=== PATIENT | male | born 1950 | race Caucasian/White ===

== ENCOUNTER 2019-03-27 16:20 | Inpatient (IN) ==
[2019-03-27] MEDS ORDERED: ADENOSINE IV SOLN 3 MG/ML 2 ML VIAL IV STA ×2 (16:24→17:14)
[2019-03-27] MEDS ORDERED: SODIUM CHLORIDE 0.9% 1000ML 1,000 ML IV ONE ×3 (16:24→16:44)
[2019-03-27] MEDS ORDERED: MAGNESIUM SULFATE / D5W 1 GM/100 ML BAG IV ONE (16:27)
[2019-03-27] MEDS ORDERED: LEVALBUTEROL HCL 1.25 MG/3 ML NEB NEB STA (16:27)
[2019-03-27] MEDS ORDERED: DAPTOmycin 525 MG in SYRINGE 0 ML IV ONE (16:44)
[2019-03-27] MEDS ORDERED: METOCLOPRAMIDE HCL INJ 5 MG/ML 2 ML VIAL IV STA (16:44)
[2019-03-27] MEDS ORDERED: POTASSIUM CHLORIDE 10 MEQ TABCR PO STA (16:44)
[2019-03-27] MEDS ORDERED: PIPERACILLIN/TAZOBACTAM 4.5 GM/120 ML BAG IV ONE (16:44)
[2019-03-27] MEDS ORDERED: LEVOFLOXACIN/D5W 750 MG/150 ML BAG IV STA (16:48)
[2019-03-27] MEDS ORDERED: AZTREONAM 2,000 MG in DEXTROSE 5% 100 ML IV STA (16:48)
[2019-03-27 16:58] LABS: iSTAT Creatinine 1.3 mg/dl (0.6-1.3); iSTAT Hemoglobin 14.3 g/dl (14.0-18.0); iSTAT Ionized Calcium 0.98 mmol/l (1.12-1.32); iSTAT Potassium 3.4 mEq/L (3.3-5.0)
[2019-03-27] MEDS ORDERED: FUROSEMIDE 40 MG/4 ML VIAL IV STA (17:00)
[2019-03-27] MEDS: POTASSIUM CHLORIDE / WTR 10 MEQ/100 ML PLCT IV SCH ×2 (17:01→18:15)
[2019-03-27] MEDS ORDERED: NITROGLYCERIN 2% OINTMENT 30GM TUBE EXT STA (17:02)
--- NOTE | 2019-03-27 17:14 | XRay Report ---
XR chest 1V portable CLINICAL HISTORY: 68 years-old Male presenting with Sepsis. TECHNIQUE: Portable upright AP view of the chest was obtained. COMPARISON: 07/02/2015. FINDINGS: Atherosclerosis of the aortic arch. Cardiac silhouette normal in size. Patchy opacities predominately in the right mid and upper lung and left mid to lower lung. No large effusion or pneumothorax. Degen erative changes of the thoracic spine. IMPRESSION: 1. Multifocal pneumonia predominantly involving the right mid to upper lung and left mid to lower hubert ng. Electronically signed by: Bharat Mir M.D. 03/27/2019 5:13 PM
[2019-03-27 17:27] LABS: Base Excess ABG -3.3 mEq/L (-9-1.8); HCO3 ABG 18 mmol/L (19-24); Oxygen Saturation ABG 87.1 % (90-95); PCO2 ABG 24 mmHg (35-46); PO2 ABG 52 mm/Hg (80-95); pH ABG 7.49 (7.35-7.45)
[2019-03-27 17:35] LABS: Allen Test Pos (Pos)
[2019-03-27 17:38] LABS: INR 1.3 (0.9-1.1); Partial Thromboplastin Ratio 1.1; Partial Thromboplastin Time 29.3 Seconds (21.0-31.0); Prothrombin Time 13.5 Seconds (9.0-12.0)
[2019-03-27 17:41] LABS: Albumin Level 1.8 gm/dl (3.4-5.0); BUN Creatinine Ratio 15.5 (10-20); Calcium 8.8 mg/dl (8.5-10.1); Creatinine Clr Calc Pharmacy 68.9 ml/min; Est GFR (African American) 57.4; Est GFR (Non-African American) 49.5; Potassium 3.2 mmol/L (3.5-5.1)
[2019-03-27 17:43] LABS: Appearance Urine Cloudy (Clear); Bacteria Urine Automated 1+ (Negative); Blood Urine 1+ (Negative); Color Urine Dark Yellow; Epithelial Cell Urine Auto 0-5 /lpf (0-5); Glucose Urine UA Negative (Negative); Ketones Urine Trace (Negative); Leukocyte Esterase Urine 2+ (Negative); Nitrite Urine Negative (Negative); Protein Urine Trace (Negative); Specific Gravity Urine 1.025 (1.000-1.030); Urobilinogen Urine Negative (Negative); WBC Urine Automated >30 /hpf (0-5); pH Urine 5.5 (4.5-7.5)
[2019-03-27 17:58] LABS: Bilirubin Urine 1+ (Negative)
[2019-03-27 18:00] LABS: Appearance Urine Cloudy (Clear); Bacteria Urine Automated 1+ (Negative); Blood Urine 2+ (Negative); Color Urine Dark Yellow; Epithelial Cell Urine Auto 0-5 /lpf (0-5); Glucose Urine UA Negative (Negative); Ketones Urine Trace (Negative); Leukocyte Esterase Urine 2+ (Negative); Nitrite Urine Negative (Negative); Protein Urine Trace (Negative); Specific Gravity Urine 1.025 (1.000-1.030); Urobilinogen Urine Negative (Negative); WBC Urine Automated >30 /hpf (0-5); pH Urine 5.5 (4.5-7.5)
[2019-03-27 18:09] LABS: Albumin Globulin Ratio 0.4 (0.9-2); Bilirubin,Total 0.5 mg/dl (0.2-1); Creatine Kinase MB 20.6 ng/ml (0.5-3.6); Globulin 4.1 gm/dl (2.5-4.0); Total Protein 5.9 gm/dl (6.4-8.2); Troponin I 0.105 ng/ml (0-0.045)
[2019-03-27 18:12] LABS: Bilirubin Urine Negative (Negative); Ictotest Urine Negative (Negative)
[2019-03-27 18:13] LABS: Cast Urine Automated 0 /lpf (0-5); RBC Urine Automated 0-4 /hpf (0-4)
[2019-03-27 18:25] LABS: Hematocrit (blood only) 38.8 % (42-52); Mean Corpuscular Hgb Conc 36.1 g/dL (32-36); Mean Corpuscular Volume 95.1 fL (80-100); Mean Platelet Volume 11.3 fL (7.4-10.4); Platelet Count 348 K/uL (130-400); RDW Coefficient of Variation 14.2 % (11.5-14.5); RDW Standard Deviation 49.4 fL (36.4-46.3); Red Blood Count 4.08 M/uL (4.7-6.1); White Blood Count 23.83 K/uL (4.8-10.8)
[2019-03-27 18:42] LABS: Amphetamines+Metham, Urine Neg (Neg); Barbiturates, Urine Neg (Neg); Benzodiazepine, Urine Neg (Neg); Cocaine, Urine Neg (Neg); MDMA (Ecstacy), Urine Neg (Neg); Methadone, Urine Neg (Neg); Opiate, Urine Neg (Neg); Phencyclidine, Urine Pos (Neg)
[2019-03-27 18:49] LABS: Basophils # (auto) 0.02 K/uL (0-0.2); Basophils % (auto) 0.1 %; Eosinophils # (auto) 0.01 K/uL (0-0.5); Immature Granulocytes # (auto) 0.17 K/uL (0.00-0.02); Immature Granulocytes % (auto) 0.7 %; Lymphocytes # (auto) 1.96 K/uL (1.2-3.4); Lymphocytes % (auto) 8.2 %; Monocytes # (auto) 0.98 K/uL (0.11-0.59); Monocytes % (auto) 4.1 %; Neutrophils # (auto) 20.69 K/uL (1.4-6.5); Neutrophils % (auto) 86.9 %; Toxic Vacuolation 1+
[2019-03-27] MEDS ORDERED: LORazepam 1 MG/2 ML VIAL IV PRN (18:52)
[2019-03-27] MEDS ORDERED: ICU PROTOCOL FOR HYPERGLYCEMIA PRN (18:52)
[2019-03-27] MEDS ORDERED: THIAMINE HCL 100 MG TAB PO STA (18:52)
[2019-03-27] MEDS ORDERED: FUROSEMIDE 40 MG/4 ML VIAL IV SCH (18:52)
[2019-03-27] MEDS ORDERED: FOLIC ACID 1 MG TAB PO SCH (18:52)
--- NOTE | 2019-03-27 18:56 | History & Physical Report ---
Date of Service March 27, 2019 Assessment & Plan (1) Respiratory failure: (2) Acute CHF: (3) Non-ischemic cardiomyopathy: -admit to ICU -patient presenting from home with reports of worsening shortness of breath, cough, and weakness for the past 3 days -in the ED, patient found to be in respiratory distress requiring application of BiPap -on exam, patient has extensive pitting edema extending up to the thighs -history of non-ischrmic cardiomyopathy; echo 2014, EF 45-50% -Lasix 40mg IV q8h -previously was taking carvedilol however discontinued due to side effects; will hold lisinopril for now due to borderline low BPs -update echo -cardiology consult, input appreciated (4) SIRS (systemic inflammatory response syndrome): -Meets SIRS criteria with WBC 23K, tachycardia, tachypnea, lactic acid elevation at 4.5 -Possible sepsis due to pneumonia and/or UTI -will place empirically on IV ceftriaxone and IV doxycycline -follow cultures -Trend lactic acid -Stress/hypoperfusion from severe CHF likely contributing to findings of SIRS criteria as well (5) Atrial fibrillation with RVR: -In the ED, received 2 doses of IV adenosine -IV amiodarone and IV heparin ordered by fire supervisor (6) Elevated LFTs: -likely shock liver due to volume overload/possible sepsis -history of ETOH abuse as well -monitor LFTs -no abdominal pain -consider RUQ US (7) Diarrhea: -check for C. Diff (8) Alcohol abuse: -reports 2 drinks/day, suspect use is higher -ETOH withdrawal protocol -thiamine, multivitamin, folic acid (9) Elevated CK: -CK 3688 -likely due to hypoperfusion -monitor serial CK levels -creat mildly bumped at 1.4 (10) CLINT (acute kidney injury): -creat 1.4 -baseline ~ 0.9 -likely prerenal in nature due to hypoperfusion, acute illness -follow renal functions (11) Elevated troponin: -mildly elevated, no reports of chest pain -likely demand ischemia -EKG shows ST depression in the lateral leads, likely due to tachycardia -serial cardiac enzymes (12) Hypokalemia: -replace, follow Mg+ levels (13) COPD (chronic obstructive pulmonary disease): -nebs -continue home inhalers (14) Hypertension: -BP borderline low, holding lisinopril for now (15) HLD (hyperlipidemia): -hold statin due to elevated LFTs (16) GERD (gastroesophageal reflux disease): -continue PPI (17) DVT prophylaxis: -heparin gtt History of Present Illness Chief Complaint: Shortness of breath, generalized weakness Primary Care Provider: Ravindra Maldonado DO 68-year-old male who presents the ED with shortness of breath and generalized weakness.Patient reports over the past 3 to 4 days, he has been very weak and unable to climb his stairs at home. He reports progressive worsening shortness of breath. He has had a cough productive for white sputum. He has had a few falls over the past few days. He denies chest pain. No lightheadedness, dizziness, diaphoresis, syncopal event. He notes increasing lower extremity edema over the past 1 month. He denies fevers and chills. He has had diarrhea and denies abdominal pain, nausea, vomiting, bright red bleeding per rectum, dark tarry stools.No urinary symptoms. In the ED, patient was found to be in respiratory distress and hypoxic. He was placed on BiPAP. He was tachycardic with heart rate in the 140s, BP somewhat low however stable. Labs show several abnormalities including WBC 23K, Na+ 131, K+ 3.2, creatinine 1.4, lactic acid 4.5, elevated LFTs, troponin 0.105, proBNP 4219, procalcitonin 7.35. Patient was given IVF, potassium replacement, IV Zosyn, topical nitroglycerin, IV Reglan, IV magnesium, IV Levaquin, nebulizer treatment, furosemide 40 mg IV, IV daptomycin, IV aztreonam, 2 doses of IV adenosine. Allergies Allergy/AdvReac Type Severity Reaction Status Date / Time amoxicillin Allergy Intermediate HIVES Verified 04/17/13 15:53 Home Medications Home Medications Medication Instructions Recorded Confirmed Type acetaminophen-codeine 1 tab PO TID PRN 03/27/19 03/27/19 History albuterol sulfate [Ventolin HFA] 2 inh INHALATION QID PRN 03/27/19 03/27/19 History aspirin 81 mg PO DAILY 03/27/19 03/27/19 History atorvastatin 40 mg PO DAILY 03/27/19 03/27/19 History azithromycin See Rx Instructions .ROUTE 03/27/19 03/27/19 History .COMPLEX PRN escitalopram oxalate 20 mg PO DAILY 03/27/19 03/27/19 History fluticasone furoate-vilanterol 1 inh INHALATION DAILY 03/27/19 03/27/19 History [Breo Ellipta] lorazepam 1 mg PO TID PRN 03/27/19 03/27/19 History meclizine 12.5 mg PO BID PRN 03/27/19 03/27/19 History multivitamin 1 tab PO DAILY 03/27/19 03/27/19 History omeprazole 20 mg PO BID 03/27/19 03/27/19 History potassium chloride [Klor-Con M10] 20 meq PO BID 03/27/19 03/27/19 History Past Med/Surg History Medical History Alcohol abuse (Chronic) GERD (gastroesophageal reflux disease) (Chronic) Non-ischemic cardiomyopathy (Chronic) echo 2015 - EF 45-50% HLD (hyperlipidemia) (Chronic) COPD (chronic obstructive pulmonary disease) (Chronic) Hypertension (Chronic) Surgical History History of cardiac cath (Chronic) 2012 - normal coronaries Family History Father Alcoholism Mother Alcoholism Social History Feels Safe at Home: Yes Smoking Status: Current every day smoker Hx Alcohol Use: Yes Alcohol type: hard liquor Alcohol Intake Frequency Comment: 2 shots / night Review of Systems Review of Systems: ROS per HPI, all other systems reviewed and negative Physical Exam Constitutional: WD/WN, vitals as above Eyes: PERRL, conjunctivae normal, anicteric sclerae ENMT: external ear and nose normal, oropharynx normal Respiratory: normal respiratory effort; no respiratory distress Auscultation: + diminished lung sounds and + crackles (bilateral) tolerating BiPap well Cardiovascular: Rate/Rhythm: + tachycardic and + irregularly irregular Vessels: normal peripheral pulses Extremities: + edema (+3 pitting edema extending up to the thighs) Gastrointestinal (Abdomen): normal bowel sounds, soft, nontender, no hepatosplenomegaly Musculoskeletal: no cyanosis or clubbing, extremities motor strength 5/5 Skin: no rashes, warm and dry Neurologic: PERRL, EOMI, accommodation nl, no face palsy, no dysarthria Psychiatric: A+Ox3, euthymic affect Results & Data Vital Signs (Past 12 Hours) Vital Signs Temp Pulse Resp BP Pulse Ox 03/27/19 18:11 144 H 19 96 03/27/19 18:10 130 H 17 110/64 98 03/27/19 18:05 125 H 24 115/63 98 03/27/19 18:01 152 H 19 100 03/27/19 18:00 140 H 20 104/66 96 03/27/19 17:55 140 H 19 105/67 93 03/27/19 17:51 131 H 19 96 03/27/19 17:50 119 H 20 101/64 99 03/27/19 17:45 132 H 19 109/46 L 92 03/27/19 17:41 149 H 26 H 90 03/27/19 17:40 140 H 26 H 98 03/27/19 17:35 132 H 28 H 120/70 100 03/27/19 17:31 137 H 24 100 03/27/19 17:30 107 H 24 95/59 L 100 03/27/19 17:26 145 H 20 100 03/27/19 17:25 131 H 22 104/55 L 100 03/27/19 17:21 135 H 28 H 100 03/27/19 17:20 127 H 21 103/56 L 100 03/27/19 17:15 130 H 19 117/65 100 03/27/19 17:11 144 H 19 117/58 L 100 03/27/19 17:10 143 H 19 100 03/27/19 17:07 132 H 21 124/75 95 03/27/19 17:00 144 H 14 89 L 03/27/19 16:50 132 H 18 83 L 03/27/19 16:47 143 H 22 97 03/27/19 16:41 140 H 29 H 89 L 03/27/19 16:40 37.1 C 156 H 30 H 144/116 H 89 L 03/27/19 16:36 144 H 27 H 101/66 90 Laboratory Results Short CBC 03/27/19 Range/Units 16:37 WBC 23.83 H (4.8-10.8) K/uL Hgb 14.0 (14.0-18.0) g/dL Hct 38.8 L (42-52) % Plt Count 348 (130-400) K/uL BMP 03/27/19 16:37 Sodium 131 L Potassium 3.2 L Chloride 95 L Carbon Dioxide 19 L BUN 22 H Creatinine 1.44 H Glucose 98 Calcium 8.8 Cardiac Enzymes 03/27/19 Range/Units 16:37 Total Creatine Kinase 3688 H (39-308) U/L CK-MB (CK-2) 20.6 H (0.5-3.6) ng/ml Troponin I 0.105 H* (0-0.045) ng/ml Liver Function 03/27/19 Range/Units 16:37 Total Bilirubin 0.5 (0.2-1) mg/dl AST 298 H (15-37) U/L ALT 81 H (12-78) U/L Alkaline Phosphatase 343 H (45-117) U/L Albumin 1.8 L (3.4-5.0) gm/dl Urine 03/27/19 03/27/19 Range/Units 17:00 17:18 Urine Color Dark Yellow Dark Yellow Urine Appearance Cloudy A Cloudy A (Clear) Urine pH 5.5 5.5 (4.5-7.5) Ur Specific [place] 1.025 1.025 (1.000-1.030) Urine Protein Trace H Trace H (Negative) Urine Glucose (UA) Negative Negative (Negative) Diagnostic Findings CXR IMPRESSION: 1. Multifocal pneumonia predominantly involving the right mid to upper lung and left mid to lower lung. Code Status & VTE Plan Code Status Patient is a full code as per my discussion with him. VTE Prophylaxis Plan VTE Prophylaxis will be ordered: Yes Supervising Physician Co-Signing Physician Notes Patient is a 68-year-old male with history of alcohol use disorder, COPD, ongoing tobacco use, cardiomyopathy and other problems presents with history of worsening shortness of breath and generalized weakness since 2 weeks duration. Also reports productive cough, frequent falls worsening lower extremity edema since 1 month, diarrhea. Patient was prescribed azithromycin course for COPD with no resolution of symptoms. Please review HPI for complete details of presentation. On exam patient is chronically sick appearing, mild respiratory distress, normocephalic atraumatic, lungs-decreased breath sounds, clear to auscultation, irregularly irregular rhythm,+ tachycardia, no murmur, abdomen soft nontender, significant bilateral lower extremity edema, grossly no focal neurological deficits. Patient is admitted in ICU for management of acute respiratory failure secondary to CHF exacerbation, A. fib RVR, rhabdomyolysis, metabol ic/lactic acidosis. Possible sepsis. Also to rule out UTI, pneumonia. Patient is started on IV amiodarone, IV heparin GGT. Cardiology consulted. Continue respiratory support with supplemental oxygen, BiPAP PRN. Keep him n.p.o. for now. Continue empiric antibiotics, nebs. IV diuresis. Follow-up cultures. Thiamine and folic acid supplementation to prevent alcohol withdrawal. Monitor for DTs. Stool studies to rule out C. difficile. Trend lactate, CK levels. Counseled to quit smoking, drinking. Appreciate fire supervisor input. I personally reviewed the record. Patient is interviewed and examined at bedside. Patient's care is coordinated with Katherine Lopez SALES ENGAGEMENT EXECUTIVE. Please refer to the documentation above for details of patient's presentation and for discussion of other issues.
[2019-03-27] MEDS ORDERED: AMIODARONE IV BOLUS / DRIP IV STA (19:15)
[2019-03-27] MEDS ORDERED: AMIODARONE / D5W 150 MG/100 ML BAG IV ONE (19:15)
[2019-03-27] MEDS ORDERED: cefTRIAXone SODIUM 2,000 MG in DEXTROSE 5% 50 ML IV ONE (19:30)
--- NOTE | 2019-03-27 19:38 | XRay Report ---
XR chest 1V portable CLINICAL HISTORY: Right subclavian central line. COMPARISON STUDY: Chest CT July 02, 2015. Chest radiograph March 27, 2019 at 4:53 PM FINDINGS: No pneumothorax is noted following placement of a right subclavian central line. Catheter t ip projects over the SVC. Mild cardiomegaly is noted. Patient is rotated. No pleural effusion is iden tified. Interstitial thickening and bilateral opacities have slightly progressed. IMPRESSION: 1. No pneumothorax following placement of a right subclavian central line. 2. Slight progression of extensive bilateral opacities and interstitial thickening which may reflect pneumonia or pulmonary edema. Electronically signed by: Holden Fernandez M.D. 03/27/2019 7:37 PM
[2019-03-27] MEDS: Heparin Adult STANDARD Wt-Based Dextrose 5% 25,000 units/500 mL IV SCH (19:42)
[2019-03-27] MEDS ORDERED: AMIODARONE / D5W 360 MG/200 ML BAG IV SCH (19:45)
[2019-03-27] MEDS ORDERED: HEPARIN IV BOLUS 8,000 UNITS in SYRINGE 0 ML IV ONE (19:45)
[2019-03-27] MEDS ORDERED: LORazepam 0.5 MG/1 ML VIAL IV PRN (19:58)
--- NOTE | 2019-03-27 19:58 | Critical Care Consultation ---
Date of Consultation March 27, 2019 Assessment & Plan (1) Atrial fibrillation with RVR: Impression: 1. Acute respiratory failure, with hypoxia, secondary to decompensated heart failure. Cannot rule out the possibility of noncardiogenic pulmonary edema such as ARDS. 2. A. fib, new onset, with RVR. 3. Congestive heart failure with exacerbation. 4. UTI. 5. Rhabdomyolysis. 6. Cannot rule out superimposed pneumonia. 7. History of COPD, active smoker. 8. History of alcoholism, and DT in the past. Plan: 1. Central line was placed for CVP monitoring. First CVP was 3 and we will monitor the IV fluid and manage it based on the CVP reading. 2. Started on ceftriaxone and doxycycline, appreciate the assistance of Katherine in this case. 3. Amiodarone for rate control. 4. Lopressor as needed. 5. Heparin drip to a full dose. 6. Cultures. 7. GI prophylaxis. 8. BiPAP as needed. 9. I will keep him n.p.o. overnight. 10. Glucose control. 11. The patient claims that he has been having diarrhea, no bowel movement so far yet. 12. Given his COPD, I will start him empirically on steroids. 13. I will hold off on bronchodilators at the moment given his heart rate of 144. 14. Family update. 15. Resume Ativan. 16. I would start phenobarbital if the patient become confused. 17. Thiamine and folic acid. 18. Discussed with the staff in details. Critical care time spent with the patient was 60 minutes excluding procedure time. History of Present Illness Reason for Consultation: Acute respiratory failure Requesting Physician: Dr. Yoder Attending Physician: Otis Campoverde MD History of Present Illness Dear Dr. Yoder: Dear Katherine: Thank you for the kind referral of Mr. Wills to critical care service. This is 68-year-old gentleman with history of COPD, cardiomyopathy, daily alcohol drinking, history of alcohol withdrawal in the past, has been feeling sick for the past 2 weeks, was prescribed a course of azithromycin as an outpatient for feeling sick, the patient started having diarrhea 2 days prior to his arrival. The patient was working on his car and in his yard when he felt extremely short of breath and unable even to walk. The shortness of breath was sudden and he could not even complete sentence. He was brought to the ED where he was found to have significant edema in the lower extremities as well as pulmonary edema on the chest x-ray. The patient was treated accordingly and admitted to the hospital for further management. When I interviewed the patient, he was having shortness of breath but somewhat better than when he presented. He responded to the BiPAP well. He denies any sputum production but he does have occasional cough. No heartburn, he denies any recent episode of nausea or vomiting or aspiration while he was eating. The patient did not have any abdominal pain, no hematemesis or hematochezia, and his abdomen was soft. He does have significant edema 3+. In the lower extremities. He denies any syncopal episode, palpitation, he is not aware of him having A. fib. His past medical history as mentioned above, his medications were reviewed, apparently the patient has been followed in the past by Dr. Perales, but he has not been seen him for the past 3 years. Family history is not contributory, he is active smoker and active drinker. He is a retired teacher. Allergies Allergy/AdvReac Type Severity Reaction Status Date / Time amoxicillin Allergy Intermediate HIVES Verified 04/17/13 15:53 Home Medications Home Medications Medication Instructions Recorded Confirmed Type acetaminophen-codeine 1 tab PO TID PRN 03/27/19 03/27/19 History albuterol sulfate [Ventolin HFA] 2 inh INHALATION QID PRN 03/27/19 03/27/19 History aspirin 81 mg PO DAILY 03/27/19 03/27/19 History atorvastatin 40 mg PO DAILY 03/27/19 03/27/19 History azithromycin See Rx Instructions .ROUTE 03/27/19 03/27/19 History .COMPLEX PRN escitalopram oxalate 20 mg PO DAILY 03/27/19 03/27/19 History fluticasone furoate-vilanterol 1 inh INHALATION DAILY 03/27/19 03/27/19 History [Breo Ellipta] lorazepam 1 mg PO TID PRN 03/27/19 03/27/19 History meclizine 12.5 mg PO BID PRN 03/27/19 03/27/19 History multivitamin 1 tab PO DAILY 03/27/19 03/27/19 History omeprazole 20 mg PO BID 03/27/19 03/27/19 History potassium chloride [Klor-Con M10] 20 meq PO BID 03/27/19 03/27/19 History Patient History Medical History Alcohol abuse (Chronic) GERD (gastroesophageal reflux disease) (Chronic) Non-ischemic cardiomyopathy (Chronic) echo 2015 - EF 45-50% HLD (hyperlipidemia) (Chronic) COPD (chronic obstructive pulmonary disease) (Chronic) Hypertension (Chronic) Surgical History History of cardiac cath (Chronic) 2012 - normal coronaries Family History Father Alcoholism Mother Alcoholism Social History Feels Safe at Home: Yes Smoking Status: Current every day smoker Hx Alcohol Use: Yes Alcohol type: hard liquor Alcohol Intake Frequency Comment: 2 shots / night Review of Systems Review of Systems: Review of system including 14 systems as mentioned above. Physical Exam Physical Exam: Vital signs showed A. fib with RVR, rate of 140 to 170, no fever reported, respiratory rate is 27, O2 saturation 98% on oxygen mask, S1-S2, irregularly irregular, stent breath sounds bilaterally, abdomen soft but benign, edema in the periphery was noted. Neurologically he is answering questions and following commands but very anxious. Appears to be in a very poor body hygiene. No skin rash. Results & Data Vital Signs (Past 12 Hours) Vital Signs Temp Pulse Resp BP Pulse Ox 03/27/19 18:11 144 H 19 96 03/27/19 18:10 130 H 17 110/64 98 03/27/19 18:05 125 H 24 115/63 98 03/27/19 18:01 152 H 19 100 03/27/19 18:00 140 H 20 104/66 96 03/27/19 17:55 140 H 19 105/67 93 03/27/19 17:51 131 H 19 96 03/27/19 17:50 119 H 20 101/64 99 03/27/19 17:45 132 H 19 109/46 L 92 03/27/19 17:41 149 H 26 H 90 03/27/19 17:40 140 H 26 H 98 03/27/19 17:35 132 H 28 H 120/70 100 03/27/19 17:31 137 H 24 100 03/27/19 17:30 107 H 24 95/59 L 100 03/27/19 17:26 145 H 20 100 03/27/19 17:25 131 H 22 104/55 L 100 03/27/19 17:21 135 H 28 H 100 03/27/19 17:20 127 H 21 103/56 L 100 03/27/19 17:15 130 H 19 117/65 100 03/27/19 17:11 144 H 19 117/58 L 100 03/27/19 17:10 143 H 19 100 03/27/19 17:07 132 H 21 124/75 95 03/27/19 17:00 144 H 14 89 L 03/27/19 16:50 132 H 18 83 L 03/27/19 16:47 143 H 22 97 03/27/19 16:41 140 H 29 H 89 L 03/27/19 16:40 37.1 C 156 H 30 H 144/116 H 89 L 03/27/19 16:36 144 H 27 H 101/66 90 Laboratory Results Labs were reviewed which showed leukocytosis, left shift but no bandemia, BUN and creatinine slightly elevated, he is in respiratory alkalosis with metabolic acidosis, he has mild rhabdomyolysis. The rest of his labs are pending. Lactic acid was elevated as well as procalcitonin. BMP also was elevated. Diagnostic Findings Chest x-ray showed pulmonary edema, ARDS versus cardiogenic. I have performed echocardiogram at the bedside which showed tachycardia, hyperdynamic heart, irregular heartbeats, and the IVC was noncompressible with respiration. PG Care Time/CCT Critical Care Time: Yes Total Critical Care Time: 60
[2019-03-27] MEDS: SODIUM CHLORIDE 0.9% 500 ML IV PRN (20:23)
[2019-03-27] MEDS: METOPROLOL TARTRATE 1 MG/ML VIAL IV PRN (20:23)
[2019-03-27] MEDS: FOLIC ACID 1 MG in SYRINGE 9.8 ML IV SCH (20:28)
[2019-03-27] MEDS: MULTIVITAMIN TAB PO SCH (20:30)
[2019-03-27] MEDS: PANTOprazole 40 MG TAB PO SCH (20:31)
[2019-03-27] MEDS: THIAMINE HCL 300 MG in SODIUM CHLORIDE 0.9% 50 ML IV SCH (20:31)
[2019-03-27] MEDS: methylPREDNISolone 40 MG in SYRINGE 0 ML IV SCH (20:41)
[2019-03-27] MEDS: FAMOTIDINE 20 MG in SYRINGE 3 ML IV SCH (20:42)
[2019-03-27] MEDS ORDERED: FAMOTIDINE 20MG/5ML IV PUSH IV SCH (21:00)
[2019-03-27] MEDS ORDERED: DOXYCYCLINE HYCLATE 100 MG in DEXTROSE 5% 100 ML IV SCH (21:00)
[2019-03-27] MEDS ORDERED: OPTIRAY 320 125ml IV PRN (21:37)
--- NOTE | 2019-03-27 21:40 | CT Scan Report ---
CT OF THE HEAD WITHOUT CONTRAST CLINICAL HISTORY: Altered mental status. COMPARISON STUDY: Head CT August 01, 2012. CT DOSE: 614.27 mGy.cm TECHNIQUE: Helical axial images of the head were obtained without IV contrast. Automated exposure con trol was utilized for the study. A dose lowering technique was utilized adhering to the principles o f ALARA. FINDINGS: No acute intracranial hemorrhage, midline shift or mass effect is present. The ventricular system is unremarkable. The basilar cisterns are patent. No extra-axial collections are present. Ther e are no findings to suggest acute dural sinus thrombosis or acute territorial infarct. No significan t calvarial abnormalities are present. Left mastoid air cells are partially opacified. IMPRESSION: 1. No acute intracranial findings. 2. Partially opacified left mastoid air cells. Electronically signed by: Holden Fernandez M.D. 03/27/2019 9:39 PM
--- NOTE | 2019-03-27 21:56 | CT Scan Report ---
CT ANGIOGRAPHY OF THE CHEST, PULMONARY EMBOLUS PROTOCOL CLINICAL HISTORY: Shortness of breath. COMPARISON STUDY: Chest CT July 02, 2015. Chest radiograph performed earlier today. TECHNIQUE: Following IV administration of 115 mL of Optiray-320, helical axial images of the chest we re obtained utilizing the pulmonary embolus protocol. Maximal intensity projections and sagittal and coronal reformats were viewed on an independent 3D workstation. IV contrast was administered withou t complication. Automated exposure control was utilized for the study. A dose lowering technique wa s utilized adhering to the principles of ALARA. CT DOSE: 844.63 mGy.cm FINDINGS: There are multiple small segmental pulmonary emboli within the lungs, including an embolus within a segmental branch within the right middle lobe on image 150 of 341. A small segmental pulmon dona embolus within a right upper lobe pulmonary artery is noted on image 206. A segmental small pulmo nary embolus within the left upper lobe on image 215 is noted. The heart is mildly enlarged. There is no pericardial effusion. There is extensive coronary artery calcification. Central airways are paten t. Note is made of a 6.2 x 4.5 cm thick-walled cavitary focus within the right upper lobe. Moderate a dditional right upper lobe airspace opacity is present. There additional airspace opacities throughou t the lungs. There is moderate emphysema. There is no thoracic lymphadenopathy. Calcified right pleur al plaques are noted. Bony thorax is unremarkable. Upper abdomen is unremarkable. IMPRESSION: 1. Multiple small segmental pulmonary emboli, as described above. 2. 6.2 x 4.5 cm thick-walled cavitary focus within the right upper lobe. A cavitary infectious proces s is favored. A neoplasm could appear similar and therefore a follow up chest CT in one month is abraham mmended. 3. Additional extensive airspace opacities throughout the lungs which favor multifocal pneumonia. Sup erimposed pulmonary edema cannot be excluded. 4. Moderate emphysema. Electronically signed by: Holden Fernandez M.D. 03/27/2019 9:54 PM
[2019-03-27] MEDS ORDERED: HEPARIN SOD 5,000 UNIT/0.5 ML VIAL SQ SCH (22:00)
[2019-03-27 22:53] LABS: Troponin I 0.133 ng/ml (0-0.045)
[2019-03-27] MEDS: BREO ELLIPTA - ORDER AWAITING ACTION SCH (23:07)
[2019-03-28] MEDS ORDERED: FUROSEMIDE 40 MG in SYRINGE 0 ML IV PRN
[2019-03-28] MEDS ORDERED: FUROSEMIDE 40 MG in SYRINGE 0 ML IV SCH
[2019-03-28] MEDS: SODIUM CHLORIDE 0.9% 500 ML IV PRN (00:15)
--- NOTE | 2019-03-28 00:48 | Emergency Department Note ---
Entered by Ted Ward acting as a scribe for Jaden John MD History of Present Illness General Chief complaint: Shortness of Breath/Dyspnea Stated complaint: SOB Time Seen by Provider: 03/27/19 16:22 Source: patient and EMS (electrical inspector) History of Present Illness Onset (ago): day(s) (couple) Location: chest (weakness) Pain Consistency: + other (worsening) Relieved By: + none Associated symptoms: + denies other symptoms (abdominal pain), + cough, + shortness of breath and + other (leg swelling); no fever/chills The patient is a 68 year old M who presents to the Emergency Room with complaints of worsening weakness that started a couple of days ago. The majority of the HPI was provided by EMS. The electrical inspector states that the patient has a history of COPD. The electrical inspector notes that the patient states that he has been experiencing weakness for the past couple of days. The electrical inspector adds that the patient called 911 today because he was too weak to stand up so he slumped to the ground. The electrical inspector states that the patient is usually on 4 L of oxygen at home. The electrical inspector adds that the patient has not eaten or drank fluids in a while. The electrical inspector notes that the patient is experiencing tachycardia with a heart rate in the range of 120-190 bpm. The patient notes that he was drinking last night. The patient states that he is currently experiencing shortness of breath, leg swelling, and coughing. The patient denies experiencing abdominal pain and fevers. The patient also denies receiving a breathing treatment in the past. Home Medications Home Medications Medication Instructions Recorded Confirmed Type acetaminophen-codeine 1 tab PO TID PRN 03/27/19 03/27/19 History albuterol sulfate [Ventolin HFA] 2 inh INHALATION QID PRN 03/27/19 03/27/19 History aspirin 81 mg PO DAILY 03/27/19 03/27/19 History atorvastatin 40 mg PO DAILY 03/27/19 03/27/19 History azithromycin See Rx Instructions .ROUTE 03/27/19 03/27/19 History .COMPLEX PRN escitalopram oxalate 20 mg PO DAILY 03/27/19 03/27/19 History fluticasone furoate-vilanterol 1 inh INHALATION DAILY 03/27/19 03/27/19 History [Breo Ellipta] lorazepam 1 mg PO TID PRN 03/27/19 03/27/19 History meclizine 12.5 mg PO BID PRN 03/27/19 03/27/19 History multivitamin 1 tab PO DAILY 03/27/19 03/27/19 History omeprazole 20 mg PO BID 03/27/19 03/27/19 History potassium chloride [Klor-Con M10] 20 meq PO BID 03/27/19 03/27/19 History Allergies Allergy/AdvReac Type Severity Reaction Status Date / Time amoxicillin Allergy Intermediate HIVES Verified 04/17/13 15:53 Past Med/Surg History Medical History Alcohol abuse (Chronic) GERD (gastroesophageal reflux disease) (Chronic) Non-ischemic cardiomyopathy (Chronic) echo 2015 - EF 45-50% HLD (hyperlipidemia) (Chronic) COPD (chronic obstructive pulmonary disease) (Chronic) Hypertension (Chronic) Surgical History History of cardiac cath (Chronic) 2012 - normal coronaries Family History Father Alcoholism Mother Alcoholism Social History Preferred Language: Slovenian 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 and A total of 10 systems reviewed and were otherwise negative Physical Exam Vital Signs Vital Signs - 24 hr 03/27/19 16:36 03/27/19 16:40 03/27/19 16:41 Temperature 37.1 C Temperature Source Oral Sepsis Recent Fever Within 48 Hours No Sepsis Action Taken by Nursing No Action Required Pulse Rate 144 H 156 H 140 H Pulse Rate from SpO2 Sensor 144 H 141 H Respiratory Rate 27 H 30 H 29 H Respiratory Effort / Characteristics Short of Breath Respiratory Depth Shallow Respiratory Pattern Tachypnea Blood Pressure 101/66 144/116 H Blood Pressure Mean 77 125 Pulse Oximetry 90 89 L 89 L Oxygen Delivery Method Nasal Cannula Oxygen Flow Rate 6 Fraction of Inspired Oxygen 03/27/19 16:47 03/27/19 16:50 03/27/19 17:00 Temperature Temperature Source Sepsis Recent Fever Within 48 Hours Sepsis Action Taken by Nursing Pulse Rate 143 H 132 H 144 H Pulse Rate from SpO2 Sensor 197 H 155 H Respiratory Rate 22 18 14 Respiratory Effort / Characteristics Non-Labored Spontaneous Respiratory Depth Normal Respiratory Pattern Regular Blood Pressure Blood Pressure Mean Pulse Oximetry 97 83 L 89 L Oxygen Delivery Method BiPAP Oxygen Flow Rate Fraction of Inspired Oxygen 100 03/27/19 17:07 03/27/19 17:10 03/27/19 17:11 Temperature Temperature Source Sepsis Recent Fever Within 48 Hours Sepsis Action Taken by Nursing Pulse Rate 132 H 143 H 144 H Pulse Rate from SpO2 Sensor 128 H 121 H 139 H Respiratory Rate 21 19 19 Respiratory Effort / Characteristics Respiratory Depth Respiratory Pattern Blood Pressure 124/75 117/58 L Blood Pressure Mean 91 77 Pulse Oximetry 95 100 100 Oxygen Delivery Method Oxygen Flow Rate Fraction of Inspired Oxygen GENERAL: Awake, alert, covered in dirt, in acute distress HENT: Normocephalic, atraumatic. Oropharynx unremarkable. EYES: Normal conjunctiva. Sclera non-icteric. NECK: Supple. No nuchal rigidity. FROM. No JVD. RESPIRATORY: Clear to auscultation. CARDIAC: Regular rate, normal rhythm. Extremities warm and well perfused. Pulses equal. ABDOMEN: Soft, non-distended. No tenderness to palpation. No rebound or guarding. No masses. RECTAL: Deferred. MUSCULOSKELETAL: Chest examination reveals no tenderness. The back is symmetrical on inspection without obvious abnormality. There is no CVA tenderness to palpation. No joint edema. LOWER EXTREMITIES: Calves are equal size bilaterally and non-tender. 2+ pitting edema. No discoloration. NEURO: Normal sensorium. No sensory or motor deficits noted. SKIN: No rash or jaundice noted. Course 162:The patient was evaluated in room C11B. A complete history and physical exam was performed. 1653: I reviewed the patient's case with Dr. Brownlee, interior decorator [employer] [place]. 1707: I reviewed the patient's case with Dr. Katherine Lopez PA-C and Dr. Campoverde, [facility] Hospitalist. They will evaluate the patient for further management. Consultations Consultation #1: I reviewed the patient's case with Dr. Brownlee, interior decorator [employer] [place], [place]. Time: 16:53 Consultation #2: I reviewed the patient's case with Dr. Katherine Lopez PA-C and Dr. Campoverde, [facility] Hospitalist. They will evaluate the patient for further management. Time: 17:07 Administered Medications Aspirin (Ecotrin Ectab) 81 mg PO DAILY [facility] Stop: 04/27/19 08:59 Last Admin: 03/28/19 08:01 Dose: 81 mg Documented by: [id number] Escitalopram Oxalate (Lexapro) 20 mg PO DAILY LE Stop: 04/27/19 08:59 Last Admin: 03/28/19 07:59 Dose: 20 mg Documented by: [id number] Amiodarone HCl/Dextrose (Nexterone / D5w) 360 mg in 200 mls @ 16.667 mls/hr IV .Q12H LE Stop: 04/27/19 01:44 Last Admin: 03/28/19 23:50 Dose: 0.5 mg/min, 16.7 mls/hr Documented by: [id number] Cosigned by: [id number] Infusion: 03/28/19 23:50 Dose: 0.5 mg/min, 16.7 mls/hr Documented by: [id number] Cosigned by: [id number] Admin: 03/28/19 13:10 Dose: 0.5 mg/min, 16.7 mls/hr Documented by: [id number] Cosigned by: [id number] Infusion: 03/28/19 13:10 Dose: 0.5 mg/min, 16.7 mls/hr Documented by: [id number] Cosigned by: [id number] Infusion: 03/28/19 06:59 Dose: 0.5 mg/min, 16.7 mls/hr Documented by: [id number] Cosigned by: [id number] Admin: 03/28/19 01:23 Dose: 0.5 mg/min, 16.7 mls/hr Documented by: [id number] Cosigned by: [id number] Heparin Sodium/Dextrose (Heparin Sodium/Dextrose) 25,000 units in 500 mls @ 22 mls/hr IV .[id number] LE; Protocol Stop: 04/26/19 19:44 Last Titration: 03/28/19 23:34 Dose: 1,100 units/hr, 22 mls/hr Documented by: [id number] Cosigned by: [id number] Titration: 03/28/19 23:02 Dose: 0 units/hr, 0 mls/hr Documented by: [id number] Cosigned by: [id number] Titration: 03/28/19 18:59 Dose: 1,300 units/hr, 26 mls/hr Documented by: [id number] Cosigned by: [id number] Titration: 03/28/19 16:36 Dose: 1,300 units/hr, 26 mls/hr Documented by: [id number] Cosigned by: [id number] Titration: 03/28/19 13:48 Dose: 0 units/hr, 0 mls/hr Documented by: [id number] Cosigned by: [id number] Admin: 03/28/19 13:45 Dose: 1,500 units/hr, 30 mls/hr Documented by: [id number] Cosigned by: [id number] Titration: 03/28/19 13:19 Dose: 1,500 units/hr, 30 mls/hr Documented by: [id number] Cosigned by: [id number] Titration: 03/28/19 06:59 Dose: 1,500 units/hr, 30 mls/hr Documented by: [id number] Cosigned by: [id number] Titration: 03/28/19 06:30 Dose: 1,500 units/hr, 30 mls/hr Documented by: [id number] Cosigned by: [id number] Titration: 03/28/19 03:55 Dose: 0 units/hr, 0 mls/hr Documented by: [id number] Cosigned by: [id number] Titration: 03/27/19 23:08 Dose: 1,800 units/hr, 36 mls/hr Documented by: [id number] Cosigned by: [id number] Admin: 03/27/19 19:42 Dose: 1,800 units/hr, 36 mls/hr Documented by: [id number] Cosigned by: [id number] Folic Acid 1 mg/ Syringe 10 mls @ 5 mls/min IV QAM LE Stop: 04/26/19 19:59 Last Admin: 03/28/19 07:59 Dose: 5 mls/min Documented by: [id number] Admin: 03/27/19 20:28 Dose: 5 mls/min Documented by: [id number] Lorazepam (Ativan) 0.5 mg in 1 mls @ 1 mls/min IV Q4H PRN PRN Reason: Agitation Stop: 04/26/19 19:57 Last Admin: 03/27/19 20:24 Dose: 1 mls/min Documented by: [id number] Thiamine HCl 300 mg/ Sodium (Chloride) 53 mls @ 208 mls/hr IV DAILY LE Stop: 04/26/19 19:59 Last Infusion: 03/28/19 09:08 Dose: 0 mls/hr Documented by: [id number] Admin: 03/28/19 08:50 Dose: 208 mls/hr Documented by: [id number] Infusion: 03/27/19 20:47 Dose: 0 mls/hr Documented by: [id number] Admin: 03/27/19 20:31 Dose: 208 mls/hr Documented by: [id number] Sodium Chloride (Nss) 500 mls @ 999 mls/hr IV .Q31M PRN PRN Reason: cvp<5 Stop: 04/26/19 20:02 Last Infusion: 03/28/19 01:00 Dose: 0 mls/hr Documented by: [id number] Admin: 03/28/19 00:15 Dose: 999 mls/hr Documented by: [id number] Infusion: 03/27/19 20:54 Dose: 0 mls/hr Documented by: [id number] Admin: 03/27/19 20:23 Dose: 999 mls/hr Documented by: [id number] Famotidine 20 mg/ Syringe 5 mls @ 2.5 mls/min IV HS LE Stop: 04/26/19 20:59 Last Admin: 03/28/19 20:29 Dose: 2.5 mls/min Documented by: [id number] Admin: 03/27/19 20:42 Dose: 2.5 mls/min Documented by: [id number] Piperacillin Sod/Tazobactam (Sod 4.5 gm/ Dextrose) 120 mls @ 30 mls/hr IV Q8H LE; Protocol Stop: 04/04/19 15:59 Last Infusion: 03/29/19 03:50 Dose: 0 mls/hr Documented by: [id number] Admin: 03/28/19 23:36 Dose: 30 mls/hr Documented by: [id number] Infusion: 03/28/19 20:30 Dose: 0 mls/hr Documented by: [id number] Admin: 03/28/19 16:00 Dose: 30 mls/hr Documented by: [id number] Methylprednisolone 40 mg/ (Syringe) 0.64 mls @ 1.5 mls/min IV Q12H [facility] Stop: 04/27/19 11:59 Last Admin: 03/28/19 23:40 Dose: 1.5 mls/min Documented by: [id number] Admin: 03/28/19 12:36 Dose: 1.5 mls/min Documented by: [id number] Sodium Chloride (Nss 1000ml) 1,000 mls @ 100 mls/hr IV .Q10H [facility] Stop: 04/27/19 17:59 Last Admin: 03/29/19 03:51 Dose: 100 mls/hr Documented by: [id number] Infusion: 03/29/19 03:51 Dose: 100 mls/hr Documented by: [id number] Admin: 03/28/19 18:11 Dose: 100 mls/hr Documented by: [id number] Ioversol (Optiray 320 125ml) 115 ml IV ONCE PRN PRN Reason: Interaction Checking Stop: 03/31/19 21:36 Last Admin: 03/27/19 21:37 Dose: 1 ml Documented by: [id number] Metoprolol Succinate (Toprol Xl) 50 mg PO BID [facility] Stop: 04/27/19 20:59 Last Admin: 03/28/19 20:29 Dose: 50 mg Documented by: [id number] Miscellaneous (Order Awaiting Action) 1 ea N/A QS [facility] Stop: 04/27/19 00:00 Last Admin: 03/29/19 00:12 Dose: Not Given Documented by: [id number] Admin: 03/28/19 16:01 Dose: 1 ea Documented by: [id number] Admin: 03/28/19 11:40 Dose: 1 ea Documented by: [id number] Admin: 03/27/19 23:07 Dose: Not Given Documented by: [id number] Multivitamins (Multivitamin Tab) 1 tab PO DAILY [facility] Stop: 04/26/19 18:51 Last Admin: 03/28/19 07:59 Dose: 1 tab Documented by: [id number] Admin: 03/27/19 20:30 Dose: 1 tab Documented by: [id number] Nitroglycerin (Nitro-Bid 2%) 0.5 inch EXT Q6H LE Stop: 04/27/19 17:44 Last Admin: 03/29/19 05:46 Dose: 0.5 inch Documented by: [id number] Admin: 03/28/19 23:40 Dose: 0.5 inch Documented by: [id number] Admin: 03/28/19 18:11 Dose: 0.5 inch Documented by: [id number] Discontinued Medications Adenosine (Adenosine) 12 mg IV NOW STA Stop: 03/27/19 16:25 Last Admin: 03/27/19 16:33 Dose: 12 mg Documented by: [id number] Adenosine (Adenosine) 6 mg IV NOW STA Stop: 03/27/19 17:15 Last Admin: 03/27/19 16:31 Dose: 6 mg Documented by: [id number] Furosemide (Lasix) 40 mg IV NOW STA Stop: 03/27/19 17:01 Last Admin: 03/27/19 17:04 Dose: 40 mg Documented by: [id number] Sodium Chloride (Nss 1000ml) 1,000 mls @ 999 mls/hr IV .Q1H1M ONE Stop: 03/27/19 17:24 Last Infusion: 03/28/19 05:04 Dose: 0 mls/hr Documented by: [id number] Infusion: 03/27/19 18:55 Dose: 0 mls/hr Documented by: [id number] Infusion: 03/27/19 17:02 Dose: 0 mls/hr Documented by: [id number] Admin: 03/27/19 16:52 Dose: 999 mls/hr Documented by: [id number] Magnesium Sulfate/Dextrose (Magnesium Sulfate / D5w) 1 gm in 100 mls @ 100 mls/hr IV ONE ONE Stop: 03/27/19 17:26 Last Infusion: 03/27/19 18:09 Dose: 0 mls/hr Documented by: [id number] Admin: 03/27/19 17:01 Dose: 100 mls/hr Documented by: [id number] Sodium Chloride (Nss 1000ml) 1,000 mls @ 999 mls/hr IV .Q1H1M ONE Stop: 03/27/19 17:41 Last Infusion: 03/27/19 18:55 Dose: 0 mls/hr Documented by: [id number] Infusion: 03/27/19 17:02 Dose: 0 mls/hr Documented by: [id number] Admin: 03/27/19 16:53 Dose: 999 mls/hr Documented by: [id number] Piperacillin Sod/Tazobactam Sod (Zosyn) 4.5 gm in 120 mls @ 240 mls/hr IV NOW ONE Stop: 03/27/19 17:13 Last Infusion: 03/27/19 18:15 Dose: 0 mls/hr Documented by: [id number] Admin: 03/27/19 16:53 Dose: 240 mls/hr Documented by: [id number] Daptomycin 525 mg/ Syringe 10.5 mls @ 5.25 mls/min IV NOW ONE; Protocol Stop: 03/27/19 16:45 Last Admin: 03/27/19 17:12 Dose: 5.25 mls/min Documented by: [id number] Levofloxacin/Dextrose (Levaquin/D5w) 750 mg in 150 mls @ 100 mls/hr IV NOW STA Stop: 03/27/19 18:17 Last Infusion: 03/27/19 18:54 Dose: 0 mls/hr Documented by: [id number] Admin: 03/27/19 17:10 Dose: 100 mls/hr Documented by: [id number] Aztreonam 2,000 mg/ Dextrose 110 mls @ 100 mls/hr IV NOW STA; Protocol Stop: 03/27/19 17:53 Last Infusion: 03/27/19 18:54 Dose: 0 mls/hr Documented by: [id number] Admin: 03/27/19 17:10 Dose: 100 mls/hr Documented by: [id number] Sodium Chloride (Nss 1000ml) 1,000 mls @ 999 mls/hr IV .Q1H1M ONE Stop: 03/27/19 17:44 Last Admin: 03/27/19 17:05 Dose: Not Given Documented by: [id number] Potassium Chloride (K Zurdo / Wtr) 10 meq in 100 mls @ 100 mls/hr IV Q1H LE Stop: 03/27/19 18:59 Last Infusion: 03/27/19 19:15 Dose: 0 mls/hr Documented by: [id number] Admin: 03/27/19 18:15 Dose: 100 mls/hr Documented by: [id number] Infusion: 03/27/19 18:01 Dose: 100 mls/hr Documented by: [id number] Admin: 03/27/19 17:01 Dose: 100 mls/hr Documented by: [id number] Amiodarone HCl/Dextrose (Nexterone / D5w) 360 mg in 200 mls @ 33.333 mls/hr IV .Q6H LE Stop: 03/28/19 01:44 Last Infusion: 03/28/19 01:25 Dose: 0 mg/min, 0 mls/hr Documented by: [id number] Cosigned by: [id number] Infusion: 03/27/19 23:08 Dose: 1 mg/min, 33.3 mls/hr Documented by: [id number] Cosigned by: [id number] Admin: 03/27/19 19:41 Dose: 1 mg/min, 33.3 mls/hr Documented by: [id number] Cosigned by: [id number] Doxycycline Hyclate 100 mg/ (Dextrose) 110 mls @ 50 mls/hr IV BID LE Stop: 04/03/19 20:59 Last Infusion: 03/28/19 00:40 Dose: 0 mls/hr Documented by: [id number] Admin: 03/27/19 22:17 Dose: 50 mls/hr Documented by: [id number] Ceftriaxone Sodium 2,000 mg/ (Dextrose) 70 mls @ 140 mls/hr IV ONE ONE Stop: 03/27/19 19:59 Last Infusion: 03/27/19 20:14 Dose: 0 mls/hr Documented by: [id number] Admin: 03/27/19 19:44 Dose: 140 mls/hr Documented by: [id number] Heparin Sodium (Porcine) 8,000 (units/ Syringe) 8 mls @ 10 mls/min IV NOW ONE Stop: 03/27/19 19:46 Last Admin: 03/27/19 19:43 Dose: 10 mls/min Documented by: [id number] Cosigned by: [id number] Amiodarone HCl/Dextrose (Nexterone / D5w) 150 mg in 100 mls @ 600 mls/hr IV ONE ONE Stop: 03/27/19 19:24 Last Infusion: 03/27/19 19:11 Dose: 0 mls/hr Documented by: [id number] Cosigned by: [id number] Admin: 03/27/19 19:00 Dose: 600 mls/hr Documented by: [id number] Cosigned by: [id number] Methylprednisolone 40 mg/ (Syringe) 0.64 mls @ 1.5 mls/min IV Q8H LE Stop: 04/26/19 19:59 Last Admin: 03/28/19 11:26 Dose: 1.5 mls/min Documented by: [id number] Admin: 03/28/19 05:03 Dose: 1.5 mls/min Documented by: [id number] Admin: 03/27/19 20:41 Dose: 1.5 mls/min Documented by: [id number] Sodium Chloride (Nss 1000ml) 1,000 mls @ 125 mls/hr IV .Q8H LE Stop: 04/27/19 00:29 Last Admin: 03/28/19 07:39 Dose: Not Given Documented by: [id number] Infusion: 03/28/19 07:37 Dose: 0 mls/hr Documented by: [id number] Admin: 03/28/19 01:02 Dose: 100 mls/hr Documented by: [id number] Sodium Chloride (Nss 1000ml) 1,000 mls @ 100 mls/hr IV .Q10H LE Stop: 04/27/19 07:29 Last Infusion: 03/28/19 13:40 Dose: 0 mls/hr Documented by: [id number] Admin: 03/28/19 07:34 Dose: 100 mls/hr Documented by: [id number] Sodium Chloride (Nss 1000ml) 1,000 mls @ 125 mls/hr IV .Q8H LE Stop: 04/27/19 11:14 Last Infusion: 03/29/19 00:12 Dose: 0 mls/hr Documented by: [id number] Admin: 03/28/19 16:02 Dose: 125 mls/hr Documented by: [id number] Infusion: 03/28/19 16:02 Dose: 125 mls/hr Documented by: [id number] Admin: 03/28/19 11:26 Dose: 125 mls/hr Documented by: [id number] Piperacillin Sod/Tazobactam (Sod 4.5 gm/ Dextrose) 120 mls @ 200 mls/hr IV NOW ONE; Protocol Stop: 03/28/19 12:35 Last Infusion: 03/28/19 13:40 Dose: 0 mls/hr Documented by: [id number] Admin: 03/28/19 12:35 Dose: 200 mls/hr Documented by: [id number] Levalbuterol HCl (Xopenex 1.25mg/3ml Neb) 1.25 mg NEB NOW STA Stop: 03/27/19 16:28 Last Admin: 03/27/19 16:43 Dose: 1.25 mg Documented by: [id number] Metoclopramide HCl (Reglan) 10 mg IV NOW STA Stop: 03/27/19 16:45 Last Admin: 03/27/19 17:30 Dose: 10 mg Documented by: [id number] Metoprolol Succinate (Toprol Xl) 25 mg PO NOW STA Stop: 03/28/19 11:53 Last Admin: 03/28/19 12:36 Dose: 25 mg Documented by: [id number] Metoprolol Succinate (Toprol Xl) 25 mg PO NOW STA Stop: 03/28/19 18:06 Last Admin: 03/28/19 18:12 Dose: 25 mg Documented by: [id number] Metoprolol Tartrate (Lopressor) 5 mg IV Q4H PRN PRN Reason: hr>120 Stop: 04/26/19 20:00 Last Admin: 03/28/19 06:11 Dose: 5 mg Documented by: [id number] Admin: 03/28/19 01:23 Dose: 5 mg Documented by: [id number] Admin: 03/27/19 20:23 Dose: 5 mg Documented by: [id number] Metoprolol Tartrate (Lopressor) 5 mg IV Q4H [facility] Stop: 04/27/19 08:59 Last Admin: 03/28/19 08:50 Dose: 5 mg Documented by: [id number] Nitroglycerin (Nitro-Bid 2%) 1 inch EXT NOW STA Stop: 03/27/19 17:03 Last Admin: 03/27/19 17:08 Dose: 1 inch Documented by: [id number] Pantoprazole Sodium (Protonix) 40 mg PO BID LE Stop: 04/26/19 20:59 Last Admin: 03/28/19 07:59 Dose: 40 mg Documented by: [id number] Admin: 03/27/19 20:31 Dose: 40 mg Documented by: [id number] Perflutren Lipid Microsphere (Definity) 2 ml IV ONCE ONE Stop: 03/28/19 07:35 Last Admin: 03/28/19 07:36 Dose: 2 ml Documented by: [id number] Potassium Chloride (Klor-Con M10) 40 meq PO NOW STA Stop: 03/27/19 16:45 Last Admin: 03/27/19 17:04 Dose: Not Given Documented by: [id number] Potassium Chloride (Klor-Con M10) 40 meq PO NOW STA Stop: 03/28/19 06:13 Last Admin: 03/28/19 07:10 Dose: 40 meq Documented by: [id number] Potassium Chloride (Klor-Con M20) 40 meq PO NOW STA Stop: 03/28/19 07:41 Last Admin: 03/28/19 08:01 Dose: 40 meq Documented by: [id number] Thiamine HCl (Vitamin B-1) 100 mg PO QAM STA Stop: 03/27/19 18:53 Last Admin: 03/27/19 19:45 Dose: 100 mg Documented by: [id number] Medical Decision Making Differential Diagnosis Differential diagnosis includes: infections, reactive airway disease, pneumonia, pneumothorax, COPD, CHF, cardiac ischemia, pulmonary embolism, musculoskeletal, gastrointestinal, as well as others were entertained. Medical Records Attestation: I reviewed the patient's medical records. Home Medications Current Medication List: was personally reviewed by me Laboratory Data Attestation: I reviewed the patient's lab results. Result diagrams: 03/29/19 03:25 03/29/19 03:25 Lab Results 03/27/19 03/27/19 03/27/19 Range/Units 16:37 16:37 16:37 WBC 23.83 H (4.8-10.8) K/uL RBC 4.08 L (4.7-6.1) M/uL Hgb 14.0 (14.0-18.0) g/dL POC Hgb (14.0-18.0) g/dl Hct 38.8 L (42-52) % POC Hct (42-52) % MCV 95.1 (80-100) fL MCH 34.3 H (25-34) pg MCHC 36.1 H (32-36) g/dL RDW Std Deviation 49.4 H (36.4-46.3) fL RDW Coeff of Meet 14.2 (11.5-14.5) % Plt Count 348 (130-400) K/uL MPV 11.3 H (7.4-10.4) fL Immature Gran % (Auto) 0.7 % Neut % (Auto) 86.9 % Lymph % (Auto) 8.2 % [place] % (Auto) 4.1 % Eos % (Auto) 0.0 % Baso % (Auto) 0.1 % Immature Gran # (Auto) 0.17 H (0.00-0.02) K/uL Neut # (Auto) 20.69 H (1.4-6.5) K/uL Lymph # (Auto) 1.96 (1.2-3.4) K/uL [place] # (Auto) 0.98 H (0.11-0.59) K/uL Eos # (Auto) 0.01 (0-0.5) K/uL Baso # (Auto) 0.02 (0-0.2) K/uL Toxic Vacuolation 1+ PT 13.5 H (9.0-12.0) Seconds INR 1.3 H (0.9-1.1) APTT 29.3 (21.0-31.0) Seconds PTT Ratio 1.1 ABG pH (7.35-7.45) ABG pCO2 (35-46) mmHg ABG pO2 (80-95) mm/Hg ABG HCO3 (19-24) mmol/L ABG O2 Saturation (90-95) % ABG Base Excess (-9-1.8) mEq/L Stephen Test (Pos) Barometric Pressure mm/Hg Oxygen Given POC Sodium (135-144) mEq/L Sodium 131 L (136-145) mmol/L POC Potassium (3.3-5.0) mEq/L Potassium 3.2 L (3.5-5.1) mmol/L POC Chloride (101-112) mEq/L Chloride 95 L (98-107) mmol/L Carbon Dioxide 19 L (21-32) mmol/L POC Total CO2 (24-31) mEq/l Anion Gap 16.0 H (3-11) POC Anion Gap (16-25) mmol/L POC BUN (7-18) mg/dl BUN 22 H (7-18) mg/dl Creatinine 1.44 H (0.6-1.4) mg/dl POC Creatinine (0.6-1.3) mg/dl Est Cr Clr Drug Dosing 68.9 ml/min Est GFR ( Amer) 57.4 Est GFR (Non-Af Amer) 49.5 BUN/Creatinine Ratio 15.5 (10-20) Glucose 98 (70-99) mg/dl POC Glucose (other) (70-99) mg/dl POC Lactic Acid [place] (0.90-1.70) mmol/L Lactate (0.4-2.0) mmol/L Calcium 8.8 (8.5-10.1) mg/dl POC Ioniz Calcium Vani (1.12-1.32) mmol/l Total Bilirubin 0.5 (0.2-1) mg/dl AST 298 H (15-37) U/L ALT 81 H (12-78) U/L Alkaline Phosphatase 343 H (45-117) U/L Total Creatine Kinase 3688 H (39-308) U/L CK-MB (CK-2) 20.6 H (0.5-3.6) ng/ml CK/CKMB % Calc 0.6 (0-3.0) Troponin I 0.105 H* (0-0.045) ng/ml NT-Pro-B Natriuret Pep 4219 H (0-900) pg/ml Total Protein 5.9 L (6.4-8.2) gm/dl Albumin 1.8 L (3.4-5.0) gm/dl Globulin 4.1 H (2.5-4.0) gm/dl Albumin/Globulin Ratio 0.4 L (0.9-2) Procalcitonin (0-0.5) ng/ml Urine Color Urine Appearance (Clear) Urine pH (4.5-7.5) Ur Specific [place] (1.000-1.030) Urine Protein (Negative) Urine Glucose (UA) (Negative) Urine Ketones (Negative) Urine Blood (Negative) Urine Nitrite (Negative) Urine Bilirubin (Negative) Urine Urobilinogen (Negative) Ur Leukocyte Esterase (Negative) Urine WBC (Auto) (0-5) /hpf Urine RBC (Auto) (0-4) /hpf U Hyaline Cast (Auto) (0-5) /lpf U Epithel Cells (Auto) (0-5) /lpf Urine Bacteria (Auto) (Negative) Ethyl Alcohol mg/dL (0-3) mg/dl 03/27/19 03/27/19 03/27/19 Range/Units 16:37 16:41 16:45 WBC (4.8-10.8) K/uL RBC (4.7-6.1) M/uL Hgb (14.0-18.0) g/dL POC Hgb 14.3 (14.0-18.0) g/dl Hct (42-52) % POC Hct 42 (42-52) % MCV (80-100) fL MCH (25-34) pg MCHC (32-36) g/dL RDW Std Deviation (36.4-46.3) fL RDW Coeff of Meet (11.5-14.5) % Plt Count (130-400) K/uL MPV (7.4-10.4) fL Immature Gran % (Auto) % Neut % (Auto) % Lymph % (Auto) % [place] % (Auto) % Eos % (Auto) % Baso % (Auto) % Immature Gran # (Auto) (0.00-0.02) K/uL Neut # (Auto) (1.4-6.5) K/uL Lymph # (Auto) (1.2-3.4) K/uL [place] # (Auto) (0.11-0.59) K/uL Eos # (Auto) (0-0.5) K/uL Baso # (Auto) (0-0.2) K/uL Toxic Vacuolation PT (9.0-12.0) Seconds INR (0.9-1.1) APTT (21.0-31.0) Seconds PTT Ratio ABG pH (7.35-7.45) ABG pCO2 (35-46) mmHg ABG pO2 (80-95) mm/Hg ABG HCO3 (19-24) mmol/L ABG O2 Saturation (90-95) % ABG Base Excess (-9-1.8) mEq/L Stephen Test (Pos) Barometric Pressure mm/Hg Oxygen Given POC Sodium 128 L (135-144) mEq/L Sodium (136-145) mmol/L POC Potassium 3.4 (3.3-5.0) mEq/L Potassium (3.5-5.1) mmol/L POC Chloride 93 L (101-112) mEq/L Chloride (98-107) mmol/L Carbon Dioxide (21-32) mmol/L POC Total CO2 17 L (24-31) mEq/l Anion Gap (3-11) POC Anion Gap 22.0 (16-25) mmol/L POC BUN 24 H (7-18) mg/dl BUN (7-18) mg/dl Creatinine (0.6-1.4) mg/dl POC Creatinine 1.3 (0.6-1.3) mg/dl Est Cr Clr Drug Dosing ml/min Est GFR ( Amer) Est GFR (Non-Af Amer) BUN/Creatinine Ratio (10-20) Glucose (70-99) mg/dl POC Glucose (other) 103 H (70-99) mg/dl POC Lactic Acid [place] 7.12 H (0.90-1.70) mmol/L Lactate (0.4-2.0) mmol/L Calcium (8.5-10.1) mg/dl POC Ioniz Calcium Vani 0.98 L (1.12-1.32) mmol/l Total Bilirubin (0.2-1) mg/dl AST (15-37) U/L ALT (12-78) U/L Alkaline Phosphatase (45-117) U/L Total Creatine Kinase (39-308) U/L CK-MB (CK-2) (0.5-3.6) ng/ml CK/CKMB % Calc (0-3.0) Troponin I (0-0.045) ng/ml NT-Pro-B Natriuret Pep (0-900) pg/ml Total Protein (6.4-8.2) gm/dl Albumin (3.4-5.0) gm/dl Globulin (2.5-4.0) gm/dl Albumin/Globulin Ratio (0.9-2) Procalcitonin 7.35 H (0-0.5) ng/ml Urine Color Urine Appearance (Clear) Urine pH (4.5-7.5) Ur Specific [place] (1.000-1.030) Urine Protein (Negative) Urine Glucose (UA) (Negative) Urine Ketones (Negative) Urine Blood (Negative) Urine Nitrite (Negative) Urine Bilirubin (Negative) Urine Urobilinogen (Negative) Ur Leukocyte Esterase (Negative) Urine WBC (Auto) (0-5) /hpf Urine RBC (Auto) (0-4) /hpf U Hyaline Cast (Auto) (0-5) /lpf U Epithel Cells (Auto) (0-5) /lpf Urine Bacteria (Auto) (Negative) Ethyl Alcohol mg/dL (0-3) mg/dl 03/27/19 03/27/19 03/27/19 Range/Units 16:48 16:48 17:00 WBC (4.8-10.8) K/uL RBC (4.7-6.1) M/uL Hgb (14.0-18.0) g/dL POC Hgb (14.0-18.0) g/dl Hct (42-52) % POC Hct (42-52) % MCV (80-100) fL MCH (25-34) pg MCHC (32-36) g/dL RDW Std Deviation (36.4-46.3) fL RDW Coeff of Meet (11.5-14.5) % Plt Count (130-400) K/uL MPV (7.4-10.4) fL Immature Gran % (Auto) % Neut % (Auto) % Lymph % (Auto) % [place] % (Auto) % Eos % (Auto) % Baso % (Auto) % Immature Gran # (Auto) (0.00-0.02) K/uL Neut # (Auto) (1.4-6.5) K/uL Lymph # (Auto) (1.2-3.4) K/uL [place] # (Auto) (0.11-0.59) K/uL Eos # (Auto) (0-0.5) K/uL Baso # (Auto) (0-0.2) K/uL Toxic Vacuolation PT (9.0-12.0) Seconds INR (0.9-1.1) APTT (21.0-31.0) Seconds PTT Ratio ABG pH 7.49 H (7.35-7.45) ABG pCO2 24 L (35-46) mmHg ABG pO2 52 L (80-95) mm/Hg ABG HCO3 18 L (19-24) mmol/L ABG O2 Saturation 87.1 L (90-95) % ABG Base Excess -3.3 (-9-1.8) mEq/L Stephen Test Pos (Pos) Barometric Pressure 733.3 mm/Hg Oxygen Given 100 POC Sodium (135-144) mEq/L Sodium (136-145) mmol/L POC Potassium (3.3-5.0) mEq/L Potassium (3.5-5.1) mmol/L POC Chloride (101-112) mEq/L Chloride (98-107) mmol/L Carbon Dioxide (21-32) mmol/L POC Total CO2 (24-31) mEq/l Anion Gap (3-11) POC Anion Gap (16-25) mmol/L POC BUN (7-18) mg/dl BUN (7-18) mg/dl Creatinine (0.6-1.4) mg/dl POC Creatinine (0.6-1.3) mg/dl Est Cr Clr Drug Dosing ml/min Est GFR ( Amer) Est GFR (Non-Af Amer) BUN/Creatinine Ratio (10-20) Glucose (70-99) mg/dl POC Glucose (other) (70-99) mg/dl POC Lactic Acid [place] (0.90-1.70) mmol/L Lactate 4.5 H* (0.4-2.0) mmol/L Calcium (8.5-10.1) mg/dl POC Ioniz Calcium Vani (1.12-1.32) mmol/l Total Bilirubin (0.2-1) mg/dl AST (15-37) U/L ALT (12-78) U/L Alkaline Phosphatase (45-117) U/L Total Creatine Kinase (39-308) U/L CK-MB (CK-2) (0.5-3.6) ng/ml CK/CKMB % Calc (0-3.0) Troponin I (0-0.045) ng/ml NT-Pro-B Natriuret Pep (0-900) pg/ml Total Protein (6.4-8.2) gm/dl Albumin (3.4-5.0) gm/dl Globulin (2.5-4.0) gm/dl Albumin/Globulin Ratio (0.9-2) Procalcitonin (0-0.5) ng/ml Urine Color Dark Yellow Urine Appearance Cloudy A (Clear) Urine pH 5.5 (4.5-7.5) Ur Specific [place] 1.025 (1.000-1.030) Urine Protein Trace H (Negative) Urine Glucose (UA) Negative (Negative) Urine Ketones Trace H (Negative) Urine Blood 1+ H (Negative) Urine Nitrite Negative (Negative) Urine Bilirubin 1+ H (Negative) Urine Urobilinogen Negative (Negative) Ur Leukocyte Esterase 2+ H (Negative) Urine WBC (Auto) >30 H (0-5) /hpf Urine RBC (Auto) 0-4 (0-4) /hpf U Hyaline Cast (Auto) 0 (0-5) /lpf U Epithel Cells (Auto) 0-5 (0-5) /lpf Urine Bacteria (Auto) 1+ H (Negative) Ethyl Alcohol mg/dL (0-3) mg/dl 03/27/19 Range/Units 17:02 WBC (4.8-10.8) K/uL RBC (4.7-6.1) M/uL Hgb (14.0-18.0) g/dL POC Hgb (14.0-18.0) g/dl Hct (42-52) % POC Hct (42-52) % MCV (80-100) fL MCH (25-34) pg MCHC (32-36) g/dL RDW Std Deviation (36.4-46.3) fL RDW Coeff of Meet (11.5-14.5) % Plt Count (130-400) K/uL MPV (7.4-10.4) fL Immature Gran % (Auto) % Neut % (Auto) % Lymph % (Auto) % [place] % (Auto) % Eos % (Auto) % Baso % (Auto) % Immature Gran # (Auto) (0.00-0.02) K/uL Neut # (Auto) (1.4-6.5) K/uL Lymph # (Auto) (1.2-3.4) K/uL [place] # (Auto) (0.11-0.59) K/uL Eos # (Auto) (0-0.5) K/uL Baso # (Auto) (0-0.2) K/uL Toxic Vacuolation PT (9.0-12.0) Seconds INR (0.9-1.1) APTT (21.0-31.0) Seconds PTT Ratio ABG pH (7.35-7.45) ABG pCO2 (35-46) mmHg ABG pO2 (80-95) mm/Hg ABG HCO3 (19-24) mmol/L ABG O2 Saturation (90-95) % ABG Base Excess (-9-1.8) mEq/L Stephen Test (Pos) Barometric Pressure mm/Hg Oxygen Given POC Sodium (135-144) mEq/L Sodium (136-145) mmol/L POC Potassium (3.3-5.0) mEq/L Potassium (3.5-5.1) mmol/L POC Chloride (101-112) mEq/L Chloride (98-107) mmol/L Carbon Dioxide (21-32) mmol/L POC Total CO2 (24-31) mEq/l Anion Gap (3-11) POC Anion Gap (16-25) mmol/L POC BUN (7-18) mg/dl BUN (7-18) mg/dl Creatinine (0.6-1.4) mg/dl POC Creatinine (0.6-1.3) mg/dl Est Cr Clr Drug Dosing ml/min Est GFR ( Amer) Est GFR (Non-Af Amer) BUN/Creatinine Ratio (10-20) Glucose (70-99) mg/dl POC Glucose (other) (70-99) mg/dl POC Lactic Acid [place] (0.90-1.70) mmol/L Lactate (0.4-2.0) mmol/L Calcium (8.5-10.1) mg/dl POC Ioniz Calcium Vani (1.12-1.32) mmol/l Total Bilirubin (0.2-1) mg/dl AST (15-37) U/L ALT (12-78) U/L Alkaline Phosphatase (45-117) U/L Total Creatine Kinase (39-308) U/L CK-MB (CK-2) (0.5-3.6) ng/ml CK/CKMB % Calc (0-3.0) Troponin I (0-0.045) ng/ml NT-Pro-B Natriuret Pep (0-900) pg/ml Total Protein (6.4-8.2) gm/dl Albumin (3.4-5.0) gm/dl Globulin (2.5-4.0) gm/dl Albumin/Globulin Ratio (0.9-2) Procalcitonin (0-0.5) ng/ml Urine Color Urine Appearance (Clear) Urine pH (4.5-7.5) Ur Specific [place] (1.000-1.030) Urine Protein (Negative) Urine Glucose (UA) (Negative) Urine Ketones (Negative) Urine Blood (Negative) Urine Nitrite (Negative) Urine Bilirubin (Negative) Urine Urobilinogen (Negative) Ur Leukocyte Esterase (Negative) Urine WBC (Auto) (0-5) /hpf Urine RBC (Auto) (0-4) /hpf U Hyaline Cast (Auto) (0-5) /lpf U Epithel Cells (Auto) (0-5) /lpf Urine Bacteria (Auto) (Negative) Ethyl Alcohol mg/dL < 3.0 (0-3) mg/dl Imaging Data Radiologist's Impression: Radiology results as stated below per my review and the radiologist's interpretation: XR chest 1V portable CLINICAL HISTORY: 68 years-old Male presenting with Sepsis. TECHNIQUE: Portable upright AP view of the chest was obtained. COMPARISON: 07/02/2015. FINDINGS: Atherosclerosis of the aortic arch. Cardiac silhouette normal in size. Patchy opacities predominately in the right mid and upper lung and left mid to lower lung. No large effusion or pneumothorax. Degenerative changes of the thoracic spine. IMPRESSION: 1. Multifocal pneumonia predominantly involving the right mid to upper lung and left mid to lower lung. Electronically signed by: Bharat Mir M.D. 03/27/2019 5:13 PM ECG Data Attestation: I personally reviewed and interpreted this ECG as follows: Indication: SOB/dyspnea Rate (beats per minute): 105 Rhythm: sinus tachycardia Findings: no ST depression and no ST elevation Blood Pressure Blood Pressure Findings: Elevated blood pressure Blood Pressure Disposition: further management by hospitalist [facility] Narrative This is a 68-year-old male who presents the emergency department complaining of weakness during a period of high volume and high acuity. Upon arrival to the emergency department the patient is in a rapid tachycardia. I attempted to give the patient 2 doses of adenosine without cessation of his symptoms. Based on this the patient was given 2 L of fluid. I am concerned that the patient has multifocal pneumonia on chest x-ray. He was pancultured and found to have a grossly elevated lactate of 12. He was started on broad-spectrum antibiotics including aztreonam Levaquin and vancomycin. His CK was also found to be elevated. I did discuss the case with the floor covering printer who agreed to see the patient as well as the hospitalist service who agreed to admit the patient. Patient was in agreement with the treatment plan. Impression & Plan Altered mental status, Hypoxia, Elevated troponin Critical Care Time Critical Care Time: Yes I have personally spent 90 minutes of critical care time in the direct management of this patient. This includes bedside care, interpretation of diagnostic studies, and testing, discussion with consultants, patient, and family members, and other required patient management activities. This 90 minutes is in excess of all separately billable procedures. Discharge Plan Visit Data *Final* Discharge Date/Time: 03/27/19 18:13 Chief Complaint: Shortness of Breath/Dyspnea Stated Complaint: SOB ED Provider: Jaden John Discharge Problem: Altered mental status, Hypoxia, Elevated troponin Patient Disposition: Admitted As Inpatient Discharge Instructions Interventions: ED Discharge Assessment Last Done: 03/27/19 18:13 The scribe's documentation has been prepared under my direction and personally reviewed by me in its entirety. I confirm that the note above accurately reflects all work, treatment, procedures, and medical decision making performed by me.
[2019-03-28] MEDS: SODIUM CHLORIDE 0.9% 1000ML 1,000 ML IV SCH ×5 (01:02→18:11)
[2019-03-28] MEDS: AMIODARONE / D5W 360 MG/200 ML BAG IV SCH ×3 (01:23→23:50)
[2019-03-28] MEDS: METOPROLOL TARTRATE 1 MG/ML VIAL IV PRN ×2 (01:23→06:11)
[2019-03-28 03:52] LABS: Partial Thromboplastin Ratio > 5.1
[2019-03-28 03:54] LABS: Partial Thromboplastin Time > 139.0 Seconds (21.0-31.0)
[2019-03-28] MEDS: methylPREDNISolone 40 MG in SYRINGE 0 ML IV SCH ×4 (05:03→23:40)
[2019-03-28 05:08] LABS: Albumin Level 1.6 gm/dl (3.4-5.0); BUN Creatinine Ratio 25.4 (10-20); Calcium 7.2 mg/dl (8.5-10.1); Creatinine Clr Calc Pharmacy 106.7 ml/min; Est GFR (African American) 97.4; Est GFR (Non-African American) 84.1; Potassium 3.3 mmol/L (3.5-5.1)
[2019-03-28 05:24] LABS: Albumin Globulin Ratio 0.5 (0.9-2); Bilirubin,Total 0.4 mg/dl (0.2-1); Globulin 3.5 gm/dl (2.5-4.0); Total Protein 5.1 gm/dl (6.4-8.2); Troponin I 0.101 ng/ml (0-0.045)
[2019-03-28 05:35] LABS: Partial Thromboplastin Ratio > 5.1
[2019-03-28 05:47] LABS: Partial Thromboplastin Time > 139.0 Seconds (21.0-31.0)
[2019-03-28] MEDS ORDERED: POTASSIUM CHLORIDE 10 MEQ TABCR PO STA (06:12)
[2019-03-28 06:27] LABS: Partial Thromboplastin Ratio 3.4
[2019-03-28 06:30] LABS: Partial Thromboplastin Time 91.4 Seconds (21.0-31.0)
[2019-03-28 07:28] LABS: Hematocrit (blood only) 33.3 % (42-52); Hemoglobin 11.9 g/dL (14.0-18.0); Mean Corpuscular Hgb Conc 35.7 g/dL (32-36); Mean Corpuscular Volume 93.8 fL (80-100); Mean Platelet Volume 11.4 fL (7.4-10.4); Platelet Count 280 K/uL (130-400); RDW Coefficient of Variation 14.2 % (11.5-14.5); RDW Standard Deviation 48.7 fL (36.4-46.3); Red Blood Count 3.55 M/uL (4.7-6.1); White Blood Count 21.26 K/uL (4.8-10.8)
[2019-03-28] MEDS ORDERED: SODIUM CHLORIDE 0.9% 1000ML 1,000 ML IV SCH (07:30)
[2019-03-28] MEDS ORDERED: PERFLUTREN LIPID MICROSPHERE (DEFINITY) IV ONE (07:34)
[2019-03-28] MEDS ORDERED: POTASSIUM CHLORIDE 20 MEQ TABCR PO STA ×2 (07:37→07:40)
[2019-03-28] MEDS: ESCITALOPRAM OXALATE 10 MG TAB PO SCH (07:59)
[2019-03-28] MEDS: PANTOprazole 40 MG TAB PO SCH (07:59)
[2019-03-28] MEDS: MULTIVITAMIN TAB PO SCH (07:59)
[2019-03-28] MEDS: FOLIC ACID 1 MG in SYRINGE 9.8 ML IV SCH (07:59)
[2019-03-28] MEDS: ASPIRIN 81 MG ECTAB PO SCH (08:01)
[2019-03-28] MEDS: THIAMINE HCL 300 MG in SODIUM CHLORIDE 0.9% 50 ML IV SCH (08:50)
[2019-03-28] MEDS ORDERED: ATORVASTATIN 40 MG TAB PO SCH (09:00)
[2019-03-28] MEDS ORDERED: METOPROLOL TARTRATE 1 MG/ML VIAL IV SCH (09:00)
--- NOTE | 2019-03-28 10:49 | Hospitalist Progress Note ---
Date of Service March 28, 2019 Assessment & Plan (1) Respiratory failure: (2) Acute CHF: (3) Non-ischemic cardiomyopathy: Acute respiratory failure: Likely multifactorial Secondary to CHF exacerbation To R/O Pneumonia H/O nonischemic cardiomyopathy, COPD, ongoing tobacco use Elevated procalcitonin Continue IV diuresis Monitor I's and O's, electrolytes, renal function, daily weight Obtain ECHO once heart rate is controlled Empirically continue Ceftriaxone Was on azithromycin recently Persistent leukocytosis likely secondary to Solu-Medrol Supplemental oxygen as needed Acute pulmonary emboli --CTA:Multiple small segmental pulmonary emboli, as described above. 6.2 x 4.5 cm thick-walled cavitary focus within the right upper lobe. A cavitary infectious process is favored. A neoplasm could appear similar and therefore a follow up chest CT in one month is recommended. 3. Additional extensive airspace opacities throughout the lungs which favor multifocal pneumonia. Superimposed pulmonary edema cannot be excluded. Moderate emphysema. --Continue IV heparin GGT Will need long-term anticoagulation Venous Doppler: To R/O DVT Right upper lobe cavitary lesion Continue empiric antibiotics Consider repeat imaging as needed (4) SIRS (systemic inflammatory response syndrome): Lactic acid trended down Possible sources: UTI, pneumonia Blood, urine cultures pending Continue empiric IV Rocephin Completed azithromycin course recently (5) Atrial fibrillation with RVR: In the ED, received 2 doses of IV adenosine Continue IV amiodarone and IV heparin Lopressor PRN Cardiology consulted Denies chest pain, palpitations, dizziness (6) Elevated LFTs: likely congestive hepatopathy due to CHF H/O ETOH abuse monitor LFTs Counseled to quit drinking alcohol (7) Diarrhea: check for C. Diff if reoccurs (8) Alcohol abuse: Reports 2-3 drinks/day of Vodka Monitor for Alcohol withdrawal/DTs Continue thiamine, multivitamin, folic acid Counseled to quit drinking alcohol Hyponatremia: Likely due to Alcohol use disorder Urine Lytes pending Monitor sodium levels (9) Elevated CK: Mild Rhabdomyolysis CK 3688>>2261 Monitor CK levels, renal function Hold Statin (10) CLINT (acute kidney injury): Cr: 1.4>>>0.93 baseline Cr~ 0.9 Avoid nephrotoxic agents as able Monitor renal function (11) Elevated troponin: mildly elevated Denies chest pain likely demand ischemia due to CHF, Afib Check ECHO when able (12) Hypokalemia: Replace electrolytes as needed (13) COPD (chronic obstructive pulmonary disease): Continue nebs, home inhalers (14) Hypertension: BP improved holding lisinopril due to CLINT (15) HLD (hyperlipidemia): hold statin due to Rhabdo (16) GERD (gastroesophageal reflux disease): continue PPI (17) DVT prophylaxis: On heparin gtt Disposition: Monitor in ICU Subjective Patient is seen and examined at bedside Shortness of breath is slightly better when compared to yesterday Continues to be in A. fib RVR Still has significant lower extremity edema, complains of mild leg pain Denies any chest pain, dizziness, nausea, abdominal pain On heparin, amiodarone GGT Discussed with sports medicine coordinator Venous Dopplers to rule out DVT Review of Systems Review of Systems: All systems reviewed & are unremarkable except as noted in HPI & below Physical Exam Physical Exam: Physical Exam: Vitals signs as noted above General Appearance:Chronic ill appearing, no apparent distress Head: normocephalic, Atraumatic Eyes: normal inspection, EOMI Neck: supple, Trachea midline Respiratory/Chest: Decreased breath sounds, CTA Cardiovascular: Irregularly Irregular, + Tachycardia, No murmur Abdomen/GI:Soft, Non tender, , distended, Bowel sounds present Extremities/Musculoskelatal:normal inspection, B/L LE 2-3 + edema Neurologic/Psych:AAOX3, grossly no focal neurological deficits Skin: normal color, warm Results & Data Vital Signs (Past 12 Hours) Vital Signs Temp Pulse Pulse Resp BP BP Pulse Ox 03/28/19 08:50 117 H 140/100 03/28/19 08:00 36.3 C L 114 H 114 H 26 H 106/68 95 03/28/19 06:11 139 H 03/28/19 06:01 127 H 26 H 93 03/28/19 05:30 117 H 28 H 113/70 93 03/28/19 05:17 131 H 03/28/19 05:01 121 H 26 H 93 03/28/19 05:00 123 H 29 H 126/81 93 03/28/19 04:30 111 H 29 H 122/92 93 03/28/19 04:01 120 H 31 H 93 03/28/19 04:00 113 H 31 H 117/79 93 03/28/19 03:30 113 H 29 H 112/79 94 03/28/19 03:01 115 H 30 H 92 03/28/19 03:00 116 H 28 H 117/80 92 03/28/19 02:31 118 H 27 H 121/77 93 03/28/19 02:00 113 H 27 H 117/84 91 03/28/19 01:23 147 H 03/28/19 01:00 120 H 28 H 108/80 94 03/28/19 00:30 133 H 23 143/89 H 95 03/28/19 00:00 36.6 C 120 H 25 H 131/70 95 03/27/19 23:30 112 H 26 H 116/76 94 03/27/19 23:01 111 H 27 H 93 03/27/19 23:00 123 H 28 H 120/76 92 Laboratory Results Short CBC 03/27/19 03/28/19 Range/Units 16:37 04:09 WBC 23.83 H 21.26 H (4.8-10.8) K/uL Hgb 14.0 11.9 L (14.0-18.0) g/dL Hct 38.8 L 33.3 L (42-52) % Plt Count 348 280 (130-400) K/uL BMP 03/27/19 03/28/19 16:37 04:11 Sodium 131 L 128 L Potassium 3.2 L 3.3 L Chloride 95 L 95 L Carbon Dioxide 19 L 26 BUN 22 H 24 H Creatinine 1.44 H 0.93 D Glucose 98 115 H Calcium 8.8 7.2 L D Cardiac Enzymes 03/27/19 03/27/19 03/28/19 Range/Units 16:37 21:49 04:11 Total Creatine Kinase 3688 H 2856 H 2261 H (39-308) U/L CK-MB (CK-2) 20.6 H (0.5-3.6) ng/ml Troponin I 0.105 H* 0.133 H* 0.101 H* (0-0.045) ng/ml Liver Function 03/27/19 03/28/19 Range/Units 16:37 04:11 Total Bilirubin 0.5 0.4 (0.2-1) mg/dl AST 298 H 255 H (15-37) U/L ALT 81 H 77 (12-78) U/L Alkaline Phosphatase 343 H 256 H (45-117) U/L Albumin 1.8 L 1.6 L (3.4-5.0) gm/dl Urine 03/27/19 03/27/19 Range/Units 17:00 17:18 Urine Color Dark Yellow Dark Yellow Urine Appearance Cloudy A Cloudy A (Clear) Urine pH 5.5 5.5 (4.5-7.5) Ur Specific [place] 1.025 1.025 (1.000-1.030) Urine Protein Trace H Trace H (Negative) Urine Glucose (UA) Negative Negative (Negative) Diagnostic Findings CTA: 1. Multiple small segmental pulmonary emboli, as described above. 2. 6.2 x 4.5 cm thick-walled cavitary focus within the right upper lobe. A cavitary infectious process is favored. A neoplasm could appear similar and therefore a follow up chest CT in one month is recommended. 3. Additional extensive airspace opacities throughout the lungs which favor multifocal pneumonia. Superimposed pulmonary edema cannot be excluded. 4. Moderate emphysema. CT head: 1. No acute intracranial findings. 2. Partially opacified left mastoid air cells.
--- NOTE | 2019-03-28 11:15 | Critical Care Progress Note ---
Date of Service March 28, 2019 Assessment & Plan (1) Atrial fibrillation with RVR: Impression: 1. Acute respiratory failure, with hypoxia, secondary to decompensated heart failure. 2. A. fib, new onset, with RVR. Now in MAT, better rate controlled. 3. Congestive heart failure with exacerbation. 4. UTI. 5. Rhabdomyolysis. 6. Multilobar infiltrates, cavity in the right upper lobe, concerns for malignancy. 7. COPD, active smoker, exacerbated by multiple insults to the lung. 8. Small PE affecting the inferior branch of the right pulmonary artery. 9. Positive toxic screen for PCP. 10. Possible DVT with bilateral edema. Plan: 1. Central line was placed for CVP monitoring. First CVP was 3 and we will monitor the IV fluid and manage it based on the CVP reading. 2. Discussed with pharmacy, appreciate their input, change antibiotics to Zosyn to cover for anaerobes given right upper lobe cavity and the patient was alcoholic with poor dental hygiene. 3. Amiodarone for rate control. 4. Lopressor 5 mg IV every 4 hours. 5. Heparin drip to a full dose. 6. Cultures, pending results. 7. GI prophylaxis. 8. BiPAP as needed. 9. Resume oral intake. 10. Appreciate Dr. Perales input from cardiology. Patient will be started on oral beta-blockers. 11. The patient claims that he has been having diarrhea, no bowel movement so far yet. 12. Change Solu-Medrol to 40 mg IV every 12 hours. 13. I would be careful with bronchodilators given his persistent MAT. 14. Family update, I have spoken to his over the phone and updated her on his condition. 15. Resume Ativan as needed 1 mg every 4 hours. 16. Thiamine and folic acid. 17. Discontinue phenobarbital now. 18. Discussed with the staff in details. 19. Obtain serum and urine osmolarity for evaluation of hyponatremia. SIADH versus CHF versus Potomania. 20. Replacement of KCl. Critical care time spent with the patient was 60 minutes excluding procedure time. Subjective The patient is feeling better, he continues to have shortness of breath with exertion, he is occasionally tachypneic, tachycardic but his rate is much improved compared to yesterday, he remains on amiodarone drip, he did require the BiPAP for portion of his last night, denies any chest pain, swelling of the lower extremities continued. Review of Systems Review of Systems: Review of system and including the above 14 systems has been reviewed, unremarkable except for the above. Physical Exam Physical Exam: Vital signs remained stable, heart rate is variable but less than 120, remains in MAT. S1-S2 tachycardic, fine crackles bilaterally, abdomen is benign, edema in the periphery 2+. Neurologically he is intact. Not confused. Mentating very well. Appeared in good mood. Poor body hygiene. Results & Data Vital Signs (Past 12 Hours) Vital Signs Temp Pulse Pulse Resp BP BP Pulse Ox 03/28/19 08:50 117 H 140/100 03/28/19 08:00 36.3 C L 114 H 114 H 26 H 106/68 95 03/28/19 06:11 139 H 03/28/19 06:01 127 H 26 H 93 03/28/19 05:30 117 H 28 H 113/70 93 03/28/19 05:17 131 H 03/28/19 05:01 121 H 26 H 93 03/28/19 05:00 123 H 29 H 126/81 93 03/28/19 04:30 111 H 29 H 122/92 93 03/28/19 04:01 120 H 31 H 93 03/28/19 04:00 113 H 31 H 117/79 93 03/28/19 03:30 113 H 29 H 112/79 94 03/28/19 03:01 115 H 30 H 92 03/28/19 03:00 116 H 28 H 117/80 92 03/28/19 02:31 118 H 27 H 121/77 93 03/28/19 02:00 113 H 27 H 117/84 91 03/28/19 01:23 147 H 03/28/19 01:00 120 H 28 H 108/80 94 03/28/19 00:30 133 H 23 143/89 H 95 03/28/19 00:00 36.6 C 120 H 25 H 131/70 95 03/27/19 23:30 112 H 26 H 116/76 94 Laboratory Results Labs were reviewed as well, leukocytosis is partially related to steroids as well. Hematocrit is stable. Left shift but no significant bandemia. ABG is consistent with respiratory alkalosis compensated with metabolic acidosis. Hyponatremia, remains similar. Hypokalemia, replaced. Bicarb is improving. BUN and creatinine are stable despite diuresis. And BUN to creatinine ratio is less than 30. Lactate improved now back to normal from 4.5-1.5. CPK is reduced also from [id number]. And troponin slightly positive. Interestingly, his urine tox is positive for PCP. Diagnostic Findings Chest x-ray and CAT scan of the chest reviewed personally, the patient had emphysematous changes, right upper lobe possible cavity, highly suspicious for malignancy, cannot rule out the possibility of infectious cavity given the fact patient is alcoholic with poor dental hygiene. PG Care Time/CCT Critical Care Time: Yes Total Critical Care Time: 60
[2019-03-28] MEDS: BREO ELLIPTA - ORDER AWAITING ACTION SCH ×2 (11:40→16:01)
[2019-03-28] MEDS ORDERED: METOPROLOL TARTRATE 1 MG/ML VIAL IV PRN (11:50)
[2019-03-28] MEDS ORDERED: METOPROLOL SUCC 50MG EXT REL TAB PO STA (11:52)
[2019-03-28] MEDS ORDERED: METOPROLOL TARTRATE 50 MG TAB PO SCH (12:00)
[2019-03-28] MEDS ORDERED: PIPERACILLIN/TAZOBACTAM 4.5 GM in DEXTROSE 5% 100 ML IV ONE (12:00)
[2019-03-28] MEDS ORDERED: PIPERACILL/TAZOBAC CONSULT ACTIVE PRN (12:07)
--- NOTE | 2019-03-28 12:16 | Cardiology Consultation ---
Date of Consultation March 28, 2019 Assessment & Plan (1) Multifocal atrial tachycardia: Atrial arrhythmias are being driven by underlying pulmonary issues. We will continue amiodarone initially IV add oral beta-gael with Toprol-XL at least 25 mg twice per day to be titrated. Blood pressure appears to be a sufficient to allow. (2) Non-ischemic cardiomyopathy: Past history of catecholamine induced cardiomyopathy with an echocardiogram today demonstrating preserved to hyperdynamic LV function Exam reflects significant right heart failure likely secondary pulmonary issues, chronic alcohol use, Diuretic initiated today after receiving fluid resuscitation as appropriate (3) SIRS (systemic inflammatory response syndrome): CT evidence of pneumonia, cavitary process and possible pulmonary emboli On IV heparin, antibiotic therapies History of Present Illness Reason for Consultation: Tachycardia, acute respiratory distress Attending Physician: Otis Campoverde MD History of Present Illness Patient is a complex 68-year-old male with past cardiac history is notable for 1. 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 2. Hypertension. 3. Chronic tobacco use. 4. Obesity with hypoventilation on chronic oxygen Patient seen and examined today chart reviewed. Information obtained from review of records and discussion with patient. He notes having felt poorly for at least 4 to 6 weeks of gradually worsening dyspnea abdominal bloating and leg edema. In addition he does experience worsening fatigue weakness and cough. He was treated empirically with an antibiotic azithromycin as an outpatient with little response. Days prior to admission he had increasing fatigue and falls. Ultimately was brought to the emergency room by and daughter due to significant cognitive decline. He does note cough but no significant sputum production. Notes no chest pains notes no syncope or near syncope though is markedly fatigued and becomes lightheaded at times. Notes no bleeding difficulties melena hematochezia dysuria hematuria is aware of significantly worsening lower extremity edema abdominal bloating. Evaluation since admission is notable for diagnosis of multifocal pneumonia with possible cavitary lesion, pulmonary emboli. Rhythm on presentation was narrow complex tachycardia possibly atrial flutter versus sinus tachycardia with frequent ectopy. He was begun on IV amiodarone with slowing of heart rate. Rhythm this morning appears to be multifocal atrial tachycardia. He is referred now for further evaluation. Patient previously on beta-gael therapy with carvedilol discontinued 2 to 3 years past due to perceived side effect of cough On exam patient's answering questions is still marginal and oxygenation with activities as little as moving in bed. Notes no chest pains or dizziness. Above information given. Notes he gave up alcohol and tobacco 2 to 3 days ago due to worsening complaints Allergies Allergy/AdvReac Type Severity Reaction Status Date / Time amoxicillin Allergy Intermediate HIVES Verified 04/17/13 15:53 Home Medications Home Medications Medication Instructions Recorded Confirmed Type acetaminophen-codeine 1 tab PO TID PRN 03/27/19 03/27/19 History albuterol sulfate [Ventolin HFA] 2 inh INHALATION QID PRN 03/27/19 03/27/19 History aspirin 81 mg PO DAILY 03/27/19 03/27/19 History atorvastatin 40 mg PO DAILY 03/27/19 03/27/19 History azithromycin See Rx Instructions .ROUTE 03/27/19 03/27/19 History .COMPLEX PRN escitalopram oxalate 20 mg PO DAILY 03/27/19 03/27/19 History fluticasone furoate-vilanterol 1 inh INHALATION DAILY 03/27/19 03/27/19 History [Breo Ellipta] lorazepam 1 mg PO TID PRN 03/27/19 03/27/19 History meclizine 12.5 mg PO BID PRN 03/27/19 03/27/19 History multivitamin 1 tab PO DAILY 03/27/19 03/27/19 History omeprazole 20 mg PO BID 03/27/19 03/27/19 History potassium chloride [Klor-Con M10] 20 meq PO BID 03/27/19 03/27/19 History Patient History Medical History Alcohol abuse (Chronic) GERD (gastroesophageal reflux disease) (Chronic) Non-ischemic cardiomyopathy (Chronic) echo 2015 - EF 45-50% HLD (hyperlipidemia) (Chronic) COPD (chronic obstructive pulmonary disease) (Chronic) Hypertension (Chronic) Surgical History History of cardiac cath (Chronic) 2012 - normal coronaries Family History Father Alcoholism Mother Alcoholism Social History Preferred Language: Telugu Communication Ability: Effective Manager Marketing Required: No Beliefs That Will Affect Care: None Current Living Situation: Spouse Other Information That Helps Us Care for You: No Feels Safe at Home: Yes Safety Concerns: Feels Safe At This Time Smoking Status: Current every day smoker Tobacco Type: cigarettes Do You Dip or Chew Tobacco: No Second Hand Exposure: Yes Tobacco Cessation Education Requested by Patient: No Hx Alcohol Use: Yes Alcohol type: hard liquor Alcohol Intake Frequency Comment: 2 shots / night Hx Substance Use: No Review of Systems Review of Systems: All systems reviewed & are unremarkable except as noted in HPI & below Physical Exam Constitutional: + ill appearing and + obese On oxygen mask oxygen supplementation Eyes: PERRL, conjunctivae normal, anicteric sclerae ENMT: external ear and nose normal, oropharynx normal Neck: trachea midline and + thick neck Cardiovascular: Rate/Rhythm: + tachycardic Heart Sounds: normal S1 and normal S2 Vessels: normal carotid upstroke; no carotid bruit Extremities: + edema (3+ edema to the hips) Gastrointestinal (Abdomen): Percussion/Palpation: abdomen soft; no hepatosplenomegaly Skin: normal turgor Neurologic: PERRL, EOMI, accommodation nl, no face palsy, no dysarthria Results & Data Vital Signs (Past 12 Hours) Vital Signs Temp Pulse Pulse Resp BP BP Pulse Ox 03/28/19 08:50 117 H 140/100 03/28/19 08:00 36.3 C L 114 H 114 H 26 H 106/68 95 03/28/19 06:11 139 H 03/28/19 06:01 127 H 26 H 93 03/28/19 05:30 117 H 28 H 113/70 93 03/28/19 05:17 131 H 03/28/19 05:01 121 H 26 H 93 03/28/19 05:00 123 H 29 H 126/81 93 03/28/19 04:30 111 H 29 H 122/92 93 03/28/19 04:01 120 H 31 H 93 03/28/19 04:00 113 H 31 H 117/79 93 03/28/19 03:30 113 H 29 H 112/79 94 03/28/19 03:01 115 H 30 H 92 03/28/19 03:00 116 H 28 H 117/80 92 03/28/19 02:31 118 H 27 H 121/77 93 03/28/19 02:00 113 H 27 H 117/84 91 03/28/19 01:23 147 H 03/28/19 01:00 120 H 28 H 108/80 94 03/28/19 00:30 133 H 23 143/89 H 95 03/28/19 00:00 36.6 C 120 H 25 H 131/70 95 Laboratory Results Laboratory Results - last 24 hr 03/27/19 03/27/19 03/27/19 16:37 16:37 16:37 WBC 23.83 H RBC 4.08 L Hgb 14.0 POC Hgb Hct 38.8 L POC Hct MCV 95.1 MCH 34.3 H MCHC 36.1 H RDW Std Deviation 49.4 H RDW Coeff of Meet 14.2 Plt Count 348 MPV 11.3 H Immature Gran % (Auto) 0.7 Neut % (Auto) 86.9 Lymph % (Auto) 8.2 [place] % (Auto) 4.1 Eos % (Auto) 0.0 Baso % (Auto) 0.1 Immature Gran # (Auto) 0.17 H Neut # (Auto) 20.69 H Lymph # (Auto) 1.96 [place] # (Auto) 0.98 H Eos # (Auto) 0.01 Baso # (Auto) 0.02 Toxic Vacuolation 1+ PT 13.5 H INR 1.3 H APTT 29.3 PTT Ratio 1.1 ABG pH ABG pCO2 ABG pO2 ABG HCO3 ABG O2 Saturation ABG Base Excess Stephen Test Barometric Pressure Oxygen Given POC Sodium Sodium 131 L POC Potassium Potassium 3.2 L POC Chloride Chloride 95 L Carbon Dioxide 19 L POC Total CO2 Anion Gap 16.0 H POC Anion Gap POC BUN BUN 22 H Creatinine 1.44 H POC Creatinine Est Cr Clr Drug Dosing 68.9 Est GFR ( Amer) 57.4 Est GFR (Non-Af Amer) 49.5 BUN/Creatinine Ratio 15.5 Glucose 98 POC Glucose POC Glucose (other) Osmolality POC Lactic Acid [place] Lactate Calcium 8.8 POC Ioniz Calcium Vani Magnesium Total Bilirubin 0.5 AST 298 H ALT 81 H Alkaline Phosphatase 343 H Total Creatine Kinase 3688 H CK-MB (CK-2) 20.6 H CK/CKMB % Calc 0.6 Troponin I 0.105 H* NT-Pro-B Natriuret Pep 4219 H Total Protein 5.9 L Albumin 1.8 L Globulin 4.1 H Albumin/Globulin Ratio 0.4 L Procalcitonin Urine Color Urine Appearance Urine pH Ur Specific [place] Urine Protein Urine Glucose (UA) Urine Ketones Urine Blood Urine Nitrite Urine Bilirubin Urine Urobilinogen Ur Leukocyte Esterase Urine WBC (Auto) Urine RBC (Auto) U Hyaline Cast (Auto) U Epithel Cells (Auto) Urine Bacteria (Auto) Urine Osmolality Ur Random Sodium Nasal Screen MRSA (PCR) Urine Opiates Screen Ur Methadone, Qual Urine Barbiturates Ur Phencyclidine (PCP) Urine PCP Confirm U Amphetamin/Meth Scrn MDMA (Ecstasy) Screen U Benzodiazepines Scrn Ur Cocaine Metabolite U Marijuana (THC) Screen Ethyl Alcohol mg/dL 03/27/19 03/27/19 03/27/19 16:37 16:41 16:45 WBC RBC Hgb POC Hgb 14.3 Hct POC Hct 42 MCV MCH MCHC RDW Std Deviation RDW Coeff of Meet Plt Count MPV Immature Gran % (Auto) Neut % (Auto) Lymph % (Auto) [place] % (Auto) Eos % (Auto) Baso % (Auto) Immature Gran # (Auto) Neut # (Auto) Lymph # (Auto) [place] # (Auto) Eos # (Auto) Baso # (Auto) Toxic Vacuolation PT INR APTT PTT Ratio ABG pH ABG pCO2 ABG pO2 ABG HCO3 ABG O2 Saturation ABG Base Excess Stephen Test Barometric Pressure Oxygen Given POC Sodium 128 L Sodium POC Potassium 3.4 Potassium POC Chloride 93 L Chloride Carbon Dioxide POC Total CO2 17 L Anion Gap POC Anion Gap 22.0 POC BUN 24 H BUN Creatinine POC Creatinine 1.3 Est Cr Clr Drug Dosing Est GFR ( Amer) Est GFR (Non-Af Amer) BUN/Creatinine Ratio Glucose POC Glucose POC Glucose (other) 103 H Osmolality POC Lactic Acid [place] 7.12 H Lactate Calcium POC Ioniz Calcium Vani 0.98 L Magnesium Total Bilirubin AST ALT Alkaline Phosphatase Total Creatine Kinase CK-MB (CK-2) CK/CKMB % Calc Troponin I NT-Pro-B Natriuret Pep Total Protein Albumin Globulin Albumin/Globulin Ratio Procalcitonin 7.35 H Urine Color Urine Appearance Urine pH Ur Specific [place] Urine Protein Urine Glucose (UA) Urine Ketones Urine Blood Urine Nitrite Urine Bilirubin Urine Urobilinogen Ur Leukocyte Esterase Urine WBC (Auto) Urine RBC (Auto) U Hyaline Cast (Auto) U Epithel Cells (Auto) Urine Bacteria (Auto) Urine Osmolality Ur Random Sodium Nasal Screen MRSA (PCR) Urine Opiates Screen Ur Methadone, Qual Urine Barbiturates Ur Phencyclidine (PCP) Urine PCP Confirm U Amphetamin/Meth Scrn MDMA (Ecstasy) Screen U Benzodiazepines Scrn Ur Cocaine Metabolite U Marijuana (THC) Screen Ethyl Alcohol mg/dL 03/27/19 03/27/19 03/27/19 16:48 16:48 17:00 WBC RBC Hgb POC Hgb Hct POC Hct MCV MCH MCHC RDW Std Deviation RDW Coeff of Meet Plt Count MPV Immature Gran % (Auto) Neut % (Auto) Lymph % (Auto) [place] % (Auto) Eos % (Auto) Baso % (Auto) Immature Gran # (Auto) Neut # (Auto) Lymph # (Auto) [place] # (Auto) Eos # (Auto) Baso # (Auto) Toxic Vacuolation PT INR APTT PTT Ratio ABG pH 7.49 H ABG pCO2 24 L ABG pO2 52 L ABG HCO3 18 L ABG O2 Saturation 87.1 L ABG Base Excess -3.3 Stephen Test Pos Barometric Pressure 733.3 Oxygen Given 100 POC Sodium Sodium POC Potassium Potassium POC Chloride Chloride Carbon Dioxide POC Total CO2 Anion Gap POC Anion Gap POC BUN BUN Creatinine POC Creatinine Est Cr Clr Drug Dosing Est GFR ( Amer) Est GFR (Non-Af Amer) BUN/Creatinine Ratio Glucose POC Glucose POC Glucose (other) Osmolality POC Lactic Acid [place] Lactate 4.5 H* Calcium POC Ioniz Calcium Vani Magnesium Total Bilirubin AST ALT Alkaline Phosphatase Total Creatine Kinase CK-MB (CK-2) CK/CKMB % Calc Troponin I NT-Pro-B Natriuret Pep Total Protein Albumin Globulin Albumin/Globulin Ratio Procalcitonin Urine Color Dark Yellow Urine Appearance Cloudy A Urine pH 5.5 Ur Specific [place] 1.025 Urine Protein Trace H Urine Glucose (UA) Negative Urine Ketones Trace H Urine Blood 1+ H Urine Nitrite Negative Urine Bilirubin 1+ H Urine Urobilinogen Negative Ur Leukocyte Esterase 2+ H Urine WBC (Auto) >30 H Urine RBC (Auto) 0-4 U Hyaline Cast (Auto) 0 U Epithel Cells (Auto) 0-5 Urine Bacteria (Auto) 1+ H Urine Osmolality Ur Random Sodium Nasal Screen MRSA (PCR) Urine Opiates Screen Ur Methadone, Qual Urine Barbiturates Ur Phencyclidine (PCP) Urine PCP Confirm U Amphetamin/Meth Scrn MDMA (Ecstasy) Screen U Benzodiazepines Scrn Ur Cocaine Metabolite U Marijuana (THC) Screen Ethyl Alcohol mg/dL 03/27/19 03/27/19 03/27/19 17:02 17:18 17:18 WBC RBC Hgb POC Hgb Hct POC Hct MCV MCH MCHC RDW Std Deviation RDW Coeff of Meet Plt Count MPV Immature Gran % (Auto) Neut % (Auto) Lymph % (Auto) [place] % (Auto) Eos % (Auto) Baso % (Auto) Immature Gran # (Auto) Neut # (Auto) Lymph # (Auto) [place] # (Auto) Eos # (Auto) Baso # (Auto) Toxic Vacuolation PT INR APTT PTT Ratio ABG pH ABG pCO2 ABG pO2 ABG HCO3 ABG O2 Saturation ABG Base Excess Stephen Test Barometric Pressure Oxygen Given POC Sodium Sodium POC Potassium Potassium POC Chloride Chloride Carbon Dioxide POC Total CO2 Anion Gap POC Anion Gap POC BUN BUN Creatinine POC Creatinine Est Cr Clr Drug Dosing Est GFR ( Amer) Est GFR (Non-Af Amer) BUN/Creatinine Ratio Glucose POC Glucose POC Glucose (other) Osmolality POC Lactic Acid [place] Lactate Calcium POC Ioniz Calcium Vani Magnesium Total Bilirubin AST ALT Alkaline Phosphatase Total Creatine Kinase CK-MB (CK-2) CK/CKMB % Calc Troponin I NT-Pro-B Natriuret Pep Total Protein Albumin Globulin Albumin/Globulin Ratio Procalcitonin Urine Color Dark Yellow Urine Appearance Cloudy A Urine pH 5.5 Ur Specific [place] 1.025 Urine Protein Trace H Urine Glucose (UA) Negative Urine Ketones Trace H Urine Blood 2+ H Urine Nitrite Negative Urine Bilirubin Negative Urine Urobilinogen Negative Ur Leukocyte Esterase 2+ H Urine WBC (Auto) >30 H Urine RBC (Auto) 5-10 H U Hyaline Cast (Auto) 10-30 H U Epithel Cells (Auto) 0-5 Urine Bacteria (Auto) 1+ H Urine Osmolality Ur Random Sodium Nasal Screen MRSA (PCR) Urine Opiates Screen Neg Ur Methadone, Qual Neg Urine Barbiturates Neg Ur Phencyclidine (PCP) Pos H Urine PCP Confirm U Amphetamin/Meth Scrn Neg MDMA (Ecstasy) Screen Neg U Benzodiazepines Scrn Neg Ur Cocaine Metabolite Neg U Marijuana (THC) Screen Neg Ethyl Alcohol mg/dL < 3.0 03/27/19 03/27/19 03/27/19 17:18 19:17 19:46 WBC RBC Hgb POC Hgb Hct POC Hct MCV MCH MCHC RDW Std Deviation RDW Coeff of Meet Plt Count MPV Immature Gran % (Auto) Neut % (Auto) Lymph % (Auto) [place] % (Auto) Eos % (Auto) Baso % (Auto) Immature Gran # (Auto) Neut # (Auto) Lymph # (Auto) [place] # (Auto) Eos # (Auto) Baso # (Auto) Toxic Vacuolation PT INR APTT PTT Ratio ABG pH ABG pCO2 ABG pO2 ABG HCO3 ABG O2 Saturation ABG Base Excess Stephen Test Barometric Pressure Oxygen Given POC Sodium Sodium POC Potassium Potassium POC Chloride Chloride Carbon Dioxide POC Total CO2 Anion Gap POC Anion Gap POC BUN BUN Creatinine POC Creatinine Est Cr Clr Drug Dosing Est GFR ( Amer) Est GFR (Non-Af Amer) BUN/Creatinine Ratio Glucose POC Glucose POC Glucose (other) Osmolality POC Lactic Acid [place] Lactate 2.1 H* Calcium POC Ioniz Calcium Vani Magnesium Total Bilirubin AST ALT Alkaline Phosphatase Total Creatine Kinase CK-MB (CK-2) CK/CKMB % Calc Troponin I NT-Pro-B Natriuret Pep 3933 H Total Protein Albumin Globulin Albumin/Globulin Ratio Procalcitonin Urine Color Urine Appearance Urine pH Ur Specific [place] Urine Protein Urine Glucose (UA) Urine Ketones Urine Blood Urine Nitrite Urine Bilirubin Urine Urobilinogen Ur Leukocyte Esterase Urine WBC (Auto) Urine RBC (Auto) U Hyaline Cast (Auto) U Epithel Cells (Auto) Urine Bacteria (Auto) Urine Osmolality Ur Random Sodium Nasal Screen MRSA (PCR) Urine Opiates Screen Ur Methadone, Qual Urine Barbiturates Ur Phencyclidine (PCP) Urine PCP Confirm Pending U Amphetamin/Meth Scrn MDMA (Ecstasy) Screen U Benzodiazepines Scrn Ur Cocaine Metabolite U Marijuana (THC) Screen Ethyl Alcohol mg/dL 03/27/19 03/27/19 03/27/19 20:00 21:49 21:49 WBC RBC Hgb POC Hgb Hct POC Hct MCV MCH MCHC RDW Std Deviation RDW Coeff of Meet Plt Count MPV Immature Gran % (Auto) Neut % (Auto) Lymph % (Auto) [place] % (Auto) Eos % (Auto) Baso % (Auto) Immature Gran # (Auto) Neut # (Auto) Lymph # (Auto) [place] # (Auto) Eos # (Auto) Baso # (Auto) Toxic Vacuolation PT INR APTT PTT Ratio ABG pH ABG pCO2 ABG pO2 ABG HCO3 ABG O2 Saturation ABG Base Excess Stephen Test Barometric Pressure Oxygen Given POC Sodium Sodium POC Potassium Potassium POC Chloride Chloride Carbon Dioxide POC Total CO2 Anion Gap POC Anion Gap POC BUN BUN Creatinine POC Creatinine Est Cr Clr Drug Dosing Est GFR ( Amer) Est GFR (Non-Af Amer) BUN/Creatinine Ratio Glucose POC Glucose POC Glucose (other) Osmolality POC Lactic Acid [place] Lactate 1.5 Calcium POC Ioniz Calcium Vani Magnesium Total Bilirubin AST ALT Alkaline Phosphatase Total Creatine Kinase 2856 H CK-MB (CK-2) CK/CKMB % Calc Troponin I 0.133 H* NT-Pro-B Natriuret Pep Total Protein Albumin Globulin Albumin/Globulin Ratio Procalcitonin Urine Color Urine Appearance Urine pH Ur Specific [place] Urine Protein Urine Glucose (UA) Urine Ketones Urine Blood Urine Nitrite Urine Bilirubin Urine Urobilinogen Ur Leukocyte Esterase Urine WBC (Auto) Urine RBC (Auto) U Hyaline Cast (Auto) U Epithel Cells (Auto) Urine Bacteria (Auto) Urine Osmolality Ur Random Sodium Nasal Screen MRSA (PCR) Negative Urine Opiates Screen Ur Methadone, Qual Urine Barbiturates Ur Phencyclidine (PCP) Urine PCP Confirm U Amphetamin/Meth Scrn MDMA (Ecstasy) Screen U Benzodiazepines Scrn Ur Cocaine Metabolite U Marijuana (THC) Screen Ethyl Alcohol mg/dL 03/27/19 03/28/19 03/28/19 21:51 00:23 02:12 WBC RBC Hgb POC Hgb Hct POC Hct MCV MCH MCHC RDW Std Deviation RDW Coeff of Meet Plt Count MPV Immature Gran % (Auto) Neut % (Auto) Lymph % (Auto) [place] % (Auto) Eos % (Auto) Baso % (Auto) Immature Gran # (Auto) Neut # (Auto) Lymph # (Auto) [place] # (Auto) Eos # (Auto) Baso # (Auto) Toxic Vacuolation PT INR APTT Cancelled PTT Ratio Cancelled ABG pH ABG pCO2 ABG pO2 ABG HCO3 ABG O2 Saturation ABG Base Excess Stephen Test Barometric Pressure Oxygen Given POC Sodium Sodium POC Potassium Potassium POC Chloride Chloride Carbon Dioxide POC Total CO2 Anion Gap POC Anion Gap POC BUN BUN Creatinine POC Creatinine Est Cr Clr Drug Dosing Est GFR ( Amer) Est GFR (Non-Af Amer) BUN/Creatinine Ratio Glucose POC Glucose 106 H 110 H POC Glucose (other) Osmolality POC Lactic Acid [place] Lactate Calcium POC Ioniz Calcium Vani Magnesium Total Bilirubin AST ALT Alkaline Phosphatase Total Creatine Kinase CK-MB (CK-2) CK/CKMB % Calc Troponin I NT-Pro-B Natriuret Pep Total Protein Albumin Globulin Albumin/Globulin Ratio Procalcitonin Urine Color Urine Appearance Urine pH Ur Specific [place] Urine Protein Urine Glucose (UA) Urine Ketones Urine Blood Urine Nitrite Urine Bilirubin Urine Urobilinogen Ur Leukocyte Esterase Urine WBC (Auto) Urine RBC (Auto) U Hyaline Cast (Auto) U Epithel Cells (Auto) Urine Bacteria (Auto) Urine Osmolality Ur Random Sodium Nasal Screen MRSA (PCR) Urine Opiates Screen Ur Methadone, Qual Urine Barbiturates Ur Phencyclidine (PCP) Urine PCP Confirm U Amphetamin/Meth Scrn MDMA (Ecstasy) Screen U Benzodiazepines Scrn Ur Cocaine Metabolite U Marijuana (THC) Screen Ethyl Alcohol mg/dL 03/28/19 03/28/19 03/28/19 03:19 04:09 04:11 WBC 21.26 H RBC 3.55 L Hgb 11.9 L POC Hgb Hct 33.3 L POC Hct MCV 93.8 MCH 33.5 MCHC 35.7 RDW Std Deviation 48.7 H RDW Coeff of Meet 14.2 Plt Count 280 MPV 11.4 H Immature Gran % (Auto) Neut % (Auto) Lymph % (Auto) [place] % (Auto) Eos % (Auto) Baso % (Auto) Immature Gran # (Auto) Neut # (Auto) Lymph # (Auto) [place] # (Auto) Eos # (Auto) Baso # (Auto) Toxic Vacuolation PT INR APTT > 139.0 H* PTT Ratio > 5.1 ABG pH ABG pCO2 ABG pO2 ABG HCO3 ABG O2 Saturation ABG Base Excess Stephen Test Barometric Pressure Oxygen Given POC Sodium Sodium 128 L POC Potassium Potassium 3.3 L POC Chloride Chloride 95 L Carbon Dioxide 26 POC Total CO2 Anion Gap 7.0 POC Anion Gap POC BUN BUN 24 H Creatinine 0.93 D POC Creatinine Est Cr Clr Drug Dosing 106.7 Est GFR ( Amer) 97.4 Est GFR (Non-Af Amer) 84.1 BUN/Creatinine Ratio 25.4 H Glucose 115 H POC Glucose POC Glucose (other) Osmolality POC Lactic Acid [place] Lactate Calcium 7.2 L D POC Ioniz Calcium Vani Magnesium Total Bilirubin 0.4 AST 255 H ALT 77 Alkaline Phosphatase 256 H Total Creatine Kinase 2261 H CK-MB (CK-2) CK/CKMB % Calc Troponin I 0.101 H* NT-Pro-B Natriuret Pep Total Protein 5.1 L Albumin 1.6 L Globulin 3.5 Albumin/Globulin Ratio 0.5 L Procalcitonin Urine Color Urine Appearance Urine pH Ur Specific [place] Urine Protein Urine Glucose (UA) Urine Ketones Urine Blood Urine Nitrite Urine Bilirubin Urine Urobilinogen Ur Leukocyte Esterase Urine WBC (Auto) Urine RBC (Auto) U Hyaline Cast (Auto) U Epithel Cells (Auto) Urine Bacteria (Auto) Urine Osmolality Ur Random Sodium Nasal Screen MRSA (PCR) Urine Opiates Screen Ur Methadone, Qual Urine Barbiturates Ur Phencyclidine (PCP) Urine PCP Confirm U Amphetamin/Meth Scrn MDMA (Ecstasy) Screen U Benzodiazepines Scrn Ur Cocaine Metabolite U Marijuana (THC) Screen Ethyl Alcohol mg/dL 03/28/19 03/28/19 03/28/19 04:11 05:03 05:59 WBC RBC Hgb POC Hgb Hct POC Hct MCV MCH MCHC RDW Std Deviation RDW Coeff of Meet Plt Count MPV Immature Gran % (Auto) Neut % (Auto) Lymph % (Auto) [place] % (Auto) Eos % (Auto) Baso % (Auto) Immature Gran # (Auto) Neut # (Auto) Lymph # (Auto) [place] # (Auto) Eos # (Auto) Baso # (Auto) Toxic Vacuolation PT INR APTT > 139.0 H* 91.4 H* PTT Ratio > 5.1 3.4 ABG pH ABG pCO2 ABG pO2 ABG HCO3 ABG O2 Saturation ABG Base Excess Stephen Test Barometric Pressure Oxygen Given POC Sodium Sodium POC Potassium Potassium POC Chloride Chloride Carbon Dioxide POC Total CO2 Anion Gap POC Anion Gap POC BUN BUN Creatinine POC Creatinine Est Cr Clr Drug Dosing Est GFR ( Amer) Est GFR (Non-Af Amer) BUN/Creatinine Ratio Glucose POC Glucose POC Glucose (other) Osmolality POC Lactic Acid [place] Lactate Calcium POC Ioniz Calcium Vani Magnesium 2.1 Total Bilirubin AST ALT Alkaline Phosphatase Total Creatine Kinase CK-MB (CK-2) CK/CKMB % Calc Troponin I NT-Pro-B Natriuret Pep Total Protein Albumin Globulin Albumin/Globulin Ratio Procalcitonin Urine Color Urine Appearance Urine pH Ur Specific [place] Urine Protein Urine Glucose (UA) Urine Ketones Urine Blood Urine Nitrite Urine Bilirubin Urine Urobilinogen Ur Leukocyte Esterase Urine WBC (Auto) Urine RBC (Auto) U Hyaline Cast (Auto) U Epithel Cells (Auto) Urine Bacteria (Auto) Urine Osmolality Ur Random Sodium Nasal Screen MRSA (PCR) Urine Opiates Screen Ur Methadone, Qual Urine Barbiturates Ur Phencyclidine (PCP) Urine PCP Confirm U Amphetamin/Meth Scrn MDMA (Ecstasy) Screen U Benzodiazepines Scrn Ur Cocaine Metabolite U Marijuana (THC) Screen Ethyl Alcohol mg/dL 03/28/19 03/28/19 03/28/19 06:02 08:57 10:18 WBC RBC Hgb POC Hgb Hct POC Hct MCV MCH MCHC RDW Std Deviation RDW Coeff of Meet Plt Count MPV Immature Gran % (Auto) Neut % (Auto) Lymph % (Auto) [place] % (Auto) Eos % (Auto) Baso % (Auto) Immature Gran # (Auto) Neut # (Auto) Lymph # (Auto) [place] # (Auto) Eos # (Auto) Baso # (Auto) Toxic Vacuolation PT INR APTT PTT Ratio ABG pH ABG pCO2 ABG pO2 ABG HCO3 ABG O2 Saturation ABG Base Excess Stephen Test Barometric Pressure Oxygen Given POC Sodium Sodium POC Potassium Potassium POC Chloride Chloride Carbon Dioxide POC Total CO2 Anion Gap POC Anion Gap POC BUN BUN Creatinine POC Creatinine Est Cr Clr Drug Dosing Est GFR ( Amer) Est GFR (Non-Af Amer) BUN/Creatinine Ratio Glucose POC Glucose 125 H POC Glucose (other) Osmolality 271 L POC Lactic Acid [place] Lactate Calcium POC Ioniz Calcium Vani Magnesium Total Bilirubin AST ALT Alkaline Phosphatase Total Creatine Kinase CK-MB (CK-2) CK/CKMB % Calc Troponin I NT-Pro-B Natriuret Pep Total Protein Albumin Globulin Albumin/Globulin Ratio Procalcitonin Urine Color Urine Appearance Urine pH Ur Specific [place] Urine Protein Urine Glucose (UA) Urine Ketones Urine Blood Urine Nitrite Urine Bilirubin Urine Urobilinogen Ur Leukocyte Esterase Urine WBC (Auto) Urine RBC (Auto) U Hyaline Cast (Auto) U Epithel Cells (Auto) Urine Bacteria (Auto) Urine Osmolality 627 Ur Random Sodium Nasal Screen MRSA (PCR) Urine Opiates Screen Ur Methadone, Qual Urine Barbiturates Ur Phencyclidine (PCP) Urine PCP Confirm U Amphetamin/Meth Scrn MDMA (Ecstasy) Screen U Benzodiazepines Scrn Ur Cocaine Metabolite U Marijuana (THC) Screen Ethyl Alcohol mg/dL 03/28/19 03/28/19 10:18 11:10 WBC RBC Hgb POC Hgb Hct POC Hct MCV MCH MCHC RDW Std Deviation RDW Coeff of Meet Plt Count MPV Immature Gran % (Auto) Neut % (Auto) Lymph % (Auto) [place] % (Auto) Eos % (Auto) Baso % (Auto) Immature Gran # (Auto) Neut # (Auto) Lymph # (Auto) [place] # (Auto) Eos # (Auto) Baso # (Auto) Toxic Vacuolation PT INR APTT PTT Ratio ABG pH ABG pCO2 ABG pO2 ABG HCO3 ABG O2 Saturation ABG Base Excess Stephen Test Barometric Pressure Oxygen Given POC Sodium Sodium POC Potassium Potassium POC Chloride Chloride Carbon Dioxide POC Total CO2 Anion Gap POC Anion Gap POC BUN BUN Creatinine POC Creatinine Est Cr Clr Drug Dosing Est GFR ( Amer) Est GFR (Non-Af Amer) BUN/Creatinine Ratio Glucose POC Glucose 148 H POC Glucose (other) Osmolality POC Lactic Acid Donavan Lactate Calcium POC Ioniz Calcium Vani Magnesium Total Bilirubin AST ALT Alkaline Phosphatase Total Creatine Kinase CK-MB (CK-2) CK/CKMB % Calc Troponin I NT-Pro-B Natriuret Pep Total Protein Albumin Globulin Albumin/Globulin Ratio Procalcitonin Urine Color Urine Appearance Urine pH Ur Specific [place] Urine Protein Urine Glucose (UA) Urine Ketones Urine Blood Urine Nitrite Urine Bilirubin Urine Urobilinogen Ur Leukocyte Esterase Urine WBC (Auto) Urine RBC (Auto) U Hyaline Cast (Auto) U Epithel Cells (Auto) Urine Bacteria (Auto) Urine Osmolality Ur Random Sodium 59 Nasal Screen MRSA (PCR) Urine Opiates Screen Ur Methadone, Qual Urine Barbiturates Ur Phencyclidine (PCP) Urine PCP Confirm U Amphetamin/Meth Scrn MDMA (Ecstasy) Screen U Benzodiazepines Scrn Ur Cocaine Metabolite U Marijuana (THC) Screen Ethyl Alcohol mg/dL
[2019-03-28 13:17] LABS: Partial Thromboplastin Ratio > 5.1
[2019-03-28 13:35] LABS: Partial Thromboplastin Time > 139.0 Seconds (21.0-31.0)
[2019-03-28] MEDS: Heparin Adult STANDARD Wt-Based Dextrose 5% 25,000 units/500 mL IV SCH (13:45)
--- NOTE | 2019-03-28 14:39 | Ultrasound Report ---
US venous doppler LE BI HISTORY: Pain. Edema. PE, eval for DVT COMPARISON STUDY: None. FINDINGS: There is normal compressibility, flow, and augmentation within the bilateral lower extremit y deep venous systems. IMPRESSION: No DVT within the right or left lower extremity. The above report was generated using voice recognition software. It may contain grammatical, syntax or spelling errors. Electronically signed by: Bear Amaral M.D. 03/28/2019 2:38 PM
[2019-03-28 15:53] LABS: Partial Thromboplastin Ratio 2.3
[2019-03-28] MEDS ORDERED: cefTRIAXone SODIUM 2,000 MG in DEXTROSE 5% 50 ML IV SCH (16:00)
[2019-03-28] MEDS: PIPERACILLIN/TAZOBACTAM 4.5 GM in DEXTROSE 5% 100 ML IV SCH ×2 (16:00→23:36)
[2019-03-28 16:05] LABS: Partial Thromboplastin Time 63.2 Seconds (21.0-31.0)
[2019-03-28] MEDS ORDERED: METOPROLOL SUCC 25MG EXT REL TAB PO STA (18:05)
[2019-03-28] MEDS: NITROGLYCERIN 2% OINTMENT 30GM TUBE EXT SCH ×2 (18:11→23:40)
[2019-03-28] MEDS: FAMOTIDINE 20 MG in SYRINGE 3 ML IV SCH (20:29)
[2019-03-28] MEDS: METOPROLOL SUCC 50MG EXT REL TAB PO SCH (20:29)
[2019-03-28] MEDS ORDERED: METOPROLOL SUCC 25MG EXT REL TAB PO SCH (21:00)
[2019-03-28 22:44] LABS: Partial Thromboplastin Ratio 3.2
[2019-03-29] MEDS: BREO ELLIPTA - ORDER AWAITING ACTION SCH ×3 (00:12→16:50)
[2019-03-29 03:36] LABS: Hematocrit (blood only) 30.8 % (42-52); Hemoglobin 11.1 g/dL (14.0-18.0); Mean Corpuscular Volume 94.8 fL (80-100); Mean Platelet Volume 10.7 fL (7.4-10.4); Platelet Count 255 K/uL (130-400); RDW Coefficient of Variation 14.1 % (11.5-14.5); RDW Standard Deviation 48.8 fL (36.4-46.3); Red Blood Count 3.25 M/uL (4.7-6.1); White Blood Count 22.31 K/uL (4.8-10.8)
[2019-03-29] MEDS: SODIUM CHLORIDE 0.9% 1000ML 1,000 ML IV SCH (03:51)
[2019-03-29 04:07] LABS: Albumin Level 1.6 gm/dl (3.4-5.0); BUN Creatinine Ratio 36.3 (10-20); Creatinine Clr Calc Pharmacy 139.6 ml/min; Est GFR (African American) 112.4; Magnesium 2.1 mg/dl (1.8-2.4); Potassium 4.1 mmol/L (3.5-5.1)
[2019-03-29 04:16] LABS: Albumin Globulin Ratio 0.4 (0.9-2); Bilirubin,Total 0.4 mg/dl (0.2-1); Globulin 3.6 gm/dl (2.5-4.0); Total Protein 5.2 gm/dl (6.4-8.2)
[2019-03-29 04:41] LABS: Basophils # (auto) 0.01 K/uL (0-0.2); Echinocytes 1+; Immature Granulocytes # (auto) 0.16 K/uL (0.00-0.02); Immature Granulocytes % (auto) 0.7 %; Lymphocytes # (auto) 0.99 K/uL (1.2-3.4); Lymphocytes % (auto) 4.4 %; Monocytes # (auto) 0.66 K/uL (0.11-0.59); Neutrophils # (auto) 20.49 K/uL (1.4-6.5); Neutrophils % (auto) 91.9 %
[2019-03-29] MEDS: NITROGLYCERIN 2% OINTMENT 30GM TUBE EXT SCH ×4 (05:46→23:24)
[2019-03-29 06:03] LABS: Estimated Average Glucose 114 mg/dl; Hemoglobin A1C 5.6 % (4.5-5.6)
[2019-03-29 06:06] LABS: Partial Thromboplastin Time 82.3 Seconds (21.0-31.0)
[2019-03-29] MEDS: PIPERACILLIN/TAZOBACTAM 4.5 GM in DEXTROSE 5% 100 ML IV SCH ×3 (07:32→23:24)
[2019-03-29] MEDS: FAMOTIDINE 20 MG TAB PO SCH (09:06)
[2019-03-29] MEDS: MULTIVITAMIN TAB PO SCH (09:07)
[2019-03-29] MEDS: METOPROLOL SUCC 50MG EXT REL TAB PO SCH ×3 (09:07→20:17)
[2019-03-29] MEDS: THIAMINE HCL 300 MG in SODIUM CHLORIDE 0.9% 50 ML IV SCH (09:07)
[2019-03-29] MEDS: ASPIRIN 81 MG ECTAB PO SCH (09:07)
[2019-03-29] MEDS: ESCITALOPRAM OXALATE 10 MG TAB PO SCH (09:08)
[2019-03-29] MEDS: FUROSEMIDE 40 MG in SYRINGE 0 ML IV SCH (09:09)
[2019-03-29] MEDS: FOLIC ACID 1 MG TAB PO SCH (09:46)
--- NOTE | 2019-03-29 10:42 | Cardiology Progress Note ---
Date of Service March 29, 2019 Assessment & Plan (1) Multifocal atrial tachycardia: Atrial arrhythmias are being driven by underlying pulmonary issues. Slowly improving would recommend titrating Toprol higher, discontinuing amiodarone infusion Clinical evidence of right heart failure lower extremity edema. Initiate diuretic therapy goals toward negative I's and O's at this point (2) Non-ischemic cardiomyopathy: Past history of catecholamine induced cardiomyopathy with an echocardiogram today demonstrating preserved to hyperdynamic LV function Exam reflects significant right heart failure likely secondary pulmonary issues, chronic alcohol use, Diuretic on board may need increase in dosing We will add spironolactone to her regimen Nitropaste added yesterday predominantly for hypertension control, may be discontinued if necessary (3) SIRS (systemic inflammatory response syndrome): CT evidence of pneumonia, cavitary process and possible pulmonary emboli On IV heparin, antibiotic therapies Subjective Patient states he feels improved still requiring high amounts of oxygen supplementation. Received BiPAP overnight. Loose cough present. Lower extremity edema present Telemetry reveals multifocal atrial tachycardia Physical Exam Constitutional: + ill appearing and + obese Eyes: PERRL, conjunctivae normal, anicteric sclerae ENMT: external ear and nose normal, oropharynx normal Neck: trachea midline and + thick neck Cardiovascular: Rate/Rhythm: + tachycardic Heart Sounds: normal S1 and normal S2 Vessels: normal carotid upstroke; no carotid bruit Extremities: + edema (3+ edema to the hips) Gastrointestinal (Abdomen): Percussion/Palpation: abdomen soft; no hepatosplenomegaly Skin: normal turgor Neurologic: PERRL, EOMI, accommodation nl, no face palsy, no dysarthria Results & Data Vital Signs (Past 12 Hours) Vital Signs Temp Pulse Pulse Resp BP Pulse Ox 03/29/19 09:15 102 H 22 91 03/29/19 08:00 36.6 C 91 H 22 128/81 91 03/29/19 07:00 80 22 121/75 99 03/29/19 06:00 95 H 29 H 130/93 96 03/29/19 05:00 82 22 129/75 96 03/29/19 04:10 87 27 H 100 03/29/19 04:00 84 23 113/66 100 03/29/19 03:00 85 22 129/83 100 03/29/19 02:00 91 H 21 126/78 100 03/29/19 01:00 100 H 22 136/91 100 03/29/19 00:00 36.7 C 93 H 22 120/74 100 03/28/19 23:00 100 H 22 139/96 100 03/28/19 22:56 103 H 27 H 100 Laboratory Results Laboratory Results - last 24 hr 03/28/19 03/28/19 03/28/19 10:18 11:10 12:30 WBC RBC Hgb Hct MCV MCH MCHC RDW Std Deviation RDW Coeff of Meet Plt Count MPV Immature Gran % (Auto) Neut % (Auto) Lymph % (Auto) [place] % (Auto) Eos % (Auto) Baso % (Auto) Immature Gran # (Auto) Neut # (Auto) Lymph # (Auto) [place] # (Auto) Eos # (Auto) Baso # (Auto) Echinocytes APTT PTT Ratio Sodium Potassium Chloride Carbon Dioxide Anion Gap BUN Creatinine Est Cr Clr Drug Dosing Est GFR ( Amer) Est GFR (Non-Af Amer) BUN/Creatinine Ratio Glucose POC Glucose 148 H Estimat Average Glucose Hemoglobin A1c Calcium Magnesium Total Bilirubin AST ALT Alkaline Phosphatase Total Creatine Kinase Total Protein Albumin Globulin Albumin/Globulin Ratio Procalcitonin Urine Osmolality 627 Stl C. diff Tox B Gene Negative Cdiff Gene 03/28/19 03/28/19 03/28/19 12:42 15:08 15:30 WBC RBC Hgb Hct MCV MCH MCHC RDW Std Deviation RDW Coeff of Meet Plt Count MPV Immature Gran % (Auto) Neut % (Auto) Lymph % (Auto) [place] % (Auto) Eos % (Auto) Baso % (Auto) Immature Gran # (Auto) Neut # (Auto) Lymph # (Auto) [place] # (Auto) Eos # (Auto) Baso # (Auto) Echinocytes APTT > 139.0 H* 63.2 H* PTT Ratio > 5.1 2.3 Sodium Potassium Chloride Carbon Dioxide Anion Gap BUN Creatinine Est Cr Clr Drug Dosing Est GFR ( Amer) Est GFR (Non-Af Amer) BUN/Creatinine Ratio Glucose POC Glucose 125 H Estimat Average Glucose Hemoglobin A1c Calcium Magnesium Total Bilirubin AST ALT Alkaline Phosphatase Total Creatine Kinase Total Protein Albumin Globulin Albumin/Globulin Ratio Procalcitonin Urine Osmolality Stl C. diff Tox B Gene 03/28/19 03/29/19 03/29/19 22:12 03:25 03:25 WBC 22.31 H RBC 3.25 L Hgb 11.1 L Hct 30.8 L MCV 94.8 MCH 34.2 H MCHC 36.0 RDW Std Deviation 48.8 H RDW Coeff of Meet 14.1 Plt Count 255 MPV 10.7 H Immature Gran % (Auto) 0.7 Neut % (Auto) 91.9 Lymph % (Auto) 4.4 [place] % (Auto) 3.0 Eos % (Auto) 0.0 Baso % (Auto) 0.0 Immature Gran # (Auto) 0.16 H Neut # (Auto) 20.49 H Lymph # (Auto) 0.99 L [place] # (Auto) 0.66 H Eos # (Auto) 0.00 Baso # (Auto) 0.01 Echinocytes 1+ APTT 88.0 H* PTT Ratio 3.2 Sodium 130 L Potassium 4.1 D Chloride 101 Carbon Dioxide 25 Anion Gap 4.0 BUN 25 H Creatinine 0.70 Est Cr Clr Drug Dosing 139.6 Est GFR ( Amer) 112.4 Est GFR (Non-Af Amer) 97.0 BUN/Creatinine Ratio 36.3 H Glucose 121 H POC Glucose Estimat Average Glucose Hemoglobin A1c Calcium 7.0 L Magnesium 2.1 Total Bilirubin 0.4 AST 222 H ALT 89 H Alkaline Phosphatase 223 H Total Creatine Kinase 1410 H Total Protein 5.2 L Albumin 1.6 L Globulin 3.6 Albumin/Globulin Ratio 0.4 L Procalcitonin Urine Osmolality Stl C. diff Tox B Gene 03/29/19 03/29/19 03/29/19 03:25 03:25 05:29 WBC RBC Hgb Hct MCV MCH MCHC RDW Std Deviation RDW Coeff of Meet Plt Count MPV Immature Gran % (Auto) Neut % (Auto) Lymph % (Auto) [place] % (Auto) Eos % (Auto) Baso % (Auto) Immature Gran # (Auto) Neut # (Auto) Lymph # (Auto) [place] # (Auto) Eos # (Auto) Baso # (Auto) Echinocytes APTT 82.3 H* PTT Ratio 3.0 Sodium Potassium Chloride Carbon Dioxide Anion Gap BUN Creatinine Est Cr Clr Drug Dosing Est GFR ( Amer) Est GFR (Non-Af Amer) BUN/Creatinine Ratio Glucose POC Glucose Estimat Average Glucose 114 Hemoglobin A1c 5.6 Calcium Magnesium Total Bilirubin AST ALT Alkaline Phosphatase Total Creatine Kinase Total Protein Albumin Globulin Albumin/Globulin Ratio Procalcitonin 3.66 H Urine Osmolality Stl C. diff Tox B Gene
[2019-03-29] MEDS: methylPREDNISolone 40 MG in SYRINGE 0 ML IV SCH ×2 (12:04→23:24)
[2019-03-29 13:28] LABS: Partial Thromboplastin Time 54.2 Seconds (21.0-31.0)
--- NOTE | 2019-03-29 13:47 | XRay Report ---
XR chest 1V portable CLINICAL HISTORY: chf this exam COMPARISON STUDY: 03/27/2018 FINDINGS: Stable findings of pulmonary edema versus diffuse bilateral parenchymal infiltrative change . Central catheter remains in the superior vena cava. Diaphragms are smooth. IMPRESSION: Unchanged evaluation of the chest compared to the prior study. Stable findings of pulmon dona edema versus diffuse bilateral parenchymal infiltrates. The above report was generated using voice recognition software. It may contain grammatical, syntax or spelling errors. Electronically signed by: Bear Amaral M.D. 03/29/2019 1:46 PM
--- NOTE | 2019-03-29 13:50 | Critical Care Progress Note ---
Date of Service March 29, 2019 Assessment & Plan (1) Atrial fibrillation with RVR: Impression: 1. Acute respiratory failure, with hypoxia, secondary to decompensated heart failure. 2. A. fib, new onset, with RVR. Now in MAT, better rate controlled. 3. Congestive heart failure with exacerbation. 4. UTI. 5. Rhabdomyolysis. 6. Multilobar infiltrates, cavity in the right upper lobe, concerns for malignancy. 7. COPD, active smoker, exacerbated by multiple insults to the lung. 8. Small PE affecting the inferior branch of the right pulmonary artery. 9. Positive toxic screen for PCP. 10. Possible DVT with bilateral edema. Plan: 1. Discontinue CVP monitoring. 2. Continue Zosyn at the current dose. 3. Discontinue amiodarone. 4. Change Lopressor IV to as needed and start the patient on Lopressor 50 mg 3 times daily up from twice daily. 5. Heparin drip to a full dose. 6. Cultures, pending results. 7. GI prophylaxis. 8. BiPAP nocturnally. 9. Resume oral intake. 10. Appreciate Dr. Perales input from cardiology. 11. Lasix daily 40 mg. 12. Continue Solu-Medrol 40 mg IV twice daily for acute lung injury and COPD. 13. Xopenex as a bronchodilator, given his tachyphylaxis and MAT. 14. Patient started on nitroglycerin paste given his cardiac condition. 15. Change Ativan to 1 mg sublingual every 4 hours. 16. Continue thiamine and folic acid p.o. 17. Patient not in DT, no need for phenobarbital at this point. 18. Discussed with the staff in details. 19. Serum and urine osmolality does not support a diagnosis of SIADH. 20. Replacement of KCl. 21. Disposition plan to PCU, discussed with Dr. Sawant. Appreciate her acceptance. Critical care time spent with the patient was 60 minutes excluding procedure time. Subjective No events overnight, the patient continued to have hypoxia with minimal motion, however his O2 sat goes up to 98% on 8 L via oxygen mask if he is at rest. He is tolerating oral intake, denies any chest pain, review of system otherwise was unremarkable, he did not have any new symptoms. The patient tolerated the BiPAP overnight. Review of Systems Review of Systems: Review of system as above. 14 systems has been reviewed otherwise unremarkable except for the above. Physical Exam Physical Exam: Vital signs are stable, S1-S2 regular rate and rhythm, distant breath sounds with minimal crackles, abdomen is benign, edema in the lower extremities. Neurologically he is intact. No skin changes and no oral thrush. Results & Data Vital Signs (Past 12 Hours) Vital Signs Temp Pulse Pulse Resp BP Pulse Ox 03/29/19 12:41 95 H 23 98 03/29/19 11:00 101 H 24 122/69 94 03/29/19 10:00 90 22 115/73 96 03/29/19 09:18 97 H 18 111/77 88 L 03/29/19 09:15 102 H 22 91 03/29/19 09:00 97 H 22 142/105 H 93 03/29/19 08:00 36.6 C 91 H 22 128/81 91 03/29/19 07:00 80 22 121/75 99 03/29/19 06:00 95 H 29 H 130/93 96 03/29/19 05:00 82 22 129/75 96 03/29/19 04:10 87 27 H 100 03/29/19 04:00 84 23 113/66 100 03/29/19 03:00 85 22 129/83 100 03/29/19 02:00 91 H 21 126/78 100 Laboratory Results Labs were reviewed which showed elevated leukocytes, the rest of his labs remains the same. PTT is 54 and therapeutic. His CPK is coming down and liver function test. Diagnostic Findings Chest x-ray was done which showed pulmonary edema pattern, hyperinflated lungs, right upper lobe cavity. PG Care Time/CCT Critical Care Time: Yes Total Critical Care Time: 60
--- NOTE | 2019-03-29 14:17 | Hospitalist Progress Note ---
Date of Service March 29, 2019 Assessment & Plan (1) Respiratory failure: Present with acute respiratory failure: Hypoxia requiring BiPAP, respiratory support, ICU admission Cause of acute respiratory failure: Multifactorial-pulmonary embolism/multifocal pneumonia/cavitary lung lesion/decompensated CHF/A. fib RVR Respiratory status improved, off BiPAP on nasal cannula requiring high flow O2 Appreciate input from letter of credit clerk (2) Acute CHF: Appreciate cardiology input Possible right heart failure: Echo shows preserved hyperdynamic LV function Right heart failure with lower extremity edema liver congestion secondary to pulmonary issues acid with chronic alcohol use Added Aldactone (3) Non-ischemic cardiomyopathy: Presented with acute respiratory failure: Likely multifactorial Secondary to CHF exacerbation- CT chest with contrast shows multifocal pneumonia H/O nonischemic cardiomyopathy, COPD, ongoing tobacco use Elevated procalcitonin Tinea broad-spectrum antibiotic with IV Zosyn Persistent leukocytosis likely secondary to Solu-Medrol Regarding high flow O2, pulmonology following Acute pulmonary emboli --CTA:Multiple small segmental pulmonary emboli, as described above. 6.2 x 4.5 cm thick-walled cavitary focus within the right upper lobe. A cavitary infectious process is favored. A neoplasm could appear similar and therefore a follow up chest CT in one month is recommended. 3. Additional extensive airspace opacities throughout the lungs which favor multifocal pneumonia. Superimposed pulmonary edema cannot be excluded. Moderate emphysema. --Continue IV heparin GGT Will need long-term anticoagulation Right upper lobe cavitary lesion-concern for malignancy Repeat CT chest with contrast in a month, Pulmonology following (4) SIRS (systemic inflammatory response syndrome): Lactic acid level normalized with IV hydration Possible sources: UTI, pneumonia Blood, urine cultures ordered Continue broad-spectrum antibiotic with IV Zosyn (5) Atrial fibrillation with RVR: Continue on IV heparin, Amiodarone discontinued, patient is transitioned to beta-gael Cardiology consulted appreciate input (6) Elevated LFTs: likely congestive hepatopathy due to CHF H/O ETOH abuse monitor LFTs Counseled to quit drinking alcohol (7) Diarrhea: No episode today, will order stool for C. difficile for any recurrence of diarrhea (8) Alcohol abuse: Reports 2-3 drinks/day of Vodka Monitor for Alcohol withdrawal/DTs Continue thiamine, multivitamin, folic acid Counseled to quit drinking alcohol Hyponatremia: Likely due to Alcohol use disorder Monitor sodium levels (9) Elevated CK: Mild Rhabdomyolysis Monitor CK levels, renal function Hold Statin (10) CLINT (acute kidney injury): Cr: 1.4>>>0.93 baseline Cr~ 0.9 Avoid nephrotoxic agents as able Renal function improved with IV hydration, continue to monitor (11) Elevated troponin: mildly elevated-possible secondary to rhabdomyolysis/in the setting of demand ischemia due to CHF A. fib Denies chest pain Echo ordered, appreciate input from cardiology (12) Hypokalemia: Replace electrolytes as needed (13) COPD (chronic obstructive pulmonary disease): Continue nebs, home inhalers (14) Hypertension: BP improved holding lisinopril due to CLINT (15) HLD (hyperlipidemia): hold statin due to Rhabdo (16) GERD (gastroesophageal reflux disease): continue PPI (17) DVT prophylaxis: On heparin gtt Disposition: To be transferred out of ICU Patient will need PT OT evaluation when medically stable Subjective Patient seen in ICU room 104 Patient was on BiPAP overnight, Continues to be hypoxic with minimal exertion Requiring high flow oxygen, hypoxia resolves, SPO2 98% on 8 L oxygen via oxygen mask Patient is awake and alert, Has continued nonproductive cough Patient denies of any chest pain, shortness of breath or orthopnea Discussed with letter of credit clerk and automated manufacturing instructor Stable to be transferred to PCU today Physical Exam Constitutional: no acute distress Chronically ill-appearing, no acute distress Eyes: Sclera nonicteric ENMT: external ear and nose normal, oropharynx normal Normal oral mucosa Neck: trachea midline, no thyromegaly Respiratory: + cough; no respiratory distress Auscultation: + crackles, + rales, + rhonchi and + wheezes Coarse breath sounds with diffuse crackles and wheezes bilaterally Cardiovascular: Irregular, rate controlled Gastrointestinal (Abdomen): normal bowel sounds, soft, nontender, no hepatosplenomegaly Musculoskeletal: No clubbing or cyanosis noted, normal muscle strength Neurologic: PERRL, EOMI, accommodation nl, no face palsy, no dysarthria Psychiatric: A+Ox3, euthymic affect Results & Data Vital Signs (Past 12 Hours) Vital Signs CT chest with contrast/PE protocol: IMPRESSION: 1. Multiple small segmental pulmonary emboli, 2. 6.2 x 4.5 cm thick-walled cavitary focus within the right upper lobe. A cavitary infectious process is favored. A neoplasm could appear similar and therefore a follow up chest CT in one month is recommended. 3. Additional extensive airspace opacities throughout the lungs which favor multifocal pneumonia. Superimposed pulmonary edema cannot be excluded. 4. Moderate emphysema. Temp Pulse Pulse Resp BP Pulse Ox 03/29/19 12:41 95 H 23 98 03/29/19 11:00 101 H 24 122/69 94 03/29/19 10:00 90 22 115/73 96 03/29/19 09:18 97 H 18 111/77 88 L 03/29/19 09:15 102 H 22 91 03/29/19 09:00 97 H 22 142/105 H 93 03/29/19 08:00 36.6 C 91 H 22 128/81 91 03/29/19 07:00 80 22 121/75 99 03/29/19 06:00 95 H 29 H 130/93 96 03/29/19 05:00 82 22 129/75 96 03/29/19 04:10 87 27 H 100 03/29/19 04:00 84 23 113/66 100 03/29/19 03:00 85 22 129/83 100
[2019-03-29] MEDS: Heparin Adult STANDARD Wt-Based Dextrose 5% 25,000 units/500 mL IV SCH (16:49)
[2019-03-29] MEDS: SPIRONOLACTONE 25 MG TAB PO SCH (16:55)
[2019-03-29] MEDS ORDERED: ACETAMINOPHEN 325 MG TAB PO PRN (19:22)
[2019-03-29] MEDS: TRAMADOL HCL 50 MG TABLET PO PRN (20:16)
[2019-03-30] MEDS: BREO ELLIPTA - ORDER AWAITING ACTION SCH ×4 (00:24→23:15)
[2019-03-30] MEDS: NITROGLYCERIN 2% OINTMENT 30GM TUBE EXT SCH (05:35)
[2019-03-30 05:45] LABS: Basophils # (auto) 0.01 K/uL (0-0.2); Basophils % (auto) 0.1 %; Hematocrit (blood only) 27.7 % (42-52); Hemoglobin 9.7 g/dL (14.0-18.0); Immature Granulocytes # (auto) 0.13 K/uL (0.00-0.02); Immature Granulocytes % (auto) 0.7 %; Lymphocytes # (auto) 0.74 K/uL (1.2-3.4); Lymphocytes % (auto) 3.9 %; Mean Corpuscular Volume 96.2 fL (80-100); Mean Platelet Volume 10.7 fL (7.4-10.4); Monocytes # (auto) 0.43 K/uL (0.11-0.59); Monocytes % (auto) 2.3 %; Neutrophils # (auto) 17.66 K/uL (1.4-6.5); Platelet Count 225 K/uL (130-400); RDW Coefficient of Variation 14.3 % (11.5-14.5); RDW Standard Deviation 49.2 fL (36.4-46.3); Red Blood Count 2.88 M/uL (4.7-6.1); White Blood Count 18.97 K/uL (4.8-10.8)
[2019-03-30 06:09] LABS: Albumin Level 1.6 gm/dl (3.4-5.0); BUN Creatinine Ratio 35.6 (10-20); BUN Creatinine Ratio 36.9 (10-20); Bilirubin Direct 0.1 mg/dl (0-0.2); Calcium 7.1 mg/dl (8.5-10.1); Creatinine Clr Calc Pharmacy 172.4 ml/min; Creatinine Clr Calc Pharmacy 178.6 ml/min; Est GFR (African American) 122.3; Est GFR (African American) 124.1; Est GFR (Non-African American) 105.5; Est GFR (Non-African American) 107.1; Potassium 3.4 mmol/L (3.5-5.1)
[2019-03-30 06:10] LABS: Partial Thromboplastin Ratio 1.8
[2019-03-30 06:12] LABS: Albumin Globulin Ratio 0.5 (0.9-2); Bilirubin,Total 0.3 mg/dl (0.2-1); Globulin 3.3 gm/dl (2.5-4.0); Total Protein 4.9 gm/dl (6.4-8.2)
[2019-03-30 06:19] LABS: Partial Thromboplastin Time 48.1 Seconds (21.0-31.0)
[2019-03-30] MEDS ORDERED: POTASSIUM CHLORIDE 20 MEQ TABCR PO STA (07:08)
[2019-03-30] MEDS: THIAMINE HCL 300 MG in SODIUM CHLORIDE 0.9% 50 ML IV SCH (07:45)
[2019-03-30] MEDS: PIPERACILLIN/TAZOBACTAM 4.5 GM in DEXTROSE 5% 100 ML IV SCH ×3 (09:03→23:15)
[2019-03-30] MEDS: FUROSEMIDE 40 MG in SYRINGE 0 ML IV SCH (09:04)
[2019-03-30] MEDS: ASPIRIN 81 MG ECTAB PO SCH (09:04)
[2019-03-30] MEDS: ESCITALOPRAM OXALATE 10 MG TAB PO SCH (09:04)
[2019-03-30] MEDS: FAMOTIDINE 20 MG TAB PO SCH (09:05)
[2019-03-30] MEDS: MULTIVITAMIN TAB PO SCH (09:05)
[2019-03-30] MEDS: METOPROLOL SUCC 50MG EXT REL TAB PO SCH ×3 (09:05→20:10)
[2019-03-30] MEDS: FOLIC ACID 1 MG TAB PO SCH (09:05)
[2019-03-30] MEDS: PROMETHAZINE HCL 12.5 MG in SODIUM CHLORIDE 0.9% 50 ML IV PRN ×2 (09:07→19:02)
[2019-03-30] MEDS: SPIRONOLACTONE 25 MG TAB PO SCH ×2 (09:07→16:20)
[2019-03-30] MEDS ORDERED: IOVERSOL 100ml IV PRN (10:18)
--- NOTE | 2019-03-30 10:54 | CT Scan Report ---
CT SCAN OF THE ABDOMEN AND PELVIS WITH IV CONTRAST CLINICAL HISTORY: Generalized abdominal pain. Nausea. COMPARISON STUDY: Abdominal ultrasound dated 07/28/2012. Chest CT dated 07/02/2015. TECHNIQUE: Following the IV administration of 92 cc of Optiray 320, CT scan of the abdomen and pelvi s is performed from the lung bases to the proximal femora. Images are reviewed in the axial, sagittal , and coronal planes. IV contrast was administered without complication. A dose lowering technique wa s utilized adhering to the principles of ALARA. CT DOSE: 977.78 mGy.cm FINDINGS: Lung bases: The heart is mildly enlarged and without pericardial effusion. The coronary arteries are densely calcified. There is a tiny hiatal hernia. Calcified pleural plaque is noted at the right lung base. Intralobular septal thickening is present at both lung bases with bilateral groundglass consol idation. There are small pleural effusions with bibasilar atelectasis. Liver: The contrast-enhanced liver is enlarged, measuring 21 cm in length. The liver demonstrates dif fusely diminished attenuation consistent with severe hepatic steatosis. There is no intrahepatic bili dona ductal dilatation. The hepatic veins and portal veins are patent. Gallbladder: Small gallstones are suspected. There is no CT evidence of acute cholecystitis. Spleen: Normal in size and attenuation. Pancreas: Moderately atrophic and grossly unremarkable. Adrenal glands: Unremarkable. Kidneys: The contrast enhanced kidneys demonstrate mild cortical atrophy and are without hydronephros is. An extrarenal pelvis is noted on the left. The kidneys enhance symmetrically. There are bilateral nonobstructing renal calculi. The largest stone is no lower pole of the left kidney and measures up to 9 mm. Abdominal vasculature: There is advanced atherosclerotic calcification mild ectasia of the abdominal aorta. Bowel: There is mild colonic diverticulosis without CT evidence of acute diverticulitis. No bowel obs truction is seen. Submucosal fat deposition is noted throughout the colon. The appendix is well-visu alized and normal. Peritoneum: There is no intraperitoneal free air. There is trace perihepatic and pelvic ascites. Lymphadenopathy: None. Pelvic viscera: The bladder is decompressed around a Clarke catheter and not well evaluated. The prost ate and seminal vesicles are normal as imaged. There is a small intramuscular hematoma identified wit hin the left iliopsoas musculature. This is best seen in the pelvis on images #[id number]. Skeletal structures: The skeletal structures are osteopenic. There is moderate lumbosacral spondylosi s and scoliosis. No lytic or blastic lesions are seen. Soft tissues: There is mild body wall edema. IMPRESSION: 1. There is mild cardiomegaly with evidence of congestive failure and small pleural effusions seen in the lower chest. 2. Groundglass consolidation at both lung bases likely represents interstitial edema. Correlate clini francisco j for evidence of a superimposed infectious/inflammatory pneumonitis. 3. There is a small intramuscular hemorrhage identified within the left iliopsoas musculature, greate st in the pelvis. 4. Hepatomegaly and hepatic steatosis. 5. There is trace abdominopelvic ascites. 6. Bilateral nephrolithiasis. 7. Mild colonic diverticulosis without CT evidence of acute diverticulitis. 8. Additional findings as above. Electronically signed by: Magdaleno Souza M.D. 03/30/2019 10:53 AM
[2019-03-30] MEDS: methylPREDNISolone 40 MG in SYRINGE 0 ML IV SCH ×2 (11:26→23:15)
--- NOTE | 2019-03-30 12:14 | Pulmonology Progress Note ---
Date of Service March 30, 2019 Assessment & Plan (1) Atrial fibrillation with RVR: Impression: 1. Acute respiratory failure, with hypoxia, secondary to decompensated heart failure. 2. A. fib, new onset, with RVR. Now in MAT, better rate controlled. 3. Congestive heart failure with exacerbation. 4. UTI. 5. Rhabdomyolysis, improving. 6. Multilobar infiltrates, cavity in the right upper lobe, concerns for malignancy. 7. COPD, active smoker, exacerbated by multiple insults to the lung. 8. Small PE affecting the inferior branch of the right pulmonary artery. 9. Acute hypoxic and hypercapnic respiratory failure, responding to high flow oxygen. Plan: 1. Continue with Zosyn. Day 2. 2. No need for additional antibiotics.. 3. Continue with Lopressor, it seems to control his rate. 4. Solu-Medrol 40 mg IV every 12 hours, I will continue it for total of 7 days then stop it without taper. 5. Discussed with cardiology to stop the heparin and changed to heparin subcu, the patient has no recurrence of A. fib since admission. He is not known to have history of chronic A. fib either.. 6. No specific microbiology profile. 7. GI prophylaxis. 8. BiPAP nocturnally. 9. Resume oral intake. 10. Titrate FiO2 down on the high flow oxygen, once is less than 50%, he can be switched to a low flow nasal cannula. 11. Continue diuresis. 12. Anticipate very slow improvement. 13. Xopenex as a bronchodilator, given his tachyphylaxis and MAT. 14. Appreciate cardiology, patient is now on nitroglycerin paste. 15. The patient did not require a significant regimen for DT as he did not go to withdrawal. Continue Ativan as needed as he did before prior to his hospitalization. 16. Continue thiamine and folic acid p.o. 17. Discussed with Dr. Sawant. Thank you, will follow. Subjective The patient denies shortness of breath and he feels better however he desaturated quickly with any movement. Patient denies any abdominal pain, little bit nauseous but no vomiting, lack of appetite, denies any hemoptysis or hematemesis, no chest pain reported. No events overnight. Review of Systems Review of Systems: 10 systems has been reviewed, unremarkable except for the above. Physical Exam Physical Exam: Stable vital signs, O2 saturations 88% on 60% high flow nasal cannula, no JVD, S1-S2, distant breath sounds, remains in MAT, fluctuating between normal sinus rhythm and MAT. Crackles mainly at the bases. Abdomen is soft and benign. Edema in the periphery. Neurologically he is intact. He is in good mood. No skin rash. No oral lesion or thrush. Results & Data Vital Signs (Past 12 Hours) Vital Signs Temp Pulse Pulse Resp BP Pulse Ox 03/30/19 11:14 36.4 C L 88 20 103/63 88 L 03/30/19 10:54 92 H 22 90 03/30/19 07:15 36.5 C 74 18 105/64 94 03/30/19 03:43 36.5 C 97 H 18 128/70 95 Laboratory Results Labs consistent with leukocytosis but down from before. Hematocrit is stable. BUN and creatinine also has been stable. He continues to have left shift and mild bandemia. PTT has been therapeutic at 48. Potassium 3.4. Albumin is only 1.6. Diagnostic Findings CT abdomen is unremarkable for intra-abdominal catastrophe.
--- NOTE | 2019-03-30 12:37 | Cardiology Progress Note ---
Date of Service March 30, 2019 Assessment & Plan (1) Multifocal atrial tachycardia: Atrial arrhythmias are being driven by underlying pulmonary issues. MAT burden continues to improve with improving clinical course cont metoprolol (2) Non-ischemic cardiomyopathy: Past history of catecholamine induced cardiomyopathy with an echocardiogram today demonstrating preserved to hyperdynamic LV function Exam reflects significant right heart failure likely secondary pulmonary issues, chronic alcohol use, diuresing well cont lasix and spironolactone will supplement potassium (3) SIRS (systemic inflammatory response syndrome): CT evidence of pneumonia, cavitary process and possible pulmonary emboli On IV heparin, antibiotic therapies Subjective Pt seen and examined, state that he feels well. Attempting to tirate O2 now. Denies cp, sob, palpitations, lightheadedness or dizziness. tele reviewed: sinus rhythm with bursts of MAT, no afib Review of Systems Review of Systems: All systems reviewed & are unremarkable except as noted in HPI & below Physical Exam Physical Exam: General: Awake, alert and oriented x 3. No acute distress. HEENT: Normocephalic, atraumatic. Pupils equal, round and reactive to light and accommodation. Extraocular muscles are intact. Anicteric sclera. Moist mucous membranes. Neck: No JVD. No bruit. Cardiovascular: Regular. Positive S-4. Normal S-1 and S-2. No S-3. 3/6 mid to late systolic ejection murmur, greatest at the right sternal border, second intercostal space with radiation to the bilateral carotids. No rubs. Pulmonary: Clear to auscultation bilaterally. No rales, rhonchi, or wheezing. Abdomen: Bowel sounds x 4, soft. No rebound, guarding or tenderness. No organomegaly. Extremities: No clubbing, cyanosis or edema. +2 pedal pulses bilaterally. Skin: Warm and dry. Results & Data Vital Signs (Past 12 Hours) Vital Signs Temp Pulse Pulse Resp BP Pulse Ox 03/30/19 11:14 36.4 C L 88 20 103/63 88 L 03/30/19 10:54 92 H 22 90 03/30/19 07:15 36.5 C 74 18 105/64 94 03/30/19 03:43 36.5 C 97 H 18 128/70 95
--- NOTE | 2019-03-30 12:38 | Hospitalist Progress Note ---
Date of Service March 30, 2019 Assessment & Plan (1) Multifocal atrial tachycardia: Remains in sinus with frequent atrial tachycardia Possible secondary to severe pulmonary disease/chronic hypoxic Appreciate input from cardiology and pulmonology Continue beta-gael DC IV heparin, no need for long-term anticoagulation (2) Respiratory failure: She remains in persistent respiratory failure, requiring high flow oxygen, desaturating during conversation, minimum activity Presented with acute respiratory failure: Hypoxia requiring BiPAP, respiratory support, ICU admission Cause of acute respiratory failure: Multifactorial-pulmonary embolism/multifocal pneumonia/cavitary lung lesion/decompensated CHF/A. fib RVR Respiratory status improved, off BiPAP on nasal cannula requiring high flow O2 Appreciate input from kick plate installer/Pulmonology pt is continued with Iv Solumedrol Abx with IV Zosyn (3) Acute CHF: Appreciate cardiology input Possible right heart failure: Echo shows preserved hyperdynamic LV function Right heart failure with lower extremity edema liver congestion secondary to pulmonary issues acid with chronic alcohol use Added Aldactone vol status improved (4) Non-ischemic cardiomyopathy: Presented with acute respiratory failure: Likely multifactorial Secondary to CHF exacerbation-Rt Heart failure with preserved LV function CT chest with contrast shows multifocal pneumonia H/O nonischemic cardiomyopathy, COPD, ongoing tobacco use Elevated procalcitonin cont broad-spectrum antibiotic with IV Zosyn Persistent leukocytosis likely secondary to [id number] now requiring high flow O2, pulmonology following Acute pulmonary emboli --CTA:Multiple small segmental pulmonary emboli, as described above. 6.2 x 4.5 cm thick-walled cavitary focus within the right upper lobe. A cavitary infectious process is favored. A neoplasm could appear similar and therefore a follow up chest CT in one month is recommended. 3. Additional extensive airspace opacities throughout the lungs which favor multifocal pneumonia. Superimposed pulmonary edema cannot be excluded. Moderate emphysema. --appreciate input from Pulmonology will D/c IV heparin -small segmental emobli /no afib noted in tele /CT abdomen /pelvis shows small left Psoas muscle Hge Right upper lobe cavitary lesion-concern for malignancy Repeat CT chest with contrast in a month, Pulmonology following (5) SIRS (systemic inflammatory response syndrome): Lactic acid level normalized with IV hydration Possible sources: UTI, pneumonia Blood, urine cultures ordered Continue broad-spectrum antibiotic with IV Zosyn ABDOMINAL PAIN NAUSEA Complaints of intractable nausea, abdominal pain this morning CT abdomen pelvis shows no acute issues, hepatomegaly, Evidence of diverticulosis, no diverticulitis Small hemorrhage noted on left iliopsoas muscle Continue Phenergan as needed for nausea On clear liquid diet, will be advanced to AHA diet when clinically improves Hold anticoagulation: Aspirin, heparin given psoas muscle hemorrhage Follow H&H (6) Elevated LFTs: likely congestive hepatopathy due to CHF H/O ETOH abuse Continues to improve with with diuresis Counseled to quit drinking alcohol (7) Diarrhea: No episode episode Ordered stool for C. difficile for any recurrence of diarrhea (8) Alcohol abuse: Reports 2-3 drinks/day of Vodka No evidence for alcohol withdrawal/DTs Continue thiamine, multivitamin, folic acid Counseled to quit drinking alcohol Hyponatremia: Likely due to Alcohol use disorder Monitor sodium levels (9) Elevated CK: Mild Rhabdomyolysis Improving, continue to hold statins (10) CLINT (acute kidney injury): Cr: 1.4>>>0.93 baseline Cr~ 0.9 Avoid nephrotoxic agents as able Renal function improved with IV hydration, continue to monitor (11) Elevated troponin: mildly elevated-possible secondary to rhabdomyolysis/in the setting of demand ischemia due to CHF A. fib Denies chest pain Echo ordered, shows no wall motion abnormality, hyperdynamic LV function, diastolic dysfunction clinical presentation suggestive of right heart failure appreciate input from cardiology (12) Hypokalemia: Replaced electrolytes as needed (13) COPD (chronic obstructive pulmonary disease): Continue Solu-Medrol IV as per pulmonology Continue nebs and inhaler (14) Hypertension: BP improved Nitropaste transdermal discontinued holding lisinopril due to CLINT Will be resumed when renal function improved to baseline (15) HLD (hyperlipidemia): hold statin due to Rhabdo (16) GERD (gastroesophageal reflux disease): continue PPI CODE STATUS: Full code DVT prophylaxis, SCD and teds given small hemorrhage noted on psoas muscle on the left Disposition: Patient will need to continue hospital stay for ongoing medical management Continue to monitor and telemetry PT OT evaluation will be requested when respiratory status improves (17) DVT prophylaxis: On heparin gtt Disposition: To be transferred out of ICU Patient will need PT OT evaluation when medically stable Subjective This morning patient complained of significant nausea, abdominal pain, Symptom improved with IV Phenergan(Zofran not ordered for prolonged QTC 500) During my interview patient was comfortable, States nausea improved after getting meds, lower abdominal pain discomfort improved, had normal bowel movement this morning Requires high flow oxygen Desaturates during conversation, No complaint of palpitation, chest heaviness, dizzy spell Physical Exam Constitutional: WD/WN, vitals as above + obese; no acute distress ENMT: external ear and nose normal, oropharynx normal Neck: trachea midline, no thyromegaly Respiratory: + cough; no respiratory distress Auscultation: + crackles, + rales, + rhonchi and + wheezes Cardiovascular: Rate/Rhythm: regular rate and regular rhythm Extremities: + edema (+3 bilateral pitting edema) Gastrointestinal (Abdomen): Inspection/Auscultation: + abdomen distended Percussion/Palpation: + abdomen tender (Tenderness in left lower quadrant, no rebound bowel sounds diminished) and abdomen soft Neurologic: PERRL, EOMI, accommodation nl, no face palsy, no dysarthria Psychiatric: A+Ox3, euthymic affect Results & Data Vital Signs (Past 12 Hours) Vital Signs CT abdomen pelvis with IV contrast: IMPRESSION: 1. There is mild cardiomegaly with evidence of congestive failure and small pleural effusions seen in the lower chest. 2. Ground glass consolidation at both lung bases likely represents interstitial edema. Correlate clinically for evidence of a superimposed infectious/inflammatory pneumonitis. 3. There is a small intramuscular hemorrhage identified within the left iliopsoas musculature, greatest in the pelvis. 4. Hepatomegaly and hepatic steatosis. 5. There is trace abdominopelvic ascites. 6. Bilateral nephrolithiasis. 7. Mild colonic diverticulosis without CT evidence of acute diverticulitis. Temp Pulse Pulse Resp BP Pulse Ox 03/30/19 11:14 36.4 C L 88 20 103/63 88 L 03/30/19 10:54 92 H 22 90 03/30/19 07:15 36.5 C 74 18 105/64 94 03/30/19 03:43 36.5 C 97 H 18 128/70 95 (1) Acute CHF Heart failure type: right-sided Qualified Code(s): I50.811 - Acute right heart failure (2) Diarrhea Diarrhea type: unspecified type Qualified Code(s): R19.7 - Diarrhea, unspecified (3) Respiratory failure Chronicity: acute on chronic Respiratory failure complication: hypoxia and hypercapnia Qualified Code(s): J96.21 - Acute and chronic respiratory failure with hypoxia; J96.22 - Acute and chronic respiratory failure with hypercapnia
[2019-03-30 18:10] LABS: Hematocrit (blood only) 30.7 % (42-52); Hemoglobin 10.6 g/dL (14.0-18.0)
[2019-03-30] MEDS: POTASSIUM CHLORIDE 20 MEQ TABCR PO SCH (20:10)
[2019-03-30] MEDS: TRAMADOL HCL 50 MG TABLET PO PRN (20:10)
[2019-03-31] MEDS: TRAMADOL HCL 50 MG TABLET PO PRN (06:58)
[2019-03-31] MEDS: PROMETHAZINE HCL 12.5 MG in SODIUM CHLORIDE 0.9% 50 ML IV PRN ×2 (07:03→20:09)
[2019-03-31] MEDS: BREO ELLIPTA - ORDER AWAITING ACTION SCH ×3 (07:19→23:59)
[2019-03-31] MEDS: PIPERACILLIN/TAZOBACTAM 4.5 GM in DEXTROSE 5% 100 ML IV SCH ×2 (07:24→15:40)
[2019-03-31 07:38] LABS: Basophils # (auto) 0.01 K/uL (0-0.2); Basophils % (auto) 0.1 %; Eosinophils # (auto) 0.02 K/uL (0-0.5); Eosinophils % (auto) 0.1 %; Hematocrit (blood only) 28.2 % (42-52); Hemoglobin 9.9 g/dL (14.0-18.0); Immature Granulocytes # (auto) 0.13 K/uL (0.00-0.02); Immature Granulocytes % (auto) 0.7 %; Lymphocytes # (auto) 0.92 K/uL (1.2-3.4); Lymphocytes % (auto) 4.6 %; Mean Corpuscular Hgb Conc 35.1 g/dL (32-36); Mean Corpuscular Volume 96.9 fL (80-100); Mean Platelet Volume 10.9 fL (7.4-10.4); Monocytes # (auto) 0.58 K/uL (0.11-0.59); Monocytes % (auto) 2.9 %; Neutrophils # (auto) 18.31 K/uL (1.4-6.5); Neutrophils % (auto) 91.6 %; Platelet Count 269 K/uL (130-400); RDW Coefficient of Variation 14.8 % (11.5-14.5); RDW Standard Deviation 51.3 fL (36.4-46.3); Red Blood Count 2.91 M/uL (4.7-6.1); White Blood Count 19.97 K/uL (4.8-10.8)
[2019-03-31 08:03] LABS: Albumin Level 1.6 gm/dl (3.4-5.0); BUN Creatinine Ratio 34.3 (10-20); Bilirubin Direct 0.1 mg/dl (0-0.2); Calcium 7.4 mg/dl (8.5-10.1); Creatinine Clr Calc Pharmacy 186.6 ml/min; Est GFR (Non-African American) 108.7; Potassium 3.6 mmol/L (3.5-5.1)
[2019-03-31 08:06] LABS: Albumin Globulin Ratio 0.5 (0.9-2); Bilirubin,Total 0.4 mg/dl (0.2-1); Globulin 3.4 gm/dl (2.5-4.0)
[2019-03-31] MEDS: THIAMINE HCL 300 MG in SODIUM CHLORIDE 0.9% 50 ML IV SCH (08:16)
[2019-03-31] MEDS: POTASSIUM CHLORIDE 20 MEQ TABCR PO SCH ×2 (08:20→20:09)
[2019-03-31] MEDS: FUROSEMIDE 40 MG in SYRINGE 0 ML IV SCH (08:20)
[2019-03-31] MEDS: METOPROLOL SUCC 50MG EXT REL TAB PO SCH ×3 (08:21→20:09)
[2019-03-31] MEDS: MULTIVITAMIN TAB PO SCH (08:21)
[2019-03-31] MEDS: ESCITALOPRAM OXALATE 10 MG TAB PO SCH (08:22)
[2019-03-31] MEDS: FOLIC ACID 1 MG TAB PO SCH (08:22)
[2019-03-31] MEDS: FAMOTIDINE 20 MG TAB PO SCH (08:22)
[2019-03-31] MEDS: SPIRONOLACTONE 25 MG TAB PO SCH ×2 (08:23→15:40)
[2019-03-31] MEDS ORDERED: POTASSIUM CHLORIDE 20 MEQ TABCR PO ONE (09:05)
[2019-03-31] MEDS: THIAMINE HCL 100 MG TAB PO SCH (09:30)
[2019-03-31] MEDS: methylPREDNISolone 40 MG in SYRINGE 0 ML IV SCH (11:24)
--- NOTE | 2019-03-31 12:13 | Cardiology Progress Note ---
Date of Service March 31, 2019 Assessment & Plan (1) Multifocal atrial tachycardia: Atrial arrhythmias are being driven by underlying pulmonary issues. MAT burden continues to improve with improving clinical course cont metoprolol (2) Non-ischemic cardiomyopathy: Past history of catecholamine induced cardiomyopathy with an echocardiogram today demonstrating preserved to hyperdynamic LV function Exam reflects significant right heart failure likely secondary pulmonary issues, chronic alcohol use, diuresing well cont lasix and spironolactone will supplement potassium (3) SIRS (systemic inflammatory response syndrome): CT evidence of pneumonia, cavitary process and possible pulmonary emboli On IV heparin, antibiotic therapies Subjective Pt seen and examined, states feels well at rest, significantly dyspnic with ambulation to bathroom this AM. Denies cp, palpitations, lightheadedness or dizziness. tele reviewed: sinus rhythm with occasional wandering atrial pacemaker Review of Systems Review of Systems: All systems reviewed & are unremarkable except as noted in HPI & below Physical Exam Physical Exam: Physical Exam: General: Awake, alert and oriented x 3. No acute distress. HEENT: Normocephalic, atraumatic. Pupils equal, round and reactive to light and accommodation. Extraocular muscles are intact. Anicteric sclera. Moist mucous membranes. Neck: No JVD. No bruit. Cardiovascular: Regular. but distant Pulmonary: poor air movement but clear Abdomen: Bowel sounds x 4, soft. No rebound, guarding or tenderness. No organomegaly. Extremities: No clubbing, cyanosis or edema. +2 pedal pulses bilaterally. Skin: Warm and dry. Results & Data Vital Signs (Past 12 Hours) Vital Signs Temp Pulse Pulse Resp BP BP Pulse Ox 03/31/19 11:50 36.5 C 80 22 87 L 03/31/19 11:31 81 20 84 L 03/31/19 07:43 36.4 C L 78 22 130/75 86 L 03/31/19 04:28 66 26 H 97 03/31/19 03:31 36.5 C 74 18 124/73 93
--- NOTE | 2019-03-31 12:17 | Pulmonology Progress Note ---
Date of Service March 31, 2019 Assessment & Plan (1) Atrial fibrillation with RVR: Impression: 1. Acute respiratory failure, with hypoxia, secondary to decompensated heart failure. 2. A. fib, new onset, with RVR. Now in MAT, better rate controlled. 3. Congestive heart failure with exacerbation. 4. UTI. 5. Rhabdomyolysis, improving. 6. Multilobar infiltrates, cavity in the right upper lobe, concerns for malignancy. 7. COPD, active smoker, exacerbated by multiple insults to the lung. 8. Small PE affecting the inferior branch of the right pulmonary artery. 9. Acute hypoxic and hypercapnic respiratory failure, responding to high flow oxygen. Plan: 1. Continue with Zosyn. Day 3. 2. No need for additional antibiotics.. 3. Lopressor for rate control, responding. 4. Solu-Medrol 40 mg IV every 12 hours, I will continue it for total of 7 days then stop it without taper. 5. Discuss with cardiology to stop the heparin and changed to heparin subcu, the patient has no recurrence of A. fib since admission. He is now with MAT. 6. Change Lasix to 40 mg p.o. daily. 7. GI prophylaxis. 8. BiPAP nocturnally. 9. Resume oral intake. 10. Titrate FiO2 down and accept O2 sat of 85%.. 11. Replacement of potassium.. 12. Change thiamine 200 mg p.o. daily. 13. Xopenex as a bronchodilator, given his tachyphylaxis and MAT. 14. Repeat CAT scan of the chest in 4 weeks for evaluation of right upper lobe cavity, to assure resolution with treatment of lung abscess versus superimposed malignancy. Thank you, will follow. Subjective The patient is feeling better although his O2 sat has been variable, he is sating 87% on a high flow 70%, denies any pain, he is bothered with the insomnia due to multiple interruptions during the nighttime for vital signs are other medical care, no pain reported, tolerating oral intake, has a good bowel movement. Review of Systems Review of Systems: Review of system was unremarkable including 14 systems except for the above mentioned in the first section. Physical Exam Physical Exam: Vital signs are stable, O2 saturation 87%, S1-S2, faint crackles mainly at the bases, abdomen is obese but benign, edema 2+ in the periphery. Neurologically he is intact. No skin changes. Oral mucosa is normal. Poor dental hygiene. Results & Data Vital Signs (Past 12 Hours) Vital Signs Temp Pulse Pulse Resp BP BP Pulse Ox 03/31/19 11:50 36.5 C 80 22 87 L 03/31/19 11:31 81 20 84 L 03/31/19 07:43 36.4 C L 78 22 130/75 86 L 03/31/19 04:28 66 26 H 97 03/31/19 03:31 36.5 C 74 18 124/73 93 Laboratory Results Labs were reviewed which showed leukocytosis but improving, hematocrit is stable, the rest of his BMP was stable. Diagnostic Findings Chest x-ray from yesterday showed bilateral multiple infiltrates, pulmonary vascular congestion is better, cardiomegaly was noted.
--- NOTE | 2019-03-31 14:04 | Hospitalist Progress Note ---
Date of Service March 31, 2019 Assessment & Plan (1) Multifocal atrial tachycardia: Remains in sinus with frequent atrial tachycardia no further recurrance of Afib Possible secondary to severe pulmonary disease/chronic hypoxic Appreciate input from cardiology and pulmonology Continue beta-gael IV heparin discontinued / no need for long-term anticoagulation continue pulmonary support -requiring High flow 02 (2) Respiratory failure: pt remains in persistent respiratory failure, requiring high flow oxygen high Fi02 , desaturating during conversation, minimum activity Presented with acute respiratory failure: Hypoxia requiring BiPAP, respiratory support, ICU admission Cause of acute respiratory failure: Multifactorial-pulmonary embolism/multifocal pneumonia/cavitary lung lesion/decompensated CHF/A. fib RVR pt continues to require High flow 02 , desaturation noted with minimum activity plan to wean down Fio2 with keeping spo2 above 85% cont BIPAP at night pulmonology following closely appreciate input pt is continued with Iv Solumedrol -per pulmonology cont for 5 days then D/c without taper Abx with IV Zosyn cont to monitor hemodynamic in PCU pt's over all prognosis remains guarded -given advanced lung disease , Cor pu lmonlae , possible lung malugnancy (3) Acute CHF: Appreciate cardiology input Right heart failure /Cor Pulmonale due to severe pulmonary disease Echo shows preserved hyperdynamic LV function Right heart failure with lower extremity edema liver congestion secondary to pulmonary disease with chronic alcohol use Added Aldactone cont Lasix monitor vol status (4) Non-ischemic cardiomyopathy: Presented with acute respiratory failure: Likely multifactorial Secondary to CHF exacerbation-Rt Heart failure with preserved LV function ( COR PULMONALE ) CT chest with contrast shows multifocal pneumonia H/O nonischemic cardiomyopathy, COPD, ongoing tobacco use Elevated procalcitonin cont broad-spectrum antibiotic with IV Zosyn Persistent leukocytosis likely secondary to Brif-Guvrus-hbtqmc CBC requiring high flow O2, pulmonology following Acute pulmonary emboli --CTA:Multiple small segmental pulmonary emboli, as described above. 6.2 x 4.5 cm thick-walled cavitary focus within the right upper lobe. A cavitary infectious process is favored. A neoplasm could appear similar and therefore a follow up chest CT in one month is recommended. 3. Additional extensive airspace opacities throughout the lungs which favor multifocal pneumonia. Superimposed pulmonary edema cannot be excluded. Moderate emphysema. --appreciate input from Pulmonology will D/c IV heparin -small segmental emobli /no afib noted in tele /CT abdomen /pelvis shows small left Psoas muscle Hge Right upper lobe cavitary lesion-concern for malignancy Repeat CT chest with contrast in a month, Pulmonology following (5) SIRS (systemic inflammatory response syndrome): Lactic acid level normalized with IV hydration Possible sources: UTI, pneumonia Blood, urine cultures ordered Continue broad-spectrum antibiotic with IV Zosyn ABDOMINAL PAIN NAUSEA Complaints of intractable nausea, abdominal pain -symptoms resolved diet advanced CT abdomen pelvis shows no acute issues, hepatomegaly, Evidence of diverticulosis, no diverticulitis Small hemorrhage noted on left iliopsoas muscle Continue Phenergan as needed for nausea was On clear liquid diet for nausea advanceded to AHA diet anticoagulation was on hold : Aspirin, sub q heparin for DVT prophylaxis heparin given psoas muscle hemorrhage Follow H&H will be resumed as H&H remains stable no complain of abdominal pain or discomfort (6) Elevated LFTs: likely congestive hepatopathy due to CHF H/O ETOH abuse Continues to improve with with diuresis Counseled to quit drinking alcohol (7) Diarrhea: stool c diff negative had diarrhea on admission -resolved reports of loose BM today morning repeat C diff ordered (8) Alcohol abuse: Reports 2-3 drinks/day of Vodka No evidence for alcohol withdrawal/DTs Continue thiamine, multivitamin, folic acid Counseled to quit drinking alcohol Hyponatremia: Likely due to Alcohol use disorder Monitor sodium levels (9) Elevated CK: Mild Rhabdomyolysis Improving, continue to hold statins (10) CLINT (acute kidney injury): Cr: 1.4>>>0.93 baseline Cr~ 0.9 Avoid nephrotoxic agents as able Renal function improved with IV hydration,IVF D/ed due to evidence of vol overload /Rt heart failure continue to monitor (11) Elevated troponin: mildly elevated-possible secondary to rhabdomyolysis/in the setting of demand ischemia due to CHF A. fib Denies chest pain Echo ordered, shows no wall motion abnormality, hyperdynamic LV function, diastolic dysfunction clinical presentation suggestive of right heart failure appreciate input from cardiology (12) Hypokalemia: Replaced electrolytes as needed (13) COPD (chronic obstructive pulmonary disease): Continue Solu-Medrol IV as per pulmonology Continue nebs and inhaler (14) Hypertension: BP improved Nitropaste transdermal discontinued holding lisinopril due to CLINT Will be resumed when renal function improved to baseline (15) HLD (hyperlipidemia): hold statin due to Rhabdo (16) GERD (gastroesophageal reflux disease): continue PPI CODE STATUS: Full code DVT prophylaxis, SCD and teds given small hemorrhage noted on psoas muscle on the left start on Sub q heparin when H&H stable Disposition: Patient will need to continue hospital stay for ongoing medical management Continue to monitor and telemetry PT OT evaluation will be requested when respiratory status improves (17) DVT prophylaxis: sub q heparin moderate to high risk for DVT bilateral dependent lower ext edema due to rt heart failure minimum mobility due to resoiratory failure Disposition: cont to monitor in PCU Patient will need PT OT evaluation when medically stable Subjective The patient is feeling better nausea /abdominal pain has resolved had loose bowel movement earlier ordered PRN imodium ( stool c diff negative ) requiring high flow 02 with Fio2 70% Spo2 88-90's pt denies of feeling of SOB or orthopnea complains of being tired , unable to sleep at night Physical Exam Constitutional: WD/WN, vitals as above + obese; no acute distress ENMT: external ear and nose normal, oropharynx normal Neck: trachea midline, no thyromegaly Respiratory: + cough; no respiratory distress Auscultation: + crackles, + rales, + rhonchi and + wheezes Cardiovascular: Rate/Rhythm: regular rate and regular rhythm Extremities: + edema (+3 bilateral pitting edema) Gastrointestinal (Abdomen): normal bowel sounds, soft, nontender, no hepato splenomegaly Inspection/Auscultation: + abdomen distended Percussion/Palpation: + abdomen tender (Tenderness in left lower quadrant, no rebound bowel sounds diminished) and abdomen soft Neurologic: PERRL, EOMI, accommodation nl, no face palsy, no dysarthria Psychiatric: A+Ox3, euthymic affect Results & Data Vital Signs (Past 12 Hours) Vital Signs Temp Pulse Pulse Resp BP BP Pulse Ox 03/31/19 11:50 36.5 C 80 22 135/79 87 L 03/31/19 11:31 81 20 84 L 03/31/19 07:43 36.4 C L 78 22 130/75 86 L 03/31/19 04:28 66 26 H 97 03/31/19 03:31 36.5 C 74 18 124/73 93 (1) Acute CHF Heart failure type: right-sided Qualified Code(s): I50.811 - Acute right heart failure (2) Diarrhea Diarrhea type: unspecified type Qualified Code(s): R19.7 - Diarrhea, unspecified (3) Respiratory failure Chronicity: acute on chronic Respiratory failure complication: hypoxia and hypercapnia Qualified Code(s): J96.21 - Acute and chronic respiratory failure with hypoxia; J96.22 - Acute and chronic respiratory failure with hypercapnia
[2019-03-31] MEDS ORDERED: LOPERAMIDE HCL 2 MG CAP PO PRN (16:13)
[2019-04-01] MEDS: PIPERACILLIN/TAZOBACTAM 4.5 GM in DEXTROSE 5% 100 ML IV SCH ×4 (00:11→23:52)
[2019-04-01] MEDS: methylPREDNISolone 40 MG in SYRINGE 0 ML IV SCH ×3 (00:11→23:52)
[2019-04-01 06:34] LABS: Hematocrit (blood only) 31.2 % (42-52); Hemoglobin 10.7 g/dL (14.0-18.0); Mean Corpuscular Hgb Conc 34.3 g/dL (32-36); Mean Corpuscular Volume 98.4 fL (80-100); Red Blood Count 3.17 M/uL (4.7-6.1); White Blood Count 21.13 K/uL (4.8-10.8)
[2019-04-01 06:35] LABS: Basophils # (auto) 0.01 K/uL (0-0.2); Immature Granulocytes # (auto) 0.17 K/uL (0.00-0.02); Immature Granulocytes % (auto) 0.8 %; Lymphocytes # (auto) 0.61 K/uL (1.2-3.4); Lymphocytes % (auto) 2.9 %; Mean Platelet Volume 10.8 fL (7.4-10.4); Monocytes # (auto) 0.54 K/uL (0.11-0.59); Monocytes % (auto) 2.6 %; Neutrophils % (auto) 93.7 %; Nucleated RBC # (auto) 0.02 K/uL (0-0); Nucleated RBC % (auto) 0.1 %; Platelet Count 301 K/uL (130-400); RDW Coefficient of Variation 14.8 % (11.5-14.5); RDW Standard Deviation 53.2 fL (36.4-46.3)
[2019-04-01] MEDS ORDERED: HEPARIN SOD 5,000 UNIT/0.5 ML VIAL SQ SCH (07:15)
[2019-04-01 07:16] LABS: Albumin Globulin Ratio 0.5 (0.9-2); Albumin Level 1.9 gm/dl (3.4-5.0); BUN Creatinine Ratio 25.9 (10-20); Bilirubin Direct 0.2 mg/dl (0-0.2); Bilirubin,Total 0.5 mg/dl (0.2-1); Calcium 8.1 mg/dl (8.5-10.1); Creatinine Clr Calc Pharmacy 162.4 ml/min; Est GFR (African American) 118.9; Est GFR (Non-African American) 102.6; Globulin 3.8 gm/dl (2.5-4.0); Potassium 4.5 mmol/L (3.5-5.1); Total Protein 5.7 gm/dl (6.4-8.2)
[2019-04-01] MEDS: BREO ELLIPTA - ORDER AWAITING ACTION SCH ×3 (08:05→21:56)
[2019-04-01] MEDS: POTASSIUM CHLORIDE 20 MEQ TABCR PO SCH ×2 (08:09→19:35)
[2019-04-01] MEDS: FOLIC ACID 1 MG TAB PO SCH (08:09)
[2019-04-01] MEDS: THIAMINE HCL 100 MG TAB PO SCH (08:10)
[2019-04-01] MEDS: SPIRONOLACTONE 25 MG TAB PO SCH ×2 (08:10→16:56)
[2019-04-01] MEDS: FAMOTIDINE 20 MG TAB PO SCH (08:11)
[2019-04-01] MEDS: MULTIVITAMIN TAB PO SCH (08:11)
[2019-04-01] MEDS: METOPROLOL SUCC 50MG EXT REL TAB PO SCH ×3 (08:12→19:35)
[2019-04-01] MEDS: FUROSEMIDE 40 MG TAB PO SCH (08:12)
[2019-04-01] MEDS: ESCITALOPRAM OXALATE 10 MG TAB PO SCH (08:12)
--- NOTE | 2019-04-01 09:49 | Hospitalist Progress Note ---
Date of Service April 01, 2019 Assessment & Plan (1) Acute respiratory failure with hypoxia: Severe hypoxic respiratory failure, probably multifactorial in nature. Contributing factors include suspected pneumonia, pulmonary edema, pulmonary emboli as discussed below. Pulmonary Medicine consulted. Continue supplemental oxygen and wean as tolerated. (2) Severe sepsis: Met criteria for severe sepsis per current CMS criteria (tachycardia, tachypnea, leukocytosis, elevated lactate). Procalcitonin elevated. Blood cultures are were obtained. Patient received broad-spectrum intravenous antibiotic coverage. Received fluid resuscitation. Lactic acid levels were followed. Possible sources of infectionpneumonia or urinary tract as discussed below. (3) Pneumonia: Imaging consistent with multilobar pneumonia. Blood cultures negative. WBC remains elevated (on steroids). Continue IV piperacillin/tazobactam and steroids. Will need follow-up CT imaging. (4) COPD (chronic obstructive pulmonary disease): Exacerbation COPD secondary to pneumonia. Continue steroids and leave albuterol nebulizer treatments as needed. (5) Pulmonary emboli: (present on admission) CTA of chest performed on 03/27 demonstrated multiple small segmental pulmonary emboli. Patient was started on intravenous heparin. Venous duplex of lower extremities on 03/[address] of abdomen pelvis on 03/30 demonstrated hematoma left iliopsoas muscle. IV heparin discontinued. Pulmonary emboli were relatively small (segmental and subsegmental). No DVT's identified in lower extremities at this time. Options to consider: restart anticoagulation if iliopsoas hematoma stable (but at significant risk for worsening / recurrent bleeding) IVC filter no anticoagulation or IVC filter Discuss options further with Pulmonary Medicine. (6) Abnormal CT scan, chest: CT of chest demonstrated a 6.2 x 4.5 cm thick-walled cavitary lesion within the right upper lobe (as well as pulmonary emboli and extensive airspace opacities as noted). Right upper lobe lesion worrisome for malignancy. Follow-up CT in 1 month recommended. (7) Pulmonary edema: CT of chest on day of admission suggested possible pulmonary edema. BNP elevated. History Takotsubo's cardiomyopathy, but current echocardiogram shows normal left ventricular wall motion and function. Possible acute left ventricular diastolic CHF. Possible noncardiac pulmonary edema. Continue diuretics as tolerated. (8) Multifocal atrial tachycardia: Continue metoprolol. Continue management of underlying pulmonary issues. (9) Hypertension: Continue metoprolol. (10) Urinary tract infection: Admission UA showed leukocyte esterase, WBCs, bacteria. Urine culture grew gamma strep, not enterococcus. Receiving intravenous antibiotics as discussed above. (11) Hematoma of left iliopsoas muscle: CT of abdomen pelvis performed 03/30 because of abdominal pain. Patient noted to have a hematoma of the left iliopsoas muscle. Anticoagulation discontinued. (12) DVT prophylaxis: Initially received IV heparin for acute PE present on admission. Heparin discontinued due to iliopsoas hematoma. SCD's. Ambulate as able. (13) Discharge planning issues: Discharge disposition to be determined. Family Medicine follow-up with Dr. Ravindra Maldonado. Subjective Recheck for multiple problems. Patient was seen in his room around 0945. Hypoxic this morning with O2 saturations in the 80s on high flow nasal oxygen. Despite the hypoxia, patient states that he is feeling better. Dyspnea improved. No cough. No chest pain. Review of Systems: Constitutional- no fever. Cardiac- no chest pain. Pulmonary- as noted above. GI- no nausea, vomiting, diarrhea, melena, hematochezia. - Clarke cath. Otherwise, as noted above. Physical Exam Constitutional: no acute distress ENMT: high flow nasal cannula Respiratory: no respiratory distress Auscultation: + rales Cardiovascular: Rate/Rhythm: regular rate and regular rhythm (with occasional ectopy) Heart Sounds: no gallop (none appreciated, but exam limited) Vessels: no JVD Extremities: + edema (trace pretibial); no calf tenderness Gastrointestinal (Abdomen): normal bowel sounds, soft, nontender, no hepatosplenomegaly Musculoskeletal: SCD's applied Skin: no rashes, warm and dry Psychiatric: Orientation: alert and oriented x 3 Genitourinary: + bladder abnormality (Clarke cath) Results & Data Vital Signs (Past 12 Hours) Vital Signs Temp Pulse Pulse Resp BP BP Pulse Ox 04/01/19 09:23 82 04/01/19 07:45 36.4 C L 80 20 146/73 H 86 L 04/01/19 07:12 80 18 83 L 04/01/19 05:40 80 18 86 L 04/01/19 04:35 82 27 H 94 04/01/19 04:04 36.8 C 70 18 143/82 H 92 03/31/19 23:58 36.4 C L 73 16 131/68 94 03/31/19 23:05 79 28 H 91 Laboratory Results Laboratory Results - last 24 hr 04/01/19 04/01/19 05:55 05:55 WBC 21.13 H RBC 3.17 L Hgb 10.7 L Hct 31.2 L MCV 98.4 MCH 33.8 MCHC 34.3 RDW Std Deviation 53.2 H RDW Coeff of Meet 14.8 H Plt Count 301 MPV 10.8 H Immature Gran % (Auto) 0.8 Neut % (Auto) 93.7 Lymph % (Auto) 2.9 Esmeralda % (Auto) 2.6 Eos % (Auto) 0.0 Baso % (Auto) 0.0 Immature Gran # (Auto) 0.17 H Neut # (Auto) 19.80 H Lymph # (Auto) 0.61 L Esmeralda # (Auto) 0.54 Eos # (Auto) 0.00 Baso # (Auto) 0.01 Absolute Nucleated RBC 0.02 H Nucleated RBC % (auto) 0.1 Sodium 136 Potassium 4.5 D Chloride 99 Carbon Dioxide 30 Anion Gap 7.0 BUN 16 Creatinine 0.61 Est Cr Clr Drug Dosing 162.4 Est GFR ( Amer) 118.9 Est GFR (Non-Af Amer) 102.6 BUN/Creatinine Ratio 25.9 H Glucose 104 H Calcium 8.1 L Total Bilirubin 0.5 Direct Bilirubin 0.2 D AST 117 H ALT 98 H Alkaline Phosphatase 189 H Total Protein 5.7 L Albumin 1.9 L Globulin 3.8 Albumin/Globulin Ratio 0.5 L Diagnostic Findings PORTABLE CHEST X-RAY IMPRESSION: 1. Extensive bilateral mixed interstitial and alveolar opacities are redemonstrated suggestive of probable multifocal pneumonia with asymmetric pulmonary edema also within the differential. 2. Emphysema. The above report was generated using voice recognition software. It may contain grammatical, syntax or spelling errors. Electronically signed by: Samy Yang M.D. 04/01/2019 11:07 AM
--- NOTE | 2019-04-01 11:09 | XRay Report ---
XR chest 1V portable HISTORY: 68 years-old Male hypoxia acute hypoxia COMPARISON: Chest radiograph 03/29/2019, CTA chest 03/27/2019 TECHNIQUE: Portable AP view of the chest FINDINGS: Cardiomediastinal and hilar silhouettes are unchanged. Cavitary focus of the right upper lobe is bett er seen on comparison CT. Emphysema with bilateral mixed interstitial and alveolar opacities redemons trated. Opacities have slightly progressed throughout the left lung and there is slightly improved ae ration about the lateral right lung base. Stable positioning of the right subclavian [id number] ca theter. No pneumothorax or large pleural effusion. Degenerative changes of the shoulders and spine. IMPRESSION: 1. Extensive bilateral mixed interstitial and alveolar opacities are redemonstrated suggestive of pro bable multifocal pneumonia with asymmetric pulmonary edema also within the differential. 2. Emphysema. The above report was generated using voice recognition software. It may contain grammatical, syntax o r spelling errors. Electronically signed by: Samy Yang M.D. 04/01/2019 11:07 AM
--- NOTE | 2019-04-01 11:43 | Pulmonology Progress Note ---
Date of Service April 01, 2019 Assessment & Plan (1) Acute respiratory failure with hypoxia: acute hypoxic respiratory failure likely due to multifocal pneumonia. also component from pulmonary embolism and volume overload/pulmonary edema remains hypoxic continue high flow NC o2 to keep sat >88% OOB as much as able continue piperacillin-tazobactam. MRSA nasal screen negative RUl cavitary lesion needs CT in 4 weeks for resolution. if remains present may need biopsy. no significant medistinal lymphadenopathy COPD exacerbation. continue steroids and levalbuterol Pulmonary embolism (multiple small sugsegmental) treatment dose heparin held with psoas bleed. if bleeding stable restart anticoagulation. (2) Multifocal atrial tachycardia: (3) Pneumonia: (4) Acute CHF: Heart failure type: right-sided Qualified Code(s): I50.811 - Acute right heart failure Subjective breahing improving. denies sob. no cough desat this morning requiring 80% and 35 LPM o2 Physical Exam Physical Exam: Constitutional: Comfortable NAD HEENT: normocephalic atraumatic. MMM. no cervical lymphadenopathy CV: RRR nl s1,s2 no murmurs rubs or gallops Lungs: slight scattered crackles bilaterally. no accessory muscle use Abd: soft nontender nondistended. normal bowel sounds Ext: +LE edema. no cyanosis, no clubbing Skin: warm dry Neuro: alert and oriented. moving all extremities Psych: normal mood and affect Results & Data Vital Signs (Past 12 Hours) Vital Signs Temp Pulse Pulse Pulse Resp BP BP 04/01/19 11:09 82 20 04/01/19 11:07 37.0 C 83 20 136/83 04/01/19 09:23 82 04/01/19 07:45 36.4 C L 80 20 146/73 H 04/01/19 07:12 80 18 04/01/19 05:40 80 18 04/01/19 04:35 82 27 H 04/01/19 04:04 36.8 C 70 18 143/82 H 03/31/19 23:58 36.4 C L 73 16 131/68 Pulse Ox 04/01/19 11:09 90 04/01/19 11:07 90 04/01/19 09:23 04/01/19 07:45 86 L 04/01/19 07:12 83 L 04/01/19 05:40 86 L 04/01/19 04:35 94 04/01/19 04:04 92 03/31/19 23:58 94 Laboratory Results Laboratory Results - last 24 hr 03/27/19 04/01/19 04/01/19 17:18 05:55 05:55 WBC 21.13 H RBC 3.17 L Hgb 10.7 L Hct 31.2 L MCV 98.4 MCH 33.8 MCHC 34.3 RDW Std Deviation 53.2 H RDW Coeff of Meet 14.8 H Plt Count 301 MPV 10.8 H Immature Gran % (Auto) 0.8 Neut % (Auto) 93.7 Lymph % (Auto) 2.9 [place] % (Auto) 2.6 Eos % (Auto) 0.0 Baso % (Auto) 0.0 Immature Gran # (Auto) 0.17 H Neut # (Auto) 19.80 H Lymph # (Auto) 0.61 L [place] # (Auto) 0.54 Eos # (Auto) 0.00 Baso # (Auto) 0.01 Absolute Nucleated RBC 0.02 H Nucleated RBC % (auto) 0.1 Sodium 136 Potassium 4.5 D Chloride 99 Carbon Dioxide 30 Anion Gap 7.0 BUN 16 Creatinine 0.61 Est Cr Clr Drug Dosing 162.4 Est GFR ( Amer) 118.9 Est GFR (Non-Af Amer) 102.6 BUN/Creatinine Ratio 25.9 H Glucose 104 H Calcium 8.1 L Total Bilirubin 0.5 Direct Bilirubin 0.2 D AST 117 H ALT 98 H Alkaline Phosphatase 189 H Total Protein 5.7 L Albumin 1.9 L Globulin 3.8 Albumin/Globulin Ratio 0.5 L Urine PCP Confirm NEGATIVE
[2019-04-01] MEDS: ASPIRIN 81 MG ECTAB PO SCH (13:04)
[2019-04-02 06:33] LABS: Hematocrit (blood only) 30.8 % (42-52); Hemoglobin 10.7 g/dL (14.0-18.0); Mean Corpuscular Hgb Conc 34.7 g/dL (32-36); Mean Corpuscular Volume 97.8 fL (80-100); Mean Platelet Volume 10.8 fL (7.4-10.4); Platelet Count 347 K/uL (130-400); RDW Coefficient of Variation 14.8 % (11.5-14.5); RDW Standard Deviation 52.6 fL (36.4-46.3); Red Blood Count 3.15 M/uL (4.7-6.1); White Blood Count 24.37 K/uL (4.8-10.8)
[2019-04-02 06:56] LABS: Basophils # (auto) 0.01 K/uL (0-0.2); Eosinophils # (auto) 0.01 K/uL (0-0.5); Immature Granulocytes # (auto) 0.27 K/uL (0.00-0.02); Immature Granulocytes % (auto) 1.1 %; Lymphocytes # (auto) 0.87 K/uL (1.2-3.4); Lymphocytes % (auto) 3.6 %; Monocytes # (auto) 0.84 K/uL (0.11-0.59); Monocytes % (auto) 3.4 %; Neutrophils # (auto) 22.37 K/uL (1.4-6.5); Neutrophils % (auto) 91.9 %
[2019-04-02 07:10] LABS: BUN Creatinine Ratio 25.5 (10-20); Calcium 8.2 mg/dl (8.5-10.1); Creatinine Clr Calc Pharmacy 187.8 ml/min; Est GFR (Non-African American) 109.6; Potassium 4.3 mmol/L (3.5-5.1)
[2019-04-02] MEDS: BREO ELLIPTA - ORDER AWAITING ACTION SCH ×3 (08:33→23:57)
[2019-04-02] MEDS: SPIRONOLACTONE 25 MG TAB PO SCH ×2 (08:35→16:51)
[2019-04-02] MEDS: METOPROLOL SUCC 50MG EXT REL TAB PO SCH ×3 (08:35→20:28)
[2019-04-02] MEDS: FAMOTIDINE 20 MG TAB PO SCH (08:35)
[2019-04-02] MEDS: FUROSEMIDE 40 MG TAB PO SCH (08:35)
[2019-04-02] MEDS: MULTIVITAMIN TAB PO SCH (08:35)
[2019-04-02] MEDS: PIPERACILLIN/TAZOBACTAM 4.5 GM in DEXTROSE 5% 100 ML IV SCH ×3 (08:35→23:57)
[2019-04-02] MEDS: ESCITALOPRAM OXALATE 10 MG TAB PO SCH (08:35)
[2019-04-02] MEDS: POTASSIUM CHLORIDE 20 MEQ TABCR PO SCH ×2 (08:35→20:28)
[2019-04-02] MEDS: THIAMINE HCL 100 MG TAB PO SCH (08:35)
[2019-04-02] MEDS: ASPIRIN 81 MG ECTAB PO SCH (08:35)
[2019-04-02] MEDS: FOLIC ACID 1 MG TAB PO SCH (08:36)
--- NOTE | 2019-04-02 10:58 | Pulmonology Progress Note ---
Date of Service April 02, 2019 Assessment & Plan (1) Acute respiratory failure with hypoxia: acute hypoxic respiratory failure likely due to multifocal pneumonia. also component from pulmonary embolism and volume overload/pulmonary edema remains hypoxic continue high flow NC would try to increase the flow to titrate down fio2 o2 to keep sat >88% OOB if able continue piperacillin-tazobactam. MRSA nasal screen negative RUl cavitary lesion needs CT in 4 weeks for resolution. if remains present may need biopsy. no significant medistinal lymphadenopathy COPD exacerbation. continue steroids at current dose and levalbuterol Pulmonary embolism (multiple small sugsegmental) treatment dose heparin held with psoas bleed. if bleeding stable restart anticoagulation. (2) Multifocal atrial tachycardia: (3) Pneumonia: (4) Acute CHF: Heart failure type: right-sided Qualified Code(s): I50.811 - Acute right heart failure Subjective more sob when getting in chair yesteday denies sob currently. no cough remains on high flow requiring 80% and 30 LPM o2 Physical Exam Physical Exam: Constitutional: Comfortable NAD HEENT: normocephalic atraumatic. MMM. CV: RRR nl s1,s2 no murmurs rubs or gallops Lungs: slight scattered crackles bilaterally minimally better than yesteday. no accessory muscle use Abd: soft nontender nondistended. normal bowel sounds Ext: +LE edema. no cyanosis, no clubbing Skin: warm dry Neuro: alert and oriented. moving all extremities Psych: normal mood and affect Results & Data Vital Signs (Past 12 Hours) Vital Signs Temp Pulse Pulse Resp BP BP Pulse Ox 04/02/19 10:49 37.0 C 86 23 163/96 H 87 L 04/02/19 07:04 36.7 C 81 20 151/90 H 97 04/02/19 03:28 36.9 C 78 18 164/88 H 94 04/01/19 23:59 36.4 C L 85 16 147/87 H 95
[2019-04-02] MEDS: methylPREDNISolone 40 MG in SYRINGE 0 ML IV SCH ×2 (11:46→23:57)
--- NOTE | 2019-04-02 15:19 | Hospitalist Progress Note ---
Date of Service April 02, 2019 Assessment & Plan (1) Acute respiratory failure with hypoxia: Severe hypoxic respiratory failure, probably multifactorial in nature. Contributing factors include suspected pneumonia, pulmonary edema, pulmonary emboli as discussed below. Pulmonary Medicine consulted. Continue supplemental oxygen and wean as tolerated. (2) Severe sepsis: Met criteria for severe sepsis per current CMS criteria (tachycardia, tachypnea, leukocytosis, elevated lactate). Procalcitonin elevated. Blood cultures are were obtained. Patient received broad-spectrum intravenous antibiotic coverage. Received fluid resuscitation. Lactic acid levels were followed-normalized with IV fluid and ABx Possible sources of infectionpneumonia or urinary tract as discussed below. (3) Pneumonia: Imaging consistent with multilobar pneumonia. Blood cultures negative. WBC remains elevated (on steroids). Continue IV piperacillin/tazobactam and steroids. Will need follow-up CT imaging in 4 weeks ( rt upper lobe cavitary lesion concern for maliganncy) (4) COPD (chronic obstructive pulmonary disease): Exacerbation COPD secondary to pneumonia. Continue steroids and albuterol nebulizer treatments as needed. (5) Pulmonary emboli: (present on admission) CTA of chest performed on 03/27 demonstrated multiple small segmental pulmonary emboli. Patient was started on intravenous heparin. Venous duplex of lower extremities on 03/[address] of abdomen pelvis on 03/30 demonstrated hematoma left iliopsoas muscle. IV heparin discontinued. Pulmonary emboli were relatively small (segmental and subsegmental). No DVT's identified in lower extremities at this time. Discuss options further with Pulmonary Medicine.-possible NOAC's vs coumadin with out bridge therapy -H&H stable ; illopsoas hematoma stable -with significant risk for worsening or recurrent bleeding (6) Abnormal CT scan, chest: CT of chest demonstrated a 6.2 x 4.5 cm thick-walled cavitary lesion within the right upper lobe (as well as pulmonary emboli and extensive airspace opacities as noted). Right upper lobe lesion worrisome for malignancy. Follow-up CT in 1 month recommended. (7) Pulmonary edema: CT of chest on day of admission suggested possible pulmonary edema. BNP elevated. History Takotsubo's cardiomyopathy, but current echocardiogram shows normal left ventricular wall motion and function. Possible acute left ventricular diastolic CHF. Possible noncardiac pulmonary edema. Continue diuretics as tolerated. (8) Multifocal atrial tachycardia: Continue metoprolol. Continue management of underlying pulmonary issues. (9) Hypertension: Continue metoprolol. (10) Urinary tract infection: Admission UA showed leukocyte esterase, WBCs, bacteria. Urine culture grew gamma strep, not enterococcus. Receiving intravenous antibiotics Zosyn as discussed above. (11) Hematoma of left iliopsoas muscle: CT of abdomen pelvis performed 03/30 because of abdominal pain. Patient noted to have a hematoma of the left iliopsoas muscle. Anticoagulation discontinued. H&H stable discussion of anticoagulation therapy as above (12) DVT prophylaxis: Initially received IV heparin for acute PE present on admission. Heparin discontinued due to iliopsoas hematoma. SCD's. Ambulate as able. (13) Discharge planning issues: Discharge disposition to be determined. still requiring High flow 02 /remains in PCU Family Medicine follow-up with Dr. Ravindra Maldonado. Subjective remains on high flow requiring 80% and 30 LPM o2 cough has improved no complain of abdominal pain Physical Exam Constitutional: WD/WN, vitals as above + obese; no acute distress ENMT: external ear and nose normal, oropharynx normal Neck: trachea midline, no thyromegaly Respiratory: + cough; no respiratory distress Auscultation: + crackles, + rales, + rhonchi and + wheezes Cardiovascular: Rate/Rhythm: regular rate and regular rhythm Extremities: + edema (+3 bilateral pitting edema) Gastrointestinal (Abdomen): normal bowel sounds, soft, nontender, no hepatosplenomegaly Inspection/Auscultation: + abdomen distended Percussion/Palpation: + abdomen tender (Tenderness in left lower quadrant, no rebound bowel sounds diminished) and abdomen soft Neurologic: PERRL, EOMI, accommodation nl, no face palsy, no dysarthria Psychiatric: A+Ox3, euthymic affect Results & Data Vital Signs (Past 12 Hours) Vital Signs Temp Pulse Pulse Resp BP BP Pulse Ox 04/02/19 10:49 37.0 C 86 23 163/96 H 87 L 04/02/19 07:04 36.7 C 81 20 151/90 H 97 04/02/19 03:28 36.9 C 78 18 164/88 H 94
[2019-04-03 07:58] LABS: Hemoglobin 10.7 g/dL (14.0-18.0); Mean Corpuscular Hgb Conc 34.5 g/dL (32-36); Mean Platelet Volume 11.1 fL (7.4-10.4); Platelet Count 403 K/uL (130-400); RDW Coefficient of Variation 14.9 % (11.5-14.5); RDW Standard Deviation 53.3 fL (36.4-46.3); Red Blood Count 3.13 M/uL (4.7-6.1); White Blood Count 22.83 K/uL (4.8-10.8)
[2019-04-03 08:32] LABS: Basophils # (auto) 0.01 K/uL (0-0.2); Immature Granulocytes # (auto) 0.17 K/uL (0.00-0.02); Immature Granulocytes % (auto) 0.7 %; Lymphocytes # (auto) 0.89 K/uL (1.2-3.4); Lymphocytes % (auto) 3.9 %; Monocytes # (auto) 0.92 K/uL (0.11-0.59); Neutrophils # (auto) 20.84 K/uL (1.4-6.5); Neutrophils % (auto) 91.4 %
[2019-04-03] MEDS: METOPROLOL SUCC 50MG EXT REL TAB PO SCH ×3 (09:03→19:44)
[2019-04-03] MEDS: POTASSIUM CHLORIDE 20 MEQ TABCR PO SCH ×2 (09:03→19:45)
[2019-04-03] MEDS: PIPERACILLIN/TAZOBACTAM 4.5 GM in DEXTROSE 5% 100 ML IV SCH ×2 (09:04→16:20)
[2019-04-03] MEDS: THIAMINE HCL 100 MG TAB PO SCH (09:04)
[2019-04-03] MEDS: FAMOTIDINE 20 MG TAB PO SCH (09:04)
[2019-04-03] MEDS: FUROSEMIDE 40 MG TAB PO SCH (09:04)
[2019-04-03] MEDS: ESCITALOPRAM OXALATE 10 MG TAB PO SCH (09:04)
[2019-04-03] MEDS: FOLIC ACID 1 MG TAB PO SCH (09:04)
[2019-04-03] MEDS: ASPIRIN 81 MG ECTAB PO SCH (09:05)
[2019-04-03] MEDS: SPIRONOLACTONE 25 MG TAB PO SCH ×2 (09:05→18:40)
[2019-04-03] MEDS: MULTIVITAMIN TAB PO SCH (09:05)
[2019-04-03] MEDS: BREO ELLIPTA - ORDER AWAITING ACTION SCH ×2 (09:05→17:32)
--- NOTE | 2019-04-03 09:29 | Pulmonology Progress Note ---
Date of Service April 03, 2019 Assessment & Plan (1) Acute respiratory failure with hypoxia: acute hypoxic respiratory failure likely due to multifocal pneumonia. also component from pulmonary embolism and volume overload/pulmonary edema remains hypoxic but requirements slightly better continue high flow NC would try to increase the flow to titrate down fio2 o2 to keep sat >88% OOB if able continue piperacillin-tazobactam. MRSA nasal screen negative RUl cavitary lesion needs CT in 4 weeks for resolution. if remains present may need biopsy. no significant mediastinal lymphadenopathy COPD exacerbation. continue steroids at current dose and levalbuterol Pulmonary embolism (multiple small subsegmental) treatment dose heparin held with psoas bleed. I would favor restarting anticoagulation at this point. can start apixaban would try to place peripherals to remove central line (2) Multifocal atrial tachycardia: (3) Pneumonia: (4) Acute CHF: Heart failure type: right-sided Qualified Code(s): I50.811 - Acute right heart failure Subjective remains on high flow requiring 70% and 3 LPM o2 says breathing improving. did not sleep well last night Physical Exam Physical Exam: Constitutional: Comfortable NAD HEENT: normocephalic atraumatic. MMM. CV: RRR nl s1,s2 no murmurs rubs or gallops Lungs: slight scattered crackles bilaterally minimally better than yesterday. no accessory muscle use Abd: soft nontender nondistended. normal bowel sounds Ext: + LE edema. no cyanosis, no clubbing Skin: warm dry Neuro: alert and oriented. moving all extremities Psych: normal mood and affect Results & Data Vital Signs (Past 12 Hours) Vital Signs Temp Pulse Pulse Pulse Resp BP BP 04/03/19 07:15 77 18 04/03/19 07:07 36.6 C 80 19 143/91 H 04/03/19 02:58 36.5 C 76 20 151/82 H 04/03/19 02:34 80 21 04/02/19 23:45 36.8 C 81 18 154/94 H 04/02/19 22:26 72 23 Pulse Ox 04/03/19 07:15 96 04/03/19 07:07 96 04/03/19 02:58 96 04/03/19 02:34 97 04/02/19 23:45 99 04/02/19 22:26 91
[2019-04-03] MEDS: methylPREDNISolone 40 MG in SYRINGE 0 ML IV SCH (14:25)
--- NOTE | 2019-04-03 18:09 | Hospitalist Progress Note ---
Date of Service April 03, 2019 Assessment & Plan (1) Acute respiratory failure with hypoxia: Severe hypoxic respiratory failure,likely secondary to suspected pneumonia, pulmonary edema, pulmonary emboli as discussed below. Pulmonary Medicine consulted. Continue efforts to wean off from high flow O2 (2) Severe sepsis: Per Dr. Sawant notes: Met criteria for severe sepsis per current CMS criteria (tachycardia, tachypnea, leukocytosis, elevated lactate). Procalcitonin elevated. Blood cultures obtained Patient received broad-spectrum intravenous antibiotic coverage. Received fluid resuscitation. Lactic acid levels were followed-normalized with IV fluid and ABx Possible sources of infectionpneumonia or urinary tract as discussed below. (3) Pneumonia: CT chest consistent with multilobar pneumonia. Blood cultures negative. (+) leukocytosis (on steroids). Continue IV piperacillin/tazobactam and steroids. Will need follow-up CT imaging in 4 weeks ( rt upper lobe cavitary lesion concern for maliganncy) (4) COPD (chronic obstructive pulmonary disease): Exacerbation COPD secondary to pneumonia. Continue steroids and albuterol nebulizer treatments as needed. (5) Pulmonary emboli: per Dr. Sawant notes: (present on admission) CTA of chest performed on 03/27 demonstrated multiple small segmental pulmonary emboli. Patient was started on intravenous heparin. Venous duplex of lower extremities on 03/[address] of abdomen pelvis on 03/30 demonstrated hematoma left iliopsoas muscle. IV heparin discontinued. Pulmonary emboli were relatively small (segmental and subsegmental). No DVT's identified in lower extremities at this time. will start Eliquis 10mg BID today x 7 days, then 5mg BID (6) Abnormal CT scan, chest: CT of chest demonstrated a 6.2 x 4.5 cm thick-walled cavitary lesion within the right upper lobe (as well as pulmonary emboli and extensive airspace opacities as noted). Right upper lobe lesion worrisome for malignancy. Follow-up CT in 1 month recommended. (7) Pulmonary edema: CT of chest on day of admission suggested possible pulmonary edema. BNP elevated. History Takotsubo's cardiomyopathy, but current echocardiogram shows normal left ventricular wall motion and function. Possible acute left ventricular diastolic CHF. Possible noncardiac pulmonary edema. Continue diuretics as tolerated. (8) Multifocal atrial tachycardia: Continue metoprolol. Continue management of underlying pulmonary issues. (9) Hypertension: Continue metoprolol. (10) Urinary tract infection: Admission UA showed leukocyte esterase, WBCs, bacteria. Urine culture grew gamma strep, not enterococcus. Receiving intravenous antibiotics Zosyn as discussed above. (11) Hematoma of left iliopsoas muscle: CT of abdomen pelvis performed 03/30 because of abdominal pain. Patient noted to have a hematoma of the left iliopsoas muscle. Anticoagulation discontinued. Hg remains stable start Eliquis today (12) DVT prophylaxis: Eliquis BID today SCD's. Ambulate as able. (13) Discharge planning issues: Discharge disposition to be determined. still requiring High flow 02 / in PCU Family Medicine follow-up with Dr. Ravindra Maldonado. Subjective Follow-up for acute respiratory failure Seen resting in bed, comfortable, watching TV Remains on high flow O2, 70% FiO2 States he feels that he is gradually improving Still has some occasional cough, nonproductive Denies fever chills Denies chest pain, dizziness, palpitations Denies signs of or history of bleeding No other symptoms Review of Systems Review of Systems: All systems reviewed & are unremarkable except as noted in HPI & below Physical Exam Physical Exam: General- oriented x 3, not in distress, speaks in sentences with no effort or accessory muscle use Head- atraumatic Eyes- PERRL, EOMI, anicteric ENT- oropharynx clear Neck- supple, no JVD, no adenopathy, no thyromegaly; carotids +2/2, no bruits appreciated Lungs- (+) mild crackles , scattered no wheezing Heart- normal rate, regular rhythm; no murmur, no gallop, no rub appreciated Abdomen- normal bowel sounds, nondistended, soft, nontender, no masses or hepatosplenomegaly Extremities- no pretibial edema, no calf tenderness; peripheral pulses intact Neuro- alert, oriented x 3; CN 2-12 grossly intact; motor 5/5 bilaterally;sensation 100% on all extremities; no other gross focal neurologic deficits Skin- warm & dry Results & Data Vital Signs (Past 12 Hours) Vital Signs Temp Pulse Pulse Pulse Resp BP BP 04/03/19 15:09 89 20 04/03/19 15:05 36.7 C 78 20 135/74 04/03/19 11:44 36.5 C 73 19 134/63 04/03/19 11:02 68 20 04/03/19 07:15 77 18 04/03/19 07:07 36.6 C 80 19 143/91 H Pulse Ox 04/03/19 15:09 91 04/03/19 15:05 90 04/03/19 11:44 87 L 04/03/19 11:02 90 04/03/19 07:15 96 04/03/19 07:07 96 Laboratory Results Laboratory Results - last 24 hr 04/03/19 07:25 WBC 22.83 H RBC 3.13 L Hgb 10.7 L Hct 31.0 L MCV 99.0 MCH 34.2 H MCHC 34.5 RDW Std Deviation 53.3 H RDW Coeff of Meet 14.9 H Plt Count 403 H MPV 11.1 H Immature Gran % (Auto) 0.7 Neut % (Auto) 91.4 Lymph % (Auto) 3.9 Saunders % (Auto) 4.0 Eos % (Auto) 0.0 Baso % (Auto) 0.0 Immature Gran # (Auto) 0.17 H Neut # (Auto) 20.84 H Lymph # (Auto) 0.89 L Saunders # (Auto) 0.92 H Eos # (Auto) 0.00 Baso # (Auto) 0.01 Hypersegmented Neuts 1+
[2019-04-03] MEDS: APIXABAN 5 MG TABLET PO SCH (19:44)
[2019-04-04] MEDS: PIPERACILLIN/TAZOBACTAM 4.5 GM in DEXTROSE 5% 100 ML IV SCH ×4 (00:30→23:24)
[2019-04-04] MEDS: methylPREDNISolone 40 MG in SYRINGE 0 ML IV SCH ×3 (00:30→23:23)
[2019-04-04] MEDS: BREO ELLIPTA - ORDER AWAITING ACTION SCH ×3 (00:30→21:32)
[2019-04-04] MEDS: ESCITALOPRAM OXALATE 10 MG TAB PO SCH (08:24)
[2019-04-04] MEDS: METOPROLOL SUCC 50MG EXT REL TAB PO SCH ×3 (08:24→19:49)
[2019-04-04] MEDS: SPIRONOLACTONE 25 MG TAB PO SCH ×2 (08:24→17:07)
[2019-04-04] MEDS: APIXABAN 5 MG TABLET PO SCH ×2 (08:24→19:49)
[2019-04-04] MEDS: MULTIVITAMIN TAB PO SCH (08:24)
[2019-04-04] MEDS: FAMOTIDINE 20 MG TAB PO SCH (08:25)
[2019-04-04] MEDS: FUROSEMIDE 40 MG TAB PO SCH (08:25)
[2019-04-04] MEDS: THIAMINE HCL 100 MG TAB PO SCH (08:25)
[2019-04-04] MEDS: ASPIRIN 81 MG ECTAB PO SCH (08:25)
[2019-04-04] MEDS: POTASSIUM CHLORIDE 20 MEQ TABCR PO SCH ×2 (08:25→19:49)
[2019-04-04] MEDS: FOLIC ACID 1 MG TAB PO SCH (08:25)
--- NOTE | 2019-04-04 10:17 | Hospitalist Progress Note ---
Date of Service April 04, 2019 Assessment & Plan (1) Acute respiratory failure with hypoxia: Severe hypoxic respiratory failure,likely secondary to suspected pneumonia, pulmonary edema, pulmonary emboli as discussed below. Pulmonary Medicine consulted. Continue efforts to wean off from high flow O2 (2) Severe sepsis: Per Dr. Sawant notes: Met criteria for severe sepsis per current CMS criteria (tachycardia, tachypnea, leukocytosis, elevated lactate). Procalcitonin elevated. Blood cultures obtained Patient received broad-spectrum intravenous antibiotic coverage. Received fluid resuscitation. Lactic acid levels were followed-normalized with IV fluid and ABx Possible sources of infectionpneumonia or urinary tract as discussed below. (3) Pneumonia: CT chest consistent with multilobar pneumonia. Blood cultures negative. (+) leukocytosis (on steroids). Still on high flow O2, 70% FiO2, wean as tolerated Continue IV piperacillin/tazobactam and steroids. Will need follow-up CT imaging in 4 weeks ( rt upper lobe cavitary lesion concern for maliganncy) (4) COPD (chronic obstructive pulmonary disease): Exacerbation COPD secondary to pneumonia. Continue steroids and albuterol nebulizer treatments as needed. (5) Pulmonary emboli: per Dr. Sawant notes: (present on admission) CTA of chest performed on 03/27 demonstrated multiple small segmental pulmonary emboli. Patient was started on intravenous heparin. Venous duplex of lower extremities on 03/[address] of abdomen pelvis on 03/30 demonstrated hematoma left iliopsoas muscle. IV heparin discontinued. Pulmonary emboli were relatively small (segmental and subsegmental). No DVT's identified in lower extremities at this time. On April 03, 2019 started Eliquis 10mg BID today x 7 days, then 5mg BID (6) Abnormal CT scan, chest: CT of chest demonstrated a 6.2 x 4.5 cm thick-walled cavitary lesion within the right upper lobe (as well as pulmonary emboli and extensive airspace opacities as noted). Right upper lobe lesion worrisome for malignancy. Follow-up CT in 1 month recommended. (7) Pulmonary edema: CT of chest on day of admission suggested possible pulmonary edema. BNP elevated. History Takotsubo's cardiomyopathy, but current echocardiogram shows normal left ventricular wall motion and function. Possible acute left ventricular diastolic CHF. Possible noncardiac pulmonary edema. Continue diuretics as tolerated. (8) Multifocal atrial tachycardia: Continue metoprolol. Continue management of underlying pulmonary issues. (9) Hypertension: Continue metoprolol. (10) Urinary tract infection: Admission UA showed leukocyte esterase, WBCs, bacteria. Urine culture grew gamma strep, not enterococcus. Receiving intravenous antibiotics Zosyn as discussed above. (11) Hematoma of left iliopsoas muscle: CT of abdomen pelvis performed 03/30 because of abdominal pain. Patient noted to have a hematoma of the left iliopsoas muscle. Anticoagulation discontinued. Hg remains stable Eliquis Tolerating well, no signs of bleeding (12) DVT prophylaxis: Eliquis BID SCD's. Ambulate as able. (13) Discharge planning issues: Discharge disposition to be determined. still requiring High flow 02 /remains in PCU Family Medicine follow-up with Dr. Ravindra Maldonado. Subjective Follow-up for acute respiratory failure, multifocal pneumonia, pulmonary embolism Seen resting in bed, watching TV, not in distress Remains on high flow O2, 70% FiO2 States he feels slightly improved today, breathing gradually improving Has occasional cough with clear mucus Denies chest pain, dizziness Denies signs of bleeding No other symptoms Review of Systems Review of Systems: All systems reviewed & are unremarkable except as noted in HPI & below Physical Exam Physical Exam: General- oriented x 3, not in distress, speaks in sentences with no effort or accessory muscle use Eyes- anicteric Neck- no JVD Lungs-mild scattered crackles bilaterally, improved compared to yesterday, no wheezing Heart- normal rate, regular rhythm; no murmurs Abdomen- normal bowel sounds, nondistended, soft, nontender Extremities- no pretibial edema, no calf tenderness Neuro- alert, oriented x 3; no gross focal neurologic deficits Skin- warm & dry Results & Data Vital Signs (Past 12 Hours) Vital Signs Temp Pulse Pulse Pulse Resp BP Pulse Ox 04/04/19 09:30 80 18 95 04/04/19 07:34 36.4 C L 71 20 166/92 H 97 04/04/19 07:31 60 04/04/19 03:51 36.4 C L 66 24 152/82 H 99 04/04/19 03:50 64 17 98 04/04/19 00:25 36.8 C 69 24 148/82 H 93 04/03/19 22:51 99 04/03/19 22:30 86 20 96 Laboratory Results Laboratory Results - last 24 hr 04/04/19 04/04/19 10:41 10:41 WBC 17.80 H RBC 3.30 L Hgb 11.0 L Hct 32.2 L MCV 97.6 MCH 33.3 MCHC 34.2 RDW Std Deviation 52.2 H RDW Coeff of Meet 14.9 H Plt Count 416 H MPV 10.9 H Immature Gran % (Auto) 0.7 Neut % (Auto) 89.9 Lymph % (Auto) 4.0 Gem % (Auto) 5.3 Eos % (Auto) 0.0 Baso % (Auto) 0.1 Immature Gran # (Auto) 0.12 H Neut # (Auto) 16.01 H Lymph # (Auto) 0.71 L Gem # (Auto) 0.95 H Eos # (Auto) 0.00 Baso # (Auto) 0.01 Sodium 132 L Potassium 5.1 Chloride 93 L Carbon Dioxide 33 H Anion Gap 6.0 BUN 9 Creatinine 0.57 L Est Cr Clr Drug Dosing 152.3 Est GFR ( Amer) 122.3 Est GFR (Non-Af Amer) 105.5 BUN/Creatinine Ratio 15.3 Glucose 104 H Calcium 8.4 L
[2019-04-04 10:52] LABS: Basophils # (auto) 0.01 K/uL (0-0.2); Basophils % (auto) 0.1 %; Hematocrit (blood only) 32.2 % (42-52); Immature Granulocytes # (auto) 0.12 K/uL (0.00-0.02); Immature Granulocytes % (auto) 0.7 %; Lymphocytes # (auto) 0.71 K/uL (1.2-3.4); Mean Corpuscular Hgb Conc 34.2 g/dL (32-36); Mean Corpuscular Volume 97.6 fL (80-100); Mean Platelet Volume 10.9 fL (7.4-10.4); Monocytes # (auto) 0.95 K/uL (0.11-0.59); Monocytes % (auto) 5.3 %; Neutrophils # (auto) 16.01 K/uL (1.4-6.5); Neutrophils % (auto) 89.9 %; Platelet Count 416 K/uL (130-400); RDW Coefficient of Variation 14.9 % (11.5-14.5); RDW Standard Deviation 52.2 fL (36.4-46.3)
[2019-04-04 11:26] LABS: BUN Creatinine Ratio 15.3 (10-20); Calcium 8.4 mg/dl (8.5-10.1); Creatinine Clr Calc Pharmacy 152.3 ml/min; Est GFR (African American) 122.3; Est GFR (Non-African American) 105.5; Potassium 5.1 mmol/L (3.5-5.1)
--- NOTE | 2019-04-04 12:31 | Pulmonology Progress Note ---
Date of Service April 04, 2019 Assessment & Plan (1) Acute respiratory failure with hypoxia: acute hypoxic respiratory failure likely due to multifocal pneumonia. also component from pulmonary embolism and volume overload/pulmonary edema remains hypoxic and would like his oxygenation to be improving faster continue high flow NC would try to increase the flow to titrate down fio2 o2 to keep sat >88% OOB if able continue piperacillin-tazobactam. MRSA nasal screen negative RUl cavitary lesion needs CT in 4 weeks for resolution. if remains present may need biopsy. no significant mediastinal lymphadenopathy COPD exacerbation. continue steroids at current dose and levalbuterol Pulmonary embolism (multiple small subsegmental) on apixiban (2) Multifocal atrial tachycardia: (3) Pneumonia: (4) Acute CHF: Heart failure type: right-sided Qualified Code(s): I50.811 - Acute right heart failure Subjective remains on high flow requiring 70% and 35 LPM o2 says breathing is comfortable Physical Exam Physical Exam: Constitutional: Comfortable NAD HEENT: normocephalic atraumatic. MMM. CV: RRR nl s1,s2 no murmurs rubs or gallops Lungs: slight scattered crackles bilaterally. no accessory muscle use Abd: soft nontender nondistended. normal bowel sounds Ext: + LE edema. no cyanosis, no clubbing Skin: warm dry Neuro: alert and oriented. moving all extremities Psych: normal mood and affect Results & Data Vital Signs (Past 12 Hours) Vital Signs Temp Pulse Pulse Pulse Resp BP BP 04/04/19 11:28 36.8 C 72 22 121/66 04/04/19 11:27 115 H 18 04/04/19 09:30 80 18 04/04/19 07:34 36.4 C L 71 20 166/92 H 04/04/19 07:31 60 04/04/19 03:51 36.4 C L 66 24 152/82 H 04/04/19 03:50 64 17 Pulse Ox 04/04/19 11:28 94 04/04/19 11:27 95 04/04/19 09:30 95 04/04/19 07:34 97 04/04/19 07:31 04/04/19 03:51 99 04/04/19 03:50 98 Laboratory Results Laboratory Results - last 24 hr 04/04/19 04/04/19 10:41 10:41 WBC 17.80 H RBC 3.30 L Hgb 11.0 L Hct 32.2 L MCV 97.6 MCH 33.3 MCHC 34.2 RDW Std Deviation 52.2 H RDW Coeff of Meet 14.9 H Plt Count 416 H MPV 10.9 H Immature Gran % (Auto) 0.7 Neut % (Auto) 89.9 Lymph % (Auto) 4.0 Swift % (Auto) 5.3 Eos % (Auto) 0.0 Baso % (Auto) 0.1 Immature Gran # (Auto) 0.12 H Neut # (Auto) 16.01 H Lymph # (Auto) 0.71 L Swift # (Auto) 0.95 H Eos # (Auto) 0.00 Baso # (Auto) 0.01 Sodium 132 L Potassium 5.1 Chloride 93 L Carbon Dioxide 33 H Anion Gap 6.0 BUN 9 Creatinine 0.57 L Est Cr Clr Drug Dosing 152.3 Est GFR ( Amer) 122.3 Est GFR (Non-Af Amer) 105.5 BUN/Creatinine Ratio 15.3 Glucose 104 H Calcium 8.4 L
[2019-04-04] MEDS ORDERED: MoRPHine SULFATE 4 MG/ML 1 ML CARP\\VIAL IV PRN (23:19)
[2019-04-04] MEDS ORDERED: PROMETHAZINE HCL 12.5 MG in SODIUM CHLORIDE 0.9% 50 ML IV PRN (23:19)
[2019-04-05] MEDS: TRAMADOL HCL 50 MG TABLET PO PRN (00:01)
[2019-04-05 01:02] LABS: Hematocrit (blood only) 30.5 % (42-52); Hemoglobin 10.6 g/dL (14.0-18.0); Mean Corpuscular Hgb Conc 34.8 g/dL (32-36); Mean Corpuscular Volume 98.4 fL (80-100); Mean Platelet Volume 10.7 fL (7.4-10.4); Platelet Count 433 K/uL (130-400); RDW Coefficient of Variation 14.7 % (11.5-14.5); RDW Standard Deviation 51.9 fL (36.4-46.3); White Blood Count 22.42 K/uL (4.8-10.8)
[2019-04-05 01:20] LABS: BUN Creatinine Ratio 22.6 (10-20); Calcium 8.2 mg/dl (8.5-10.1); Creatinine Clr Calc Pharmacy 133.5 ml/min; Est GFR (African American) 115.9; Potassium 4.3 mmol/L (3.5-5.1)
[2019-04-05 01:45] LABS: Basophils # (auto) 0.01 K/uL (0-0.2); Immature Granulocytes # (auto) 0.16 K/uL (0.00-0.02); Immature Granulocytes % (auto) 0.7 %; Lymphocytes # (auto) 0.69 K/uL (1.2-3.4); Lymphocytes % (auto) 3.1 %; Monocytes # (auto) 1.49 K/uL (0.11-0.59); Monocytes % (auto) 6.6 %; Neutrophils # (auto) 20.07 K/uL (1.4-6.5); Neutrophils % (auto) 89.6 %
--- NOTE | 2019-04-05 06:41 | CT Scan Report ---
CT SCAN OF THE ABDOMEN AND PELVIS WITHOUT CONTRAST CLINICAL HISTORY: Back and abdominal pain. History of retroperitoneal hemorrhage. COMPARISON STUDY: 03/30/2019 TECHNIQUE: CT scan of the abdomen and pelvis was performed from the lung bases to the proximal femurs . Images are reviewed in the axial, sagittal, and coronal planes. IV contrast was not administered fo r this examination. A dose lowering technique was utilized adhering to the principles of ALARA. CT DOSE: 698.58 mGy.cm FINDINGS: Lower chest: Bilateral pleural effusions. There are mixed interstitial and groundglass pulmonary opac ities. There is could reflect interstitial edema or chronic interstitial lung disease. Liver: There are pleurodiaphragmatic calcifications along the medial dome of the right lobe of the li tj. No hepatic masses are visualized in this noncontrast study. Gallbladder: There are equivocal gallstones in a contracted gallbladder Spleen: Normal in size and attenuation. Pancreas: Unremarkable. Adrenal glands: Unremarkable. Kidneys: There is bilateral nephrogram lithiasis. The largest calculus is located in the lower pole l eft kidney measuring 9 mm. No ureteral calculi are visualized. Bowel: There are no transition zones indicate bowel obstruction. There is no evidence of acute divert iculitis. There are no findings to indicate acute appendicitis. Peritoneum: There is no intraperitoneal free air or abdominal ascites. Vasculature: The abdominal aorta is normal in course and caliber. Adenopathy: None. Pelvic viscera: There is a joint Clarke catheter. Skeletal structures: There is an enlarging left iliopsoas hematoma. The hematoma extends over cranioc audal distance of approximately 20 cm. IMPRESSION: 1. Enlarging left iliopsoas hematoma with a craniocaudal extension of approximately 20 cm 2. Bilateral nephrolithiasis. No ureteral calculi identified 3. Interstitial and groundglass lower lobe pulmonary opacities. Bilateral pleural effusions 4. Equivocal cholelithiasis Electronically signed by: Jeff Krishnamurthy M.D. 04/05/2019 6:39 AM
[2019-04-05 07:43] LABS: Hematocrit (blood only) 27.6 % (42-52); Hemoglobin 9.6 g/dL (14.0-18.0)
[2019-04-05] MEDS: BREO ELLIPTA - ORDER AWAITING ACTION SCH ×2 (08:03→18:26)
[2019-04-05] MEDS: PIPERACILLIN/TAZOBACTAM 4.5 GM in DEXTROSE 5% 100 ML IV SCH ×2 (08:04→16:05)
[2019-04-05] MEDS: POTASSIUM CHLORIDE 20 MEQ TABCR PO SCH ×2 (08:04→20:10)
[2019-04-05] MEDS: METOPROLOL SUCC 50MG EXT REL TAB PO SCH ×3 (08:04→20:10)
[2019-04-05] MEDS: MULTIVITAMIN TAB PO SCH (08:04)
[2019-04-05] MEDS: FOLIC ACID 1 MG TAB PO SCH (08:04)
[2019-04-05] MEDS: FUROSEMIDE 40 MG TAB PO SCH (08:05)
[2019-04-05] MEDS: ESCITALOPRAM OXALATE 10 MG TAB PO SCH (08:05)
[2019-04-05] MEDS: SPIRONOLACTONE 25 MG TAB PO SCH ×2 (08:05→18:24)
[2019-04-05] MEDS: THIAMINE HCL 100 MG TAB PO SCH (08:05)
[2019-04-05] MEDS: FAMOTIDINE 20 MG TAB PO SCH (08:05)
--- NOTE | 2019-04-05 11:37 | Hospitalist Progress Note ---
Date of Service April 05, 2019 Subjective Made aware increase back pain complaints. CT abdomen pelvis initial read : Showed interval increased size of left iliopsoas hematoma measuring 6.4 x 6.6 cm versus 3 x 3.5 cm on the prior exam. AP Progressive retroperitoneal bleed Ongoing anticoagulation for AF/PE CBC now Appropriate to hold Eliquis, Aspirin for now. Possible vascular surgery consultation for IVC filter placement if anticoagulation cannot be resumed. Will relay to AM provider. Results & Data Vital Signs (Past 12 Hours) Vital Signs Temp Pulse Pulse Pulse Resp BP BP 04/04/19 22:54 37.2 C 63 23 132/67 04/04/19 22:53 63 16 04/04/19 22:25 76 23 04/04/19 19:45 37.1 C 79 20 122/61 04/04/19 19:10 76 20 04/04/19 17:04 36.9 C 73 18 119/59 L 04/04/19 16:08 71 16 04/04/19 15:21 36.6 C 87 20 136/74 Pulse Ox 04/04/19 22:54 93 04/04/19 22:53 96 04/04/19 22:25 98 04/04/19 19:45 98 04/04/19 19:10 92 04/04/19 17:04 98 04/04/19 16:08 95 04/04/19 15:21 94
--- NOTE | 2019-04-05 11:39 | Hospitalist Progress Note ---
Date of Service April 05, 2019 Assessment & Plan (1) Acute respiratory failure with hypoxia: Severe hypoxic respiratory failure,likely secondary to suspected pneumonia, pulmonary edema, pulmonary emboli as discussed below. Pulmonary Medicine consulted. Continue efforts to wean off from high flow O2 (2) Severe sepsis: Per Dr. Sawant notes: Met criteria for severe sepsis per current CMS criteria (tachycardia, tachypnea, leukocytosis, elevated lactate). Procalcitonin elevated. Blood cultures obtained Patient received broad-spectrum intravenous antibiotic coverage. Received fluid resuscitation. Lactic acid levels were followed-normalized with IV fluid and ABx Possible sources of infectionpneumonia or urinary tract as discussed below. (3) Pneumonia: CT chest consistent with multilobar pneumonia. Blood cultures negative. (+) leukocytosis (on steroids). Still on high flow O2, 70% FiO2, 35 L/min wean as tolerated Continue IV piperacillin/tazobactam and IV Solu-Medrol Will need follow-up CT imaging in 4 weeks ( rt upper lobe cavitary lesion concern for maliganncy) (4) COPD (chronic obstructive pulmonary disease): Exacerbation COPD secondary to pneumonia. Continue steroids and albuterol nebulizer treatments as needed. (5) Pulmonary emboli: per Dr. Sawant notes: (present on admission) CTA of chest performed on 03/27 demonstrated multiple small segmental pulmonary emboli. Patient was started on intravenous heparin. Venous duplex of lower extremities on 03/[address] of abdomen pelvis on 03/30 demonstrated hematoma left iliopsoas muscle. IV heparin discontinued. Pulmonary emboli were relatively small (segmental and subsegmental). No DVT's identified in lower extremities at this time. On April 03, 2019 started Eliquis 10mg BID today x 7 days, then 5mg BID April 05, 2019 patient developed increased abdominal pain and CAT scan of the abdomen and pelvis confirmed increased iliopsoas hematoma size Discussed with Dr. Collado, recommend to discontinue Eliquis Repeat Doppler of the legs, if positive will need IVC filter (6) Abnormal CT scan, chest: CT of chest demonstrated a 6.2 x 4.5 cm thick-walled cavitary lesion within the right upper lobe (as well as pulmonary emboli and extensive airspace opacities as noted). Right upper lobe lesion worrisome for malignancy. Follow-up CT in 1 month recommended. (7) Pulmonary edema: CT of chest on day of admission suggested possible pulmonary edema. BNP elevated. History Takotsubo's cardiomyopathy, but current echocardiogram shows normal left ventricular wall motion and function. Possible acute left ventricular diastolic CHF. Possible noncardiac pulmonary edema. Continue diuretics as tolerated. (8) Multifocal atrial tachycardia: Continue metoprolol. Continue management of underlying pulmonary issues. (9) Hypertension: Continue metoprolol. (10) Urinary tract infection: Admission UA showed leukocyte esterase, WBCs, bacteria. Urine culture grew gamma strep, not enterococcus. Receiving intravenous antibiotics Zosyn as discussed above. (11) Hematoma of left iliopsoas muscle: Management as noted above (12) DVT prophylaxis: SCD's. Ambulate as able. (13) Discharge planning issues: Discharge disposition to be determined. still requiring High flow 02 /remains in PCU Family Medicine follow-up with Dr. Ravindra Maldonado. Subjective Follow-up for acute respiratory failure, multifocal pneumonia, pulmonary embolism Overnight developed abdominal pain, repeat CT abdomen showed increasing size of iliopsoas hematoma Eliquis held This morning the patient is seen resting in bed, comfortable in distress States abdominal pain is much better States things about the same as yesterday, occasional cough, with clear phlegm Denies other signs of bleeding No other symptoms Review of Systems Review of Systems: All systems reviewed & are unremarkable except as noted in HPI & below Physical Exam Physical Exam: General- oriented x 3, not in distress, speaks in sentences with no effort or accessory muscle use Eyes- anicteric Neck- no JVD Lungs-mild scattered rales bilaterally, no wheezing Heart- normal rate, regular rhythm; no murmurs Abdomen- normal bowel sounds, nondistended, soft, nontender Extremities- no pretibial edema, no calf tenderness Neuro- alert, oriented x 3; no gross focal neurologic deficits Skin- warm & dry Results & Data Vital Signs (Past 12 Hours) Vital Signs Temp Pulse Pulse Pulse Resp BP Pulse Ox 04/05/19 11:04 65 20 84 L 04/05/19 07:33 36.7 C 65 20 127/68 96 04/05/19 07:15 64 20 96 04/05/19 03:35 36.6 C 65 20 114/56 L 91 04/05/19 03:29 64 20 90
[2019-04-05] MEDS: methylPREDNISolone 40 MG in SYRINGE 0 ML IV SCH (12:10)
--- NOTE | 2019-04-05 12:50 | Pulmonology Progress Note ---
Date of Service April 05, 2019 Assessment & Plan (1) Acute respiratory failure with hypoxia: acute hypoxic respiratory failure likely due to multifocal pneumonia. also component from pulmonary embolism and volume overload/pulmonary edema remains hypoxic CT abd shows bases of lungs with continued ground glass opacities continue high flow NC would try to increase the flow to titrate down fio2 o2 to keep sat >88% OOB if able continue piperacillin-tazobactam. MRSA nasal screen negative RUl cavitary lesion needs CT in 4 weeks for resolution. if remains present may need biopsy. no significant mediastinal lymphadenopathy COPD exacerbation. continue steroids at current dose and levalbuterol Pulmonary embolism (multiple small subsegmental) now with worsened RP bleed on anticoagulation. previous ultrasound did not show DVT. would only consider IVC filter if a repeat ultrasound shows DVTs (2) Multifocal atrial tachycardia: (3) Pneumonia: (4) Acute CHF: Heart failure type: right-sided Qualified Code(s): I50.811 - Acute right heart failure Subjective back and hip pain last night found to have increasing RP hematoma and anticoagulation was stopped Physical Exam Physical Exam: Constitutional: Comfortable NAD HEENT: normocephalic atraumatic. MMM. CV: RRR nl s1,s2 no murmurs rubs or gallops Lungs: slight scattered crackles bilaterally. no accessory muscle use Abd: soft nontender nondistended. normal bowel sounds Ext: + LE edema. no cyanosis, no clubbing Skin: warm dry Neuro: alert and oriented. moving all extremities Psych: normal mood and affect Results & Data Vital Signs (Past 12 Hours) Vital Signs Temp Pulse Pulse Pulse Resp BP Pulse Ox 04/05/19 11:04 65 20 84 L 04/05/19 07:33 36.7 C 65 20 127/68 96 04/05/19 07:15 64 20 96 04/05/19 03:35 36.6 C 65 20 114/56 L 91 04/05/19 03:29 64 20 90 Laboratory Results Laboratory Results - last 24 hr 04/05/19 04/05/19 04/05/19 00:54 00:54 00:54 WBC 22.42 H RBC 3.10 L Hgb 10.6 L Hct 30.5 L MCV 98.4 MCH 34.2 H MCHC 34.8 RDW Std Deviation 51.9 H RDW Coeff of Meet 14.7 H Plt Count 433 H MPV 10.7 H Immature Gran % (Auto) 0.7 Neut % (Auto) 89.6 Lymph % (Auto) 3.1 [place] % (Auto) 6.6 Eos % (Auto) 0.0 Baso % (Auto) 0.0 Immature Gran # (Auto) 0.16 H Neut # (Auto) 20.07 H Lymph # (Auto) 0.69 L [place] # (Auto) 1.49 H Eos # (Auto) 0.00 Baso # (Auto) 0.01 Hypersegmented Neuts 1+ Sodium 131 L Potassium 4.3 D Chloride 93 L Carbon Dioxide 32 Anion Gap 6.0 BUN 15 D Creatinine 0.65 Est Cr Clr Drug Dosing 133.5 Est GFR ( Amer) 115.9 Est GFR (Non-Af Amer) 100.0 BUN/Creatinine Ratio 22.6 H Glucose 117 H Calcium 8.2 L Blood Type O Positive Antibody Screen NEGATIVE 04/05/19 07:25 WBC RBC Hgb 9.6 L Hct 27.6 L MCV MCH MCHC RDW Std Deviation RDW Coeff of Meet Plt Count MPV Immature Gran % (Auto) Neut % (Auto) Lymph % (Auto) [place] % (Auto) Eos % (Auto) Baso % (Auto) Immature Gran # (Auto) Neut # (Auto) Lymph # (Auto) [place] # (Auto) Eos # (Auto) Baso # (Auto) Hypersegmented Neuts Sodium Potassium Chloride Carbon Dioxide Anion Gap BUN Creatinine Est Cr Clr Drug Dosing Est GFR ( Amer) Est GFR (Non-Af Amer) BUN/Creatinine Ratio Glucose Calcium Blood Type Antibody Screen Diagnostic Findings CT SCAN OF THE ABDOMEN AND PELVIS WITHOUT CONTRAST CLINICAL HISTORY: Back and abdominal pain. History of retroperitoneal hemorrhage. COMPARISON STUDY: 03/30/2019 TECHNIQUE: CT scan of the abdomen and pelvis was performed from the lung bases to the proximal femurs. Images are reviewed in the axial, sagittal, and coronal planes. IV contrast was not administered for this examination. A dose lowering technique was utilized adhering to the principles of ALARA. CT DOSE: 698.58 mGy.cm FINDINGS: Lower chest: Bilateral pleural effusions. There are mixed interstitial and groundglass pulmonary opacities. There is could reflect interstitial edema or chronic interstitial lung disease. Liver: There are pleurodiaphragmatic calcifications along the medial dome of the right lobe of the liver. No hepatic masses are visualized in this noncontrast study. Gallbladder: There are equivocal gallstones in a contracted gallbladder Spleen: Normal in size and attenuation. Pancreas: Unremarkable. Adrenal glands: Unremarkable. Kidneys: There is bilateral nephrogram lithiasis. The largest calculus is lo cated in the lower pole left kidney measuring 9 mm. No ureteral calculi are visualized. Bowel: There are no transition zones indicate bowel obstruction. There is no evidence of acute diverticulitis. There are no findings to indicate acute appendicitis. Peritoneum: There is no intraperitoneal free air or abdominal ascites. Vasculature: The abdominal aorta is normal in course and caliber. Adenopathy: None. Pelvic viscera: There is a joint Clarke catheter. Skeletal structures: There is an enlarging left iliopsoas hematoma. The hematoma extends over craniocaudal distance of approximately 20 cm. IMPRESSION: 1. Enlarging left iliopsoas hematoma with a craniocaudal extension of approximately 20 cm 2. Bilateral nephrolithiasis. No ureteral calculi identified 3. Interstitial and groundglass lower lobe pulmonary opacities. Bilateral pleural effusions 4. Equivocal cholelithiasis Electronically signed by: Jeff Krishnamurthy M.D. 04/05/2019 6:39 AM
[2019-04-05 13:18] LABS: Base Excess ABG 3.5 mEq/L (-9-1.8); HCO3 ABG 27 mmol/L (19-24); Oxygen Saturation ABG 82.3 % (90-95); PCO2 ABG 34 mmHg (35-46); PO2 ABG 45 mm/Hg (80-95)
[2019-04-05 13:20] LABS: Allen Test Pos (Pos)
[2019-04-05 13:21] LABS: pH ABG 7.51 (7.35-7.45)
[2019-04-05] MEDS: IPRATROPIUM BROMIDE NEB SOLN 0.02% 2.5 ML VIAL INH SCH ×2 (13:54→19:14)
[2019-04-05] MEDS: ACETYLCYSTEINE 10% INHAL SOLN **DISPENSED FROM RESP. INH SCH ×2 (13:54→19:14)
[2019-04-05] MEDS: LEVALBUTEROL HCL 0.63 MG/3 ML NEB NEB SCH ×3 (13:54→19:14)
[2019-04-05] MEDS ORDERED: XOPENEX/ATROVENT 0.63mg/0.5MG NEB COMBO NEB SCH (14:00)
--- NOTE | 2019-04-05 23:00 | Ultrasound Report ---
BILATERAL LOWER EXTREMITY VENOUS DOPPLER HISTORY: Leg swelling. r/o dvt COMPARISON STUDY: None. FINDINGS: There is normal compressibility, flow, and augmentation within the bilateral lower extremit y deep venous systems. IMPRESSION: No DVT within the right or left lower extremity. Electronically signed by: Hay Owens M.D. 04/05/2019 10:59 PM
[2019-04-06] MEDS: PIPERACILLIN/TAZOBACTAM 4.5 GM in DEXTROSE 5% 100 ML IV SCH ×3 (00:04→16:20)
[2019-04-06] MEDS: methylPREDNISolone 40 MG in SYRINGE 0 ML IV SCH ×2 (00:04→13:27)
[2019-04-06] MEDS: BREO ELLIPTA - ORDER AWAITING ACTION SCH ×5 (00:47→22:02)
[2019-04-06] MEDS: LEVALBUTEROL HCL 0.63 MG/3 ML NEB NEB SCH ×4 (02:40→19:40)
[2019-04-06] MEDS: IPRATROPIUM BROMIDE NEB SOLN 0.02% 2.5 ML VIAL INH SCH ×4 (02:40→19:40)
[2019-04-06] MEDS: ACETYLCYSTEINE 10% INHAL SOLN **DISPENSED FROM RESP. INH SCH ×2 (07:03→19:40)
[2019-04-06] MEDS: POTASSIUM CHLORIDE 20 MEQ TABCR PO SCH ×2 (08:21→20:14)
[2019-04-06] MEDS: MULTIVITAMIN TAB PO SCH (08:21)
[2019-04-06] MEDS: FOLIC ACID 1 MG TAB PO SCH (08:21)
[2019-04-06] MEDS: METOPROLOL SUCC 50MG EXT REL TAB PO SCH ×3 (08:22→20:14)
[2019-04-06] MEDS: THIAMINE HCL 100 MG TAB PO SCH (08:22)
[2019-04-06] MEDS: ESCITALOPRAM OXALATE 10 MG TAB PO SCH (08:22)
[2019-04-06] MEDS: SPIRONOLACTONE 25 MG TAB PO SCH (08:22)
[2019-04-06] MEDS: FUROSEMIDE 40 MG TAB PO SCH (08:22)
[2019-04-06] MEDS: FAMOTIDINE 20 MG TAB PO SCH (08:23)
--- NOTE | 2019-04-06 10:30 | Pulmonology Progress Note ---
Date of Service April 06, 2019 Assessment & Plan (1) Acute respiratory failure with hypoxia: acute hypoxic respiratory failure likely due to multifocal pneumonia. also component from pulmonary embolism and volume overload/pulmonary edema remains hypoxic without any improvement over the last few days. ABG yesterday confirms hypoxia continue high flow NC would try to increase the flow to titrate down fio2 o2 to keep sat >88% OOB if able continue piperacillin-tazobactam. MRSA nasal screen negative if not improving tomorrow will repeat Ct chest without contrast RUl cavitary lesion needs CT in 4 weeks for resolution. if remains present may need biopsy. no significant mediastinal lymphadenopathy COPD exacerbation. continue steroids at current dose and levalbuterol Pulmonary embolism (multiple small subsegmental) worsened RP bleed on anticoagulation. monitor off anticoagulation (2) Multifocal atrial tachycardia: (3) Pneumonia: (4) Acute CHF: Heart failure type: right-sided Qualified Code(s): I50.811 - Acute right heart failure Subjective feeling much better sitting up in chair. minimal sob getting up into chair on 68% high flow NC Physical Exam Physical Exam: Constitutional: Comfortable NAD in chair HEENT: normocephalic atraumatic. MMM. CV: RRR nl s1,s2 no murmurs rubs or gallops Lungs: slight scattered crackles bilaterally. no accessory muscle use Abd: soft nontender nondistended. normal bowel sounds Ext: + LE edema. no cyanosis, no clubbing Skin: warm dry Neuro: alert and oriented. moving all extremities Psych: normal mood and affect Results & Data Vital Signs (Past 12 Hours) Vital Signs Temp Pulse Resp BP BP Pulse Ox 04/06/19 07:58 36.8 C 62 20 102/64 95 04/06/19 07:05 57 L 18 93 04/06/19 07:03 57 L 18 93 04/06/19 03:28 36.8 C 65 16 146/86 H 90 04/05/19 23:40 36.8 C 66 16 121/74 97 04/05/19 23:19 68 16 97
[2019-04-06] MEDS ORDERED: SODIUM CHLORIDE 0.9% 1000ML 1,000 ML IV STA (11:34)
[2019-04-06 14:23] LABS: Hematocrit (blood only) 27.7 % (42-52); Hemoglobin 9.6 g/dL (14.0-18.0); Mean Corpuscular Volume 96.9 fL (80-100); Mean Platelet Volume 10.6 fL (7.4-10.4); Platelet Count 416 K/uL (130-400); RDW Coefficient of Variation 14.7 % (11.5-14.5); RDW Standard Deviation 51.1 fL (36.4-46.3); Red Blood Count 2.86 M/uL (4.7-6.1); White Blood Count 22.73 K/uL (4.8-10.8)
[2019-04-06 14:26] LABS: Mean Corpuscular Hgb Conc 34.7 g/dL (32-36)
[2019-04-06 14:40] LABS: Basophils # (auto) 0.02 K/uL (0-0.2); Basophils % (auto) 0.1 %; Eosinophils # (auto) 0.01 K/uL (0-0.5); Immature Granulocytes # (auto) 0.17 K/uL (0.00-0.02); Immature Granulocytes % (auto) 0.7 %; Lymphocytes # (auto) 1.82 K/uL (1.2-3.4); Monocytes # (auto) 0.76 K/uL (0.11-0.59); Monocytes % (auto) 3.3 %; Neutrophils # (auto) 19.95 K/uL (1.4-6.5); Neutrophils % (auto) 87.9 %
[2019-04-06 14:42] LABS: BUN Creatinine Ratio 21.4 (10-20); Creatinine Clr Calc Pharmacy 120.6 ml/min; Est GFR (African American) 111.1; Est GFR (Non-African American) 95.9; Potassium 4.5 mmol/L (3.5-5.1)
[2019-04-06] MEDS: SODIUM CHLORIDE 0.9% 1000ML 1,000 ML IV SCH (16:20)
--- NOTE | 2019-04-06 17:04 | Hospitalist Progress Note ---
Date of Service April 06, 2019 Assessment & Plan (1) Hypotension: Likely secondary to hypovolemia, likely from diuretics I's and O's: -6 L fluid balance Hold Lasix and Aldactone We will give gentle IV fluids and monitor volume status closely Metoprolol with holding parameters (2) Acute respiratory failure with hypoxia: Severe hypoxic respiratory failure,likely secondary to suspected pneumonia, pulmonary edema, pulmonary emboli as discussed below. Pulmonary Medicine consulted. Continue efforts to wean off from high flow O2 (3) Severe sepsis: Per Dr. Sawant notes: Met criteria for severe sepsis per current CMS criteria (tachycardia, tachypnea, leukocytosis, elevated lactate). Procalcitonin elevated. Blood cultures obtained Patient received broad-spectrum intravenous antibiotic coverage. Received fluid resuscitation. Lactic acid levels were followed-normalized with IV fluid and ABx Possible sources of infectionpneumonia or urinary tract as discussed below. (4) Pneumonia: CT chest consistent with multilobar pneumonia. Blood cultures negative. (+) leukocytosis (on steroids). FiO2 requirement slightly lower today at 64%, 35 L/min wean as tolerated Continue IV piperacillin/tazobactam and IV Solu-Medrol Will need follow-up CT imaging in 4 weeks ( rt upper lobe cavitary lesion concern for maliganncy) (5) COPD (chronic obstructive pulmonary disease): Exacerbation COPD secondary to pneumonia. Continue steroids and albuterol nebulizer treatments as needed. (6) Pulmonary emboli: per Dr. Sawant notes: (present on admission) CTA of chest performed on 03/27 demonstrated multiple small segmental pulmonary emboli. Patient was started on intravenous heparin. Venous duplex of lower extremities on 03/[address] of abdomen pelvis on 03/30 demonstrated hematoma left iliopsoas muscle. IV heparin discontinued. Pulmonary emboli were relatively small (segmental and subsegmental). No DVT's identified in lower extremities at this time. On April 03, 2019 started Eliquis 10mg BID today x 7 days, then 5mg BID April 05, 2019 patient developed increased abdominal pain and CAT scan of the abdomen and pelvis confirmed increased iliopsoas hematoma size Discussed with Dr. Collado, recommend to discontinue Eliquis Repeat Doppler of the legs: Negative for DVT (7) Abnormal CT scan, chest: CT of chest demonstrated a 6.2 x 4.5 cm thick-walled cavitary lesion within the right upper lobe (as well as pulmonary emboli and extensive airspace opacities as noted). Right upper lobe lesion worrisome for malignancy. Follow-up CT in 1 month recommended. (8) Pulmonary edema: CT of chest on day of admission suggested possible pulmonary edema. BNP elevated. History Takotsubo's cardiomyopathy, but current echocardiogram shows normal left ventricular wall motion and function. Possible acute left ventricular diastolic CHF. Possible noncardiac pulmonary edema. --Hold diuretics today secondary to hypovolemia and hypotension (9) Multifocal atrial tachycardia: Continue metoprolol with holding parameters Continue management of underlying pulmonary issues. (10) Hypertension: Continue metoprolol. (11) Urinary tract infection: Admission UA showed leukocyte esterase, WBCs, bacteria. Urine culture (+) enterococcus faecalis Sensitive to penicillin Receiving intravenous antibiotics Zosyn as discussed above. (12) Hematoma of left iliopsoas muscle: Management as noted above (13) DVT prophylaxis: SCD's. Ambulate as able. (14) Discharge planning issues: Discharge disposition to be determined. still requiring High flow 02 /remains in PCU Family Medicine follow-up with Dr. Ravindra Maldonado. Subjective For acute on chronic respiratory failure, multifocal pneumonia, pulmonary emboli Notified by RN regarding patient's hypotension while sitting up in chair Advised to be moved back to bed, 1 L IV NSS bolus ordered Hypotension improved after IV fluid bolus to systolic 100s Resting in bed, comfortable, watching TV States he felt dizzy 45 minutes after being in the bedside chair Proved after laying down, receiving IV fluids On exam, no active dizziness, headache, chest pain, shortness of breath, palpitations, dizziness Reports cough and breathing continues to improve, nonproductive cough Denies fever or chills No abdominal pain, nausea vomiting Denies other symptoms Review of Systems Review of Systems: All systems reviewed & are unremarkable except as noted in HPI & below Physical Exam Physical Exam: General- oriented x 3, not in distress, speaks in sentences with no effort or accessory muscle use Eyes- anicteric Neck- no JVD Lungs-clear breath signs bilaterally, no crackles no wheezing noted Heart- normal rate, regular rhythm; no murmurs Abdomen- normal bowel sounds, nondistended, soft, nontender Extremities- no pretibial edema, no calf tenderness Neuro- alert, oriented x 3; no gross focal neurologic deficits Skin- warm & dry Results & Data Vital Signs (Past 12 Hours) Vital Signs Temp Pulse Pulse Resp BP BP Pulse Ox 04/06/19 15:29 36.8 C 65 22 114/66 98 04/06/19 14:29 66 18 97 04/06/19 13:59 63 18 97 04/06/19 12:47 71/42 L 04/06/19 11:26 64 20 90 04/06/19 11:25 73/52 L 84/53 L 04/06/19 10:49 36.5 C 60 19 106/66 98 04/06/19 07:58 36.8 C 62 20 102/64 95 04/06/19 07:05 57 L 18 93 04/06/19 07:03 57 L 18 93
[2019-04-07] MEDS: PIPERACILLIN/TAZOBACTAM 4.5 GM in DEXTROSE 5% 100 ML IV SCH ×3 (00:10→16:26)
[2019-04-07] MEDS: methylPREDNISolone 40 MG in SYRINGE 0 ML IV SCH ×2 (00:13→11:04)
[2019-04-07] MEDS: LEVALBUTEROL HCL 0.63 MG/3 ML NEB NEB SCH ×4 (01:50→18:48)
[2019-04-07] MEDS: IPRATROPIUM BROMIDE NEB SOLN 0.02% 2.5 ML VIAL INH SCH ×4 (01:51→18:48)
[2019-04-07] MEDS: SODIUM CHLORIDE 0.9% 1000ML 1,000 ML IV SCH ×2 (04:00→16:25)
[2019-04-07 06:00] LABS: Basophils # (auto) 0.02 K/uL (0-0.2); Basophils % (auto) 0.1 %; Eosinophils # (auto) 0.01 K/uL (0-0.5); Hematocrit (blood only) 26.5 % (42-52); Hemoglobin 9.1 g/dL (14.0-18.0); Immature Granulocytes # (auto) 0.17 K/uL (0.00-0.02); Immature Granulocytes % (auto) 0.8 %; Lymphocytes # (auto) 0.47 K/uL (1.2-3.4); Lymphocytes % (auto) 2.3 %; Mean Corpuscular Hgb Conc 34.3 g/dL (32-36); Mean Corpuscular Volume 97.1 fL (80-100); Mean Platelet Volume 10.9 fL (7.4-10.4); Monocytes # (auto) 1.17 K/uL (0.11-0.59); Monocytes % (auto) 5.7 %; Neutrophils # (auto) 18.86 K/uL (1.4-6.5); Neutrophils % (auto) 91.1 %; Platelet Count 430 K/uL (130-400); RDW Coefficient of Variation 14.8 % (11.5-14.5); RDW Standard Deviation 51.8 fL (36.4-46.3); Red Blood Count 2.73 M/uL (4.7-6.1)
[2019-04-07 06:31] LABS: BUN Creatinine Ratio 27.9 (10-20); Calcium 7.9 mg/dl (8.5-10.1); Creatinine Clr Calc Pharmacy 163.8 ml/min; Est GFR (Non-African American) 108.7
[2019-04-07] MEDS: ACETYLCYSTEINE 10% INHAL SOLN **DISPENSED FROM RESP. INH SCH ×2 (06:44→18:48)
[2019-04-07] MEDS: BREO ELLIPTA - ORDER AWAITING ACTION SCH ×2 (07:50→14:55)
[2019-04-07] MEDS: METOPROLOL SUCC 50MG EXT REL TAB PO SCH ×3 (08:06→20:07)
[2019-04-07] MEDS: FAMOTIDINE 20 MG TAB PO SCH (08:06)
[2019-04-07] MEDS: ESCITALOPRAM OXALATE 10 MG TAB PO SCH (08:06)
[2019-04-07] MEDS: FOLIC ACID 1 MG TAB PO SCH (08:07)
[2019-04-07] MEDS: MULTIVITAMIN TAB PO SCH (08:07)
[2019-04-07] MEDS: THIAMINE HCL 100 MG TAB PO SCH (08:07)
--- NOTE | 2019-04-07 08:11 | Pulmonology Progress Note ---
Date of Service April 07, 2019 Assessment & Plan (1) Acute respiratory failure with hypoxia: acute hypoxic respiratory failure likely due to multifocal pneumonia. also component from pulmonary embolism and volume overload/pulmonary edema oxygenation significantly improved today continue high flow NC would try to increase the flow to titrate down fio2 o2 to keep sat >88% OOB as much as able continue piperacillin-tazobactam to complete 14 days. MRSA nasal screen negative can hold off on repeat Ct chest today unless he gets worse RUl cavitary lesion needs CT in 4 weeks for resolution. if remains present may need biopsy. no significant mediastinal lymphadenopathy COPD exacerbation. continue steroids at current dose and levalbuterol. if doing well tomorrow titrate steroids to daily Pulmonary embolism (multiple small subsegmental) worsened RP bleed on anticoagulation. monitor off anticoagulation (2) Multifocal atrial tachycardia: (3) Pneumonia: (4) Acute CHF: Heart failure type: right-sided Qualified Code(s): I50.811 - Acute right heart failure Subjective feeling much better slept well his high flow has been titrated down to 45% some hypotension yesreday now improved Physical Exam Physical Exam: Constitutional: Comfortable NAD in chair HEENT: normocephalic atraumatic. MMM. CV: RRR nl s1,s2 no murmurs rubs or gallops Lungs: slight scattered crackles bilaterally. no accessory muscle use Abd: soft nontender nondistended. normal bowel sounds Ext: + trace LE edema. no cyanosis, no clubbing Skin: warm dry Neuro: alert and oriented. moving all extremities Psych: normal mood and affect Results & Data Vital Signs (Past 12 Hours) Vital Signs Temp Pulse Resp BP BP Pulse Ox 04/07/19 07:17 36.3 C L 71 20 145/82 H 100 04/07/19 06:46 55 L 18 96 04/07/19 06:45 55 L 18 96 04/07/19 05:33 56 L 14 98 04/07/19 04:01 36.7 C 72 20 132/77 99 04/07/19 01:48 65 16 99 04/07/19 00:20 36.7 C 71 20 120/73 97 04/06/19 20:13 64 95/54 L Laboratory Results Laboratory Results - last 24 hr 04/06/19 04/06/19 04/07/19 14:13 14:13 05:39 WBC 22.73 H 20.70 H RBC 2.86 L 2.73 L Hgb 9.6 L 9.1 L Hct 27.7 L 26.5 L MCV 96.9 97.1 MCH 33.6 33.3 MCHC 34.7 34.3 RDW Std Deviation 51.1 H 51.8 H RDW Coeff of Meet 14.7 H 14.8 H Plt Count 416 H 430 H MPV 10.6 H 10.9 H Immature Gran % (Auto) 0.7 0.8 Neut % (Auto) 87.9 91.1 Lymph % (Auto) 8.0 2.3 [place] % (Auto) 3.3 5.7 Eos % (Auto) 0.0 0.0 Baso % (Auto) 0.1 0.1 Immature Gran # (Auto) 0.17 H 0.17 H Neut # (Auto) 19.95 H 18.86 H Lymph # (Auto) 1.82 0.47 L [place] # (Auto) 0.76 H 1.17 H Eos # (Auto) 0.01 0.01 Baso # (Auto) 0.02 0.02 Sodium 131 L Potassium 4.5 Chloride 94 L Carbon Dioxide 30 Anion Gap 7.0 BUN 15 Creatinine 0.72 Est Cr Clr Drug Dosing 120.6 Est GFR ( Amer) 111.1 Est GFR (Non-Af Amer) 95.9 BUN/Creatinine Ratio 21.4 H Glucose 119 H Calcium 8.0 L 04/07/19 05:39 WBC RBC Hgb Hct MCV MCH MCHC RDW Std Deviation RDW Coeff of Meet Plt Count MPV Immature Gran % (Auto) Neut % (Auto) Lymph % (Auto) [place] % (Auto) Eos % (Auto) Baso % (Auto) Immature Gran # (Auto) Neut # (Auto) Lymph # (Auto) [place] # (Auto) Eos # (Auto) Baso # (Auto) Sodium 132 L Potassium 5.0 Chloride 97 L Carbon Dioxide 30 Anion Gap 5.0 BUN 15 Creatinine 0.53 L Est Cr Clr Drug Dosing 163.8 Est GFR ( Amer) 126.0 Est GFR (Non-Af Amer) 108.7 BUN/Creatinine Ratio 27.9 H Glucose 135 H Calcium 7.9 L
[2019-04-07] MEDS: POTASSIUM CHLORIDE 20 MEQ TABCR PO SCH ×2 (08:14→20:07)
--- NOTE | 2019-04-07 16:21 | Hospitalist Progress Note ---
Date of Service April 07, 2019 Assessment & Plan (1) Hypotension: Likely secondary to hypovolemia, likely from diuretics I's and O's: -6 L fluid balance Hold Lasix and Aldactone We will give gentle IV fluids and monitor volume status closely Metoprolol with holding parameters April 07, 2019 Hypotension resolved Continue IV fluids Continue to hold Lasix and Aldactone Monitor volume status closely daily (2) Acute respiratory failure with hypoxia: Severe hypoxic respiratory failure,likely secondary to suspected pneumonia, pulmonary edema, pulmonary emboli as discussed below. Pulmonary Medicine consulted. Was on high flow O2 for several days, now transition to 5 L of nasal cannula, continue to wean off accordingly (3) Severe sepsis: Per Dr. Sawant notes: Met criteria for severe sepsis per current CMS criteria (tachycardia, tachypnea, leukocytosis, elevated lactate). Procalcitonin elevated. Blood cultures obtained Patient received broad-spectrum intravenous antibiotic coverage. Received fluid resuscitation. Lactic acid levels were followed-normalized with IV fluid and ABx Possible sources of infectionpneumonia or urinary tract as discussed below. (4) Pneumonia: CT chest consistent with multilobar pneumonia. Blood cultures negative. (+) leukocytosis (on steroids). Now on 5 L nasal cannula, continue weaning off oxygen Continue IV piperacillin/tazobactam and IV Solu-Medrol Will need follow-up CT imaging in 4 weeks ( rt upper lobe cavitary lesion concern for maliganncy) (5) COPD (chronic obstructive pulmonary disease): Exacerbation COPD secondary to pneumonia. Continue steroids and albuterol nebulizer treatments as needed. (6) Pulmonary emboli: per Dr. Sawant notes: (present on admission) CTA of chest performed on 03/27 demonstrated multiple small segmental pulmonary emboli. Patient was started on intravenous heparin. Venous duplex of lower extremities on 03/[address] of abdomen pelvis on 03/30 demonstrated hematoma left iliopsoas muscle. IV heparin discontinued. Pulmonary emboli were relatively small (segmental and subsegmental). No DVT's identified in lower extremities at this time. On April 03, 2019 started Eliquis 10mg BID today x 7 days, then 5mg BID April 05, 2019 patient developed increased abdominal pain and CAT scan of the abdomen and pelvis confirmed increased iliopsoas hematoma size Discussed with Dr. Collado, recommend to discontinue Eliquis Repeat Doppler of the legs: Negative for DVT (7) Abnormal CT scan, chest: CT of chest demonstrated a 6.2 x 4.5 cm thick-walled cavitary lesion within the right upper lobe (as well as pulmonary emboli and extensive airspace opacities as noted). Right upper lobe lesion worrisome for malignancy. Follow-up CT in 1 month recommended. (8) Pulmonary edema: CT of chest on day of admission suggested possible pulmonary edema. BNP elevated. History Takotsubo's cardiomyopathy, but current echocardiogram shows normal left ventricular wall motion and function. Possible acute left ventricular diastolic CHF. Possible noncardiac pulmonary edema. --Diuretics on hold secondary to hypovolemia and hypotension (9) Multifocal atrial tachycardia: Continue metoprolol with holding parameters Continue management of underlying pulmonary issues. (10) Hypertension: Continue metoprolol. (11) Urinary tract infection: Admission UA showed leukocyte esterase, WBCs, bacteria. Urine culture (+) enterococcus faecalis Sensitive to penicillin Receiving intravenous antibiotics Zosyn as discussed above. (12) Hematoma of left iliopsoas muscle: Management as noted above (13) DVT prophylaxis: SCD's. Ambulate as able. (14) Discharge planning issues: Discharge disposition to be determined. still requiring High flow 02 /remains in PCU Family Medicine follow-up with Dr. Ravindra Maldonado. Subjective Follow-up for acute on chronic respiratory failure, multifocal pneumonia, p ulmonary embolism Seen resting in bed, comfortable, in good spirits Was able to be weaned off from high flow O2, now at 5 L of nasal cannula Patient states he continues to feels better today, less shortness of breath, less coughing, no phlegm No dizziness, lightheadedness today Denies chest pain, palpitations, fevers or chills, nausea vomiting Denies abdominal pain No other symptoms Review of Systems Review of Systems: All systems reviewed & are unremarkable except as noted in HPI & below Physical Exam Physical Exam: General- oriented x 3, not in distress, speaks in sentences with no effort or accessory muscle use Eyes- anicteric Neck- no JVD Lungs-occasional rhonchi bilaterally, at the bases, no wheezing Heart- normal rate, regular rhythm; no murmurs Abdomen- normal bowel sounds, nondistended, soft, nontender Extremities- no pretibial edema, no calf tenderness Neuro- alert, oriented x 3; no gross focal neurologic deficits Skin- warm & dry Results & Data Vital Signs (Past 12 Hours) Vital Signs Temp Pulse Resp BP BP Pulse Ox 04/07/19 14:58 36.7 C 77 18 135/81 91 04/07/19 14:05 80 18 95 04/07/19 11:07 36.6 C 69 20 102/67 94 04/07/19 07:17 36.3 C L 71 20 145/82 H 100 04/07/19 06:46 55 L 18 96 04/07/19 06:45 55 L 18 96 04/07/19 05:33 56 L 14 98 Laboratory Results Laboratory Results - last 24 hr 04/07/19 04/07/19 05:39 05:39 WBC 20.70 H RBC 2.73 L Hgb 9.1 L Hct 26.5 L MCV 97.1 MCH 33.3 MCHC 34.3 RDW Std Deviation 51.8 H RDW Coeff of Meet 14.8 H Plt Count 430 H MPV 10.9 H Immature Gran % (Auto) 0.8 Neut % (Auto) 91.1 Lymph % (Auto) 2.3 [place] % (Auto) 5.7 Eos % (Auto) 0.0 Baso % (Auto) 0.1 Immature Gran # (Auto) 0.17 H Neut # (Auto) 18.86 H Lymph # (Auto) 0.47 L [place] # (Auto) 1.17 H Eos # (Auto) 0.01 Baso # (Auto) 0.02 Sodium 132 L Potassium 5.0 Chloride 97 L Carbon Dioxide 30 Anion Gap 5.0 BUN 15 Creatinine 0.53 L Est Cr Clr Drug Dosing 163.8 Est GFR ( Amer) 126.0 Est GFR (Non-Af Amer) 108.7 BUN/Creatinine Ratio 27.9 H Glucose 135 H Calcium 7.9 L
[2019-04-08] MEDS: PIPERACILLIN/TAZOBACTAM 4.5 GM in DEXTROSE 5% 100 ML IV SCH ×4 (00:38→23:24)
[2019-04-08] MEDS: methylPREDNISolone 40 MG in SYRINGE 0 ML IV SCH (00:38)
[2019-04-08] MEDS: BREO ELLIPTA - ORDER AWAITING ACTION SCH ×2 (00:39→09:58)
[2019-04-08] MEDS: IPRATROPIUM BROMIDE NEB SOLN 0.02% 2.5 ML VIAL INH SCH ×4 (01:51→19:57)
[2019-04-08] MEDS: LEVALBUTEROL HCL 0.63 MG/3 ML NEB NEB SCH ×4 (01:51→19:57)
[2019-04-08] MEDS: SODIUM CHLORIDE 0.9% 1000ML 1,000 ML IV SCH ×2 (04:02→16:47)
[2019-04-08] MEDS: ACETYLCYSTEINE 10% INHAL SOLN **DISPENSED FROM RESP. INH SCH (06:51)
[2019-04-08 07:07] LABS: Hematocrit (blood only) 26.8 % (42-52); Mean Corpuscular Hgb Conc 33.6 g/dL (32-36); Mean Platelet Volume 11.1 fL (7.4-10.4); Platelet Count 437 K/uL (130-400); RDW Coefficient of Variation 14.9 % (11.5-14.5); RDW Standard Deviation 53.2 fL (36.4-46.3); Red Blood Count 2.68 M/uL (4.7-6.1); White Blood Count 23.17 K/uL (4.8-10.8)
[2019-04-08 07:36] LABS: BUN Creatinine Ratio 30.6 (10-20); Creatinine Clr Calc Pharmacy 157.8 ml/min; Est GFR (African American) 124.1; Est GFR (Non-African American) 107.1; Potassium 4.4 mmol/L (3.5-5.1)
[2019-04-08 07:51] LABS: Basophils # (auto) 0.01 K/uL (0-0.2); Eosinophils # (auto) 0.01 K/uL (0-0.5); Immature Granulocytes # (auto) 0.22 K/uL (0.00-0.02); Immature Granulocytes % (auto) 0.9 %; Lymphocytes % (auto) 4.7 %; Monocytes # (auto) 0.88 K/uL (0.11-0.59); Monocytes % (auto) 3.8 %; Neutrophils # (auto) 20.95 K/uL (1.4-6.5); Neutrophils % (auto) 90.6 %
[2019-04-08] MEDS: FOLIC ACID 1 MG TAB PO SCH (09:46)
[2019-04-08] MEDS: MULTIVITAMIN TAB PO SCH (09:46)
[2019-04-08] MEDS: POTASSIUM CHLORIDE 20 MEQ TABCR PO SCH (09:46)
[2019-04-08] MEDS: ESCITALOPRAM OXALATE 10 MG TAB PO SCH (09:46)
[2019-04-08] MEDS: FAMOTIDINE 20 MG TAB PO SCH (09:46)
[2019-04-08] MEDS: METOPROLOL SUCC 50MG EXT REL TAB PO SCH ×2 (09:46→16:47)
[2019-04-08] MEDS: THIAMINE HCL 100 MG TAB PO SCH (09:47)
--- NOTE | 2019-04-08 09:50 | Pulmonology Progress Note ---
Date of Service April 08, 2019 Assessment & Plan (1) Acute respiratory failure with hypoxia: acute hypoxic respiratory failure likely due to multifocal pneumonia. also component from pulmonary embolism and volume overload/pulmonary edema oxygenation continues to improve now on his home dose o2 to keep sat >88% OOB as much as able continue piperacillin-tazobactam day 13/14. MRSA nasal screen negative RUl cavitary lesion needs CT in 4 weeks for resolution. if remains present may need biopsy. no significant mediastinal lymphadenopathy COPD exacerbation. continue steroids taper to daily and levalbuterol. Pulmonary embolism (multiple small subsegmental) worsened RP bleed on anti coagulation. monitor off anticoagulation (2) Multifocal atrial tachycardia: (3) Pneumonia: (4) Acute CHF: Heart failure type: right-sided Qualified Code(s): I50.811 - Acute right heart failure Subjective feeling much better slept well his high flow has been titrated down to 45% some hypotension yesreday now improved Physical Exam Physical Exam: Constitutional: Comfortable NAD in chair HEENT: normocephalic atraumatic. MMM. CV: RRR nl s1,s2 no murmurs rubs or gallops Lungs: clear to auscultation bilaterally. no accessory muscle use Abd: soft nontender nondistended. Ext: + trace LE edema. no cyanosis, no clubbing Skin: warm dry Neuro: alert and oriented. moving all extremities Psych: normal mood and affect Results & Data Vital Signs (Past 12 Hours) Vital Signs Temp Pulse Resp BP BP Pulse Ox 04/08/19 07:16 36.8 C 76 20 151/73 H 99 04/08/19 06:52 75 18 94 04/08/19 03:49 37.0 C 107 H 19 139/78 93 04/08/19 01:51 85 16 93 04/07/19 23:28 37.0 C 85 18 124/66 93 Laboratory Results Laboratory Results - last 24 hr 04/08/19 04/08/19 06:31 06:31 WBC 23.17 H RBC 2.68 L Hgb 9.0 L Hct 26.8 L MCV 100.0 MCH 33.6 MCHC 33.6 RDW Std Deviation 53.2 H RDW Coeff of Meet 14.9 H Plt Count 437 H MPV 11.1 H Immature Gran % (Auto) 0.9 Neut % (Auto) 90.6 Lymph % (Auto) 4.7 [place] % (Auto) 3.8 Eos % (Auto) 0.0 Baso % (Auto) 0.0 Immature Gran # (Auto) 0.22 H Neut # (Auto) 20.95 H Lymph # (Auto) 1.10 L [place] # (Auto) 0.88 H Eos # (Auto) 0.01 Baso # (Auto) 0.01 Hypersegmented Neuts 1+ Sodium 133 L Potassium 4.4 Chloride 100 Carbon Dioxide 28 Anion Gap 5.0 BUN 17 Creatinine 0.55 L Est Cr Clr Drug Dosing 157.8 Est GFR ( Amer) 124.1 Est GFR (Non-Af Amer) 107.1 BUN/Creatinine Ratio 30.6 H Glucose 136 H Calcium 8.0 L
[2019-04-08] MEDS: FLUTICASONE/VILANTEROL INHALER INH SCH (10:37)
--- NOTE | 2019-04-08 19:08 | Hospitalist Progress Note ---
Date of Service April 08, 2019 Assessment & Plan (1) Hypotension: Likely secondary to hypovolemia, likely from diuretics I's and O's: -6 L fluid balance Hold Lasix and Aldactone We will give gentle IV fluids and monitor volume status closely Metoprolol with holding parameters Blood pressure improved, within normal range Continue gentle IV fluids Continue to hold Lasix and Aldactone for today Monitor volume status closely daily (2) Acute respiratory failure with hypoxia: Severe hypoxic respiratory failure,likely secondary to suspected pneumonia, pulmonary edema, pulmonary emboli as discussed below. Pulmonary Medicine consulted. Was on high flow O2 for several days, now transition to 4 L of nasal cannula, continue to wean off accordingly (3) Severe sepsis: Per Dr. Sawant notes: Met criteria for severe sepsis per current CMS criteria (tachycardia, tachypnea, leukocytosis, elevated lactate). Procalcitonin elevated. Blood cultures obtained Patient received broad-spectrum intravenous antibiotic coverage. Received fluid resuscitation. Lactic acid levels were followed-normalized with IV fluid and ABx Possible sources of infectionpneumonia or urinary tract as discussed below. (4) Pneumonia: CT chest consistent with multilobar pneumonia. Blood cultures negative. (+) leukocytosis (on steroids). Now on 4 L nasal cannula, continue weaning off oxygen Continue IV piperacillin/tazobactam and IV Solu-Medrol Last day of Zosyn, Will need follow-up CT imaging in 4 weeks ( rt upper lobe cavitary lesion concern for maliganncy) (5) COPD (chronic obstructive pulmonary disease): Exacerbation COPD secondary to pneumonia. Continue steroids and albuterol nebulizer treatments as needed. (6) Pulmonary emboli: per Dr. Sawant notes: (present on admission) CTA of chest performed on 03/27 demonstrated multiple small segmental pulmonary emboli. Patient was started on intravenous heparin. Venous duplex of lower extremities on 03/[address] of abdomen pelvis on 03/30 demonstrated hematoma left iliopsoas muscle. IV heparin discontinued. Pulmonary emboli were relatively small (segmental and subsegmental). No DVT's identified in lower extremities at this time. On April 03, 2019 started Eliquis 10mg BID today x 7 days, then 5mg BID April 05, 2019 patient developed increased abdominal pain and CAT scan of the abdomen and pelvis confirmed increased iliopsoas hematoma size Discussed with Dr. Collado, recommend to discontinue Eliquis Repeat Doppler of the legs: Negative for DVT (7) Abnormal CT scan, chest: CT of chest demonstrated a 6.2 x 4.5 cm thick-walled cavitary lesion within the right upper lobe (as well as pulmonary emboli and extensive airspace opacities as noted). Right upper lobe lesion worrisome for malignancy. Follow-up CT in 1 month recommended. (8) Pulmonary edema: CT of chest on day of admission suggested possible pulmonary edema. BNP elevated. History Takotsubo's cardiomyopathy, but current echocardiogram shows normal left ventricular wall motion and function. Possible acute left ventricular diastolic CHF. Possible noncardiac pulmonary edema. --Diuretics on hold secondary to hypovolemia and hypotension (9) Multifocal atrial tachycardia: Continue metoprolol with holding parameters Continue management of underlying pulmonary issues. (10) Hypertension: Continue metoprolol. (11) Urinary tract infection: Admission UA showed leukocyte esterase, WBCs, bacteria. Urine culture (+) enterococcus faecalis Sensitive to penicillin Receiving intravenous antibiotics Zosyn as discussed above. (12) Hematoma of left iliopsoas muscle: Management as noted above (13) DVT prophylaxis: SCD's only in light of iliopsoas hematoma Ambulate as able. (14) Discharge planning issues: Discharge disposition to be determined. Weaning off oxygen supplementation progress PT OT evaluations ordered May need to transition to rehab prior to returning to home Family Medicine follow-up with Dr. Ravindra Maldonado. Subjective Follow-up for acute chronic hypoxic respiratory failure, multifocal pneumonia, acute pulmonary embolism Seen resting in bed, comfortable, in good spirits States he actually feels better today compared to yesterday Breathing continues to improve, with 4 L by nasal cannula Has occasional dry cough Denies chest pain No dizziness when upright Denies abdominal pain, fevers or chills No other symptoms Review of Systems Review of Systems: All systems reviewed & are unremarkable except as noted in HPI & below Physical Exam Physical Exam: General- oriented x 3, not in distress, speaks in sentences with no effort or accessory muscle use Eyes- anicteric Neck- no JVD Lungs- clear BS, no crackles or wheezing bilaterally Heart- normal rate, regular rhythm; no murmurs Abdomen- normal bowel sounds, nondistended, soft, nontender Extremities-trace pretibial edema, no calf tenderness Neuro- alert, oriented x 3; no gross focal neurologic deficits Skin- warm & dry Results & Data Vital Signs (Past 12 Hours) Vital Signs Temp Pulse Pulse Resp BP Pulse Ox Pulse Ox 04/08/19 17:05 83 04/08/19 15:39 36.6 C 78 16 117/63 95 04/08/19 14:52 97 04/08/19 13:59 71 18 94 04/08/19 11:12 36.5 C 78 18 135/66 100 04/08/19 07:16 36.8 C 76 20 151/73 H 99 Laboratory Results Laboratory Results - last 24 hr 04/08/19 04/08/19 06:31 06:31 WBC 23.17 H RBC 2.68 L Hgb 9.0 L Hct 26.8 L MCV 100.0 MCH 33.6 MCHC 33.6 RDW Std Deviation 53.2 H RDW Coeff of Meet 14.9 H Plt Count 437 H MPV 11.1 H Immature Gran % (Auto) 0.9 Neut % (Auto) 90.6 Lymph % (Auto) 4.7 [place] % (Auto) 3.8 Eos % (Auto) 0.0 Baso % (Auto) 0.0 Immature Gran # (Auto) 0.22 H Neut # (Auto) 20.95 H Lymph # (Auto) 1.10 L [place] # (Auto) 0.88 H Eos # (Auto) 0.01 Baso # (Auto) 0.01 Hypersegmented Neuts 1+ Sodium 133 L Potassium 4.4 Chloride 100 Carbon Dioxide 28 Anion Gap 5.0 BUN 17 Creatinine 0.55 L Est Cr Clr Drug Dosing 157.8 Est GFR ( Amer) 124.1 Est GFR (Non-Af Amer) 107.1 BUN/Creatinine Ratio 30.6 H Glucose 136 H Calcium 8.0 L
[2019-04-08] MEDS: TRAMADOL HCL 50 MG TABLET PO PRN (21:27)
[2019-04-08] MEDS: LORazepam 1 MG TAB SL PRN (21:28)
[2019-04-08] MEDS: MoRPHine SULFATE 2 MG/ML CARP IV PRN (23:24)
[2019-04-09] MEDS: IPRATROPIUM BROMIDE NEB SOLN 0.02% 2.5 ML VIAL INH SCH ×3 (01:48→14:07)
[2019-04-09] MEDS: LEVALBUTEROL HCL 0.63 MG/3 ML NEB NEB SCH ×3 (01:48→14:07)
[2019-04-09] MEDS: SODIUM CHLORIDE 0.9% 1000ML 1,000 ML IV SCH (05:33)
[2019-04-09 06:31] LABS: Hematocrit (blood only) 26.1 % (42-52); Hemoglobin 8.9 g/dL (14.0-18.0); Mean Corpuscular Hgb Conc 34.1 g/dL (32-36); Mean Corpuscular Volume 98.1 fL (80-100); Mean Platelet Volume 10.8 fL (7.4-10.4); Platelet Count 351 K/uL (130-400); Red Blood Count 2.66 M/uL (4.7-6.1); White Blood Count 26.24 K/uL (4.8-10.8)
[2019-04-09 06:49] LABS: Basophils # (auto) 0.02 K/uL (0-0.2); Basophils % (auto) 0.1 %; Echinocytes 1+; Eosinophils # (auto) 0.56 K/uL (0-0.5); Eosinophils % (auto) 2.1 %; Immature Granulocytes # (auto) 0.34 K/uL (0.00-0.02); Immature Granulocytes % (auto) 1.3 %; Lymphocytes # (auto) 1.35 K/uL (1.2-3.4); Lymphocytes % (auto) 5.1 %; Monocytes # (auto) 2.45 K/uL (0.11-0.59); Monocytes % (auto) 9.3 %; Neutrophils # (auto) 21.52 K/uL (1.4-6.5); Neutrophils % (auto) 82.1 %
[2019-04-09 07:02] LABS: Calcium 7.6 mg/dl (8.5-10.1); Creatinine Clr Calc Pharmacy 147.1 ml/min; Est GFR (African American) 120.6; Potassium 3.7 mmol/L (3.5-5.1)
[2019-04-09] MEDS: PIPERACILLIN/TAZOBACTAM 4.5 GM in DEXTROSE 5% 100 ML IV SCH (07:41)
[2019-04-09] MEDS: METOPROLOL SUCC 50MG EXT REL TAB PO SCH ×2 (09:12→21:12)
[2019-04-09] MEDS: methylPREDNISolone 40 MG in SYRINGE 0 ML IV SCH (09:12)
[2019-04-09] MEDS: ESCITALOPRAM OXALATE 10 MG TAB PO SCH (09:12)
[2019-04-09] MEDS: FAMOTIDINE 20 MG TAB PO SCH (09:13)
[2019-04-09] MEDS: THIAMINE HCL 100 MG TAB PO SCH (09:13)
[2019-04-09] MEDS: MULTIVITAMIN TAB PO SCH (09:13)
[2019-04-09] MEDS: FOLIC ACID 1 MG TAB PO SCH (09:14)
[2019-04-09] MEDS: FLUTICASONE/VILANTEROL INHALER INH SCH (09:15)
--- NOTE | 2019-04-09 11:09 | Infectious Disease Consult ---
Date of Consultation April 09, 2019 Assessment & Plan (1) Fever: 68-year-old male admitted with pulmonary emboli and possible pneumonia with sepsis, with complication of iliopsoas hematoma on anticoagulation, who is been improving, and now with fever but without localizing signs or symptoms. Given lack of symptomatology or localizing findings, would be concerned about possibility of drug fever or fever from hematoma or emboli. Have discontinued Zosyn as has had adequate course for pneumonia, repeat procalcitonin ordered. Await further blood culture results. Will follow. (2) Pneumonia: (3) Hematoma of left iliopsoas muscle: History of Present Illness Reason for Consultation: New onset fever, already under treatment for pneumonia and UTI Attending Physician: Dong Anna MD History of Present Illness 68-year-old male with history of nonischemic cardiomyopathy, hyperlipidemia, hypertension, COPD, alcohol abuse, who was admitted originally March 27 with several weeks of progressively worsening weakness with some shortness of breath and cough. He states that since [place] time he is becoming progressively weaker and suffering multiple falls. He was found to have evidence of sepsis with possible multifocal pneumonia as well as pulmonary emboli, treated with antibiotics and anticoagulation. Subsequently developed acute bleed into his iliopsoas muscle, and anticoagulation was discontinued. Over the past 24+ hours, patient has had fever, although denies any other associated symptoms and states he is feeling much improved and denies any localizing complaints. His back pain is improving and is only rarely causing any problems. No increase in cough or shortness of breath. He has been on Zosyn since admission. Urine culture was positive for enterococcus but patient has no urinary symptoms. Allergies Allergy/AdvReac Type Severity Reaction Status Date / Time amoxicillin Allergy Intermediate HIVES Verified 04/17/13 15:53 Home Medications Home Medications Medication Instructions Recorded Confirmed Type acetaminophen-codeine 1 tab PO TID PRN 03/27/19 03/27/19 History albuterol sulfate [Ventolin HFA] 2 inh INHALATION QID PRN 03/27/19 03/27/19 History aspirin 81 mg PO DAILY 03/27/19 03/27/19 History atorvastatin 40 mg PO DAILY 03/27/19 03/27/19 History azithromycin See Rx Instructions .ROUTE 03/27/19 03/27/19 History .COMPLEX PRN escitalopram oxalate 20 mg PO DAILY 03/27/19 03/27/19 History fluticasone furoate-vilanterol 1 inh INHALATION DAILY 03/27/19 03/27/19 History [Breo Ellipta] lorazepam 1 mg PO TID PRN 03/27/19 03/27/19 History meclizine 12.5 mg PO BID PRN 03/27/19 03/27/19 History multivitamin 1 tab PO DAILY 03/27/19 03/27/19 History omeprazole 20 mg PO BID 03/27/19 03/27/19 History potassium chloride [Klor-Con M10] 20 meq PO BID 03/27/19 03/27/19 History Patient History Medical History Alcohol abuse (Chronic) GERD (gastroesophageal reflux disease) (Chronic) Non-ischemic cardiomyopathy (Chronic) echo 2015 - EF 45-50% HLD (hyperlipidemia) (Chronic) COPD (chronic obstructive pulmonary disease) (Chronic) Hypertension (Chronic) Surgical History History of cardiac cath (Chronic) 2012 - normal coronaries Family History Father Alcoholism Mother Alcoholism Social History Preferred Language: Estonian Communication Ability: Effective Hospitality Services Manager Required: No Beliefs That Will Affect Care: None Current Living Situation: Spouse Other Information That Helps Us Care for You: No Feels Safe at Home: Yes Safety Concerns: Feels Safe At This Time Smoking Status: Current every day smoker Tobacco Type: cigarettes Do You Dip or Chew Tobacco: No Second Hand Exposure: Yes Tobacco Cessation Education Requested by Patient: No Hx Alcohol Use: Yes Alcohol type: hard liquor Alcohol Intake Frequency: Daily Alcohol Intake Frequency Comment: 2 shots / night Hx Substance Use: No Review of Systems Review of Systems: All systems reviewed & are unremarkable except as noted in HPI & below Physical Exam Constitutional: WD/WN, vitals as above comfortable; no acute distress Eyes: PERRL, conjunctivae normal, anicteric sclerae ENMT: external ear and nose normal, oropharynx normal Neck: trachea midline, no thyromegaly neck nontender Respiratory: normal respiratory effort, lungs clear to auscultation normal percussion; does not use accessory muscles Cardiovascular: Rate/Rhythm: + irregularly irregular Heart Sounds: normal S1, normal S2 and + murmur (Systolic); no gallop and no cardiac rub Vessels: normal peripheral pulses; no JVD Gastrointestinal (Abdomen): normal bowel sounds, soft, nontender, no hepatosplenomegaly Musculoskeletal: no cyanosis or clubbing, extremities motor strength 5/5 Spine: thoracic spine normal to inspection and lumbar spine normal to inspection; no cervical spinal tenderness Skin: no rashes, warm and dry normal turgor; no lesions Neurologic: patellar DTR's 2+ bilat, sensation intact no focal motor deficits Psychiatric: A+Ox3, euthymic affect Orientation: cooperative Lymphatic: no cervical or axillary lymphadenopathy no inguinal lymphadenopathy Results & Data Vital Signs (Past 12 Hours) Vital Signs Temp Pulse Pulse Resp BP Pulse Ox 04/09/19 10:44 36.7 C 77 22 116/70 91 04/09/19 08:00 79 04/09/19 07:07 83 18 89 L 04/09/19 06:48 37.7 C H 82 18 94/49 L 90 04/09/19 03:40 38.5 C H 85 20 96/51 L 89 L 04/08/19 23:14 38.1 C H 90 22 119/61 89 L Laboratory Results Short CBC 04/09/19 Range/Units 06:14 WBC 26.24 H (4.8-10.8) K/uL Hgb 8.9 L (14.0-18.0) g/dL Hct 26.1 L (42-52) % Plt Count 351 (130-400) K/uL BMP 04/09/19 06:14 Sodium 129 L Potassium 3.7 D Chloride 97 L Carbon Dioxide 25 BUN 17 Creatinine 0.59 L Glucose 99 Calcium 7.6 L Diagnostic Findings Microbiology 03/27/19 17:00 Urine,Random Urine Culture - Final Enterococcus faecalis 03/27/19 17:01 Blood Aerobic Blood Culture - Final No growth in Aerobic bottle after 5 days. 03/27/19 17:01 Blood Anaerobic Blood Culture - Final No growth in Anaerobic bottle after 5 days. 03/27/19 16:48 Blood Aerobic Blood Culture - Final No growth in Aerobic bottle after 5 days. 03/27/19 16:48 Blood Anaerobic Blood Culture - Final No growth in Anaerobic bottle after 5 days. [place], [place] [phone] CT Scan Report Patient: TYESHA EDMOND CAdmit Date: 03/27/19 MR#: [id number]: Jan TRAORE Acct ID:[id number]: Date: [address] Zip: [place] [address] Age: 68Location: 2S Sex: M Room/Bed: [facility] Att Phy: Dong Anna, MDDiagnosis: RESP FAILURE Arlene Phy: Ravindra Maldonado, DOService Date: 04/04/19 Fam Phy: Interpreting Phy: Jeff Krishnamurthy MD Admit Phy: Otis Campoverde MD Ordering Phy: Wero Chery MD cc: ~ CT SCAN OF THE ABDOMEN AND PELVIS WITHOUT CONTRAST CLINICAL HISTORY: Back and abdominal pain. History of retroperitoneal hemorrhage . COMPARISON STUDY: 03/30/2019 TECHNIQUE: CT scan of the abdomen and pelvis was performed from the lung bases to the proximal femurs. Images are reviewed in the axial, sagittal, and coronal planes. IV contrast was not administered for this examination. A dose lowering technique was utilized adhering to the principles of ALARA. CT DOSE: 698.58 mGy.cm FINDINGS: Lower chest: Bilateral pleural effusions. There are mixed interstitial and groundglass pulmonary opacities. There is could reflect interstitial edema or chronic interstitial lung disease. Liver: There are pleurodiaphragmatic calcifications along the medial dome of the right lobe of the liver. No hepatic masses are visualized in this noncontrast study. Gallbladder: There are equivocal gallstones in a contracted gallbladder Spleen: Normal in size and attenuation. Pancreas: Unremarkable. Adrenal glands: Unremarkable. Kidneys: There is bilateral nephrogram lithiasis. The largest calculus is located in the lower pole left kidney measuring 9 mm. No ureteral calculi are visualized. Bowel: There are no transition zones indicate bowel obstruction. There is no evidence of acute diverticulitis. There are no findings to indicate acute appendicitis. Peritoneum: There is no intraperitoneal free air or abdominal ascites. Vasculature: The abdominal aorta is normal in course and caliber. Adenopathy: None. Pelvic viscera: There is a joint Clarke catheter. Skeletal structures: There is an enlarging left iliopsoas hematoma. The hematoma extends over craniocaudal distance of approximately 20 cm. IMPRESSION: 1. Enlarging left iliopsoas hematoma with a craniocaudal extension of approximately 20 cm 2. Bilateral nephrolithiasis. No ureteral calculi identified 3. Interstitial and groundglass lower lobe pulmonary opacities. Bilateral pleural effusions 4. Equivocal cholelithiasis Electronically signed by: Jeff Krishnamurthy M.D. 04/05/2019 6:39 AM
--- NOTE | 2019-04-09 12:50 | Hospitalist Progress Note ---
Date of Service April 09, 2019 Assessment & Plan (1) Severe sepsis: Per Dr. Sawant notes: Met criteria for severe sepsis per current CMS criteria (tachycardia, tachypnea, leukocytosis, elevated lactate). Procalcitonin elevated. Blood cultures obtained Patient received broad-spectrum intravenous antibiotic coverage. Received fluid resuscitation. Lactic acid levels were followed-normalized with IV fluid and ABx Possible sources of infectionpneumonia or urinary tract as discussed below. (2) Pneumonia: CT chest consistent with multilobar pneumonia. Blood cultures negative. (+) leukocytosis (on steroids). Now on nasal cannula, continue weaning off oxygen Fever 39.2 Despite being on IV Zosyn for 9 days repeat Urine, blood cultures ordered Chest x-ray ordered ID consulted, Possible drug fever versus fever from PE or iliopsoas hematoma Zosyn discontinued today Possible drug fever versus fever from PE or iliopsoas hematoma Zosyn discontinued today IV Solu-MedrolBeing tapered Will need follow-up CT imaging in 4 weeks ( rt upper lobe cavitary lesion concern for malignancy) (3) Acute respiratory failure with hypoxia: Severe hypoxic respiratory failure,likely secondary to suspected pneumo mirian, pulmonary edema, pulmonary emboli as discussed below. Pulmonary Medicine consulted. Was on high flow O2 for several days,Transition to nasal cannula, continue to wean of accordingly (4) COPD (chronic obstructive pulmonary disease): Exacerbation COPD secondary to pneumonia. Continue steroids and albuterol nebulizer treatments as needed. (5) Hypotension: Occurred on April 06, 2019 Likely secondary to hypovolemia, likely from diuretics I's and O's: -6 L fluid balance Hold Lasix and Aldactone gentle IV fluids and monitor volume status closely Metoprolol with holding parameters Blood pressure improved, within normal range Continue gentle IV fluids Continue to hold Lasix and Aldactone for today Monitor volume status closely daily (6) Pulmonary emboli: per Dr. Sawant notes: (present on admission) CTA of chest performed on 03/27 demonstrated multiple small segmental pulmonary emboli. Patient was started on intravenous heparin. Venous duplex of lower extremities on 03/[address] of abdomen pelvis on 03/30 demonstrated hematoma left iliopsoas muscle. IV heparin discontinued. Pulmonary emboli were relatively small (segmental and subsegmental). No DVT's identified in lower extremities at this time. On April 03, 2019 started Eliquis 10mg BID today x 7 days, then 5mg BID April 05, 2019 patient developed increased abdominal pain and CAT scan of the abdomen and pelvis confirmed increased iliopsoas hematoma size Discussed with Dr. Collado, recommend to discontinue Eliquis Repeat Doppler of the legs: Negative for DVT (7) Abnormal CT scan, chest: CT of chest demonstrated a 6.2 x 4.5 cm thick-walled cavitary lesion within the right upper lobe (as well as pulmonary emboli and extensive airspace opacities as noted). Right upper lobe lesion worrisome for malignancy. Follow-up CT in 1 month recommended. (8) Pulmonary edema: CT of chest on day of admission suggested possible pulmonary edema. BNP elevated. History Takotsubo's cardiomyopathy, but current echocardiogram shows normal left ventricular wall motion and function. Possible acute left ventricular diastolic CHF. Possible noncardiac pulmonary edema. --Diuretics on hold secondary to hypovolemia and hypotension (9) Multifocal atrial tachycardia: Continue metoprolol with holding parameters Continue management of underlying pulmonary issues. (10) Hypertension: Continue metoprolol. (11) Urinary tract infection: Admission UA showed leukocyte esterase, WBCs, bacteria. Urine culture (+) enterococcus faecalis Sensitive to penicillin Received Zosyn for 9 days (+) Fever, repeat urine cultures pending (12) Hematoma of left iliopsoas muscle: Management as noted above (13) DVT prophylaxis: SCD's only in light of iliopsoas hematoma Ambulate as able. (14) Discharge planning issues: Discharge disposition to be determined. Weaning off oxygen supplementation progress PT OT evaluations ordered May need to transition to rehab prior to returning to home Family Medicine follow-up with Dr. Ravindra Maldonado. Subjective Follow-up for multifocal pneumonia, acute pulmonary embolism Review of Systems Review of Systems: All systems reviewed & are unremarkable except as noted in HPI & below Physical Exam Physical Exam: General- oriented x 3, not in distress, speaks in sentences with no effort or accessory muscle use Eyes- anicteric Neck- no JVD Lungs- clear BS, no crackles, no wheezing bilaterally Heart- normal rate, regular rhythm; no murmurs Abdomen- normal bowel sounds, nondistended, soft, nontender Extremities- no pretibial edema, no calf tenderness Neuro- alert, oriented x 3; no gross focal neurologic deficits Results & Data Vital Signs (Past 12 Hours) Vital Signs Temp Pulse Pulse Resp BP Pulse Ox 04/09/19 10:44 36.7 C 77 22 116/70 91 04/09/19 08:00 79 04/09/19 07:07 83 18 89 L 04/09/19 06:48 37.7 C H 82 18 94/49 L 90 04/09/19 03:40 38.5 C H 85 20 96/51 L 89 L Laboratory Results Laboratory Results - last 24 hr 04/09/19 04/09/19 04/09/19 06:14 06:14 11:44 WBC 26.24 H RBC 2.66 L Hgb 8.9 L Hct 26.1 L MCV 98.1 MCH 33.5 MCHC 34.1 RDW Std Deviation 53.0 H RDW Coeff of Meet 15.0 H Plt Count 351 MPV 10.8 H Immature Gran % (Auto) 1.3 Neut % (Auto) 82.1 Lymph % (Auto) 5.1 [place] % (Auto) 9.3 Eos % (Auto) 2.1 Baso % (Auto) 0.1 Immature Gran # (Auto) 0.34 H Neut # (Auto) 21.52 H Lymph # (Auto) 1.35 [place] # (Auto) 2.45 H Eos # (Auto) 0.56 H Baso # (Auto) 0.02 Echinocytes 1+ Sodium 129 L Potassium 3.7 D Chloride 97 L Carbon Dioxide 25 Anion Gap 7.0 BUN 17 Creatinine 0.59 L Est Cr Clr Drug Dosing 147.1 Est GFR ( Amer) 120.6 Est GFR (Non-Af Amer) 104.0 BUN/Creatinine Ratio 29.0 H Glucose 99 Calcium 7.6 L Procalcitonin 0.68 H
--- NOTE | 2019-04-09 13:00 | XRay Report ---
XR chest 1V portable CLINICAL HISTORY: Follow-up pneumonia. COMPARISON STUDY: Chest CT March 27, 2019. Chest radiograph April 01, 2019. FINDINGS: Emphysema is noted. The right upper lobe airspace opacity has progressed. Underlying caviti es better depicted on prior chest CT. Left midlung opacity has improved. There is no pneumothorax. Th ere is a small right pleural effusion. There is no evidence for pulmonary edema. Cardiomediastinal si lhouette is stable. IMPRESSION: 1. Progression of the cavitary right upper lobe airspace opacity which favors cavitary pneumonia. A n eoplasm could appear similar and therefore radiographic follow-up to ensure resolution is recommended . 2. Slight improvement in left lung airspace opacity. The findings suggest multifocal pneumonia. 3. Small right pleural effusion. Electronically signed by: Holden Fernandez M.D. 04/09/2019 12:59 PM
[2019-04-09 14:14] LABS: Appearance Urine Clear (Clear); Bilirubin Urine Negative (Negative); Blood Urine 1+ (Negative); Color Urine Yellow; Glucose Urine UA Negative (Negative); Ketones Urine Negative (Negative); Leukocyte Esterase Urine Negative (Negative); Nitrite Urine Negative (Negative); Protein Urine Negative (Negative); Urobilinogen Urine Negative (Negative); pH Urine 5.5 (4.5-7.5)
[2019-04-09 14:31] LABS: BUN Creatinine Ratio 27.7 (10-20); Calcium 7.6 mg/dl (8.5-10.1); Creatinine Clr Calc Pharmacy 144.7 ml/min; Est GFR (African American) 119.7; Est GFR (Non-African American) 103.3; Potassium 3.7 mmol/L (3.5-5.1)
[2019-04-09 14:38] LABS: Calcium Oxalate Crystals Urine Present (None Prsent); Epithelial Cell Urine 0-5 /lpf (0-5)
[2019-04-09 14:39] LABS: Bacteria Urine Negative (Negative); Hyaline Casts Urine 0-5 /lpf (0-5); WBC Urine 0-5 /hpf (0-5)
--- NOTE | 2019-04-09 15:45 | CT Scan Report ---
CT OF THE CHEST WITHOUT IV CONTRAST CLINICAL HISTORY: Pneumonia. Cough. Shortness of breath. COMPARISON STUDY: Chest CT March 27, 2019. Chest radiograph performed earlier today. CT DOSE: 606.39 mGy.cm TECHNIQUE: Axial images of the chest were obtained without IV contrast. Images were reviewed in the axial, sagittal, and coronal planes. IV contrast was not administered for this examination. Automat ed exposure control was utilized for the study. A dose lowering technique was utilized adhering to t he principles of ALARA. FINDINGS: A 5.6 x 4.5 cm cavitary focus within the right lung apex is similar in size to CT of March 27, 2019. The wall is mildly thickened. Wall thickness appears to have slightly decreased since prior exam. Extensive right upper lobe airspace opacity has progressed since exam of March 27, 2019. Consol idation within the superior segments of both lower lobes has increased. Additional bilateral airspace opacities are noted. Small bilateral pleural effusions have developed. There is no pneumothorax. Ext ensive coronary calcification is noted. There is no pericardial effusion. Size of the heart is at the upper limits of normal. No pathologically enlarged thoracic lymph nodes are present. Bony thorax is unremarkable. Upper abdomen is unremarkable on this unenhanced exam. There is moderate emphysema. IMPRESSION: 1. No significant change in size of the 5.6 x 4.5 cm right apical cavitary opacity since CT of March [id number]. A cavitary pneumonia is favored. However, a neoplasm could appear similar and imaging follow up to ensure resolution is recommended. 2. Progression of multifocal airspace opacities, most confluent within the right upper lobe and super ior segments of both lower lobes suggestive of multifocal pneumonia. 3. Small bilateral pleural effusions. 4. Moderate emphysema. Electronically signed by: Holden Fernandez M.D. 04/09/2019 3:43 PM
[2019-04-09 16:26] LABS: INR 1.1 (0.9-1.1); Partial Thromboplastin Ratio 0.9; Partial Thromboplastin Time 25.1 Seconds (21.0-31.0); Prothrombin Time 11.6 Seconds (9.0-12.0)
[2019-04-09] MEDS: LORazepam 1 MG TAB SL PRN (21:12)
--- NOTE | 2019-04-09 22:53 | Consultation Report ---
DATE OF CONSULTATION: 04/09/2019 HISTORY OF PRESENT ILLNESS: A 68-year-old white male with history of COPD, cardiomyopathy, daily alcohol drinking with alcohol withdrawal in the past and a recent fall, was feeling poorly he states for several months, but was admitted with inability to walk and progressive dyspnea on 03/27/2019. He was transferred to the ICU and seen by Dr. Brownlee, markedly edematous with 3+ pitting edema and exhibiting respiratory distress. He responded to BiPAP therapy, was also in chronic atrial fibrillation. He has a longstanding smoking history in the past. 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 He is active in AA according to the history he gives me. He was seen by Dr. Nithin Perales the following day from a Cardiology standpoint who felt that his atrial arrhythmias which represented more of a multifocal atrial tachycardia and then atrial fibrillation were driven by pulmonary issues. He was started on IV amiodarone and continued on beta blockade. His echo showed well preserved hemodynamic LV function and right-sided heart failure. His presentation was consistent with SIRS (systemic inflammatory response syndrome), and history consistent with obesity and hypoventilation on chronic O2. He reportedly had evidence of multifocal pneumonia with possible early cavitation and pulmonary emboli. His carvedilol was discontinued after several years due to chronic cough. He smoked up till the time of admission. There was a degree of rhabdomyolysis on admission and a small PE in fact in the inferior branch of the right lower lobe interlobar pulmonary artery and his rate became better controlled converting to an MAT. Solu-Medrol was utilized. From a pulmonary standpoint, this case was picked up by Dr. Tristen Collado on 04/01/2019 and he has been on according to his hospitalist 9 days of IV antibiotics, but remains febrile. I was asked to reconsult today by Dr. Anna because of persistent fever. He also has persistent abnormality on chest x-ray. He has been on piperacillin/tazobactam since admission and his MRSA nasal screen negative. The patient today relates that he does not feel dyspneic, but admittedly has not moved out of bed for some time. Seems to be well saturated on current O2 supplementation and has a dry nonproductive cough without hemoptysis or pleuritic pain. He was seen by Dr. Fernandez from Infectious Disease today. As part of his workup on admission while on anticoagulation therapy as an outpatient, he demonstrated a 20 cm iliopsoas hematoma that is no longer giving him pain. The Zosyn has been discontinued. The source of the fever is unknown. His lactic acid levels have normalized and he appears to be euvolemic. His temperature reached 39.2 last night. He does demonstrate a leukocytosis but is on IV Solu-Medrol. I have been asked to see patient in consultation. PHYSICAL EXAMINATION: VITAL SIGNS: Blood pressure 116/70, pulse 77 and irregular, respiratory rate 20, temperature 36.7, O2 sat 91% on 8 liters. SKIN: Without lesion. HEENT: Atraumatic, normocephalic. PERRLA. LUNGS: Scattered rhonchi and rales audible at the bases. CARDIAC: Irregularly irregular rhythm. I do not appreciate a gallop. ABDOMEN: Soft, protuberant. No evidence of hepatosplenomegaly. EXTREMITIES: Trace pedal edema. No clubbing. Peripheral cyanosis. Negative Homans sign. NEUROLOGIC: Intact. No lateralizing signs. LABORATORY DATA: White count 26,000, H and H 8.9 and 26.1, on admission was 10.7 and 30.8. Sodium is 129, BUN 17, creatinine 0.59. Stool is negative for C. diff toxin. A chest x-ray done today and reviewed shows progression of the cavitary right upper lobe airspace opacity with neoplasm not able to be ruled out. Slight improvement in left lung airspace opacities, small right pleural effusion and there are other findings continuing to show areas of multifocal pneumonia. Venous Doppler study done on the was negative from either lower extremity. OVERALL ASSESSMENT: This is a 68-year-old with previous history of cardiomyopathy, chronic obstructive pulmonary disease, chronic ethanol abuse, admitted with systemic inflammatory response syndrome, previous fall while on anticoagulant therapy with a resultant 20 cm iliopsoas hematoma and multifocal pneumonia, placed on 9 days of IV Zosyn with now persistent fever and abnormal chest x-ray despite aggressive IV antibiotic management. The leukocytosis seems in excess of his steroid therapy and I suspect the source of the fever is his cavitary process involving the right upper lobe. Certainly an infected hematoma, especially one that is 20 cm would be a concern but he appears to have very little symptomatology involving the left pelvis or groin area, although admittedly that could be masked by his steroid therapy. I have scheduled him for bronchoscopy tomorrow. We will have to check his coagulation status. I am somewhat concerned that his O2 requirement is sufficiently high that he may not tolerate the procedure, but I believe we need to get some more answers then questions at this point in time given the length of his hospital stay and the persistent fever. Certainly a cavitary process could also mean a tuberculous infection or even a cavitary Aspergillus source and we will assess for that as well.
[2019-04-10 06:53] LABS: Basophils # (auto) 0.02 K/uL (0-0.2); Basophils % (auto) 0.1 %; Eosinophils # (auto) 0.12 K/uL (0-0.5); Eosinophils % (auto) 0.7 %; Hematocrit (blood only) 26.7 % (42-52); Hemoglobin 9.3 g/dL (14.0-18.0); Immature Granulocytes # (auto) 0.18 K/uL (0.00-0.02); Lymphocytes # (auto) 1.32 K/uL (1.2-3.4); Lymphocytes % (auto) 7.2 %; Mean Corpuscular Hgb Conc 34.8 g/dL (32-36); Mean Platelet Volume 10.6 fL (7.4-10.4); Monocytes # (auto) 1.66 K/uL (0.11-0.59); Monocytes % (auto) 9.1 %; Neutrophils # (auto) 15.01 K/uL (1.4-6.5); Neutrophils % (auto) 81.9 %; Platelet Count 320 K/uL (130-400); RDW Standard Deviation 52.4 fL (36.4-46.3); Red Blood Count 2.78 M/uL (4.7-6.1); White Blood Count 18.31 K/uL (4.8-10.8)
[2019-04-10 07:21] LABS: BUN Creatinine Ratio 40.7 (10-20); Calcium 8.3 mg/dl (8.5-10.1); Est GFR (African American) 149.4; Est GFR (Non-African American) 128.9; Potassium 3.2 mmol/L (3.5-5.1)
[2019-04-10] MEDS ORDERED: SODIUM CHLORIDE 0.9% 1000ML 1,000 ML IV SCH (08:30)
[2019-04-10] MEDS: methylPREDNISolone 40 MG in SYRINGE 0 ML IV SCH (08:52)
[2019-04-10] MEDS: FLUTICASONE/VILANTEROL INHALER INH SCH (08:53)
[2019-04-10] MEDS ORDERED: LIDOCAINE 4% INH SOLN 4 ML BTL NAE ONE (09:41)
[2019-04-10] MEDS ORDERED: OXYMETAZOLINE 0.05% 30 ML BTL ONE (09:41)
[2019-04-10] MEDS ORDERED: LIDOCAINE HCL VISCOUS SOLN 2% 15 ML UDC TOP ONE (10:07)
[2019-04-10] MEDS ORDERED: MIDAZOLAM HCL 1 MG/ML 2ML VIAL IV STA (10:07)
[2019-04-10] MEDS ORDERED: LEVALBUTEROL HCL 1.25 MG/3 ML NEB NEB STA (10:07)
[2019-04-10] MEDS ORDERED: LIDOCAINE HCL 2% (LOCAL) INJ 50 ML VIAL INFIL STA (10:07)
[2019-04-10] MEDS ORDERED: fentaNYL citrate 100 MCG/2 ML VIAL IV ONE (10:07)
[2019-04-10] MEDS: METOPROLOL SUCC 50MG EXT REL TAB PO SCH ×2 (10:33→20:34)
[2019-04-10] MEDS: ESCITALOPRAM OXALATE 10 MG TAB PO SCH (10:33)
[2019-04-10] MEDS: FOLIC ACID 1 MG TAB PO SCH (10:34)
[2019-04-10] MEDS: MULTIVITAMIN TAB PO SCH (10:34)
[2019-04-10] MEDS: FAMOTIDINE 20 MG TAB PO SCH (10:34)
[2019-04-10] MEDS: THIAMINE HCL 100 MG TAB PO SCH (10:34)
[2019-04-10] MEDS: POTASSIUM CHLORIDE / WTR 10 MEQ/100 ML PLCT IV SCH ×2 (10:37→11:37)
--- NOTE | 2019-04-10 11:59 | Post Operative Brief Note ---
Immediate Post Op Note v1 Date of Surgery April 10, 2019 Pre & Post Diagnosis Operation Date: 04/10/19 09:00 Pre-Op Diagnosis: Right Upper Lobe Cavitary Pneumonia Post-Op Diagnosis: Right Upper Lobe Cavitary Pneumonia Procedure Operation Date: 04/10/19 09:00 Actual Procedures p Bronchoscopy Radiology(Bilateral) - Alexandru Bennett MD Surgeon Alexandru Bennett MD Seismology Teacher none Estimated Blood Loss 0 Findings Consistent with Post-Op Diagnosis RUL cavitary pneumonia Complications none Disposition Accompanied Patient To Recovery: No Overlapping Procedure I was present for: the critical portions of procedure. I was immediately available: during the entire case. Back up surgeon: was not required during procedure.
--- NOTE | 2019-04-10 11:59 | Post Anesthesia Assessment ---
Date of Service April 10, 2019 Post Sedation Assessment Vital Signs Temp Pulse Pulse Resp BP BP Pulse Ox 04/10/19 11:45 77 24 164/79 H 92 04/10/19 11:30 36.4 C L 68 24 161/93 H 92 04/10/19 10:19 61 14 132/77 92 04/10/19 10:15 65 14 138/75 88 L 04/10/19 10:10 64 14 142/72 H 91 04/10/19 10:05 77 14 117/87 87 L 04/10/19 10:00 67 14 151/72 H 92 04/10/19 09:55 61 14 124/75 94 04/10/19 09:40 68 14 157/87 H 94 04/10/19 07:33 36.4 C L 72 20 144/72 H 91 04/10/19 07:15 68 04/10/19 04:07 36.5 C 67 20 163/74 H 95 04/10/19 00:54 76 04/09/19 22:56 36.6 C 76 23 112/65 91 04/09/19 20:30 81 04/09/19 18:55 36.8 C 81 20 111/53 L 94 04/09/19 15:44 36.8 C 73 23 120/69 93 04/09/19 14:48 83 04/09/19 14:07 83 18 95 Recovery Score Activity: Moves 4 extremities Respiration: Deep Breath/Cough Circulation: +/-20% PreAnes Value Consciousness: Arouseable (by name) Oxygen Saturation: O2 needed for >90% Post Anesthesia Score: 8 Discharge Sedation Level of Care: Fast Track Phase II Post Sedation Plan On clinical assessment, the patient appears to have tolerated the sedation without complications. Patient is recovering as anticipated. Patient will continue to be monitored by nursing and may be discharged when sedation discharge criteria are met per below protocol. Upon Completions of procedure and additional 15 minutes continue every 5 minute vital signs and the P.A.R. score; then discharge to a Phase I or Fast Track to Phase II per the following guidelines: * Discharge Patient to appropriate Phase II area if PAR is 8 or greater or return to pre- procedure baseline. The post - procedure orders will be as directed. * If PAR score is less than 8 or not return to pre-procedure baseline then patient will follow Phase I monitoring till PAR is reached for Phase II. The Phase I may be done in procedure room or may call to secure a Phase I area. * If naloxone or flumazenil are used for reversal, hold in Phase I for continued monitoring from when last reversal dose was given for a minimum of 60 minutes or longer pending the nurse and/or physician discretion of patient condition before discharge to Phase II. Please call the Sedation Physician to re-evaluate and complete post-note for discharge to Phase II area. Do NOT discharge from procedure sedation or Phase 1 until post- sedation evaluation note is complete by procedure /sedation MD Sedation Discharge Instructions to be given to the patient at discharge to home. Supervising Physician Co-Signing Physician Notes Patient is a 68-year-old male with history of alcohol use disorder, COPD, ongoing tobacco use, cardiomyopathy and other problems presents with history of worsening shortness of breath and generalized weakness since 2 weeks duration. Also reports productive cough, frequent falls worsening lower extremity edema since 1 month, diarrhea. Patient was prescribed azithromycin course for COPD with no resolution of symptoms. Please review HPI for complete details of presentation. On exam patient is chronically sick appearing, mild respiratory distress, normocephalic atraumatic, lungs-decreased breath sounds, clear to auscultation, irregularly irregular rhythm,+ tachycardia, no murmur, abdomen soft nontender, significant bilateral lower extremity edema, grossly no focal neurological deficits. Patient is admitted in ICU for management of acute respiratory failure secondary to CHF exacerbation, A. fib RVR, rhabdomyolysis, metabolic/lactic acidosis. Possible sepsis. Also to rule out UTI, pneumonia. Patient is started on IV amiodarone, IV heparin GGT. Cardiology consulted. Continue respiratory support with supplemental oxygen, BiPAP PRN. Keep him n.p.o. for now. Continue empiric antibiotics, nebs. IV diuresis. Follow-up cultures. Thiamine and folic acid supplementation to prevent alcohol withdrawal. Monitor for DTs. Stool studies to rule out C. difficile. Trend lactate, CK levels. Counseled to quit smoking, drinking. Appreciate i ntensivist input. I personally reviewed the record. Patient is interviewed and examined at bedside. Patient's care is coordinated with Katherine Lopez SUCTION DRUM DRIER OPERATOR. Please refer to the documentation above for details of patient's presentation and for discussion of other issues.
--- NOTE | 2019-04-10 15:05 | Progress Note ---
DATE: 04/10/2019 PULMONARY PROGRESS NOTE Chart reviewed, the patient examined. SUBJECTIVE: The patient underwent bronchoscopy with moderate difficulty with significant desaturation which improved post-procedure. There was no obvious evidence of a purulent infection or endobronchial neoplasm. Right upper lobe was copiously lavaged and the aspirate sent for appropriate studies. OBJECTIVE: CURRENT VITAL SIGNS: Blood pressure 149/91, pulse 56 and regular, respiratory rate 24, temperature 36.4, O2 sat 94% on 8 liters. SKIN: Without lesion. HEENT: Atraumatic, normocephalic. PERRLA. LUNGS: Distant P and A with hyperresonance. CARDIAC: Regular rate and rhythm. I do not appreciate a gallop. ABDOMEN: Soft, protuberant. EXTREMITIES: No pedal edema, clubbing or cyanosis. NEUROLOGIC: Intact. LABORATORY DATA: CT scan as noted from 04/09 and in comparison to chest CT of 03/27/2019, a 5.6 x 4.5 cm cavitary focus within the right lung apex, apex is similar to what was seen in late March. The wall was mildly thickened, may be decreased since the previous CAT scan, but extensive right upper lobe airspace opacity has progressed with consolidation of the superior segment of both lower lobes, having increased and small bilateral pleural effusions noted. No obvious pathologically enlarged lymph nodes. Other serologies are pending at time of this dictation including QuantiFERON gold. I have asked the patient to place patient in a TB/respiratory isolation pending workup. White count today was 18,000, H and H 9.3 and 26.7. Serology is pending. ASSESSMENT: A 68-year-old white male with severe chronic obstructive pulmonary disease, cavitary process, right upper lobe with extensive and progressive consolidation bilaterally and up until last night, persistent fever despite 9 full days of IV Zosyn. I did not discern a purulent infection on bronchoscopy today and I am not confident of any diagnosis being made from the specimens that we retrieved. I have consulted Dr. Wero Gomes concerning possible open lung biopsy or video-assisted thorascopic biopsy because of the concern that we have a neoplastic process or an inadequately treated infection. It is certainly possible that if the patient recurs with a fever that an infected hematoma in the left iliopsoas region could be the culprit, but given the progression radiographically, I believe a video-assisted thorascopic biopsy be performed despite its potential risk in this high-risk patient as this may prove necessary for definitive diagnosis. ROBERTO
--- NOTE | 2019-04-10 15:35 | Operative Report ---
DATE OF OPERATION: 04/10/2019 PROCEDURE: Fiberoptic bronchoscopy with bronchoalveolar lavage. INDICATIONS: Persistent fever/infiltrate, right upper lobe cavitary pneumonia. ANESTHESIA PREOPERATIVELY: None. ANESTHESIA DURING PROCEDURE: IV Versed 3 mg, IV fentanyl 25 mcg, 20 mL 2% Xylocaine spray above and below the cords, 4% viscous Xylocaine intranasally. Moderate conscious sedation was implemented at 0956, completed at 1009. PROCEDURE DESCRIPTION: Fiberoptic bronchoscope was inserted into the right naris with minimal difficulty and passed to the level of true vocal cords. The cords appeared to approximate normally with phonation without evidence of lesions or paralysis. The area was anesthetized with 2% Xylocaine spray. Scope was then introduced in the trachea, which demonstrated a saber-sheath trachea, which represents a normal variant and passed to the level of the kwaku. The kwaku did not appear to be sharp and there was some bowing-out of the medial wall just below the kwaku involving the right mainstem bronchus. No discernible lesion was seen. The right upper lobe, the apical posterior and anterior segments were free of endobronchial lesions. They were copiously lavaged with normosol and the aspirate sent for appropriate studies. The bronchus intermedius, right middle lobe, the medial and lateral segments and all basilar segments of right lower lobe were found to be free of endobronchial lesions with a minimal amount of purulence lavaged and aspirated from the right lower lobe until clear. Left tracheobronchial tree was free of endobronchial lesions. Left upper lobe, the apical posterior and anterior segments, lingular subdivision, left lower lobe were free of endobronchial lesions down to the subsegmental bronchi. The right and left tracheobronchial tree was copiously lavaged with normosol and the aspirate was sent for appropriate studies, but mostly the right upper lobe where the 3 segments were lavaged until clear. No brushings or biopsies were attempted. The patient did desaturate, but at the termination of procedure was given a nebulizer treatment with Xopenex 1.25 mg and improved his saturation and hemodynamics considerably. He was transferred back to the medical floor hemodynamically stable. No further signs of respiratory compromise. We will await microbiological and cytologic examination of the bronchial washings. I attest to the content of the Intraoperative Record and any orders documented therein. Any exception s are noted below.
--- NOTE | 2019-04-10 17:18 | Hospitalist Progress Note ---
Date of Service April 10, 2019 Assessment & Plan (1) Severe sepsis: On presentation to hospital "Met criteria for severe sepsis per current CMS criteria (tachycardia, tachypnea, leukocytosis, elevated lactate). Procalcitonin elevated. Blood cultures obtained Patient received broad-spectrum intravenous antibiotic coverage. Received fluid resuscitation. Lactic acid levels were followed-normalized with IV fluid and ABx" (2) Pneumonia: -68-year-old with severe chronic obstructive pulmonary disease, cavitary process, right upper lobe with extensive and progressive consolidation bilaterally and was on a 9 day antibiotic course of for multilobar pneumonia -patient did have a fever on 04/09/19 but Zosyn discontinued as fever was attributed to a possible non infectious pulmonary etiology ( drug fever versus fever from Pulmonary embolism vs iliopsoas hematoma) -currently off Zosyn -bronchosopy on 04/10/19: did not discern a purulent infection on bronchoscopy -Pulmonary service consulted CT surgery for evaluation of possible lung biopsy (3) Acute respiratory failure with hypoxia: on oxymask 8 liters/minute currently (4) COPD (chronic obstructive pulmonary disease): Exacerbation COPD secondary to pneumonia. -albuterol nebulizer treatments as needed. -on solumedrol 40 mg IV daily (5) Hypotension: Occurred on April 06, 2019 Likely secondary to hypovolemia, likely from diuretics patient is not on diuretics at this time (6) Pulmonary emboli: (present on admission) CTA of chest performed on 03/27 demonstrated multiple small segmental pulmonary emboli. Patient was started on intravenous heparin. Venous duplex of lower extremities on 03/[address] of abdomen pelvis on 03/30 demonstrated hematoma left iliopsoas muscle. IV heparin discontinued. Pulmonary emboli were relatively small (segmental and subsegmental). No DVT's identified in lower extremities at this time. On April 03, 2019 started Eliquis 10mg BID April 05, 2019 patient developed increased abdominal pain and CAT scan of the abdomen and pelvis confirmed increased iliopsoas hematoma size Discussed with Dr. Collado, recommend to discontinue Eliquis Repeat Doppler of the legs: Negative for DVT (7) Abnormal CT scan, chest: CT of chest demonstrated a 6.2 x 4.5 cm thick-walled cavitary lesion within the right upper lobe (as well as pulmonary emboli and extensive airspace opacities as noted). Right upper lobe lesion may be worrisome for malignancy. -Pulmonary service consulted CT surgery for evaluation of possible lung biopsy (8) Pulmonary edema: CT of chest on day of admission suggested possible pulmonary edema. BNP elevated. History Takotsubo's cardiomyopathy, but current echocardiogram shows normal left ventricular wall motion and function. Possible acute left ventricular diastolic CHF. Possible noncardiac pulmonary edema. -Diuretics initially were started but then stopped due to hypovolemia and hypotension (9) Multifocal atrial tachycardia: Continue metoprolol with holding parameters Continue management of underlying pulmonary issues. (10) Hypertension: Continue metoprolol. (11) Urinary tract infection: Admission UA showed leukocyte esterase, WBCs, bacteria. Urine culture (+) enterococcus faecalis Sensitive to penicillin Received Zosyn for 9 days Urine culture was repeated and is negative (12) Hematoma of left iliopsoas muscle: Management as noted above (13) DVT prophylaxis: SCD's only in light of iliopsoas hematoma Ambulate as able (14) Discharge planning issues: Discharge disposition to be determined. Subjective Patient on high flow rate of oxymask. speaks comfortably. Breathing is non labored. no chest pain. no abdomen pain. no back pain. no lightheadedness. no dizziness. no vomiting Physical Exam Constitutional: comfortable Eyes: PERRL, conjunctivae normal, anicteric sclerae EOM intact bilaterally ENMT: external ear and nose normal, oropharynx normal Neck: trachea midline, no thyromegaly Respiratory: normal respiratory effort Cardiovascular: Rate/Rhythm: regular rate and regular rhythm Gastrointestinal (Abdomen): normal bowel sounds, soft, nontender, no hepatosplenomegaly Musculoskeletal: Head/Neck/Chest: normocephalic and head atraumatic Neurologic: PERRL, EOMI, accommodation nl, no face palsy, no dysarthria Psychiatric: A+Ox3, euthymic affect Results & Data Vital Signs (Past 12 Hours) Vital Signs Temp Pulse Pulse Resp BP Pulse Ox 04/10/19 15:41 36.4 C L 56 L 22 149/91 H 92 04/10/19 13:25 56 L 24 149/91 H 94 04/10/19 12:30 58 L 24 145/80 H 93 04/10/19 12:15 59 L 24 158/84 H 91 04/10/19 12:00 61 20 158/78 H 90 04/10/19 11:45 77 24 164/79 H 92 04/10/19 11:30 36.4 C L 68 24 161/93 H 92 04/10/19 10:19 61 14 132/77 92 04/10/19 10:15 65 14 138/75 88 L 04/10/19 10:10 64 14 142/72 H 91 04/10/19 10:05 77 14 117/87 87 L 04/10/19 10:00 67 14 151/72 H 92 04/10/19 09:55 61 14 124/75 94 04/10/19 09:40 68 14 157/87 H 94 04/10/19 07:33 36.4 C L 72 20 144/72 H 91 04/10/19 07:15 68
--- NOTE | 2019-04-10 19:34 | Infectious Disease Progress Nt ---
Date of Service April 10, 2019 Assessment & Plan (1) Fever: 68-year-old male admitted with pulmonary emboli and possible pneumonia with sepsis, with complication of iliopsoas hematoma on anticoagulation, who is been improving, and now with fever but without localizing signs or symptoms. Given lack of symptomatology or localizing findings, would be concerned about possibility of drug fever or fever from hematoma or emboli. Patient has been afebrile last 24 hours of Zosyn, await results from bronchoscopy. Would continue off antibiotics. Will follow. (2) Pneumonia: (3) Hematoma of left iliopsoas muscle: Subjective Patient seen in follow-up for multifocal pneumonia with cavitation. Now status post bronchoscopy without finding significant purulence. Procalcitonin low. Cultures are pending. Patient has been afebrile last 24 hours. Review of Systems Review of Systems: All systems reviewed & are unremarkable except as noted in HPI & below Physical Exam Constitutional: WD/WN, vitals as above comfortable; no acute distress Eyes: PERRL, conjunctivae normal, anicteric sclerae ENMT: external ear and nose normal, oropharynx normal Neck: trachea midline, no thyromegaly neck nontender Respiratory: normal respiratory effort, lungs clear to auscultation normal percussion; does not use accessory muscles Cardiovascular: Rate/Rhythm: + irregularly irregular Heart Sounds: normal S1, normal S2 and + murmur (Systolic); no gallop and no cardiac rub Vessels: normal peripheral pulses; no JVD Gastrointestinal (Abdomen): normal bowel sounds, soft, nontender, no hepatosp lenomegaly Musculoskeletal: no cyanosis or clubbing, extremities motor strength 5/5 Spine: thoracic spine normal to inspection and lumbar spine normal to inspection; no cervical spinal tenderness Skin: no rashes, warm and dry normal turgor; no lesions Neurologic: patellar DTR's 2+ bilat, sensation intact no focal motor deficits Psychiatric: A+Ox3, euthymic affect Orientation: cooperative Lymphatic: no cervical or axillary lymphadenopathy no inguinal lymphadenopathy Results & Data Vital Signs (Past 12 Hours) Vital Signs Temp Pulse Pulse Resp BP Pulse Ox 04/10/19 19:13 36.5 C 74 18 121/75 94 04/10/19 16:00 78 04/10/19 15:41 36.4 C L 56 L 22 149/91 H 92 04/10/19 13:25 56 L 24 149/91 H 94 04/10/19 12:30 58 L 24 145/80 H 93 04/10/19 12:15 59 L 24 158/84 H 91 04/10/19 12:00 61 20 158/78 H 90 04/10/19 11:45 77 24 164/79 H 92 04/10/19 11:30 36.4 C L 68 24 161/93 H 92 04/10/19 10:19 61 14 132/77 92 04/10/19 10:15 65 14 138/75 88 L 04/10/19 10:10 64 14 142/72 H 91 04/10/19 10:05 77 14 117/87 87 L 04/10/19 10:00 67 14 151/72 H 92 04/10/19 09:55 61 14 124/75 94 04/10/19 09:40 68 14 157/87 H 94 04/10/19 07:33 36.4 C L 72 20 144/72 H 91
[2019-04-10] MEDS: LORazepam 1 MG TAB SL PRN (20:37)
[2019-04-10] MEDS ORDERED: APIXABAN 5 MG TABLET PO SCH (21:00)
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
[2019-04-11 05:59] LABS: Basophils # (auto) 0.02 K/uL (0-0.2); Basophils % (auto) 0.1 %; Eosinophils # (auto) 0.02 K/uL (0-0.5); Eosinophils % (auto) 0.1 %; Hematocrit (blood only) 25.7 % (42-52); Hemoglobin 8.8 g/dL (14.0-18.0); Immature Granulocytes # (auto) 0.09 K/uL (0.00-0.02); Immature Granulocytes % (auto) 0.6 %; Lymphocytes # (auto) 1.43 K/uL (1.2-3.4); Lymphocytes % (auto) 9.1 %; Mean Corpuscular Hgb Conc 34.2 g/dL (32-36); Mean Corpuscular Volume 96.3 fL (80-100); Mean Platelet Volume 11.2 fL (7.4-10.4); Monocytes # (auto) 1.32 K/uL (0.11-0.59); Monocytes % (auto) 8.4 %; Neutrophils # (auto) 12.87 K/uL (1.4-6.5); Neutrophils % (auto) 81.7 %; Platelet Count 325 K/uL (130-400); RDW Coefficient of Variation 14.9 % (11.5-14.5); RDW Standard Deviation 52.2 fL (36.4-46.3); Red Blood Count 2.67 M/uL (4.7-6.1); White Blood Count 15.75 K/uL (4.8-10.8)
[2019-04-11 06:28] LABS: Albumin Level 1.8 gm/dl (3.4-5.0); BUN Creatinine Ratio 41.1 (10-20); Calcium 8.3 mg/dl (8.5-10.1); Creatinine Clr Calc Pharmacy 211.7 ml/min; Est GFR (Non-African American) 120.8; Magnesium 2.1 mg/dl (1.8-2.4); Potassium 3.6 mmol/L (3.5-5.1)
[2019-04-11 06:31] LABS: Albumin Globulin Ratio 0.5 (0.9-2); Bilirubin,Total 0.6 mg/dl (0.2-1); Globulin 3.5 gm/dl (2.5-4.0); Total Protein 5.3 gm/dl (6.4-8.2)
[2019-04-11] MEDS: METOPROLOL SUCC 50MG EXT REL TAB PO SCH ×2 (08:17→21:01)
[2019-04-11] MEDS: methylPREDNISolone 40 MG in SYRINGE 0 ML IV SCH (08:17)
[2019-04-11] MEDS: THIAMINE HCL 100 MG TAB PO SCH (08:17)
[2019-04-11] MEDS: FAMOTIDINE 20 MG TAB PO SCH (08:17)
[2019-04-11] MEDS: MULTIVITAMIN TAB PO SCH (08:17)
[2019-04-11] MEDS: ESCITALOPRAM OXALATE 10 MG TAB PO SCH (08:17)
[2019-04-11] MEDS: FOLIC ACID 1 MG TAB PO SCH (08:17)
[2019-04-11] MEDS: FLUTICASONE/VILANTEROL INHALER INH SCH (08:18)
--- NOTE | 2019-04-11 13:37 | Hospitalist Progress Note ---
Date of Service April 11, 2019 Assessment & Plan (1) Severe sepsis: On presentation to hospital "Met criteria for severe sepsis per current CMS criteria (tachycardia, tachypnea, leukocytosis, elevated lactate). Procalcitonin elevated. Blood cultures obtained Patient received broad-spectrum intravenous antibiotic coverage. Received fluid resuscitation. Lactic acid levels were followed-normalized with IV fluid and ABx" (2) Pneumonia: -68-year-old with severe chronic obstructive pulmonary disease, cavitary process, right upper lobe with extensive and progressive consolidation bilaterally and was on a 9 day antibiotic course of for multilobar pneumonia -patient did have a fever on 04/09/19 but Zosyn discontinued as fever was attributed to a possible non infectious pulmonary etiology ( drug fever versus fever from Pulmonary embolism vs iliopsoas hematoma) -currently off Zosyn -bronchosopy on 04/10/19: did not discern a purulent infection on bronchoscopy -Pulmonary service consulted CT surgery for evaluation of possible lung biopsy -will have patient NPO after midnight in case CT surgery has operating room time for Monday04/12/19 for procedure (3) Acute respiratory failure with hypoxia: on oxymask 8 liters/minute currently (4) COPD (chronic obstructive pulmonary disease): Exacerbation COPD secondary to pneumonia. -albuterol nebulizer treatments as needed. -has been on solumedrol 40 mg IV daily, stop solumedrol after last day on 04/11/19. will transition to prednisone starting 04/12/19 (5) Hypotension: Occurred on April 06, 2019 Likely secondary to hypovolemia, likely from diuretics patient is not on diuretics at this time (6) Pulmonary emboli: (present on admission) CTA of chest performed on 03/27 demonstrated multiple small segmental pulmonary emboli. Patient was started on intravenous heparin. Venous duplex of lower extremities on 03/[address] of abdomen pelvis on 03/30 demonstrated hematoma left iliopsoas muscle. IV heparin discontinued. Pulmonary emboli were relatively small (segmental and subsegmental). No DVT's identified in lower extremities at this time. On April 03, 2019 started Eliquis 10mg BID April 05, 2019 patient developed increased abdominal pain and CAT scan of the abdomen and pelvis confirmed increased iliopsoas hematoma size Discussed with Dr. Collado, recommend to discontinue Eliquis Repeat Doppler of the legs: Negative for DVT (7) Abnormal CT scan, chest: CT of chest demonstrated a 6.2 x 4.5 cm thick-walled cavitary lesion within the right upper lobe (as well as pulmonary emboli and extensive airspace opacities as noted). Right upper lobe lesion may be worrisome for malignancy. -Pulmonary service consulted CT surgery for evaluation of possible lung biopsy (8) Pulmonary edema: CT of chest on day of admission suggested possible pulmonary edema. BNP elevated. History Takotsubo's cardiomyopathy, but current echocardiogram shows normal left ventricular wall motion and function. Possible acute left ventricular diastolic CHF. Possible noncardiac pulmonary edema. -Diuretics initially were started but then stopped due to hypovolemia and hypotension (9) Multifocal atrial tachycardia: Continue metoprolol with holding parameters Continue management of underlying pulmonary issues. (10) Hypertension: Continue metoprolol. (11) Urinary tract infection: Admission UA showed leukocyte esterase, WBCs, bacteria. Urine culture (+) enterococcus faecalis Sensitive to penicillin Received Zosyn for 9 days during this hospital course Urine culture was repeated and is negative (12) Hematoma of left iliopsoas muscle: Management as noted above (13) DVT prophylaxis: SCD's only in light of iliopsoas hematoma Ambulate as able (14) Discharge planning issues: Discharge disposition to be determined. Subjective At time of my exam, patient on 4 liters/min of oxymask. He reports subjectively breathing better and less overall pain in the last 2 days. no chest pain. no abdomen pain. no vomiting. no lightheadedness. no dizziness Physical Exam Constitutional: comfortable Eyes: PERRL, conjunctivae normal, anicteric sclerae EOM intact bilaterally ENMT: external ear and nose normal, oropharynx normal Neck: trachea midline, no thyromegaly Respiratory: normal respiratory effort Cardiovascular: Rate/Rhythm: regular rate and regular rhythm Gastrointestinal (Abdomen): normal bowel sounds, soft, nontender, no hepatosplenomegaly Musculoskeletal: Head/Neck/Chest: normocephalic and head atraumatic Neurologic: PERRL, EOMI, accommodation nl, no face palsy, no dysarthria Psychiatric: A+Ox3, euthymic affect Results & Data Vital Signs (Past 12 Hours) Vital Signs Temp Pulse Pulse Resp BP Pulse Ox 04/11/19 10:53 36.3 C L 69 20 110/64 94 04/11/19 08:00 84 04/11/19 07:11 36.3 C L 58 L 21 138/76 94 04/11/19 04:30 36.5 C 63 20 152/76 H 92
--- NOTE | 2019-04-11 14:33 | Progress Note ---
DATE: 04/11/2019 PULMONARY MEDICINE PROGRESS NOTE Chart reviewed, the patient examined. SUBJECTIVE: The patient tolerated the bronchoscopic intervention without difficulty. No discernible etiology of the patient's cavitary process, though he has remained afebrile over the past [address] Fernandez was seen the patient in consultation. I did not see evidence for purulent infection at time of bronchoscopy and serologies are all pending. Certainly, I am concerned about a potential neoplastic process, and for that reason, I have consulted Dr. Gomes to consider a video-assisted thorascopic surgery with biopsy despite the patient representing a moderate to high risk for surgical intervention. I believe a definitive diagnosis is needed and we will discuss further with Dr. Gomes.
--- NOTE | 2019-04-11 16:29 | Anesthesiology Consultation ---
Date of Service April 11, 2019 Assessment & Plan (1) Encounter for pre-operative examination: Chart Review Chart Review: Acceptable Risk for Surgery and Patient NOT seen in Pre Admission Testing Consults Requested none Pulm consult Dr. Bennett: I have consulted Dr. Gomes to consider a video-assisted thorascopic surgery with biopsy despite the patient representing a moderate to high risk for surgical intervention. History Surgery Operation Date: 04/10/19 09:00 Proposed Procedures p Bronchoscopy Radiology - Alexandru Bennett MD Operation Date: 04/12/19 09:35 Proposed Procedures p Right Thoracoscopy with Biopsy - Wero Gomes MD, FACS Height/Weight Height: 6 ft 4 in Weight: 102.2 kg Allergies Allergy/AdvReac Type Severity Reaction Status Date / Time amoxicillin Allergy Intermediate HIVES Verified 04/17/13 15:53 Medications Home Medications Medication Instructions Recorded Confirmed Last Taken acetaminophen-codeine 1 tab PO TID PRN 03/27/19 03/27/19 Unknown albuterol sulfate [Ventolin HFA] 2 inh INHALATION QID PRN 03/27/19 03/27/19 Unknown aspirin 81 mg PO DAILY 03/27/19 03/27/19 Unknown atorvastatin 40 mg PO DAILY 03/27/19 03/27/19 Unknown azithromycin See Rx Instructions .ROUTE 03/27/19 03/27/19 Unknown .COMPLEX PRN escitalopram oxalate 20 mg PO DAILY 03/27/19 03/27/19 Unknown fluticasone furoate-vilanterol 1 inh INHALATION DAILY 03/27/19 03/27/19 Unknown [Breo Ellipta] lorazepam 1 mg PO TID PRN 03/27/19 03/27/19 Unknown meclizine 12.5 mg PO BID PRN 03/27/19 03/27/19 Unknown multivitamin 1 tab PO DAILY 03/27/19 03/27/19 Unknown omeprazole 20 mg PO BID 03/27/19 03/27/19 Unknown potassium chloride [Klor-Con M10] 20 meq PO BID 03/27/19 03/27/19 Unknown Active Medications Generic Name Dose Route Start Last Admin Trade Name Freq PRN Reason Stop Dose Admin Escitalopram Oxalate 20 mg 03/28/19 09:00 04/12/19 09:23 Lexapro PO 04/27/19 08:59 20 mg DAILY LE Administration Famotidine 20 mg 03/29/19 09:00 04/12/19 09:22 Pepcid PO 04/28/19 08:59 20 mg DAILY LE Administration Fluticasone/Vilanterol 1 puffs 04/08/19 11:00 04/12/19 09:30 Breo Ellipta INH 05/08/19 10:59 1 puffs DAILY LE Administration Folic Acid 1 mg 03/29/19 09:00 04/12/19 09:22 Folvite PO 04/28/19 08:59 1 mg QAM LE Administration Lorazepam 1 mg 03/29/19 08:59 04/12/19 07:32 Ativan SL 04/28/19 08:58 1 mg Q4H PRN Administration Agitation Metoprolol Succinate 50 mg 04/09/19 09:00 04/12/19 09:23 Toprol Xl PO 05/09/19 08:59 Not Given BID LE Morphine Sulfate 2 mg 04/04/19 23:37 04/08/19 23:24 Morphine Sulfate IV 04/18/19 23:36 2 mg Q4H PRN Administration Pain Multivitamins 1 tab 03/27/19 18:52 04/12/19 09:22 Multivitamin Tab PO 04/26/19 18:51 1 tab DAILY LE Administration Prednisone 40 mg 04/12/19 09:00 04/12/19 09:22 Prednisone PO 05/12/19 08:59 40 mg DAILY LE Administration Thiamine HCl 100 mg 03/31/19 09:15 04/12/19 09:22 Vitamin B-1 PO 04/30/19 09:14 100 mg QAM LE Administration Tramadol HCl 25 mg 04/04/19 23:19 04/08/19 21:27 Ultram PO 05/04/19 23:18 25 mg Q4H PRN Administration Pain NPO Date Last Intake of Fluids: 04/10/19 Time Last Intake of Fluids: 00:00 Date Last Intake of Solids: 04/10/19 Time Last Intake of Solids: 20:00 Past Medical History Medical History Severe sepsis Pulmonary edema Hematoma of left iliopsoas muscle Pulmonary emboli current. CTA chest 03/27 showed multiple small segmental pulmonary emboli. Pneumonia Right upper lobe with extensive and progressive consolidation bilaterally. Acute respiratory failure with hypoxia Multifocal atrial tachycardia Cardiology saw patient March 2019 and stated likely driven by underlying pulmonary issues. Alcohol abuse (Chronic) GERD (gastroesophageal reflux disease) (Chronic) Non-ischemic cardiomyopathy (Chronic) Past hx/o catecholamine induced CM with an echo this admission showing preser bridget LV function. HLD (hyperlipidemia) (Chronic) COPD (chronic obstructive pulmonary disease) (Chronic) exacerbation 2/2 pneumonia. Hypertension (Chronic) Past Family History Family History Father Alcoholism Mother Alcoholism Past Surgical History Surgical History History of cardiac cath (Chronic) 2012 - normal coronaries History of bronchoscopy Social History Smoking Status: Current every day smoker tobacco type: cigarettes Do You Dip or Chew Tobacco: No Hx Alcohol Use: Yes Alcohol type: hard liquor alcohol intake frequency: 0-2 drinks per day Alcohol Intake Frequency Comment: last drink 2 days ago Hx Substance Use: No substance use type: does not use Physical Exam Vital Signs Last Vital Signs Temp 36.6 C 04/12/19 10:51 Pulse 81 04/12/19 10:51 Resp 20 04/12/19 10:51 BP 93/52 L 04/12/19 11:14 Pulse Ox 96 04/12/19 10:51 Testing Laboratory Results 04/12/19 05:49 04/12/19 05:49 PT 11.6 Seconds (9.0-12.0) 04/09/19 15:54 INR 1.1 (0.9-1.1) 04/09/19 15:54 APTT 25.1 Seconds (21.0-31.0) 04/09/19 15:54 Hemoglobin A1c 5.6 % (4.5-5.6) 03/29/19 03:25 Urine Color Yellow 04/09/19 13:20 Urine Appearance Clear (Clear) 04/09/19 13:20 Urine pH 5.5 (4.5-7.5) 04/09/19 13:20 Ur Specific [place] 1.010 (1.000-1.030) 04/09/19 13:20 Urine Protein Negative (Negative) 04/09/19 13:20 Urine Glucose (UA) Negative (Negative) 04/09/19 13:20 Urine Ketones Negative (Negative) 04/09/19 13:20 Urine Nitrite Negative (Negative) 04/09/19 13:20 Ur Leukocyte Esterase Negative (Negative) 04/09/19 13:20 Urine WBC (Auto) >30 /hpf (0-5) H 03/27/19 17:18 Urine RBC (Auto) 5-10 /hpf (0-4) H 03/27/19 17:18 U Hyaline Cast (Auto) 10-30 /lpf (0-5) H 03/27/19 17:18 U Epithel Cells (Auto) 0-5 /lpf (0-5) 03/27/19 17:18 Urine Bacteria (Auto) 1+ (Negative) H 03/27/19 17:18 Urine RBC 5-10 /hpf (0-4) H 04/09/19 13:20 Urine WBC 0-5 /hpf (0-5) 04/09/19 13:20 Ur Epithelial Cells 0-5 /lpf (0-5) 04/09/19 13:20 Blood Type O Positive 04/12/19 05:49 Antibody Screen NEGATIVE 04/12/19 05:49 04/10/19 10:02 Gram Stain - Final Bronch Wash,Right Upper Lobe Bronchoalveolar Lavage Culture - Final Moderate normal hugo. 04/09/19 10:31 Aerobic Blood Culture - Preliminary Blood No growth in Aerobic bottle after 48 hours. Anaerobic Blood Culture - Preliminary No growth in Anaerobic bottle after 48 hours. 04/09/19 10:07 Aerobic Blood Culture - Preliminary Blood No growth in Aerobic bottle after 48 hours. Anaerobic Blood Culture - Preliminary No growth in Anaerobic bottle after 48 hours. 04/10/19 10:02 Acid Fast Bacilli Smear - Final Bronch Wash,Right Upper Lobe 04/10/19 10:02 Fungal Smear - Final Bronch Wash,Right Upper Lobe 04/09/19 15:54 Cryptococcal Antigen Test - Final Blood 03/27/19 17:00 Urine Culture - Final Urine,Random Enterococcus faecalis 03/27/19 17:01 Aerobic Blood Culture - Final Blood No growth in Aerobic bottle after 5 days. Anaerobic Blood Culture - Final No growth in Anaerobic bottle after 5 days. 03/27/19 16:48 Aerobic Blood Culture - Final Blood No growth in Aerobic bottle after 5 days. Anaerobic Blood Culture - Final No growth in Anaerobic bottle after 5 days. Electrocardiogram Date: 03/29/19 Sinus rhythm with PAC's. Low voltage QRS. HR 95 Chest X-Ray Date: 03/27/19 XR chest 1V portable CLINICAL HISTORY: Follow-up pneumonia. COMPARISON STUDY: Chest CT March 27, 2019. Chest radiograph April 01, 2019. FINDINGS: Emphysema is noted. The right upper lobe airspace opacity has progressed. Underlying cavities better depicted on prior chest CT. Left midlung opacity has improved. There is no pneumothorax. There is a small right pleural effusion. There is no evidence for pulmonary edema. Cardiomediastinal silhouette is stable. IMPRESSION: 1. Progression of the cavitary right upper lobe airspace opacity which favors cavitary pneumonia. A neoplasm could appear similar and therefore radiographic follow-up to ensure resolution is recommended. 2. Slight improvement in left lung airspace opacity. The findings suggest multifocal pneumonia. 3. Small right pleural effusion. Echocardiogram Date: 03/28/19 LV is normal in size. Mild LVH. No regional wall motion abnormalities noted. EF 65-70% Grade 1 DD. Other Testing : CT OF THE CHEST WITHOUT IV CONTRAST CLINICAL HISTORY: Pneumonia. Cough. Shortness of breath. COMPARISON STUDY: Chest CT March 27, 2019. Chest radiograph performed earlier today. CT DOSE: 606.39 mGy.cm TECHNIQUE: Axial images of the chest were obtained without IV contrast. Images were reviewed in the axial, sagittal, and coronal planes. IV contrast was not administered for this examination. Automated exposure control was utilized for the study. A dose lowering technique was utilized adhering to the principles of ALARA. FINDINGS: A 5.6 x 4.5 cm cavitary focus within the right lung apex is similar in size to CT of March 27, 2019. The wall is mildly thickened. Wall thickness appears to have slightly decreased since prior exam. Extensive right upper lobe airspace opacity has progressed since exam of March 27, 2019. Consolidation within the superior segments of both lower lobes has increased. Additional bilateral airspace opacities are noted. Small bilateral pleural effusions have developed. There is no pneumothorax. Extensive coronary calcification is noted. There is no pericardial effusion. Size of the heart is at the upper limits of normal. No pathologically enlarged thoracic lymph nodes are present. Bony thorax is unremarkable. Upper abdomen is unremarkable on this unenhanced exam. There is moderate emphysema. IMPRESSION: 1. No significant change in size of the 5.6 x 4.5 cm right apical cavitary opacity since CT of March 27, 2019. A cavitary pneumonia is favored. However, a neoplasm could appear similar and imaging follow up to ensure resolution is recommended. 2. Progression of multifocal airspace opacities, most confluent within the right upper lobe and superior segments of both lower lobes suggestive of multifocal pneumonia. 3. Small bilateral pleural effusions. 4. Moderate emphysema.
--- NOTE | 2019-04-11 20:03 | Progress Note ---
DATE: 04/11/2019 Mr. Wills was seen today. He has not really changed. I discussed his case in detail with Dr. Bennett again today. We are going to proceed with a biopsy tomorrow. His A-a gradient is a bit concerning, but I think this process needs to be diagnosed. We will do this tomorrow.
[2019-04-11] MEDS: LORazepam 1 MG TAB SL PRN (21:01)
--- NOTE | 2019-04-12 05:13 | Infectious Disease Progress Nt ---
Date of Service April 11, 2019 Assessment & Plan (1) Fever: 68-year-old male admitted with pulmonary emboli and possible pneumonia with sepsis, with complication of iliopsoas hematoma on anticoagulation, who is been improving, and now with fever but without localizing signs or symptoms. Given lack of symptomatology or localizing findings, would be concerned about possibility of drug fever or fever from hematoma or emboli. Has been afebrile for 48 hours. Continue antibiotics pending results of lung biopsy tomorrow. (2) Pneumonia: (3) Hematoma of left iliopsoas muscle: Subjective Patient seen in follow-up for multifocal pneumonia with cavitation. Now status post bronchoscopy without finding significant purulence. Procalcitonin low. Cultures are unremarkable so far. Patient has been afebrile last 48 hours. Review of Systems Review of Systems: All systems reviewed & are unremarkable except as noted in HPI & below Physical Exam Constitutional: WD/WN, vitals as above comfortable; no acute distress Eyes: PERRL, conjunctivae normal, anicteric sclerae ENMT: external ear and nose normal, oropharynx normal Neck: trachea midline, no thyromegaly neck nontender Respiratory: normal respiratory effort, lungs clear to auscultation normal percussion; does not use accessory muscles Cardiovascular: Rate/Rhythm: + irregularly irregular Heart Sounds: normal S1, normal S2 and + murmur (Systolic); no gallop and no cardiac rub Vessels: normal peripheral pulses; no JVD Gastrointestinal (Abdomen): normal bowel sounds, soft, nontender, no hepatosplenomegaly Musculoskeletal: no cyanosis or clubbing, extremities motor strength 5/5 Spine: thoracic spine normal to inspection and lumbar spine normal to inspection; no cervical spinal tenderness Skin: no rashes, warm and dry normal turgor; no lesions Neurologic: patellar DTR's 2+ bilat, sensation intact no focal motor deficits Psychiatric: A+Ox3, euthymic affect Orientation: cooperative Lymphatic: no cervical or axillary lymphadenopathy no inguinal lymphadenopathy Results & Data Vital Signs (Past 12 Hours) Vital Signs Temp Pulse Pulse Resp BP Pulse Ox 04/12/19 04:39 36.7 C 63 20 123/62 92 04/12/19 00:29 36.8 C 76 20 142/73 H 93 04/11/19 23:46 79 04/11/19 19:16 36.7 C 82 18 127/63 92 04/11/19 18:17 75 Laboratory Results Short CBC 04/11/19 Range/Units 05:36 WBC 15.75 H (4.8-10.8) K/uL Hgb 8.8 L (14.0-18.0) g/dL Hct 25.7 L (42-52) % Plt Count 325 (130-400) K/uL BMP 04/11/19 05:36 Sodium 135 L Potassium 3.6 Chloride 101 Carbon Dioxide 27 BUN 17 Creatinine 0.41 L Glucose 105 H Calcium 8.3 L Liver Function 04/11/19 Range/Units 05:36 Total Bilirubin 0.6 (0.2-1) mg/dl AST 34 (15-37) U/L ALT 64 (12-78) U/L Alkaline Phosphatase 147 H (45-117) U/L Albumin 1.8 L (3.4-5.0) gm/dl Diagnostic Findings Microbiology 04/10/19 10:02 Bronch Wash,Right Upper Lobe Gram Stain - Final 04/10/19 10:02 Bronch Wash,Right Upper Lobe Bronchoalveolar Lavage Culture - Preliminary Light normal hugo present, final report to follow. 04/09/19 10:31 Blood Aerobic Blood Culture - Preliminary No growth in Aerobic bottle after 48 hours. 04/09/19 10:31 Blood Anaerobic Blood Culture - Preliminary No growth in Anaerobic bottle after 48 hours. 04/09/19 10:07 Blood Aerobic Blood Culture - Preliminary No growth in Aerobic bottle after 48 hours. 04/09/19 10:07 Blood Anaerobic Blood Culture - Preliminary No growth in Anaerobic bottle after 48 hours. 04/10/19 10:02 Bronch Wash,Right Upper Lobe Acid Fast Bacilli Smear - Final 04/10/19 10:02 Bronch Wash,Right Upper Lobe Fungal Smear - Final 04/09/19 15:54 Blood Cryptococcal Antigen Test - Final 03/27/19 17:00 Urine,Random Urine Culture - Final Enterococcus faecalis 03/27/19 17:01 Blood Aerobic Blood Culture - Final No growth in Aerobic bottle after 5 days. 03/27/19 17:01 Blood Anaerobic Blood Culture - Final No growth in Anaerobic bottle after 5 days. 03/27/19 16:48 Blood Aerobic Blood Culture - Final No growth in Aerobic bottle after 5 days. 03/27/19 16:48 Blood Anaerobic Blood Culture - Final No growth in Anaerobic bottle after 5 days.
[2019-04-12 06:10] LABS: Basophils # (auto) 0.01 K/uL (0-0.2); Basophils % (auto) 0.1 %; Eosinophils # (auto) 0.08 K/uL (0-0.5); Eosinophils % (auto) 0.5 %; Hematocrit (blood only) 26.6 % (42-52); Immature Granulocytes # (auto) 0.07 K/uL (0.00-0.02); Immature Granulocytes % (auto) 0.4 %; Lymphocytes # (auto) 1.61 K/uL (1.2-3.4); Lymphocytes % (auto) 9.6 %; Mean Corpuscular Hgb Conc 33.8 g/dL (32-36); Mean Corpuscular Volume 95.7 fL (80-100); Monocytes # (auto) 1.52 K/uL (0.11-0.59); Monocytes % (auto) 9.1 %; Neutrophils # (auto) 13.44 K/uL (1.4-6.5); Neutrophils % (auto) 80.3 %; Platelet Count 350 K/uL (130-400); RDW Coefficient of Variation 14.6 % (11.5-14.5); RDW Standard Deviation 50.9 fL (36.4-46.3); Red Blood Count 2.78 M/uL (4.7-6.1); White Blood Count 16.73 K/uL (4.8-10.8)
[2019-04-12 06:34] LABS: BUN Creatinine Ratio 40.8 (10-20); Calcium 8.4 mg/dl (8.5-10.1); Creatinine Clr Calc Pharmacy 184.7 ml/min; Est GFR (African American) 132.4; Est GFR (Non-African American) 114.2; Potassium 3.4 mmol/L (3.5-5.1)
[2019-04-12] MEDS: LORazepam 1 MG TAB SL PRN (07:32)
[2019-04-12] MEDS: POTASSIUM CHLORIDE / WTR 10 MEQ/100 ML PLCT IV SCH ×2 (09:21→11:10)
[2019-04-12] MEDS: predniSONE 20 MG TAB PO SCH (09:22)
[2019-04-12] MEDS: THIAMINE HCL 100 MG TAB PO SCH (09:22)
[2019-04-12] MEDS: FAMOTIDINE 20 MG TAB PO SCH (09:22)
[2019-04-12] MEDS: FOLIC ACID 1 MG TAB PO SCH (09:22)
[2019-04-12] MEDS: MULTIVITAMIN TAB PO SCH (09:22)
[2019-04-12] MEDS: ESCITALOPRAM OXALATE 10 MG TAB PO SCH (09:23)
[2019-04-12] MEDS: METOPROLOL SUCC 50MG EXT REL TAB PO SCH (09:23)
[2019-04-12] MEDS: FLUTICASONE/VILANTEROL INHALER INH SCH (09:30)
--- NOTE | 2019-04-12 10:44 | Progress Note ---
DATE: 04/12/2019 PULMONARY MEDICINE PROGRESS NOTE Chart reviewed, the patient examined. SUBJECTIVE: The patient is scheduled for a VATS procedure with biopsy. Certainly, I have concerns about an underlying neoplasm and need to better define this cavitary process. The patient has been apparently afebrile now for close to 72 hours. Cultures from the bronchial washings were uneventful and the rest of our serologies are pending. Scheduled for a VATS procedure with biopsy today.
--- NOTE | 2019-04-12 11:06 | History & Physical Bridge Note ---
Date of Service April 12, 2019 History & Physical Bridge Note I have examined the patient, reviewed the History & Physical and in the interval since the performance of the History & Physical I have noted the following changes of clinical significance: no changes noted
[2019-04-12] MEDS ORDERED: NEOSTIGMINE METHYLSULFATE 5 MG/5 ML SYR ONE (11:16)
[2019-04-12] MEDS ORDERED: MIDAZOLAM HCL 1 MG/ML 2ML VIAL ONE (11:16)
[2019-04-12] MEDS ORDERED: DEXAMETHASONE SOD INJ 4 MG/ML VIAL ONE (11:16)
[2019-04-12] MEDS ORDERED: LIDOCAINE HCL 2% 2 ML VIAL/AMP(20MG/ML) INFIL ONE (11:16)
[2019-04-12] MEDS ORDERED: ONDANSETRON INJ 2 MG/ML 2 ML VIAL ONE (11:16)
[2019-04-12] MEDS ORDERED: fentaNYL citrate 100 MCG/2 ML VIAL ONE (11:16)
[2019-04-12] MEDS ORDERED: GLYCOPYRROLATE 0.2 MG/ML VIAL ONE (11:16)
[2019-04-12] MEDS ORDERED: PROPOFOL IV EMULSION 10 MG/ML 20 ML VIAL IV ONE (11:16)
[2019-04-12] MEDS ORDERED: BUPIVACAINE 0.5 % 5 MG/1 ML MPF 30ML VIAL ONE (11:28)
[2019-04-12] MEDS ORDERED: SODIUM CHLORIDE 0.9% PF 50 ML VIAL ONE (11:28)
[2019-04-12] MEDS ORDERED: BUPIVACAINE LIPOSOME 1.3% 266 MG/20 ML VIAL ONE (11:28)
[2019-04-12] MEDS ORDERED: ePHEDrine sulfate 50 MG/ML AMP IV PRN (11:52)
[2019-04-12] MEDS ORDERED: ONDANSETRON INJ 2 MG/ML 2 ML VIAL IV PRN ×2 (11:52→13:55)
[2019-04-12] MEDS ORDERED: fentaNYL citrate 100 MCG/2 ML VIAL IV PRN (11:52)
[2019-04-12] MEDS ORDERED: ATROPINE SULFATE 0.1 MG/ML 10ML SYR IV PRN (11:52)
[2019-04-12] MEDS ORDERED: PHENYLEPHRINE HCL 10 MG/ML VIAL ONE (12:21)
[2019-04-12] MEDS ORDERED: CLINDAMYCIN PHOS 300 MG/2 ML VIAL ONE (12:21)
[2019-04-12] MEDS ORDERED: NOREPINEPHRINE BITARTRATE 1 MG/ML 4 ML VIAL IV ONE (12:41)
[2019-04-12] MEDS ORDERED: ROCURONIUM BROMIDE 10 MG/ML 5 ML VIAL ONE (12:41)
[2019-04-12 12:51] LABS: Quantiferon Mitogen-NIL 0.02 IU/ML; Quantiferon NIL 0.05 IU/ML; Quantiferon TB Gold Plus INDETERMINATE (NEGATIVE); Quantiferon TB1-NIL <0.00 IU/ML
[2019-04-12] MEDS ORDERED: CLINDAMYCIN 900 MG in DEXTROSE 5% 50 ML IV ONE (13:02)
--- NOTE | 2019-04-12 13:09 | Post Operative Brief Note ---
Immediate Post Op Note v1 Date of Surgery April 12, 2019 Pre & Post Diagnosis Operation Date: 04/10/19 09:00 Pre-Op Diagnosis: Right Upper Lobe Cavitary Pneumonia Post-Op Diagnosis: Right Upper Lobe Cavitary Pneumonia Operation Date: 04/12/19 09:35 Pre-Op Diagnosis: Right pulmonary infiltrates unknown etiology Post-Op Diagnosis: Right pulmonary infiltrates unknown etiology Procedure Operation Date: 04/10/19 09:00 Actual Procedures p Bronchoscopy Radiology(Bilateral) - Alexandru Bennett MD Operation Date: 04/12/19 09:35 Actual Procedures p Rightwedge biopsy x2 right upper lobe, biopsy diagphragmatic implants, drain right pleural effusion, bronchoscopy(Right) - Wero Gomes MD, FACS Surgeon Wero Gomes MD, FACS [employer] Ramya CONNER Estimated Blood Loss 25 Findings Consistent with Post-Op Diagnosis Drains Chest Tube and Clarke Catheter
--- NOTE | 2019-04-12 13:21 | Critical Care Consultation ---
Date of Consultation April 12, 2019 Assessment & Plan (1) Admitted to intensive care unit: Reason Critically Ill: 68 y/o M s/p R upper lung lobe biopsy for cavitary PNA now requiring pressor and mech vent support PLAN: NEURO -Sedation with versed -Anxiety- cont escitalopram 20 mg daily CARDIO -On levophed for pressor support -HTN- hold toprol 50 mg BID -HLD- will restart atorvastatin 40 mg once off vent -h/o Takotsubo's cardiomyopathy, but last ECHO 03/28 shows normal LV wall motion and function PULM -on mech vent -s/p biopsy for R Upper Lobe Cavitary Pneumonia. Started IV Rocephin -COPD- once off vent, neb tx prn. Cont PO prednisone 40 mg and taper -Initial CT Chest on admission showed multiple small segmental pulmonary emboli and started on IV heparin, but was dc'd after hematoma left iliopsoas muscle. Later in admission started on Eliquis, but was dc'd after repeat CT showed increased iliopsoas hematoma size. Doppler of LE have been negative for DVT's. GI -NPO -Pepcid 20 mg daily RENAL/ -Normosol at 100 -No acute concerns ID -patient did have a fever on 04/09 but this was attributed to a possible non infectious pulmonary etiology (drug fever or fever from hematoma or emboli). Bronch 04/10 did not reveal purulent infxn -Starting IV rocephin -Pending results of lung biopsy -Cont monitor fever curve. Afebrile at present HEME -Anemic. No acute concerns for bleeding. H/H has been stable throughout stay ENDO -Hyperglycemia ICU protocol LINES: PIV x2 DVT Prophylaxis: SCD's Full Code DISPO: ICU Supervising Physician Co-Signing Physician Notes Dr. Dumont was resident physician during care of patient. I separately evaluated patient for urena portions of the history and the exam. I was present during the critical portion of medical decision making, and I discussed the case with the resident. I generally agree with the findings and plan. Low P to F ratio, significant secretion burden, I do not believe the patient would be able to adequately clear his secretions at this time especially with chest tube in postoperative state. Bronchoscopy completed today I have personally spent 30 minutes of critical care time in the direct management of this patient. This is a life/limb threatening event. This includes time spent evaluating patient, direct bedside care, chart review, placing orders, interpretation of diagnostic studies, discussion with consultants, patient, and/or family members regarding treatment decisions, as well as other required patient management activities. This time is exclusive of all separately billable procedures, and teaching time and separate from and in addition to any other critical care service time. History of Present Illness Attending Physician: Chucky Albright MD 68-year-old male with history of nonischemic cardiomyopathy, hyperlipidemia, hypertension, COPD, alcohol abuse, who was admitted originally March 27 with several weeks of progressively worsening weakness with some shortness of breath and cough. He had been his way since last September and was becoming progressively weaker and suffering multiple falls. He was found to have evidence of sepsis with possible multifocal pneumonia as well as pulmonary emboli, treated with antibiotic zosyn for 9 days and anticoagulation. Pt subsequently developed acute bleed into his iliopsoas muscle, and anticoagula tion was discontinued. He was also noted to have a cavitary lesion of his right upper lobe on initial CT scan on admission. Repeat CT scan was 2 weeks later showed no significant change in his apical opacity and more confluent opacification in the right upper lobe. Pulmonology performed a bronchoscopy and did not see much in the way of sputum or significant purulence. CT Sx was consulted because pt had been on antibiotics for quite some time and was not getting better. Decision was made to proceed a VATS procedure with biopsy performed today. Allergies Allergy/AdvReac Type Severity Reaction Status Date / Time amoxicillin Allergy Intermediate HIVES Verified 04/17/13 15:53 Home Medications Home Medications Medication Instructions Recorded Confirmed Type acetaminophen-codeine 1 tab PO TID PRN 03/27/19 03/27/19 History albuterol sulfate [Ventolin HFA] 2 inh INHALATION QID PRN 03/27/19 03/27/19 History aspirin 81 mg PO DAILY 03/27/19 03/27/19 History atorvastatin 40 mg PO DAILY 03/27/19 03/27/19 History azithromycin See Rx Instructions .ROUTE 03/27/19 03/27/19 History .COMPLEX PRN escitalopram oxalate 20 mg PO DAILY 03/27/19 03/27/19 History fluticasone furoate-vilanterol 1 inh INHALATION DAILY 03/27/19 03/27/19 History [Breo Ellipta] lorazepam 1 mg PO TID PRN 03/27/19 03/27/19 History meclizine 12.5 mg PO BID PRN 03/27/19 03/27/19 History multivitamin 1 tab PO DAILY 03/27/19 03/27/19 History omeprazole 20 mg PO BID 03/27/19 03/27/19 History potassium chloride [Klor-Con M10] 20 meq PO BID 03/27/19 03/27/19 History Patient History Medical History Severe sepsis Pulmonary edema Hematoma of left iliopsoas muscle Pulmonary emboli current. CTA chest 03/27 showed multiple small segmental pulmonary emboli. Pneumonia Right upper lobe with extensive and progressive consolidation bilaterally. Acute respiratory failure with hypoxia Multifocal atrial tachycardia Cardiology saw patient March 2019 and stated likely driven by underlying pulmonary issues. Alcohol abuse (Chronic) GERD (gastroesophageal reflux disease) (Chronic) Non-ischemic cardiomyopathy (Chronic) Past hx/o catecholamine induced CM with an echo this admission showing preserved LV function. HLD (hyperlipidemia) (Chronic) COPD (chronic obstructive pulmonary disease) (Chronic) exacerbation 2/2 pneumonia. Hypertension (Chronic) Surgical History History of cardiac cath (Chronic) 2011 - normal coronaries History of bronchoscopy Family History Father Alcoholism Mother Alcoholism Social History Preferred Language: Slovak Communication Ability: Effective Sheet Folder Required: No Beliefs That Will Affect Care: None Current Living Situation: Spouse Other Information That Helps Us Care for You: No Feels Safe at Home: Yes Safety Concerns: Feels Safe At This Time Smoking Status: Current every day smoker Tobacco Type: cigarettes Do You Dip or Chew Tobacco: No Second Hand Exposure: Yes Tobacco Cessation Education Requested by Patient: No Hx Alcohol Use: Yes Alcohol type: hard liquor Alcohol Intake Frequency: Daily Alcohol Intake Frequency Comment: 2 shots / night Hx Substance Use: No Review of Systems Review of Systems: Unobtainable due to endotracheal tube Physical Exam Constitutional: On [facility] vent ENMT: external ear and nose normal, oropharynx normal Respiratory: normal respiratory effort Cardiovascular: RRR, no murmur, no edema Gastrointestinal (Abdomen): normal bowel sounds, soft, nontender, no hepatosplenomegaly Psychiatric: sedated Results & Data Vital Signs (Past 12 Hours) Vital Signs Temp Pulse Resp BP BP Pulse Ox 04/12/19 11:14 93/52 L 04/12/19 10:51 36.6 C 81 20 96 04/12/19 06:33 36.5 C 56 L 20 95/53 L 90 04/12/19 04:39 36.7 C 63 20 123/62 92 Laboratory Results Laboratory Results - last 24 hr 04/09/19 04/12/19 04/12/19 15:54 05:49 05:49 WBC RBC Hgb Hct MCV MCH MCHC RDW Std Deviation RDW Coeff of Meet Plt Count MPV Immature Gran % (Auto) Neut % (Auto) Lymph % (Auto) [place] % (Auto) Eos % (Auto) Baso % (Auto) Immature Gran # (Auto) Neut # (Auto) Lymph # (Auto) [place] # (Auto) Eos # (Auto) Baso # (Auto) Sodium 134 L Potassium 3.4 L Chloride 100 Carbon Dioxide 28 Anion Gap 6.0 BUN 19 H Creatinine 0.47 L Est Cr Clr Drug Dosing 184.7 Est GFR ( Amer) 132.4 Est GFR (Non-Af Amer) 114.2 BUN/Creatinine Ratio 40.8 H Glucose 84 Calcium 8.4 L TB Test (QFT) Gold Plus INDETERMINATE A TB Test (QFT) Nil 0.05 TB Test Mitogen - Nil 0.02 TB Test Ag - Nil 1 <0.00 TB Test Ag - Nil 2 0.00 Blood Type O Positive Antibody Screen NEGATIVE 04/12/19 05:49 WBC 16.73 H RBC 2.78 L Hgb 9.0 L Hct 26.6 L MCV 95.7 MCH 32.4 MCHC 33.8 RDW Std Deviation 50.9 H RDW Coeff of Meet 14.6 H Plt Count 350 MPV 11.0 H Immature Gran % (Auto) 0.4 Neut % (Auto) 80.3 Lymph % (Auto) 9.6 [place] % (Auto) 9.1 Eos % (Auto) 0.5 Baso % (Auto) 0.1 Immature Gran # (Auto) 0.07 H Neut # (Auto) 13.44 H Lymph # (Auto) 1.61 [place] # (Auto) 1.52 H Eos # (Auto) 0.08 Baso # (Auto) 0.01 Sodium Potassium Chloride Carbon Dioxide Anion Gap BUN Creatinine Est Cr Clr Drug Dosing Est GFR ( Amer) Est GFR (Non-Af Amer) BUN/Creatinine Ratio Glucose Calcium TB Test (QFT) Gold Plus TB Test (QFT) Nil TB Test Mitogen - Nil TB Test Ag - Nil 1 TB Test Ag - Nil 2 Blood Type Antibody Screen Medications Administered Current Inpatient Medications Atropine Sulfate (Atropine Sulfate) 0.5 mg IV Q1M PRN PRN Reason: PACU Use-HR<40 &/or Bradycardi Stop: 04/12/19 16:52 Ephedrine Sulfate (Ephedrine Sulfate) 5 mg IV Q5M PRN PRN Reason: PACU Use Only-SBP<90 mmHg Stop: 04/12/19 16:52 Escitalopram Oxalate (Lexapro) 20 mg PO DAILY LE Stop: 04/27/19 08:59 Last Admin: 04/12/19 09:23 Dose: 20 mg Documented by: Famotidine (Pepcid) 20 mg PO DAILY LE Stop: 04/28/19 08:59 Last Admin: 04/12/19 09:22 Dose: 20 mg Documented by: Fentanyl Citrate (Fentanyl Citrate) 50 mcg IV Q5M PRN PRN Reason: PACU Use Only-Pain Stop: 04/12/19 16:52 Fluticasone/Vilanterol (Breo Ellipta) 1 puffs INH DAILY LE Stop: 05/08/19 10:59 Last Admin: 04/12/19 09:30 Dose: 1 puffs Documented by: Folic Acid (Folvite) 1 mg PO QAM LE Stop: 04/28/19 08:59 Last Admin: 04/12/19 09:22 Dose: 1 mg Documented by: Heparin Sodium (Beef Lung) (Heparin Sod 10 Unit/Ml Flush) 5 ml FLUSH PRN PRN PRN Reason: Flush Stop: 04/26/19 22:58 Promethazine HCl 12.5 mg/ (Sodium Chloride) 50.5 mls @ 202 mls/hr IV Q6H PRN PRN Reason: Nausea And Vomiting Stop: 05/04/19 23:18 Dextrose/Sodium Chloride (D5w And 1/2nss) 1,000 mls @ 100 mls/hr IV .Q10H [facility] Stop: 05/12/19 14:29 Acetaminophen (Ofirmev) 1,000 mg in 100 mls @ 400 mls/hr IV Q8H [facility] Stop: 05/12/19 13:59 Norepinephrine Bitartrate 8 mg (/ Dextrose) 508 mls @ 0 mls/hr IV .Q0M LE; Protocol Stop: 05/12/19 14:59 Midazolam HCl (Versed) 125 mg in 250 mls @ 2 mls/hr IV .Q24H [facility]; Protocol Stop: 04/13/19 14:52 Levalbuterol HCl (Xopenex 1.25mg/0.5ml Neb) 1.25 mg NEB Q6R PRN PRN Reason: shortness of breath Stop: 04/26/19 18:51 Lorazepam (Ativan) 1 mg SL Q4H PRN PRN Reason: Agitation Stop: 04/28/19 08:58 Last Admin: 04/12/19 07:32 Dose: 1 mg Documented by: Metoclopramide HCl (Reglan) 10 mg IV Q8H [facility] Stop: 04/13/19 06:31 Metoprolol Succinate (Toprol Xl) 50 mg PO BID [facility] Stop: 05/09/19 08:59 Last Admin: 04/12/19 09:23 Dose: Not Given Documented by: Metoprolol Tartrate (Lopressor) 5 mg IV Q4H PRN PRN Reason: hr>120 Stop: 04/27/19 08:59 Morphine Sulfate (Morphine Sulfate) 2 mg IV Q4H PRN PRN Reason: Pain Stop: 04/18/19 23:36 Last Admin: 04/12/19 14:40 Dose: 2 mg Documented by: Multivitamins (Multivitamin Tab) 1 tab PO DAILY [facility] Stop: 04/26/19 18:51 Last Admin: 04/12/19 09:22 Dose: 1 tab Documented by: Ondansetron HCl (Zofran) 4 mg IV ONCE PRN PRN Reason: PACU Use Only-Nausea/Vomiting Stop: 04/12/19 16:52 Ondansetron HCl (Zofran) 4 mg IV Q4H PRN PRN Reason: Nausea And Vomiting Stop: 05/12/19 13:54 Prednisone (Prednisone) 40 mg PO DAILY [facility] Stop: 05/12/19 08:59 Last Admin: 04/12/19 09:22 Dose: 40 mg Documented by: Thiamine HCl (Vitamin B-1) 100 mg PO QAM LE Stop: 04/30/19 09:14 Last Admin: 04/12/19 09:22 Dose: 100 mg Documented by: PG Care Time/CCT Total # of Minutes Spent Total Time Spent with Patient: Total time spent is greater than 50% in coordination of care (as documented) at patient's floor/unit and/or counseling patient: Resident Activity Tracking Resident Involvement: Resident Care Provided Care Provided: Adult Hospital Medicine
--- NOTE | 2019-04-12 13:59 | Anesthesiology Progress Note ---
Date of Service April 12, 2019 Anesthesia Post Procedure Vital Signs Vital Signs: Temp Pulse Pulse Pulse Resp BP BP 04/12/19 13:45 16 04/12/19 13:41 75 20 112/42 L 04/12/19 13:36 76 20 106/43 L 04/12/19 13:33 74 16 04/12/19 13:31 76 16 83/30 L 04/12/19 13:26 79 20 04/12/19 13:21 36.5 C 77 20 04/12/19 11:14 93/52 L 04/12/19 10:51 36.6 C 81 20 04/12/19 06:33 36.5 C 56 L 20 04/12/19 04:39 36.7 C 63 20 04/12/19 00:29 36.8 C 76 20 04/11/19 23:46 79 04/11/19 19:16 36.7 C 82 18 04/11/19 18:17 75 04/11/19 15:33 36.5 C 79 22 BP Pulse Ox 04/12/19 13:45 04/12/19 13:41 109/67 98 04/12/19 13:36 101/59 L 98 04/12/19 13:33 98 04/12/19 13:31 100/57 L 98 04/12/19 13:26 109/64 97 04/12/19 13:21 127/69 100 04/12/19 11:14 04/12/19 10:51 96 04/12/19 06:33 95/53 L 90 04/12/19 04:39 123/62 92 04/12/19 00:29 142/73 H 93 04/11/19 23:46 04/11/19 19:16 127/63 92 04/11/19 18:17 04/11/19 15:33 123/64 92 Pain Intensity Medial Back: Pain Intensity: 0 Transfer of Care Handoff Completed per policy Notes Mental Status: see notes below Patient Amnestic to Procedure: Yes Nausea / Vomiting: adequately controlled Pain: adequately controlled Airway Patency, RR, SpO2: see Notes below BP & HR: see Notes below Hydration State: stable & adequate Anesthetic Complications: no major complications apparent Notes: Patient in acute hypoxic respiratory failure prior to procedure. Copious thick secretions noted in bilateral bronchial tree on JEREMY placement. Challenging ventilator management required to keep oxygen saturations greater than 84 during one lung ventilation. After discussing the case with the surgeon and harvesting contractor, we decided to leave the patient intubated and sedated for possible serial bronchoscopies and management of respiratory failure. At the end of the procedure, the JEREMY was changed to a 8.5mm ETT over a tube exchange catheter. Bronchoscopy was performed by Dr Gomes and BAL was performed, from which specimens were taken. The harvesting contractor was present for the BAL and discussed the case with myself and Dr Gomes. Patient was transported to ICU, still requiring some mild to moderate vasoactive support. Oxygen saturations on 2 lungs were >96.
--- NOTE | 2019-04-12 14:16 | XRay Report ---
XR chest 1V portable CLINICAL HISTORY: 68 years-old Male presenting with VDRF. TECHNIQUE: Portable upright AP view of the chest was obtained. COMPARISON: 04/09/2019. FINDINGS: Endotracheal tube terminates in the midthoracic trachea over 4 cm from the kwaku. Interval placement of a large bore right pleural drain position at the right apex. Numerous external leads overlie the thorax to grating image quality. Atherosclerosis of the aortic arch. Cardiac silhouette top normal in size. Interval development of a small right apical pneumothorax. Lucent cavity suggested within the right upper lobe measuring nearly 5 cm. Dense opacity and volume loss of the right upper lobe a suture margin is suspected in the righ t mid lung. Slight interval increase in left mid lung opacities. No large effusion. IMPRESSION: 1. Postsurgical changes of the right mid lung with a small right pneumothorax and right pleural drai n now in place. 2. Volume loss and dense consolidation in the right upper lobe. Possible right upper lobe cavity. Un derlying infection not excluded. 3. Increasing left midlung infiltrate, likely pneumonia. Electronically signed by: Bharat Mir M.D. 04/12/2019 2:15 PM
[2019-04-12] MEDS ORDERED: D5W AND 1/2NSS 1,000 ML IV SCH (14:30)
--- NOTE | 2019-04-12 14:34 | Infectious Disease Progress Nt ---
Date of Service April 12, 2019 Assessment & Plan (1) Fever: 68-year-old male admitted with pulmonary emboli and possible pneumonia with sepsis, with complication of iliopsoas hematoma on anticoagulation, who is been improving, and now with fever but without localizing signs or symptoms. Given lack of symptomatology or localizing findings, would be concerned about possibility of drug fever or fever from hematoma or emboli. Has been afebrile for 48 hours. Continue antibiotics pending results of lung biopsy. (2) Pneumonia: (3) Hematoma of left iliopsoas muscle: Subjective Patient seen in follow-up for multifocal pneumonia with cavitation. Now status post bronchoscopy without finding significant purulence. Procalcitonin low. Cultures are unremarkable so far. Patient has been afebrile last 48 hours. Now for VATS procedure to further evaluate cavitary process. Review of Systems Review of Systems: All systems reviewed & are unremarkable except as noted in HPI & below Physical Exam Constitutional: WD/WN, vitals as above comfortable; no acute distress Eyes: PERRL, conjunctivae normal, anicteric sclerae ENMT: external ear and nose normal, oropharynx normal Neck: trachea midline, no thyromegaly neck nontender Respiratory: normal respiratory effort, lungs clear to auscultation normal percussion; does not use accessory muscles Cardiovascular: Rate/Rhythm: + irregularly irregular Heart Sounds: normal S1, normal S2 and + murmur (Systolic); no gallop and no cardiac rub Vessels: normal peripheral pulses; no JVD Gastrointestinal (Abdomen): normal bowel sounds, soft, nontender, no hepatosplenomegaly Musculoskeletal: no cyanosis or clubbing, extremities motor strength 5/5 Spine: thoracic spine normal to inspection and lumbar spine normal to inspection; no cervical spinal tenderness Skin: no rashes, warm and dry normal turgor; no lesions Neurologic: patellar DTR's 2+ bilat, sensation intact no focal motor deficits Psychiatric: A+Ox3, euthymic affect Orientation: cooperative Lymphatic: no cervical or axillary lymphadenopathy no inguinal lymphadenopathy Results & Data Vital Signs (Past 12 Hours) Vital Signs Temp Pulse Pulse Pulse Resp BP BP 04/12/19 13:51 37 C 76 23 99/44 L 04/12/19 13:46 70 16 106/28 L 04/12/19 13:45 16 04/12/19 13:41 75 20 112/42 L 04/12/19 13:36 76 20 106/43 L 04/12/19 13:33 74 16 04/12/19 13:31 76 16 83/30 L 04/12/19 13:26 79 20 04/12/19 13:21 36.5 C 77 20 04/12/19 11:14 93/52 L 04/12/19 10:51 36.6 C 81 20 04/12/19 06:33 36.5 C 56 L 20 04/12/19 04:39 36.7 C 63 20 BP Pulse Ox 04/12/19 13:51 116/66 96 04/12/19 13:46 119/61 97 04/12/19 13:45 04/12/19 13:41 109/67 98 04/12/19 13:36 101/59 L 98 04/12/19 13:33 98 04/12/19 13:31 100/57 L 98 04/12/19 13:26 109/64 97 04/12/19 13:21 127/69 100 04/12/19 11:14 04/12/19 10:51 96 04/12/19 06:33 95/53 L 90 04/12/19 04:39 123/62 92 Laboratory Results Short CBC 04/12/19 Range/Units 05:49 WBC 16.73 H (4.8-10.8) K/uL Hgb 9.0 L (14.0-18.0) g/dL Hct 26.6 L (42-52) % Plt Count 350 (130-400) K/uL BMP 04/12/19 05:49 Sodium 134 L Potassium 3.4 L Chloride 100 Carbon Dioxide 28 BUN 19 H Creatinine 0.47 L Glucose 84 Calcium 8.4 L Diagnostic Findings Microbiology 04/10/19 10:02 Bronch Wash,Right Upper Lobe Gram Stain - Final 04/10/19 10:02 Bronch Wash,Right Upper Lobe Bronchoalveolar Lavage Culture - Final Moderate normal hugo. 04/09/19 10:31 Blood Aerobic Blood Culture - Preliminary No growth in Aerobic bottle after 48 hours. 04/09/19 10:31 Blood Anaerobic Blood Culture - Preliminary No growth in Anaerobic bottle after 48 hours. 04/09/19 10:07 Blood Aerobic Blood Culture - Preliminary No growth in Aerobic bottle after 48 hours. 04/09/19 10:07 Blood Anaerobic Blood Culture - Preliminary No growth in Anaerobic bottle after 48 hours. 04/10/19 10:02 Bronch Wash,Right Upper Lobe Acid Fast Bacilli Smear - Final 04/10/19 10:02 Bronch Wash,Right Upper Lobe Fungal Smear - Final 04/09/19 15:54 Blood Cryptococcal Antigen Test - Final 03/27/19 17:00 Urine,Random Urine Culture - Final Enterococcus faecalis 03/27/19 17:01 Blood Aerobic Blood Culture - Final No growth in Aerobic bottle after 5 days. 03/27/19 17:01 Blood Anaerobic Blood Culture - Final No growth in Anaerobic bottle after 5 days. 03/27/19 16:48 Blood Aerobic Blood Culture - Final No growth in Aerobic bottle after 5 days. 03/27/19 16:48 Blood Anaerobic Blood Culture - Final No growth in Anaerobic bottle after 5 days.
[2019-04-12] MEDS: DEXMEDETOMIDINE HCL 200 MCG in SODIUM CHLORIDE 0.9% 48 ML IV SCH ×2 (14:36→14:48)
[2019-04-12] MEDS: MoRPHine SULFATE 2 MG/ML CARP IV PRN ×2 (14:40→21:07)
[2019-04-12] MEDS ORDERED: MIDAZOLAM HCL 125 MG/250 ML BAG IV STA (14:53)
[2019-04-12] MEDS: NOREPINEPHRINE BIT INJ 8 MG in DEXTROSE 5% 500 ML IV SCH (15:05)
[2019-04-12] MEDS: ACETAMINOPHEN 1,000 MG/100 ML VIAL IV SCH ×2 (15:10→22:07)
[2019-04-12] MEDS: METOCLOPRAMIDE HCL INJ 5 MG/ML 2 ML VIAL IV SCH ×2 (15:11→22:20)
--- NOTE | 2019-04-12 15:47 | Hospitalist Progress Note ---
Date of Service April 12, 2019 Assessment & Plan (1) Severe sepsis: On presentation to hospital "Met criteria for severe sepsis per current CMS criteria (tachycardia, tachypnea, leukocytosis, elevated lactate). Procalcitonin elevated. Blood cultures obtained Patient received broad-spectrum intravenous antibiotic coverage. Received fluid resuscitation. Lactic acid levels were followed-normalized with IV fluid and ABx" (2) Pneumonia: -68-year-old with severe chronic obstructive pulmonary disease, cavitary process, right upper lobe with extensive and progressive consolidation bilaterally and was on a 9 day antibiotic course of for multilobar pneumonia -patient did have a fever on 04/09/19 but Zosyn discontinued as fever was attributed to a possible non infectious pulmonary etiology ( drug fever versus fever from Pulmonary embolism vs iliopsoas hematoma) -currently off Zosyn -bronchocsopy on 04/10/19: did not discern a purulent infection on bronchoscopy -Pulmonary service consulted CT surgery for lung biopsy -on 04/12/19 patient had Rightwedge biopsy x2 right upper lobe, biopsy diagphragmatic implants, drain right pleural effusion, bronchoscopy(Right) -currently in the ICU after the biopsy still intubated and on pressors (3) Acute respiratory failure with hypoxia: -during the hospital stay, patient had been on oxymask supplementary oxygen -patient had lung biopsy on 04/12/19 and remains intubated (4) COPD (chronic obstructive pulmonary disease): Exacerbation COPD secondary to pneumonia. -albuterol nebulizer treatments as needed. -has been on solumedrol 40 mg IV daily, stopped solumedrol after last day on 04/11/19 and transitioned to prednisone; will need to modify steroid therapy depending on respiratory status (5) Hypotension: Occurred on April 06, 2019 Likely secondary to hypovolemia, likely from diuretics patient is not on diuretics at this time currently on pressors after the lung biopsy on 04/12/19 (6) Pulmonary emboli: (present on admission) CTA of chest performed on 03/27 demonstrated multiple small segmental pulmonary emboli. Patient was started on intravenous heparin. Venous duplex of lower extremities on 03/[address] of abdomen pelvis on 03/30 demonstrated hematoma left iliopsoas muscle. IV heparin discontinued. Pulmonary emboli were relatively small (segmental and subsegmental). No DVT's identified in lower extremities at this time. On April 03, 2019 started Eliquis 10mg BID April 05, 2019 patient developed increased abdominal pain and CAT scan of the abdomen and pelvis confirmed increased iliopsoas hematoma size Discussed with Dr. Collado, recommend to discontinue Eliquis Repeat Doppler of the legs: Negative for DVT (7) Abnormal CT scan, chest: CT of chest demonstrated a 6.2 x 4.5 cm thick-walled cavitary lesion within the right upper lobe (as well as pulmonary emboli and extensive airspace opacities as noted). Right upper lobe lesion may be worrisome for malignancy. -Pulmonary service consulted CT surgery for evaluation of possible lung biopsy -on 04/12/19 patient had Rightwedge biopsy x2 right upper lobe, biopsy diagphragmatic implants, drain right pleural effusion, bronchoscopy(Right) -currently in the ICU after the biopsy still intubated and on pressors (8) Pulmonary edema: CT of chest on day of admission suggested possible pulmonary edema. BNP elevated. History Takotsubo's cardiomyopathy, but recent echocardiogram shows normal left ventricular wall motion and function. Possible acute left ventricular diastolic CHF. Possible noncardiac pulmonary edema. -Diuretics initially were started but then stopped due to hypovolemia and hypotension (9) Multifocal atrial tachycardia: -On levophed for pressor support and oral metoprolol is being held for now, if tachycardia then go use IV metoprolol (10) Hypertension: -On levophed for pressor support and oral metoprolol is being held for now (11) Urinary tract infection: Admission UA showed leukocyte esterase, WBCs, bacteria. Urine culture (+) enterococcus faecalis Sensitive to penicillin Received Zosyn for 9 days during this hospital course Urine culture was repeated and is negative (12) Hematoma of left iliopsoas muscle: Management as noted above (13) DVT prophylaxis: SCDs (14) Discharge planning issues: In the Intensive Care Unit Subjective Patient in the intensive care unit after lung biopsy. He is intubated. On Levophed and sedated on midazolam Physical Exam Constitutional: Patient in the intensive care unit after lung biopsy. He is intubated. On Levophed and sedated on midazolam Eyes: slow pupillary responses to light Lungs: intubated and on mechanical ventilation, has Pleurx Catheter Heart: heart rate and heart rate in the 70s Abdomen: soft, bowel sounds present : has looney Legs: SCDs Results & Data Vital Signs (Past 12 Hours) Vital Signs Temp Pulse Pulse Pulse Resp BP BP 04/12/19 15:30 36.6 C 64 94/59 L 04/12/19 15:11 67 90/55 L 04/12/19 15:00 72 105/66 04/12/19 14:46 75 84/56 L 04/12/19 13:51 37 C 76 23 04/12/19 13:46 70 16 04/12/19 13:45 16 04/12/19 13:41 75 20 04/12/19 13:36 76 20 04/12/19 13:33 74 16 04/12/19 13:31 76 16 04/12/19 13:26 79 20 04/12/19 13:21 36.5 C 77 20 04/12/19 11:14 93/52 L 04/12/19 10:51 36.6 C 81 20 04/12/19 06:33 36.5 C 56 L 20 04/12/19 04:39 36.7 C 63 20 BP BP Pulse Ox 04/12/19 15:30 99 04/12/19 15:11 98 04/12/19 15:00 98 04/12/19 14:46 97 04/12/19 13:51 99/44 L 116/66 96 04/12/19 13:46 106/28 L 119/61 97 04/12/19 13:45 04/12/19 13:41 112/42 L 109/67 98 04/12/19 13:36 106/43 L 101/59 L 98 04/12/19 13:33 98 04/12/19 13:31 83/30 L 100/57 L 98 04/12/19 13:26 109/64 97 04/12/19 13:21 127/69 100 04/12/19 11:14 04/12/19 10:51 96 04/12/19 06:33 95/53 L 90 04/12/19 04:39 123/62 92
[2019-04-12 16:13] LABS: iSTAT Arterial Blood Gas HCO3 23 meg/L (19-24); iSTAT Arterial Blood Gas pCO2 44 mmHg (35-46); iSTAT Arterial Blood Gas pH 7.32 (7.35-7.45); iSTAT Carbon Dioxide 24 mEq/l (24-31); iSTAT Site Art Line
[2019-04-12 16:17] LABS: Albumin Level 1.9 gm/dl (3.4-5.0); BUN Creatinine Ratio 43.7 (10-20); Calcium 8.2 mg/dl (8.5-10.1); Creatinine Clr Calc Pharmacy 149.7 ml/min; Est GFR (African American) 121.4; Est GFR (Non-African American) 104.8
[2019-04-12 16:18] LABS: Albumin Globulin Ratio 0.5 (0.9-2); Bilirubin,Total 0.8 mg/dl (0.2-1); Globulin 3.7 gm/dl (2.5-4.0); Hemoglobin 9.1 g/dL (14.0-18.0); Mean Corpuscular Hgb Conc 33.7 g/dL (32-36); Mean Corpuscular Volume 97.1 fL (80-100); Mean Platelet Volume 10.8 fL (7.4-10.4); Platelet Count 367 K/uL (130-400); Potassium 4.3 mmol/L (3.5-5.1); RDW Coefficient of Variation 14.7 % (11.5-14.5); RDW Standard Deviation 52.5 fL (36.4-46.3); Red Blood Count 2.78 M/uL (4.7-6.1); Total Protein 5.6 gm/dl (6.4-8.2); White Blood Count 32.57 K/uL (4.8-10.8)
[2019-04-12 16:24] LABS: Basophils # (auto) 0.01 K/uL (0-0.2); Eosinophils # (auto) 0.01 K/uL (0-0.5); Immature Granulocytes # (auto) 0.27 K/uL (0.00-0.02); Immature Granulocytes % (auto) 0.8 %; Lymphocytes # (auto) 1.19 K/uL (1.2-3.4); Lymphocytes % (auto) 3.7 %; Monocytes # (auto) 0.73 K/uL (0.11-0.59); Monocytes % (auto) 2.2 %; Neutrophils # (auto) 30.36 K/uL (1.4-6.5); Neutrophils % (auto) 93.3 %
[2019-04-12] MEDS: NORMOSOL-R 1,000 ML IV SCH (16:57)
[2019-04-12] MEDS: ICU PROTOCOL FOR HYPERGLYCEMIA SCH (17:01)
[2019-04-12] MEDS: cefTRIAXone SODIUM 2,000 MG in DEXTROSE 5% 50 ML IV SCH (17:23)
--- NOTE | 2019-04-12 22:22 | Operative Report ---
DATE OF OPERATION: 04/12/2019 PREOPERATIVE DIAGNOSIS: Pulmonary infiltrates with a cystic lesion, right upper lobe, unknown etiology. POSTOPERATIVE DIAGNOSIS: Pulmonary infiltrates with a cystic lesion, right upper lobe, unknown etiology. PROCEDURE: 1. Right thoracoscopy with wedge biopsy of right upper lobe x2. 2. Biopsy of calcified implant on diaphragmatic surface. 3. Drainage of pleural effusion. SURGEON: Wero Gomes MD VEGETABLE FARMER: DALILA Law (Mr. Bui was present for the entire case and was instrumental in holding the camera and first assisting to help close the skin incisions at the conclusion). ANESTHESIA: General anesthesia with endotracheal intubation using double lumen tube. SPECIFICS OF PROCEDURE AND FINDINGS: Roger Wills is a 68-year-old male who has a history of alcohol abuse and presented with some hemoptysis with what was first felt to be CHF exacerbation, but he has a dense infiltrate which is worse in his right upper lobe and also has a cystic lesion. He has not really responded to antibiotic therapy and I was asked to see him for a lung biopsy. I had a long talk with the patient in the last 2 days and we elected to proceed with a right thoracoscopic lung biopsy. On 04/12/2019, the patient was brought to the operating room and a double lumen tube was inserted. He was then turned in his left lateral decubitus position. His right chest was used and I did this thoracoscopically and made 3 incisions, two anterior and posterior to the scapula were 5 mm incisions and there was a 12 mm incision inferiorly. He tolerated it well. DESCRIPTION OF PROCEDURE: The patient was brought to the operating room and laid in supine position. General anesthesia was induced and endotracheal intubation was performed. The patient was turned in the left lateral decubitus position. His right chest was prepped and draped in usual sterile fashion. Prophylactic antibiotics were given. A 5-mm port was then placed posterior to the scapula. We did make a small incision and it could be seen there were no adhesions in this area. However, it could be seen with a 30-degree 5-mm scope that there were adhesions anteriorly and medially to the upper lobe and the chest wall. Another 5-mm port was then placed into the scapula and a bit anterior to the latissimus dorsi muscle. We were then able to triangulate down and put a 12-mm port about the mid axillary line just above the interspace above the diaphragm. With these 3 ports, we were able to get into his chest and we took these adhesions down easily with blunt dissection. They were rather flimsy, but he did have some oozing of blood. For this reason, I inserted an Aquamantys and cauterized the inside of the chest. After closely inspecting the lung, I realized we were not going to be able to remove this cystic lesion without doing a major resection. I removed a generous portion of the lung in the posterior lateral aspect of the upper lobe. This was very thickened and although we did not have much in the way of bleeding, the tissue was quite thick. I sent this off for frozen section. While waiting for this, I did another generous wedge biopsy of the medial aspect of the upper lobe and this was much softer and more normal in appearance. He also had 300 mL or so of fluid and this was suctioned off and some sent for cytology and microbiology. While waiting for the frozen section, 266 mg of Exparel were mixed with 30 mL of 0.25% bupivacaine and 250 mL of normal saline. I used this to block each of the 3 ports before making the incision. I also performed intercostal blocks from the 2nd through the 11th rib intrathoracically. We had very little in the way of bleeding from this. I then grasped the anterior part of the cyst, but it was so thick and there was no way we were going to be able to get this out without causing a big problem with the lung. In addition, he was struggling. We had to keep ventilating the right side, but hemodynamically did not tolerate one-lung ventilation. For this reason, we got our two generous biopsies from the medial and lateral aspect and then did send the fluid for culture as well as the diaphragmatic implant which appeared to be calcified. It was also exophytic. As the patient was a bit shaky, we elected to end the case. The Exparel was used to do an intercostal block and we placed a 24-[place] chest tube to the inferior most port site and then closed the other port sites with 4-0 Monocryl in running continuous fashion. A heavy silk was used to anchor the chest tube to the patient's skin. He tolerated it well, but was not able to be extubated. For this reason, we turned him back into supine position, put a single lumen tube in, and I performed a bronchoscopy which was dictated separately. I attest to the content of the Intraoperative Record and any orders documented therein. Any exception s are noted below.
--- NOTE | 2019-04-12 22:29 | Operative Report ---
DATE OF OPERATION: 04/12/2019 PROCEDURE: Therapeutic fiberoptic bronchoscopy. SURGEON: Wero Gomes MD ANESTHESIA: General anesthesia with endotracheal intubation. INDICATION FOR PROCEDURE AND FINDINGS: This is a 68-year-old male who underwent a thoracoscopic right lung biopsy. He really did not do well with one-lung ventilation and was making sputum in the endotracheal tube. DESCRIPTION OF PROCEDURE: For this reason, after the case was over, he was turned and the double lumen tube removed. A single lumen endotracheal tube placed. I went through this without difficulty with a regular fiberoptic bronchoscope after calling appropriate timeout. We suctioned out a tremendous amount of sputum within the endotracheal tube and more proximal airways. I aggressively irrigated out each of the tertiary airways and there was a fair amount of purulent sputum noted in the right upper lobe and this was sent for culture after irrigating it out. However, it cleared quickly in the right, the entire left bronchial tree cleared quickly with saline. When I was satisfied that he was cleaned out as far as we were going to get it, we removed the bronchoscope. He was returned to the intensive care unit in stable condition, but still on the ventilator. I attest to the content of the Intraoperative Record and any orders documented therein. Any exception s are noted below.
[2019-04-13] MEDS: NORMOSOL-R 1,000 ML IV SCH ×3 (01:52→22:10)
[2019-04-13] MEDS: MIDAZOLAM HCL 125 MG/250 ML BAG IV SCH (01:52)
[2019-04-13 04:08] LABS: HCO3 ABG 25 mmol/L (19-24); PCO2 ABG 39 mmHg (35-46); PO2 ABG 78 mm/Hg (80-95); pH ABG 7.43 (7.35-7.45)
[2019-04-13 04:11] LABS: Allen Test POS (Pos)
[2019-04-13 04:18] LABS: Albumin Level 1.9 gm/dl (3.4-5.0); BUN Creatinine Ratio 53.9 (10-20); Calcium 7.8 mg/dl (8.5-10.1); Creatinine Clr Calc Pharmacy 222.6 ml/min; Est GFR (African American) 142.9; Est GFR (Non-African American) 123.3; Magnesium 2.2 mg/dl (1.8-2.4); Potassium 4.1 mmol/L (3.5-5.1)
[2019-04-13 04:21] LABS: Albumin Globulin Ratio 0.6 (0.9-2); Bilirubin,Total 0.8 mg/dl (0.2-1); Globulin 3.3 gm/dl (2.5-4.0); Phosphorus 3.5 mg/dl (2.5-4.9); Total Protein 5.2 gm/dl (6.4-8.2)
[2019-04-13 04:49] LABS: Basophils # (auto) 0.01 K/uL (0-0.2); Basophils % (auto) 0.1 %; Eosinophils # (auto) 0.01 K/uL (0-0.5); Eosinophils % (auto) 0.1 %; Hematocrit (blood only) 23.6 % (42-52); Hemoglobin 8.2 g/dL (14.0-18.0); Immature Granulocytes # (auto) 0.07 K/uL (0.00-0.02); Immature Granulocytes % (auto) 0.4 %; Lymphocytes # (auto) 0.85 K/uL (1.2-3.4); Lymphocytes % (auto) 4.4 %; Mean Corpuscular Hgb Conc 34.7 g/dL (32-36); Mean Corpuscular Volume 98.3 fL (80-100); Mean Platelet Volume 10.6 fL (7.4-10.4); Monocytes # (auto) 1.17 K/uL (0.11-0.59); Monocytes % (auto) 6.1 %; Neutrophils # (auto) 17.07 K/uL (1.4-6.5); Neutrophils % (auto) 88.9 %; Platelet Count 264 K/uL (130-400); RDW Coefficient of Variation 14.5 % (11.5-14.5); RDW Standard Deviation 51.9 fL (36.4-46.3); White Blood Count 19.18 K/uL (4.8-10.8)
[2019-04-13] MEDS: ACETAMINOPHEN 1,000 MG/100 ML VIAL IV SCH ×3 (06:04→22:09)
[2019-04-13] MEDS: METOCLOPRAMIDE HCL INJ 5 MG/ML 2 ML VIAL IV SCH (06:05)
--- NOTE | 2019-04-13 07:09 | XRay Report ---
XR chest 1V portable CLINICAL HISTORY: 68 years-old Male presenting with VDRF. TECHNIQUE: Portable upright AP view of the chest was obtained. COMPARISON: 04/12/2019. FINDINGS: Endotracheal tube terminates in the midthoracic trachea approximate 5 cm from the kwaku. Numerous ov erlying external leads degrade image quality. Large bore right pleural drain remains position at the right upper lung. Atherosclerosis of the aortic arch. Cardiac silhouette mildly enlarged. Decreased size of the now tra ce right pneumothorax. Increased fluid at the right apex. Persistent dense opacity in the right upper lung with possible underlying cavity within the right upper lung. Significant interval decrease with near resolution of the prior left mid lung opacity. Degenerative changes of the thoracic spine. IMPRESSION: 1. Significant decreased size of the now trace right thorax with the right pleural drain unchanged i n position. 2. Significant decrease in left midlung infiltrate. 3. Tubes appropriately positioned. 4. Persistent dense infiltrate/consolidation in the right upper lung with possible underlying cavity . Electronically signed by: Bharat Mir M.D. 04/13/2019 7:08 AM
--- NOTE | 2019-04-13 08:00 | Critical Care Progress Note ---
Date of Service April 13, 2019 Assessment & Plan (1) Admitted to intensive care unit: Reason Critically Ill: 68 y/o M s/p R upper lung lobe biopsy for cavitary PNA now requiring pressor and mech vent support PLAN: NEURO -Sedation with versed -Anxiety- cont escitalopram 20 mg daily CARDIO -On levophed for pressor support, weaning off -HTN- hold toprol 50 mg BID -HLD- will restart atorvastatin 40 mg once off vent -h/o Takotsubo's cardiomyopathy, but last ECHO 03/28 shows normal LV wall motion and function PULM -on mech vent, SBT tomorrow -s/p biopsy for R Upper Lobe Cavitary Pneumonia. Started IV Rocephin. Gram stain and bronchial washing show rare gram-positive cocci. R lung show no organisms. No evidence of yeast or hyphae on the fungal smears of lung -today bronch for secretion burden/ mucoid impaction of bronchi -COPD- once off vent, neb tx prn. Cont PO prednisone 40 mg and taper -Initial CT Chest on admission showed multiple small segmental pulmonary emboli and started on IV heparin, but was dc'd after hematoma left iliopsoas muscle. Later in admission started on Eliquis, but was dc'd after repeat CT showed increased iliopsoas hematoma size. Doppler of LE have been negative for DVT's. GI -NPO -Pepcid 20 mg daily RENAL/ -Normosol at 100 -No acute concerns ID -patient did have a fever on 04/09 but this was attributed to a possible non infectious pulmonary etiology (drug fever or fever from hematoma or emboli). Bronch 04/10 did not reveal purulent infxn -Cont IV rocephin -Cont monitor fever curve. Afebrile at present HEME -Anemic. No acute concerns for bleeding. H/H has been stable throughout stay ENDO -Hyperglycemia ICU protocol LINES: PIV x2, Clarke DVT Prophylaxis: SCD's Full Code DISPO: ICU Supervising Physician Co-Signing Physician Notes Dr. Dumont was resident physician during care of patient. I separately evaluated patient for urena portions of the history and the exam. I was present during the critical portion of medical decision making, and I discussed the case with the resident. I generally agree with the findings and plan. Low P to F ratio, significant secretion burden, I do not believe the patient would be able to adequately clear his secretions at this time especially with chest tube in postoperative state. Bronchoscopy completed today I have personally spent 30 minutes of critical care time in the direct management of this patient. This is a life/limb threatening event. This includes time spent evaluating patient, direct bedside care, chart review, placing orders, interpretation of diagnostic studies, discussion with consultants, patient, and/or family members regarding treatment decisions, as well as other required patient management activities. This time is exclusive of all separately billable procedures, and teaching time and separate from and in addition to any other critical care service time. Subjective Subjective hx limited 2/2 mech vent. No reported overnight events. Review of Systems Review of Systems: Unobtainable due to endotracheal tube Physical Exam ENMT: external ear and nose normal, oropharynx normal Respiratory: intubated on vent Cardiovascular: RRR, no murmur, no edema Gastrointestinal (Abdomen): normal bowel sounds, soft, nontender, no hepatosplenomegaly Results & Data Vital Signs (Past 12 Hours) Vital Signs Temp Pulse Resp BP Pulse Ox 04/13/19 06:00 77 100/53 L 96 04/13/19 05:40 65 18 96 04/13/19 05:00 64 96/55 L 96 04/13/19 04:00 36.5 C 66 114/64 97 04/13/19 03:00 62 18 101/60 97 04/13/19 02:16 61 17 97 04/13/19 02:00 62 110/61 97 04/13/19 01:00 71 91/55 L 95 04/13/19 00:00 60 102/58 L 97 04/12/19 23:05 74 18 96 04/12/19 23:00 72 104/57 L 95 04/12/19 22:00 80 125/71 97 04/12/19 21:00 77 124/66 93 Laboratory Results Laboratory Results - last 24 hr 04/09/19 04/10/19 04/12/19 15:54 10:02 14:20 WBC RBC Hgb Hct MCV MCH MCHC RDW Std Deviation RDW Coeff of Meet Plt Count MPV Immature Gran % (Auto) Neut % (Auto) Lymph % (Auto) Harper % (Auto) Eos % (Auto) Baso % (Auto) Immature Gran # (Auto) Neut # (Auto) Lymph # (Auto) Harper # (Auto) Eos # (Auto) Baso # (Auto) Hypersegmented Neuts Sample Site POC pH POC pCO2 POC pO2 POC HCO3 POC Total CO2 POC Base Excess ABG pH ABG pCO2 ABG pO2 ABG HCO3 POC ABG O2 Sat ABG O2 Saturation ABG Base Excess Stephen Test Barometric Pressure Oxygen Given O2 Delivery Device POC O2 Rate Minute Ventilation Tidal Volume PEEP Sodium Potassium Chloride Carbon Dioxide Anion Gap BUN Creatinine Est Cr Clr Drug Dosing Est GFR ( Amer) Est GFR (Non-Af Amer) BUN/Creatinine Ratio Glucose POC Glucose Calcium Ionized Calcium Phosphorus Magnesium Total Bilirubin AST ALT Alkaline Phosphatase Total Protein Albumin Globulin Albumin/Globulin Ratio Nasal Screen MRSA (PCR) Negative BAL A.galactomannan Ag Not Detected BAL A.galactomann Index 0.13 TB Test (QFT) Gold Plus INDETERMINATE A TB Test (QFT) Nil 0.05 TB Test Mitogen - Nil 0.02 TB Test Ag - Nil 1 <0.00 TB Test Ag - Nil 2 0.00 04/12/19 04/12/19 04/12/19 15:48 15:48 15:56 WBC 32.57 H* D RBC 2.78 L Hgb 9.1 L Hct 27.0 L MCV 97.1 MCH 32.7 MCHC 33.7 RDW Std Deviation 52.5 H RDW Coeff of Meet 14.7 H Plt Count 367 MPV 10.8 H Immature Gran % (Auto) 0.8 Neut % (Auto) 93.3 Lymph % (Auto) 3.7 Harper % (Auto) 2.2 Eos % (Auto) 0.0 Baso % (Auto) 0.0 Immature Gran # (Auto) 0.27 H Neut # (Auto) 30.36 H Lymph # (Auto) 1.19 L Harper # (Auto) 0.73 H Eos # (Auto) 0.01 Baso # (Auto) 0.01 Hypersegmented Neuts Occasional Sample Site Art Line POC pH 7.32 L POC pCO2 44 POC pO2 108 H POC HCO3 23 POC Total CO2 24 POC Base Excess -4.0 ABG pH ABG pCO2 ABG pO2 ABG HCO3 POC ABG O2 Sat 98.0 H ABG O2 Saturation ABG Base Excess Stephen Test NA Barometric Pressure Oxygen Given O2 Delivery Device Ventilator POC O2 Rate 16 Minute Ventilation 8.6 Tidal Volume 500 PEEP 5 Sodium 133 L Potassium 4.3 D Chloride 101 Carbon Dioxide 25 Anion Gap 7.0 BUN 25 H Creatinine 0.58 L Est Cr Clr Drug Dosing 149.7 Est GFR ( Amer) 121.4 Est GFR (Non-Af Amer) 104.8 BUN/Creatinine Ratio 43.7 H Glucose 168 H POC Glucose Calcium 8.2 L Ionized Calcium Phosphorus Magnesium Total Bilirubin 0.8 AST 50 H ALT 65 Alkaline Phosphatase 168 H Total Protein 5.6 L Albumin 1.9 L Globulin 3.7 Albumin/Globulin Ratio 0.5 L Nasal Screen MRSA (PCR) BAL A.galactomannan Ag BAL A.galactomann Index TB Test (QFT) Gold Plus TB Test (QFT) Nil TB Test Mitogen - Nil TB Test Ag - Nil 1 TB Test Ag - Nil 2 04/13/19 04/13/19 04/13/19 03:46 03:46 03:46 WBC 19.18 H D RBC 2.40 L Hgb 8.2 L Hct 23.6 L MCV 98.3 MCH 34.2 H MCHC 34.7 RDW Std Deviation 51.9 H RDW Coeff of Meet 14.5 Plt Count 264 MPV 10.6 H Immature Gran % (Auto) 0.4 Neut % (Auto) 88.9 Lymph % (Auto) 4.4 Harper % (Auto) 6.1 Eos % (Auto) 0.1 Baso % (Auto) 0.1 Immature Gran # (Auto) 0.07 H Neut # (Auto) 17.07 H Lymph # (Auto) 0.85 L Harper # (Auto) 1.17 H Eos # (Auto) 0.01 Baso # (Auto) 0.01 Hypersegmented Neuts Sample Site POC pH POC pCO2 POC pO2 POC HCO3 POC Total CO2 POC Base Excess ABG pH ABG pCO2 ABG pO2 ABG HCO3 POC ABG O2 Sat ABG O2 Saturation ABG Base Excess Stephen Test Barometric Pressure Oxygen Given O2 Delivery Device POC O2 Rate Minute Ventilation Tidal Volume PEEP Sodium 134 L Potassium 4.1 Chloride 100 Carbon Dioxide 27 Anion Gap 7.0 BUN 21 H Creatinine 0.39 L Est Cr Clr Drug Dosing 222.6 Est GFR ( Amer) 142.9 Est GFR (Non-Af Amer) 123.3 BUN/Creatinine Ratio 53.9 H Glucose 112 H POC Glucose Calcium 7.8 L Ionized Calcium 1.08 L Phosphorus 3.5 Magnesium 2.2 Total Bilirubin 0.8 AST 33 ALT 49 Alkaline Phosphatase 135 H Total Protein 5.2 L Albumin 1.9 L Globulin 3.3 Albumin/Globulin Ratio 0.6 L Nasal Screen MRSA (PCR) BAL A.galactomannan Ag BAL A.galactomann Index TB Test (QFT) Gold Plus TB Test (QFT) Nil TB Test Mitogen - Nil TB Test Ag - Nil 1 TB Test Ag - Nil 2 04/13/19 04/13/19 03:49 09:33 WBC RBC Hgb Hct MCV MCH MCHC RDW Std Deviation RDW Coeff of Meet Plt Count MPV Immature Gran % (Auto) Neut % (Auto) Lymph % (Auto) Harper % (Auto) Eos % (Auto) Baso % (Auto) Immature Gran # (Auto) Neut # (Auto) Lymph # (Auto) Harper # (Auto) Eos # (Auto) Baso # (Auto) Hypersegmented Neuts Sample Site POC pH POC pCO2 POC pO2 POC HCO3 POC Total CO2 POC Base Excess ABG pH 7.43 ABG pCO2 39 ABG pO2 78 L ABG HCO3 25 H POC ABG O2 Sat ABG O2 Saturation 95.0 ABG Base Excess 1.0 Stephen Test POS Barometric Pressure 731.0 Oxygen Given 50% O2 Delivery Device POC O2 Rate Minute Ventilation Tidal Volume PEEP Sodium Potassium Chloride Carbon Dioxide Anion Gap BUN Creatinine Est Cr Clr Drug Dosing Est GFR ( Amer) Est GFR (Non-Af Amer) BUN/Creatinine Ratio Glucose POC Glucose 127 H Calcium Ionized Calcium Phosphorus Magnesium Total Bilirubin AST ALT Alkaline Phosphatase Total Protein Albumin Globulin Albumin/Globulin Ratio Nasal Screen MRSA (PCR) BAL A.galactomannan Ag BAL A.galactomann Index TB Test (QFT) Gold Plus TB Test (QFT) Nil TB Test Mitogen - Nil TB Test Ag - Nil 1 TB Test Ag - Nil 2 Medications Administered Current Inpatient Medications Escitalopram Oxalate (Lexapro) 20 mg PO DAILY LE Stop: 04/27/19 08:59 Last Admin: 04/13/19 10:03 Dose: 20 mg Documented by: Famotidine (Pepcid) 20 mg OG DAILY LE Stop: 04/28/19 08:59 Fluticasone/Vilanterol (Breo Ellipta) 1 puffs INH DAILY LE Stop: 05/08/19 10:59 Last Admin: 04/13/19 10:04 Dose: Not Given Documented by: Folic Acid (Folvite) 1 mg PO QAM LE Stop: 04/28/19 08:59 Last Admin: 04/13/19 10:04 Dose: 1 mg Documented by: Heparin Sodium (Beef Lung) (Heparin Sod 10 Unit/Ml Flush) 5 ml FLUSH PRN PRN PRN Reason: Flush Stop: 04/26/19 22:58 Promethazine HCl 12.5 mg/ (Sodium Chloride) 50.5 mls @ 202 mls/hr IV Q6H PRN PRN Reason: Nausea And Vomiting Stop: 05/04/19 23:18 Dextrose/Sodium Chloride (D5w And 1/2nss) 1,000 mls @ 100 mls/hr IV .Q10H LE Stop: 05/12/19 14:29 Last Infusion: 04/12/19 16:53 Dose: Infused Documented by: Acetaminophen (Ofirmev) 1,000 mg in 100 mls @ 400 mls/hr IV Q8H LE Stop: 05/12/19 13:59 Last Infusion: 04/13/19 06:28 Dose: Infused Documented by: Norepinephrine Bitartrate 8 mg (/ Dextrose) 508 mls @ 0 mls/hr IV .Q0M LE; Protocol Stop: 05/12/19 14:59 Last Admin: 04/13/19 11:02 Dose: Not Given Documented by: Ceftriaxone Sodium 2,000 mg/ (Dextrose) 70 mls @ 100 mls/hr IV DAILY [facility]; Protocol Stop: 04/19/19 16:29 Last Infusion: 04/13/19 09:13 Dose: Infused Documented by: Parenteral Electrolytes (Normosol-R) 1,000 mls @ 100 mls/hr IV .Q10H LE Stop: 05/12/19 16:29 Last Admin: 04/13/19 11:57 Dose: 100 mls/hr Documented by: Midazolam HCl (Versed) 125 mg in 250 mls @ 8 mls/hr IV .Q24H LE; Protocol Stop: 05/12/19 14:52 Last Titration: 04/13/19 12:24 Dose: 4 mg/hr, 8 mls/hr Documented by: Levalbuterol HCl (Xopenex 1.25mg/0.5ml Neb) 1.25 mg NEB Q6R PRN PRN Reason: shortness of breath Stop: 04/26/19 18:51 Lorazepam (Ativan) 1 mg SL Q4H PRN PRN Reason: Agitation Stop: 04/28/19 08:58 Last Admin: 04/12/19 07:32 Dose: 1 mg Documented by: Metoprolol Succinate (Toprol Xl) 50 mg PO BID [facility] Stop: 05/09/19 08:59 Last Admin: 04/12/19 09:23 Dose: Not Given Documented by: Metoprolol Tartrate (Lopressor) 5 mg IV Q4H PRN PRN Reason: hr>120 Stop: 04/27/19 08:59 Miscellaneous (Icu Protocol For Hyperglycemia) 1 ea N/A [facility] Stop: 04/14/19 16:44 Last Admin: 04/13/19 09:43 Dose: 1 ea Documented by: Morphine Sulfate (Morphine Sulfate) 2 mg IV Q4H PRN PRN Reason: Pain Stop: 04/18/19 23:36 Last Admin: 04/12/19 21:07 Dose: 2 mg Documented by: Multivitamins (Multivitamin Tab) 1 tab PO DAILY [facility] Stop: 04/26/19 18:51 Last Admin: 04/13/19 10:04 Dose: 1 tab Documented by: Ondansetron HCl (Zofran) 4 mg IV Q4H PRN PRN Reason: Nausea And Vomiting Stop: 05/12/19 13:54 Prednisone (Prednisone) 40 mg NG DAILY [facility] Stop: 05/12/19 08:59 Last Admin: 04/13/19 10:03 Dose: 40 mg Documented by: Thiamine HCl (Vitamin B-1) 100 mg NG QAM [facility] Stop: 04/30/19 09:14 Last Admin: 04/13/19 10:04 Dose: 100 mg Documented by: Resident Activity Tracking Resident Involvement: Resident Care Provided Care Provided: Adult Hospital Medicine
[2019-04-13] MEDS: cefTRIAXone SODIUM 2,000 MG in DEXTROSE 5% 50 ML IV SCH (08:05)
[2019-04-13] MEDS ORDERED: fentaNYL citrate 100 MCG/2 ML VIAL ONE (08:54)
[2019-04-13] MEDS ORDERED: fentaNYL citrate 100 MCG/2 ML VIAL IV STA (09:12)
[2019-04-13] MEDS ORDERED: FAMOTIDINE 20 MG TAB OG STA (09:33)
[2019-04-13] MEDS: ICU PROTOCOL FOR HYPERGLYCEMIA SCH (09:43)
[2019-04-13] MEDS ORDERED: predniSONE 20 MG TAB NG SCH (10:00)
--- NOTE | 2019-04-13 10:00 | XRay Report ---
XR KUB/Abdomen 1 view CLINICAL HISTORY: 68 years-old Male presenting with CONFIRM PLACEMENT OF OG TUBE. TECHNIQUE: Single supine view of the abdomen was obtained. COMPARISON: CT of abdomen and pelvis from 04/04/2019. FINDINGS: Orogastric tube terminates in the region of the gastric body, sidehole not visualized the likely with in the gastric lumen based on the position of the terminus. Nonobstructive bowel gas pattern. No shady s pneumoperitoneum align for supine technique. Left nephrolithiasis. Degenerative changes of the spine. Calcified pleural plaque at the right lung base. IMPRESSION: 1. Appropriately positioned orogastric tube. Electronically signed by: Bharat Mir M.D. 04/13/2019 9:59 AM
[2019-04-13] MEDS: ESCITALOPRAM OXALATE 10 MG TAB PO SCH (10:03)
[2019-04-13] MEDS: FOLIC ACID 1 MG TAB PO SCH (10:04)
[2019-04-13] MEDS: FLUTICASONE/VILANTEROL INHALER INH SCH (10:04)
[2019-04-13] MEDS: MULTIVITAMIN TAB PO SCH (10:04)
[2019-04-13] MEDS: THIAMINE HCL 100 MG TAB NG SCH (10:04)
[2019-04-13] MEDS: FAMOTIDINE 20 MG TAB PO SCH (10:39)
[2019-04-13] MEDS: THIAMINE HCL 100 MG TAB PO SCH (10:39)
[2019-04-13] MEDS: predniSONE 20 MG TAB PO SCH (10:39)
[2019-04-13] MEDS: NOREPINEPHRINE BIT INJ 8 MG in DEXTROSE 5% 500 ML IV SCH (11:02)
--- NOTE | 2019-04-13 11:43 | Procedure Note ---
Procedure Note: Bronchoscopy Procedure Procedure date: April 13, 2019 Procedure: fiberoptic bronchoscopy Pre-procedure indication: Significant secretion burden, mucoid impaction of bronchi Post-procedure Diagnosis: same as above Prior to Procedure: Informed Consent: The risks, benefits, indications, potential complications, and alternatives were explained to the patient's and informed consent obtained. Attending Staff: Praneeth Rosenthal DO Resident/APC: Tim Skin Prep: Not applicable Anesthesia: Continuous infusion The identity of the patient was confirmed and a bedside time out was performed. Description of Procedure: Fiberoptic bronchoscopy was performed via endotracheal tube. Bronchioalveolar lavage right upper, middle, lower lobes was performed performed. Findings included: Tenacious secretions required Mucomyst instilled and the secretions were so tenacious I was not able to fully evacuate them through the working channel I could suction portions into the working channel and had to remove them in multiple attempts. Complications: None Specimens: No specimens were obtained Estimated blood loss: Zero
--- NOTE | 2019-04-13 12:27 | Progress Note ---
DATE: 04/13/2019 Mr. Wills was seen today. He is still on the ventilator, although a bit better and his A-a gradient is improved as he is on a FIO2 of only 40% now. I have discussed this case with Dr. Rosenthal and Dr. Bennett. He continues to make a tremendous amount of mucus. He underwent a bronchoscopy today therapeutically by Dr. Rosenthal and was suctioned out. The patient had a pneumothorax initially after surgery, but this has improved. He has also had a decrease in the infiltrate on the left. He does not have an air leak and really has not drained much fluid. He does not have a pleural effusion. ASSESSMENT AND PLAN: Postoperative day #1, status post wedge resection of right upper lobe. Gram stain and bronchial washing yesterday showed rare gram-positive cocci. The right lung was also cultured and showed no organisms. We see no evidence of yeast or hyphae on the fungal smears on the lung. We are going to continue supportive care and to get him extubated. He has the pulmonary mechanics to be extubated today, but he is producing so much sputum that we are concerned. We will see how he looks tomorrow. ROBERTO
--- NOTE | 2019-04-13 12:35 | Hospitalist Progress Note ---
Date of Service April 13, 2019 Assessment & Plan (1) Severe sepsis: On presentation to hospital "Met criteria for severe sepsis per current CMS criteria (tachycardia, tachypnea, leukocytosis, elevated lactate). Procalcitonin elevated. Blood cultures obtained Patient received broad-spectrum intravenous antibiotic coverage. Received fluid resuscitation. Lactic acid levels were followed-normalized with IV fluid and ABx" (2) Pneumonia: -68-year-old with severe chronic obstructive pulmonary disease, cavitary process, right upper lobe with extensive and progressive consolidation bilaterally and was on a 9 day antibiotic course of for multilobar pneumonia -patient did have a fever on 04/09/19 but Zosyn discontinued as fever was attributed to a possible non infectious pulmonary etiology ( drug fever versus fever from Pulmonary embolism vs iliopsoas hematoma) -currently off Zosyn -bronchocsopy on 04/10/19: did not discern a purulent infection on bronchoscopy -Pulmonary service consulted CT surgery for lung biopsy -on 04/12/19 patient had Rightwedge biopsy x2 right upper lobe, biopsy diagphragmatic implants, drain right pleural effusion, bronchoscopy(Right) and then went to ICU still intubated and on pressors -while in ICU on 04/13/19: Fiberoptic bronchoscopy was performed via endotracheal tube. Bronchioalveolar lavage right upper, middle, lower lobes was performed performed. Findings included: Tenacious secretions required Mucomyst instilled and the secretions -remains intubated in the ICU, continue Midazolam sedation as needed for comfort while intubated (3) Acute respiratory failure with hypoxia: -during the hospital stay, patient had been on oxymask supplementary oxygen -patient had lung biopsy on 04/12/19 and remains intubated (4) COPD (chronic obstructive pulmonary disease): Exacerbation COPD secondary to pneumonia. -albuterol nebulizer treatments as needed. -had been on steroids and solumedrol was stopped after last day on 04/11/19 -given that patient intubated will hold off prednisone unless steroids deemed indicated by ICU physician (5) Hypotension: -Occurred on April 06, 2019 Likely secondary to hypovolemia, likely from diuretics and then diuretics were stopped -titrate off pressors after the lung biopsy on 04/12/19 (6) Pulmonary emboli: (present on admission) CTA of chest performed on 03/27 demonstrated multiple small segmental pulmonary emboli. Patient was started on intravenous heparin. Venous duplex of lower extremities on 03/[address] of abdomen pelvis on 03/30 demonstrated hematoma left iliopsoas muscle. IV heparin discontinued. Pulmonary emboli were relatively small (segmental and subsegmental). No DVT's identified in lower extremities at this time. On April 03, 2019 started Eliquis 10mg BID April 05, 2019 patient developed increased abdominal pain and CAT scan of the abdomen and pelvis confirmed increased iliopsoas hematoma size Discussed with Dr. Collado, recommend to discontinue Eliquis Repeat Doppler of the legs: Negative for DVT (7) Abnormal CT scan, chest: CT of chest demonstrated a 6.2 x 4.5 cm thick-walled cavitary lesion within the right upper lobe (as well as pulmonary emboli and extensive airspace opacities as noted). Right upper lobe lesion may be worrisome for malignancy. -Pulmonary service consulted CT surgery for evaluation of possible lung biopsy -on 04/12/19 patient had Rightwedge biopsy x2 right upper lobe, biopsy diagphragmatic implants, drain right pleural effusion, bronchoscopy(Right) -while in ICU on 04/13/19: Fiberoptic bronchoscopy was performed via endotracheal tube. Bronchioalveolar lavage right upper, middle, lower lobes was performed performed. Findings included: Tenacious secretions required Mucomyst instilled and the secretions -currently in the ICU after the biopsy still intubated and on pressors (8) Pulmonary edema: CT of chest on day of admission suggested possible pulmonary edema. BNP elevated. History Takotsubo's cardiomyopathy, but recent echocardiogram shows normal left ventricular wall motion and function. Possible acute left ventricular diastolic CHF. Possible noncardiac pulmonary edema. -Diuretics initially were started on this admission but then stopped due to hyp ovolemia and hypotension (9) Multifocal atrial tachycardia: -heart rate controlled on prn IV metoprolol (10) Hypertension: blood pressures are not hypertensive at this time (11) Urinary tract infection: Admission UA showed leukocyte esterase, WBCs, bacteria. Urine culture (+) enterococcus faecalis Sensitive to penicillin Received Zosyn for 9 days during this hospital course Urine culture was repeated and is negative (12) Hematoma of left iliopsoas muscle: Management as noted above (13) DVT prophylaxis: SCDs (14) Discharge planning issues: In the Intensive Care Unit Subjective Patient seen and examined in the ICU. During my encounter with patient, he had lucid period of time when he opened his eyes and appeared awake and alert to understand what I was explaining to him about him being in the ICU after the lung biopsy on 04/12/19. He did did not seem to be in acute pain. He was asked to blink twice if he felt severe discomfort and patient shook his head no. I went to discuss with ICU doctor about current hospital course and he explained that based on recent bronchoscopy and use of Mucomyst that concerns of patient not being able to clear secretions if he was extubated at this time. I went back to the patient's room and he appears to have went back to sleep Physical Exam Constitutional: During my encounter with patient, he had lucid period of time when he opened his eyes and appeared awake and alert to understand what I was explaining to him about him being in the ICU after the lung biopsy on 04/12/19. He did did not seem to be in acute pain. He was asked to blink twice if he felt severe discomfort and patient shook his head no. When I later went back to patient's room he appears to have went back to sleep Eyes: PERRL, conjunctivae normal, anicteric sclerae EOM intact bilaterally ENMT: external ear and nose normal, oropharynx normal Neck: normal visual inspection Respiratory: intubated has pleurx catheter Cardiovascular: Rate/Rhythm: regular rate and regular rhythm Gastrointestinal (Abdomen): normal bowel sounds, soft, nontender, no hepatosplenomegaly Genitourinary: + penis abnormality (has looney) Results & Data Vital Signs (Past 12 Hours) Vital Signs Temp Pulse Resp BP Pulse Ox 04/13/19 11:36 75 19 100 04/13/19 08:00 72 04/13/19 07:32 62 19 98 04/13/19 06:00 77 100/53 L 96 04/13/19 05:40 65 18 96 04/13/19 05:00 64 96/55 L 96 04/13/19 04:00 36.5 C 66 114/64 97 04/13/19 03:00 62 18 101/60 97 04/13/19 02:16 61 17 97 04/13/19 02:00 62 110/61 97 04/13/19 01:00 71 91/55 L 95
[2019-04-13] MEDS: MoRPHine SULFATE 2 MG/ML CARP IV PRN (18:18)
[2019-04-14] MEDS: MoRPHine SULFATE 2 MG/ML CARP IV PRN ×3 (03:40→21:23)
[2019-04-14 04:27] LABS: Hematocrit (blood only) 24.7 % (42-52); Hemoglobin 8.3 g/dL (14.0-18.0); Mean Corpuscular Hgb Conc 33.6 g/dL (32-36); Mean Corpuscular Volume 98.4 fL (80-100); Mean Platelet Volume 10.7 fL (7.4-10.4); Platelet Count 268 K/uL (130-400); RDW Coefficient of Variation 14.8 % (11.5-14.5); RDW Standard Deviation 52.7 fL (36.4-46.3); Red Blood Count 2.51 M/uL (4.7-6.1); White Blood Count 25.27 K/uL (4.8-10.8)
[2019-04-14 04:32] LABS: Base Excess ABG 4.1 mEq/L (-9-1.8); HCO3 ABG 28 mmol/L (19-24); Oxygen Saturation ABG 95.3 % (90-95); PCO2 ABG 40 mmHg (35-46); PO2 ABG 78 mm/Hg (80-95); pH ABG 7.47 (7.35-7.45)
[2019-04-14 04:33] LABS: Allen Test Pos (Pos)
[2019-04-14 04:44] LABS: Alanine Aminotransferase 38 U/L (12-78); Albumin Level 1.9 gm/dl (3.4-5.0); Aspartate Aminotransferase 20 U/L (15-37); BUN Creatinine Ratio 51.8 (10-20); Blood Urea Nitrogen 17 mg/dl (7-18); Calcium 8.2 mg/dl (8.5-10.1); Carbon Dioxide 30 mmol/L (21-32); Chloride 99 mmol/L (98-107); Creatinine Clr Calc Pharmacy 255.3 ml/min; Est GFR (African American) > 150.0; Est GFR (Non-African American) 130.5; Glucose 85 mg/dl (70-99); Potassium 3.6 mmol/L (3.5-5.1); Sodium 134 mmol/L (136-145)
[2019-04-14 04:46] LABS: Albumin Globulin Ratio 0.6 (0.9-2); Alkaline Phosphatase 128 U/L (45-117); Bilirubin,Total 0.9 mg/dl (0.2-1); Globulin 3.4 gm/dl (2.5-4.0); Total Protein 5.3 gm/dl (6.4-8.2)
[2019-04-14 05:08] LABS: Basophils # (auto) 0.01 K/uL (0-0.2); Eosinophils # (auto) 0.07 K/uL (0-0.5); Eosinophils % (auto) 0.3 %; Immature Granulocytes # (auto) 0.08 K/uL (0.00-0.02); Immature Granulocytes % (auto) 0.3 %; Lymphocytes # (auto) 1.09 K/uL (1.2-3.4); Lymphocytes % (auto) 4.3 %; Monocytes # (auto) 1.02 K/uL (0.11-0.59); Neutrophils % (auto) 91.1 %; Polychromasia 1+
[2019-04-14] MEDS ORDERED: POTASSIUM CHLORIDE / WTR 10 MEQ/100 ML PLCT IV ONE (05:12)
[2019-04-14] MEDS: ACETAMINOPHEN 1,000 MG/100 ML VIAL IV SCH ×3 (05:51→17:21)
[2019-04-14] MEDS: MIDAZOLAM HCL 125 MG/250 ML BAG IV SCH (06:09)
[2019-04-14] MEDS: FAMOTIDINE 20 MG TAB OG SCH (07:42)
[2019-04-14] MEDS: FOLIC ACID 1 MG TAB PO SCH (07:42)
[2019-04-14] MEDS: ICU PROTOCOL FOR HYPERGLYCEMIA SCH (07:43)
[2019-04-14] MEDS: FLUTICASONE/VILANTEROL INHALER INH SCH (07:43)
[2019-04-14] MEDS: MULTIVITAMIN TAB PO SCH (07:43)
[2019-04-14] MEDS: ESCITALOPRAM OXALATE 10 MG TAB PO SCH (07:43)
[2019-04-14] MEDS: THIAMINE HCL 100 MG TAB NG SCH (07:43)
[2019-04-14] MEDS: cefTRIAXone SODIUM 2,000 MG in DEXTROSE 5% 50 ML IV SCH (07:44)
[2019-04-14] MEDS: NORMOSOL-R 1,000 ML IV SCH ×2 (07:45→17:49)
--- NOTE | 2019-04-14 07:57 | Critical Care Progress Note ---
Date of Service April 14, 2019 Assessment & Plan (1) Admitted to intensive care unit: Reason Critically Ill: 68 y/o M s/p R upper lung lobe biopsy for cavitary PNA that required pressor and mech vent support, now off both. PLAN: NEURO -Sedation with versed , off -Anxiety- cont escitalopram 20 mg daily CARDIO -Off pressor support -HTN- hold toprol 50 mg BID -HLD- will restart atorvastatin 40 mg once off vent -h/o Takotsubo's cardiomyopathy, but last ECHO 03/28 shows normal LV wall motion and function PULM -on mech vent, SBT today . Tolerated well -s/p biopsy for R Upper Lobe Cavitary Pneumonia. Started IV Rocephin. Gram stain and bronchial washing show rare gram-positive cocci. R lung show no organisms. No evidence of yeast or hyphae on the fungal smears of lung -today possible repeat bronch for secretion burden/ mucoid impaction of bronchi. Or chest PT -COPD- once off vent, neb tx prn. dc'd PO prednisone 40 mg and taper -Initial CT Chest on admission showed multiple small segmental pulmonary emboli and started on IV heparin, but was dc'd after hematoma left iliopsoas muscle. Later in admission started on Eliquis, but was dc'd after repeat CT showed increased iliopsoas hematoma size. Doppler of LE have been negative for DVT's. GI -NPO. Will advance as tolerated -Pepcid 20 mg daily RENAL/ -Normosol at 100 -No acute concerns ID -patient did have a fever on 04/09 but this was attributed to a possible non infectious pulmonary etiology (drug fever or fever from hematoma or emboli). Bronch 04/10 did not reveal purulent infxn -Cont IV rocephin -Cont monitor fever curve. Afebrile at present HEME -Anemic. No acute concerns for bleeding. H/H has been stable throughout stay ENDO -Hyperglycemia ICU protocol LINES: PIV x2, Clarke DVT Prophylaxis: SCD's Full Code DISPO: ICU Supervising Physician Co-Signing Physician Notes Dr. Dumont was resident physician during care of patient. I separately evaluated patient for urena portions of the history and the exam. I was present during the critical portion of medical decision making, and I discussed the case with the resident. I generally agree with the findings and plan. Bronchoscopy completed today improved respiratory mechanics, Proceed with extubation today I have personally spent 30 minutes of critical care time in the direct management of this patient. This is a life/limb threatening event. This includes time spent evaluating patient, direct bedside care, chart review, placing orders, interpretation of diagnostic studies, discussion with consultants, patient, and/or family members regarding treatment decisions, as we ll as other required patient management activities. This time is exclusive of all separately billable procedures, and teaching time and separate from and in addition to any other critical care service time. Subjective Subjective hx limited 2/2 mech vent. No reported overnight events. Review of Systems Review of Systems: Unobtainable due to endotracheal tube Physical Exam ENMT: external ear and nose normal, oropharynx normal Respiratory: normal respiratory effort on mech vent Cardiovascular: RRR, no murmur, no edema Gastrointestinal (Abdomen): normal bowel sounds, soft, nontender, no hepatosplenomegaly Results & Data Vital Signs (Past 12 Hours) Vital Signs Temp Pulse Resp BP Pulse Ox 04/14/19 07:27 114 H 31 H 94 04/14/19 06:00 98 H 116/68 92 04/14/19 05:00 88 119/53 L 89 L 04/14/19 04:42 86 22 97 04/14/19 04:00 37 C 80 96/50 L 86 L 04/14/19 03:00 79 109/66 91 04/14/19 02:03 81 19 96 04/14/19 02:01 72 117/63 97 04/14/19 01:00 82 106/52 L 97 04/14/19 00:00 68 113/58 L 97 04/13/19 23:00 72 109/63 97 04/13/19 22:54 73 18 97 04/13/19 22:00 76 104/60 97 04/13/19 21:00 74 113/63 97 04/13/19 20:00 78 116/58 L 98 04/13/19 19:58 80 17 97 Laboratory Results Laboratory Results - last 24 hr 04/13/19 04/14/19 04/14/19 09:33 04:17 04:17 WBC 25.27 H RBC 2.51 L Hgb 8.3 L Hct 24.7 L MCV 98.4 MCH 33.1 MCHC 33.6 RDW Std Deviation 52.7 H RDW Coeff of Meet 14.8 H Plt Count 268 MPV 10.7 H Immature Gran % (Auto) 0.3 Neut % (Auto) 91.1 Lymph % (Auto) 4.3 [place] % (Auto) 4.0 Eos % (Auto) 0.3 Baso % (Auto) 0.0 Immature Gran # (Auto) 0.08 H Neut # (Auto) 23.00 H Lymph # (Auto) 1.09 L [place] # (Auto) 1.02 H Eos # (Auto) 0.07 Baso # (Auto) 0.01 Polychromasia 1+ ABG pH ABG pCO2 ABG pO2 ABG HCO3 ABG O2 Saturation ABG Base Excess Stephen Test Barometric Pressure Oxygen Given Sodium 134 L Potassium 3.6 Chloride 99 Carbon Dioxide 30 Anion Gap 5.0 BUN 17 Creatinine 0.34 L Est Cr Clr Drug Dosing 255.3 Est GFR ( Amer) > 150.0 Est GFR (Non-Af Amer) 130.5 BUN/Creatinine Ratio 51.8 H Glucose 85 POC Glucose 127 H Calcium 8.2 L Total Bilirubin 0.9 AST 20 ALT 38 Alkaline Phosphatase 128 H Total Protein 5.3 L Albumin 1.9 L Globulin 3.4 Albumin/Globulin Ratio 0.6 L 04/14/19 04:17 WBC RBC Hgb Hct MCV MCH MCHC RDW Std Deviation RDW Coeff of Meet Plt Count MPV Immature Gran % (Auto) Neut % (Auto) Lymph % (Auto) [place] % (Auto) Eos % (Auto) Baso % (Auto) Immature Gran # (Auto) Neut # (Auto) Lymph # (Auto) [place] # (Auto) Eos # (Auto) Baso # (Auto) Polychromasia ABG pH 7.47 H ABG pCO2 40 ABG pO2 78 L ABG HCO3 28 H ABG O2 Saturation 95.3 H ABG Base Excess 4.1 H Stephen Test Pos Barometric Pressure 731.7 Oxygen Given 40% Sodium Potassium Chloride Carbon Dioxide Anion Gap BUN Creatinine Est Cr Clr Drug Dosing Est GFR ( Amer) Est GFR (Non-Af Amer) BUN/Creatinine Ratio Glucose POC Glucose Calcium Total Bilirubin AST ALT Alkaline Phosphatase Total Protein Albumin Globulin Albumin/Globulin Ratio Medications Administered Current Inpatient Medications Escitalopram Oxalate (Lexapro) 20 mg PO DAILY LE Stop: 04/27/19 08:59 Last Admin: 04/14/19 07:43 Dose: 20 mg Documented by: Famotidine (Pepcid) 20 mg OG DAILY LE Stop: 04/28/19 08:59 Last Admin: 04/14/19 07:42 Dose: 20 mg Documented by: Fluticasone/Vilanterol (Breo Ellipta) 1 puffs INH DAILY LE Stop: 05/08/19 10:59 Last Admin: 04/14/19 07:43 Dose: Not Given Documented by: Folic Acid (Folvite) 1 mg PO QAM LE Stop: 04/28/19 08:59 Last Admin: 04/14/19 07:42 Dose: 1 mg Documented by: Heparin Sodium (Beef Lung) (Heparin Sod 10 Unit/Ml Flush) 5 ml FLUSH PRN PRN PRN Reason: Flush Stop: 04/26/19 22:58 Promethazine HCl 12.5 mg/ (Sodium Chloride) 50.5 mls @ 202 mls/hr IV Q6H PRN PRN Reason: Nausea And Vomiting Stop: 05/04/19 23:18 Dextrose/Sodium Chloride (D5w And 1/2nss) 1,000 mls @ 100 mls/hr IV .Q10H LE Stop: 05/12/19 14:29 Last Infusion: 04/12/19 16:53 Dose: Infused Documented by: Acetaminophen (Ofirmev) 1,000 mg in 100 mls @ 400 mls/hr IV Q8H LE Stop: 05/12/19 13:59 Last Admin: 04/14/19 05:51 Dose: Not Given Documented by: Norepinephrine Bitartrate 8 mg (/ Dextrose) 508 mls @ 0 mls/hr IV .Q0M LE; Protocol Stop: 05/12/19 14:59 Last Admin: 04/13/19 11:02 Dose: Not Given Documented by: Ceftriaxone Sodium 2,000 mg/ (Dextrose) 70 mls @ 100 mls/hr IV DAILY LE; Protocol Stop: 04/19/19 16:29 Last Infusion: 04/14/19 08:32 Dose: Infused Documented by: Parenteral Electrolytes (Normosol-R) 1,000 mls @ 100 mls/hr IV .Q10H LE Stop: 05/12/19 16:29 Last Admin: 04/14/19 07:45 Dose: 100 mls/hr Documented by: Midazolam HCl (Versed) 125 mg in 250 mls @ 8 mls/hr IV .Q24H LE; Protocol Stop: 05/12/19 14:52 Last Admin: 04/14/19 06:09 Dose: 4 mg/hr, 8 mls/hr Documented by: Levalbuterol HCl (Xopenex 1.25mg/0.5ml Neb) 1.25 mg NEB Q6R PRN PRN Reason: shortness of breath Stop: 04/26/19 18:51 Lorazepam (Ativan) 1 mg SL Q4H PRN PRN Reason: Agitation Stop: 04/28/19 08:58 Last Admin: 04/12/19 07:32 Dose: 1 mg Documented by: Metoprolol Succinate (Toprol Xl) 50 mg PO BID [facility] Stop: 05/09/19 08:59 Last Admin: 04/12/19 09:23 Dose: Not Given Documented by: Metoprolol Tartrate (Lopressor) 5 mg IV Q4H PRN PRN Reason: hr>120 Stop: 04/27/19 08:59 Miscellaneous (Icu Protocol For Hyperglycemia) 1 ea N/A [facility] Stop: 04/14/19 16:44 Last Admin: 04/14/19 07:43 Dose: 1 ea Documented by: Morphine Sulfate (Morphine Sulfate) 2 mg IV Q4H PRN PRN Reason: Pain Stop: 04/18/19 23:36 Last Admin: 04/14/19 03:40 Dose: 2 mg Documented by: Multivitamins (Multivitamin Tab) 1 tab PO DAILY [facility] Stop: 04/26/19 18:51 Last Admin: 04/14/19 07:43 Dose: 1 tab Documented by: Ondansetron HCl (Zofran) 4 mg IV Q4H PRN PRN Reason: Nausea And Vomiting Stop: 05/12/19 13:54 Thiamine HCl (Vitamin B-1) 100 mg NG [facility] Stop: 04/30/19 09:14 Last Admin: 04/14/19 07:43 Dose: 100 mg Documented by: Resident Activity Tracking Resident Involvement: Resident Care Provided Care Provided: Adult Hospital Medicine
[2019-04-14] MEDS ORDERED: Nursing to Pharmacy Communication ONE (09:27)
[2019-04-14] MEDS ORDERED: KETOROLAC 30 MG/ML VIAL ONE (09:53)
--- NOTE | 2019-04-14 11:07 | Progress Note ---
DATE: 04/14/2019 The patient was seen today. He is still on the ventilator, although Dr. Rosenthal is determining whether he can be extubated. He is only on 40%. His mechanics do not look bad, but he is still quite ill. Heart rate is in the one-teens. In attempt to wean him, his respiration rate is up and his temperature is 39.3. We have no growth to date on the lungs and the fungal and AFB smears are negative. At this point, we would proceed with keeping his chest tube in. He has a little drainage and no air leak, but I preferred him to be off of positive pressure ventilation. His x-ray does look a bit better with almost complete expansion of the right upper lobe, although he still has a dense infiltrate.
--- NOTE | 2019-04-14 12:07 | XRay Report ---
SINGLE VIEW CHEST CLINICAL HISTORY: Respiratory failure. Increased secretions. FINDINGS: An AP, portable, upright chest radiograph is compared to study dated 04/13/2019 and correlat ed with chest CT dated 04/09/2019. The examination is degraded by portable technique and patient rotati on. A right apical chest tube and an endotracheal tube are again noted. An enteric tube is new from yesterday. The heart is enlarged and there is atherosclerotic calcification of the thoracic aorta. Fi brotic change is again seen throughout both lungs. There is cavitation and consolidation seen at the right apex. Small pleural effusions are suspected. No definite pneumothorax is seen. The skeletal str uctures are osteopenic. The bony thorax is grossly intact. IMPRESSION: 1. A right apical chest tube, an endotracheal tube, and an enteric tube are in place. 2. Chronic fibrotic change throughout both lungs with right apical consolidation and cavitation are s imilar to yesterday. 3. Small pleural effusions. Electronically signed by: Magdaleno Souza M.D. 04/14/2019 12:05 PM
--- NOTE | 2019-04-14 15:01 | Hospitalist Progress Note ---
Date of Service April 14, 2019 Assessment & Plan (1) Severe sepsis: On presentation to hospital "Met criteria for severe sepsis per current CMS criteria (tachycardia, tachypnea, leukocytosis, elevated lactate). Procalcitonin elevated. Blood cultures obtained Patient received broad-spectrum intravenous antibiotic coverage. Received fluid resuscitation. Lactic acid levels were followed-normalized with IV fluid and ABx" (2) Pneumonia: -68-year-old with severe chronic obstructive pulmonary disease, cavitary process, right upper lobe with extensive and progressive consolidation bilaterally and was on a 9 day antibiotic course of for multilobar pneumonia -patient did have a fever on 04/09/19 but Zosyn discontinued as fever was attributed to a possible non infectious pulmonary etiology ( drug fever versus fever from Pulmonary embolism vs iliopsoas hematoma) -currently off Zosyn -bronchocsopy on 04/10/19: did not discern a purulent infection on bronchoscopy -Pulmonary service consulted CT surgery for lung biopsy -on 04/12/19 patient had Rightwedge biopsy x2 right upper lobe, biopsy diagphragmatic implants, drain right pleural effusion, bronchoscopy(Right) and then went to ICU still intubated and on pressors -while in ICU on 04/13/19: Fiberoptic bronchoscopy was performed via endotracheal tube. Bronchioalveolar lavage right upper, middle, lower lobes was performed performed. Findings included: Tenacious secretions required Mucomyst instilled and the secretions -04/14/19 patient has been extubated and on oxymask, continues to have chest tube (3) Acute respiratory failure with hypoxia: -during the hospital stay, patient had been on oxymask supplementary oxygen -patient had lung biopsy on 04/12/19 and remained intubated in ICU -04/14/19 patient has been extubated and on oxymask, continues to have chest tube (4) COPD (chronic obstructive pulmonary disease): Exacerbation COPD secondary to pneumonia. -albuterol nebulizer treatments as needed. -had been on steroids and solumedrol was stopped after last day on 04/11/19 and off prednisone (5) Hypotension: -Occurred on April 06, 2019 Likely secondary to hypovolemia, likely from diuretics and then diuretics were stopped -titrate off pressors after the lung biopsy (6) Pulmonary emboli: (present on admission) CTA of chest performed on 03/27 demonstrated multiple small segmental pulmonary emboli. Patient was started on intravenous heparin. Venous duplex of lower extremities on 03/[address] of abdomen pelvis on 03/30 demonstrated hematoma left iliopsoas muscle. IV heparin discontinued. Pulmonary emboli were relatively small (segmental and subsegmental). No DVT's identified in lower extremities at this time. On April 03, 2019 started Eliquis 10mg BID April 05, 2019 patient developed increased abdominal pain and CAT scan of the abdomen and pelvis confirmed increased iliopsoas hematoma size previous hospitalist Discussed with Dr. Collado, recommend to discontinue Eliquis Repeat Doppler of the legs: Negative for DVT (7) Abnormal CT scan, chest: CT of chest demonstrated a 6.2 x 4.5 cm thick-walled cavitary lesion within the right upper lobe (as well as pulmonary emboli and extensive airspace opacities as noted). Right upper lobe lesion may be worrisome for malignancy. -Pulmonary service consulted CT surgery for evaluation of possible lung biopsy -on 04/12/19 patient had Rightwedge biopsy x2 right upper lobe, biopsy diagphragmatic implants, drain right pleural effusion, bronchoscopy(Right) -while in ICU on 04/13/19: Fiberoptic bronchoscopy was performed via endotracheal tube. Bronchioalveolar lavage right upper, middle, lower lobes was performed performed. Findings included: Tenacious secretions required Mucomyst instilled and the secretions -04/14/19 patient has been extubated and on oxymask, continues to have chest tube (8) Pulmonary edema: CT of chest on day of admission suggested possible pulmonary edema. BNP elevated. History Takotsubo's cardiomyopathy, but recent echocardiogram shows normal left ventricular wall motion and function. Possible acute left ventricular diastolic CHF. Possible noncardiac pulmonary edema. -Diuretics initially were started on this admission but then stopped due to hypovolemia and hypotension (9) Multifocal atrial tachycardia: -heart rate controlled on prn IV metoprolol (10) Hypertension: blood pressures are not hypertensive at this time (11) Urinary tract infection: Admission UA showed leukocyte esterase, WBCs, bacteria. Urine culture (+) enterococcus faecalis Sensitive to penicillin Received Zosyn for 9 days during this hospital course Urine culture was repeated and is negative (12) Hematoma of left iliopsoas muscle: Management as noted above (13) DVT prophylaxis: SCDs (14) Discharge planning issues: In the Intensive Care Unit, is extubated, still on Levophed Subjective Patient breathing on oxygen mask. Has some cough and congestion. verbal and a nswering questions appropriately. denies acute pain. patient is cooperative and follows directions. He continues to be on Levophed. Continues to have chest tube Physical Exam Constitutional: comfortable Eyes: EOM intact bilaterally ENMT: external ear and nose normal, oropharynx normal Respiratory: on oxymask, rhonchi, chest tube draining Cardiovascular: Rate/Rhythm: regular rate and regular rhythm Gastrointestinal (Abdomen): normal bowel sounds, soft, nontender, no hepatosplenomegaly Musculoskeletal: Head/Neck/Chest: normocephalic and head atraumatic Neurologic: PERRL, EOMI, accommodation nl, no face palsy, no dysarthria Psychiatric: A+Ox3, euthymic affect Genitourinary: looney Results & Data Vital Signs (Past 12 Hours) Vital Signs Temp Pulse Resp BP Pulse Ox 04/14/19 12:00 37.1 C 90 19 108/53 L 93 04/14/19 11:08 78 120/60 96 04/14/19 11:01 108 H 84 L 04/14/19 11:00 104 H 66/53 L 86 L 04/14/19 10:55 37.3 C 04/14/19 10:24 102 H 20 78/46 L 91 04/14/19 10:00 119 H 22 92/54 L 95 04/14/19 09:54 39.3 C H 04/14/19 09:00 116 H 109/56 L 93 04/14/19 08:50 114 H 88/56 L 93 04/14/19 08:00 38.8 C H 119 H 28 H 112/63 92 04/14/19 07:27 114 H 31 H 94 04/14/19 07:00 103 H 23 105/50 L 92 04/14/19 06:00 98 H 116/68 92 04/14/19 05:00 88 119/53 L 89 L 04/14/19 04:42 86 22 97 04/14/19 04:00 37 C 80 96/50 L 86 L 04/14/19 03:00 79 109/66 91
[2019-04-14] MEDS: NOREPINEPHRINE BIT INJ 8 MG in DEXTROSE 5% 500 ML IV SCH (15:11)
[2019-04-14] MEDS: LORazepam 1 MG TAB SL PRN (21:23)
[2019-04-15 00:25] LABS: iSTAT Arterial Blood Gas HCO3 28 meg/L (19-24); iSTAT Arterial Blood Gas pCO2 35 mmHg (35-46); iSTAT Arterial Blood Gas pH 7.52 (7.35-7.45); iSTAT Carbon Dioxide 29 mEq/l (24-31); iSTAT Site Art Line
[2019-04-15] MEDS: ACETAMINOPHEN 1,000 MG/100 ML VIAL IV SCH ×2 (03:57→11:39)
[2019-04-15] MEDS: NORMOSOL-R 1,000 ML IV SCH (04:18)
[2019-04-15] MEDS: NOREPINEPHRINE BIT INJ 8 MG in DEXTROSE 5% 500 ML IV SCH (04:19)
[2019-04-15 05:17] LABS: Hematocrit (blood only) 23.3 % (42-52); Hemoglobin 7.8 g/dL (14.0-18.0); Mean Corpuscular Hgb Conc 33.5 g/dL (32-36); Mean Corpuscular Volume 99.1 fL (80-100); Mean Platelet Volume 10.6 fL (7.4-10.4); Platelet Count 218 K/uL (130-400); RDW Coefficient of Variation 14.7 % (11.5-14.5); RDW Standard Deviation 52.8 fL (36.4-46.3); Red Blood Count 2.35 M/uL (4.7-6.1); White Blood Count 24.41 K/uL (4.8-10.8)
[2019-04-15 05:43] LABS: BUN Creatinine Ratio 40.1 (10-20); Blood Urea Nitrogen 13 mg/dl (7-18); Calcium 7.9 mg/dl (8.5-10.1); Carbon Dioxide 29 mmol/L (21-32); Chloride 98 mmol/L (98-107); Est GFR (African American) > 150.0; Est GFR (Non-African American) 132.1; Glucose 81 mg/dl (70-99); Potassium 3.5 mmol/L (3.5-5.1); Sodium 134 mmol/L (136-145)
[2019-04-15 05:48] LABS: Basophils # (auto) 0.03 K/uL (0-0.2); Basophils % (auto) 0.1 %; Eosinophils # (auto) 0.45 K/uL (0-0.5); Eosinophils % (auto) 1.8 %; Immature Granulocytes # (auto) 0.19 K/uL (0.00-0.02); Immature Granulocytes % (auto) 0.8 %; Lymphocytes # (auto) 1.05 K/uL (1.2-3.4); Lymphocytes % (auto) 4.3 %; Monocytes # (auto) 0.68 K/uL (0.11-0.59); Monocytes % (auto) 2.8 %; Neutrophils # (auto) 22.01 K/uL (1.4-6.5); Neutrophils % (auto) 90.2 %; Phosphorus 1.7 mg/dl (2.5-4.9); Polychromasia 1+
[2019-04-15 06:01] LABS: iSTAT Arterial Blood Gas HCO3 27 meg/L (19-24); iSTAT Arterial Blood Gas pCO2 33 mmHg (35-46); iSTAT Arterial Blood Gas pH 7.52 (7.35-7.45); iSTAT Carbon Dioxide 28 mEq/l (24-31); iSTAT FiO2 70 %; iSTAT Site Art Line
[2019-04-15] MEDS ORDERED: POTASSIUM PHOS 3 MMOL/1 ML INFUSION IV STA (06:07)
[2019-04-15] MEDS ORDERED: POTASSIUM PHOSPHATE 15 MMOL in SODIUM CHLORIDE 0.9% 250 ML IV ONE (06:15)
--- NOTE | 2019-04-15 07:39 | Anesthesiology Progress Note ---
Date of Service April 15, 2019 Anesthesia Post Procedure Vital Signs Vital Signs: Temp Pulse Pulse Resp BP Pulse Ox 04/15/19 05:47 100 H 24 96 04/15/19 01:04 102 H 22 98 04/15/19 00:00 36.4 C L 101 H 9 L 106/53 L 92 04/14/19 23:00 111 H 23 112/54 L 90 04/14/19 22:00 100 H 20 115/67 88 L 04/14/19 21:00 95 H 15 109/48 L 86 L 04/14/19 20:00 36.5 C 87 25 H 104/52 L 90 04/14/19 19:00 100 H 19 95/56 L 83 L 04/14/19 18:00 93 H 18 98/53 L 91 04/14/19 17:00 86 24 115/62 88 L 04/14/19 16:00 36.9 C 82 25 H 107/59 L 94 04/14/19 15:00 80 23 106/53 L 93 04/14/19 14:00 81 24 118/61 95 04/14/19 13:00 90 19 108/56 L 94 04/14/19 12:00 37.1 C 90 19 108/53 L 93 04/14/19 11:08 78 120/60 96 04/14/19 11:01 108 H 84 L 04/14/19 11:00 104 H 66/53 L 86 L 04/14/19 10:55 37.3 C 04/14/19 10:24 102 H 20 78/46 L 91 04/14/19 10:00 119 H 22 92/54 L 95 04/14/19 09:54 39.3 C H 04/14/19 09:00 116 H 109/56 L 93 04/14/19 08:50 114 H 88/56 L 93 04/14/19 08:00 38.8 C H 119 H 28 H 112/63 92 Pain Intensity Medial Back: Pain Intensity: 0 Notes Mental Status: alert / awake / arousable and participated in evaluation Nausea / Vomiting: adequately controlled Pain: adequately controlled Airway Patency, RR, SpO2: stable & adequate BP & HR: stable & adequate Hydration State: stable & adequate Anesthetic Complications: no major complications apparent and Pt Satisfied with anesthetic care Notes: pt awake and alert. on high flow O2, VSS.
--- NOTE | 2019-04-15 07:40 | Critical Care Progress Note ---
Date of Service April 15, 2019 Assessment & Plan (1) Admitted to intensive care unit: Reason Critically Ill: 68 y/o M s/p R upper lung lobe biopsy for cavitary PNA that required pressor and mech vent support, now off both. NEURO -CAM Positive -S/p versed and fentanyl this AM for bronch. -Anxiety- cont escitalopram 20 mg daily CARDIO -Off pressor support -HTN- hold toprol 50 mg BID -h/o Takotsubo's cardiomyopathy, but last ECHO 03/28 shows normal LV wall motion and function PULM -Extubated currently -s/p repeat bronch 04/15. BAL repeat today and sent for culture. -s/p biopsy for R Upper Lobe Cavitary Pneumonia. Gram stain and bronchial washing show rare gram-positive cocci and yeast not dianne in RUL. -Continue Rocephin, started on vancomycin for cavitary lesion (despite NEG MRSA) and Caspofungin for yeast for a total of 7 days each. -Fungitell and fungal cultures ordered. -Mucormist and Chest PT to help with secretion/mucoid burden. -Initial CT Chest on admission showed multiple small segmental pulmonary emboli and started on IV heparin, but was dc'd after hematoma left iliopsoas muscle. Later in admission started on Eliquis, but was dc'd after repeat CT showed increased iliopsoas hematoma size. Doppler of LE have been negative for DVT's. -Repeat CT and LE Dopplers 04/15--no evidence of progression of PEs and no DVTs. -Started on low dose heparin. Bleeding Hx noted. GI -NPO. Will advance as tolerated -Pepcid 20 mg daily RENAL/ -Normosol dc'ed -No acute concerns ID -Cont IV rocephin, vancomycin and caspofungin as above -Cont monitor fever curve. Afebrile at present HEME -Anemic. -No acute concerns for bleeding. -H/H stable ENDO -ICU protocol for hyperglycemia LINES: PIV x2, Clarke DVT Prophylaxis: SCD's, low dose heparin Full Code DISPO: ICU Supervising Physician Co-Signing Physician Notes Dr. Hannah was resident physician during care of patient. I separately evaluated patient for urena portions of the history and the exam. I was present during the critical portion of medical decision making, and I discussed the case with the resident. I generally agree with the findings and plan. Bronchoscopy completed today improved respiratory mechanics, Proceed with extubation today reviewed CT scan, positive for infiltrative process repeat bronchoscopy today much less secretion burden. We are empirically treating him with caspofungin for fungus growing out of the BAL sending Fungitell as well as fungal blood culture. Continue Rocephin based off the staph species with negative MRSA nasal swab from prior bronchoscopy repeat BAL also sent today. Will start vancomycin for the staph species given that he had a wedge resection for a cavitary lesion. Treatment course of 7 days for vancomycin 7 days for caspofungin and extend Rocephin to completion of all antibiotics. Pathology report still pending, no obvious progression of previously seen pulmonary emboli on CT today. Venous duplex is pending.Will start low intensity heparin as patient meets criteria based off of previous PEs however he has had bleeding events. I have personally spent 40 minutes of critical care time in the direct management of this patient. This is a life/limb threatening event. This includes time spent evaluating patient, direct bedside care, chart review, placing orders, interpretation of diagnostic studies, discussion with consultants, patient, and/or family members regarding treatment decisions, as well as other required patient management activities. This time is exclusive of all separately billable procedures, and teaching time and separate from and in addition to any other critical care service time. Subjective Mr. Bal was extubated today. States he's doing well. Denies SOB, though he has the oxygen mask on. Review of Systems Review of Systems: All systems reviewed & are unremarkable except as noted in HPI & below Physical Exam Physical Exam: General: Alert, oriented. No acute distress HEENT: NC/AT, mask on face Chest: Nontender to palpation. CV: RRR, Normal s1, s2. Resp: Breath sounds rhonchorus, coarse. Abdomen: Soft, nontender, No guarding. Extremities: SCDs on lower extremities bilaterally Results & Data Vital Signs (Past 12 Hours) Vital Signs Temp Pulse Pulse Resp BP Pulse Ox 04/15/19 05:47 100 H 24 96 04/15/19 01:04 102 H 22 98 04/15/19 00:00 36.4 C L 101 H 9 L 106/53 L 92 04/14/19 23:00 111 H 23 112/54 L 90 04/14/19 22:00 100 H 20 115/67 88 L 04/14/19 21:00 95 H 15 109/48 L 86 L 04/14/19 20:00 36.5 C 87 25 H 104/52 L 90 Laboratory Results Laboratory Results - last 24 hr 04/14/19 04/15/19 04/15/19 23:56 04:58 04:58 WBC 24.41 H RBC 2.35 L Hgb 7.8 L Hct 23.3 L MCV 99.1 MCH 33.2 MCHC 33.5 RDW Std Deviation 52.8 H RDW Coeff of Meet 14.7 H Plt Count 218 MPV 10.6 H Immature Gran % (Auto) 0.8 Neut % (Auto) 90.2 Lymph % (Auto) 4.3 Cannon % (Auto) 2.8 Eos % (Auto) 1.8 Baso % (Auto) 0.1 Immature Gran # (Auto) 0.19 H Neut # (Auto) 22.01 H Lymph # (Auto) 1.05 L Cannon # (Auto) 0.68 H Eos # (Auto) 0.45 Baso # (Auto) 0.03 Polychromasia 1+ PT INR Sample Site Art Line Patient Temperature 36.5 POC pH 7.52 H* POC pCO2 35 POC pO2 58 L POC HCO3 28 H POC Total CO2 29 POC Base Excess 5.0 H ABG pH (Temp Correct) 7.523 H* ABG pCO2 (Temp Corrct 34 L POC ABG pO2 at Pt Temp 56 POC ABG O2 Sat 92.0 Stephen Test NA O2 Delivery Device SimpleMask POC FiO2 Sodium 134 L Potassium 3.5 Chloride 98 Carbon Dioxide 29 Anion Gap 7.0 BUN 13 Creatinine 0.33 L Est Cr Clr Drug Dosing 263.0 Est GFR ( Amer) > 150.0 Est GFR (Non-Af Amer) 132.1 BUN/Creatinine Ratio 40.1 H Glucose 81 Calcium 7.9 L Phosphorus 1.7 L Magnesium 2.0 Fluid Polynuclear WBCs Fluid Mononuclear WBCs BAL A.galactomannan Ag BAL A.galactomann Index Beta-(1,3)-D-Glucan B-(1,3)-D-Glucan Intrp 04/15/19 04/15/19 04/15/19 05:45 08:29 08:29 WBC RBC Hgb Hct MCV MCH MCHC RDW Std Deviation RDW Coeff of Meet Plt Count MPV Immature Gran % (Auto) Neut % (Auto) Lymph % (Auto) Cannon % (Auto) Eos % (Auto) Baso % (Auto) Immature Gran # (Auto) Neut # (Auto) Lymph # (Auto) Cannon # (Auto) Eos # (Auto) Baso # (Auto) Polychromasia PT 12.4 H INR 1.2 H Sample Site Art Line Patient Temperature 36.8 POC pH 7.52 H* POC pCO2 33 L POC pO2 80 POC HCO3 27 H POC Total CO2 28 POC Base Excess 4.0 H ABG pH (Temp Correct) 7.525 H* ABG pCO2 (Temp Corrct 33 L POC ABG pO2 at Pt Temp 78 POC ABG O2 Sat 97.0 H Stephen Test NA O2 Delivery Device Hi Jone Can POC FiO2 70 Sodium Potassium Chloride Carbon Dioxide Anion Gap BUN Creatinine Est Cr Clr Drug Dosing Est GFR ( Amer) Est GFR (Non-Af Amer) BUN/Creatinine Ratio Glucose Calcium Phosphorus Magnesium Fluid Polynuclear WBCs Fluid Mononuclear WBCs BAL A.galactomannan Ag BAL A.galactomann Index Beta-(1,3)-D-Glucan Pending B-(1,3)-D-Glucan Intrp Pending 04/15/19 04/15/19 Unknown Unknown WBC RBC Hgb Hct MCV MCH MCHC RDW Std Deviation RDW Coeff of Meet Plt Count MPV Immature Gran % (Auto) Neut % (Auto) Lymph % (Auto) Cannon % (Auto) Eos % (Auto) Baso % (Auto) Immature Gran # (Auto) Neut # (Auto) Lymph # (Auto) Cannon # (Auto) Eos # (Auto) Baso # (Auto) Polychromasia PT INR Sample Site Patient Temperature POC pH POC pCO2 POC pO2 POC HCO3 POC Total CO2 POC Base Excess ABG pH (Temp Correct) ABG pCO2 (Temp Corrct POC ABG pO2 at Pt Temp POC ABG O2 Sat Stephen Test O2 Delivery Device POC FiO2 Sodium Potassium Chloride Carbon Dioxide Anion Gap BUN Creatinine Est Cr Clr Drug Dosing Est GFR ( Amer) Est GFR (Non-Af Amer) BUN/Creatinine Ratio Glucose Calcium Phosphorus Magnesium Fluid Polynuclear WBCs 93.0 Fluid Mononuclear WBCs 7.0 BAL A.galactomannan Ag Pending BAL A.galactomann Index Pending Beta-(1,3)-D-Glucan B-(1,3)-D-Glucan Intrp Medications Administered Home Medications acetaminophen-codeine 1 tab PO TID PRN 03/27/19 [History Confirmed 03/27/19] albuterol sulfate [Ventolin HFA] 2 inh INHALATION QID PRN 03/27/19 [History Confirmed 03/27/19] aspirin 81 mg PO DAILY 03/27/19 [History Confirmed 03/27/19] atorvastatin 40 mg PO DAILY 03/27/19 [History Confirmed 03/27/19] azithromycin See Rx Instructions .ROUTE .COMPLEX PRN 03/27/19 [History Confirmed 03/27/19] escitalopram oxalate 20 mg PO DAILY 03/27/19 [History Confirmed 03/27/19] fluticasone furoate-vilanterol [Breo Ellipta] 1 inh INHALATION DAILY 03/27/19 [History Confirmed 03/27/19] lorazepam 1 mg PO TID PRN 03/27/19 [History Confirmed 03/27/19] meclizine 12.5 mg PO BID PRN 03/27/19 [History Confirmed 03/27/19] multivitamin 1 tab PO DAILY 03/27/19 [History Confirmed 03/27/19] omeprazole 20 mg PO BID 03/27/19 [History Confirmed 03/27/19] potassium chloride [Klor-Con M10] 20 meq PO BID 03/27/19 [History Confirmed 03/27/19] Active Medications Acetaminophen (Tylenol) 1,000 mg PO Q8H PRN PRN Reason: Pain or Fever Stop: 05/15/19 13:59 Acetylcysteine (Mucomyst 20%) 4 ml INH Q8H LE Stop: 04/17/19 09:14 Last Admin: 04/15/19 11:19 Dose: 4 ml Documented by: Escitalopram Oxalate (Lexapro) 20 mg PO DAILY LE Stop: 04/27/19 08:59 Last Admin: 04/15/19 11:29 Dose: 20 mg Documented by: Famotidine (Pepcid) 20 mg OG DAILY [facility] Stop: 04/28/19 08:59 Last Admin: 04/15/19 11:29 Dose: 20 mg Documented by: Fluticasone/Vilanterol (Breo Ellipta) 1 puffs INH DAILY [facility] Stop: 05/08/19 10:59 Last Admin: 04/15/19 11:28 Dose: Not Given Documented by: Folic Acid (Folvite) 1 mg PO QAM LE Stop: 04/28/19 08:59 Last Admin: 04/15/19 11:29 Dose: 1 mg Documented by: Heparin Sodium (Beef Lung) (Heparin Sod 10 Unit/Ml Flush) 5 ml FLUSH PRN PRN PRN Reason: Flush Stop: 04/26/19 22:58 Promethazine HCl 12.5 mg/ (Sodium Chloride) 50.5 mls @ 202 mls/hr IV Q6H PRN PRN Reason: Nausea And Vomiting Stop: 05/04/19 23:18 Ceftriaxone Sodium 2,000 mg/ (Dextrose) 70 mls @ 100 mls/hr IV DAILY [facility]; Protocol Stop: 04/21/19 23:59 Last Infusion: 04/15/19 09:35 Dose: Infused Documented by: Caspofungin 50 mg/ Sodium (Chloride) 260 mls @ 260 mls/hr IV [facility]; Protocol Stop: 04/21/19 23:59 Heparin Sodium/Dextrose (Heparin Sodium/Dextrose) 25,000 units in 500 mls @ 20 mls/hr IV .Q24H [facility]; Protocol Stop: 05/15/19 10:29 Last Admin: 04/15/19 10:49 Dose: 1,000 units/hr, 20 mls/hr Documented by: Vancomycin HCl 1,500 mg/ (Sodium Chloride) 530 mls @ 200 mls/hr IV TODAY@1900 ONE Stop: 04/15/19 21:38 Vancomycin HCl 1,500 mg/ (Sodium Chloride) 530 mls @ 200 mls/hr IV TODAY@0300 ONE Stop: 04/16/19 05:38 Ioversol (Optiray 320 125ml) 120 ml IV ONCE PRN PRN Reason: Interaction Checking Stop: 04/19/19 08:48 Last Admin: 04/15/19 08:50 Dose: 120 ml Documented by: Levalbuterol HCl (Xopenex 1.25mg/0.5ml Neb) 1.25 mg NEB Q6R PRN PRN Reason: shortness of breath Stop: 04/26/19 18:51 Lorazepam (Ativan) 1 mg SL Q4H PRN PRN Reason: Agitation Stop: 04/28/19 08:58 Last Admin: 04/14/19 21:23 Dose: 1 mg Documented by: Metoprolol Succinate (Toprol Xl) 50 mg PO BID [facility] Stop: 05/09/19 08:59 Last Admin: 04/12/19 09:23 Dose: Not Given Documented by: Miscellaneous Information (Consult) 1 ea N/A UD PRN PRN Reason: Consult Stop: 05/15/19 10:11 Multivitamins (Multivitamin Tab) 1 tab PO DAILY [facility] Stop: 04/26/19 18:51 Last Admin: 04/15/19 11:29 Dose: 1 tab Documented by: Ondansetron HCl (Zofran) 4 mg IV Q4H PRN PRN Reason: Nausea And Vomiting Stop: 05/12/19 13:54 Oxycodone HCl (Roxicodone Immediate Rel) 5 mg PO Q6H PRN PRN Reason: Moderate Pain (4,5,6) Stop: 04/29/19 10:19 Oxycodone HCl (Roxicodone Immediate Rel) 10 mg PO Q6H PRN PRN Reason: Severe Pain (7,8,9,10) Stop: 04/29/19 10:19 Thiamine HCl (Vitamin B-1) 100 mg NG QAM [facility] Stop: 04/30/19 09:14 Last Admin: 04/15/19 11:29 Dose: 100 mg Documented by: PG Care Time/CCT Critical Care Time: Yes Total Critical Care Time: 40
--- NOTE | 2019-04-15 07:56 | XRay Report ---
XR chest 1V portable CLINICAL HISTORY: s/p lung biopsy post biopsy COMPARISON STUDY: 04/14/2019 FINDINGS: No significant change compared to the prior study. Slight increase in interstitial parenchy mal markings throughout both hemithoraces. Postoperative changes right pulmonary apex including a cav itary lesion are unaltered. Diaphragms are smooth. IMPRESSION: 1. Stable postoperative changes right pulmonary apex. 2. Slight increase in interstitial markings throughout both hemithoraces The above report was generated using voice recognition software. It may contain grammatical, syntax or spelling errors. Electronically signed by: Bear Amaral M.D. 04/15/2019 7:53 AM
[2019-04-15] MEDS ORDERED: CASPOFUNGIN 70 MG in SODIUM CHLORIDE 0.9% 250 ML IV STA (08:10)
[2019-04-15] MEDS ORDERED: OPTIRAY 320 125ml IV PRN (08:49)
[2019-04-15] MEDS: cefTRIAXone SODIUM 2,000 MG in DEXTROSE 5% 50 ML IV SCH (08:50)
--- NOTE | 2019-04-15 09:05 | CT Scan Report ---
CT angio chest PE protocol CLINICAL HISTORY: 68 years-old Male presenting with shortness of breath, atypical chest pain. TECHNIQUE: Multidetector CT angiography of the chest was performed after administration of intravenou s contrast. 3-D volumetric and/or maximum intensity projection (MIP) images were subsequently reconst ructed for review. IV contrast: 120 mL of Optiray 320. One or more dose lowering techniques were used consistent with the principles of ALARA (as low as reasonably achievable), including automatic expos ure control, mA or kV adjustment to individual patient size, and/or use of iterative reconstruction. COMPARISON: Noncontrast chest CT from 04/09/2019. CT DOSE (mGy.cm): The estimated cumulative dose is 456.63 mGy.cm. 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 Allowing for limited image quality, no central fillin g defect to suggest pulmonary embolus. Main pulmonary artery is mildly enlarged. No flattening of the interventricular septum. No intracardiac filling defect. No reflux of contrast into the hepatic vein s. Remaining chest: Soft tissues: Normal thyroid and thoracic inlet. Multiple prominent mediastinal lymph nodes, which ar e largely subcentimeter in the short axis and similar prior, likely reactive. Atherosclerosis of the aorta. Four vessel aortic arch. Borderline enlarged. Coronary artery and aortic valve calcification. Trace bilateral pleural effusions. Upper abdomen normal. Lungs and airways: Large bore right pleural drain positioned at the right apex. Trace pneumothorax wi th a few gas bubbles noted. Aerated secretions in the distal trachea, right mainstem bronchus, and br onchus intermedius. Redemonstration of the cavitary lesion in the right apex, which now contains laye ring fluid (series 4 image 241). Surrounding consolidation in the right apex and posterior segment of the right upper lobe has worsened from prior. A suture margin is noted in the periphery of the anter ior segment of the right upper lobe. Patchy solid and groundglass infiltrates throughout the right lo wer lobe and a peribronchial vascular distribution and to a lesser extent in the left lower lobe sign ificantly worsened from prior. Extensive reticular and groundglass opacities in the left upper lobe h ave slightly increased from prior. Musculoskeletal: Degenerative changes of the spine. IMPRESSION: 1. Significantly increased multifocal consolidation. 2. Fluid in the right apical cavity from prior. Superimposed infection not excluded. 3. Postsurgical changes of the right upper lobe new from prior. 4. Right pleural drain with trace pneumothorax. 5. Trace bilateral pleural effusions. 6. Debris in the lower trachea, right main stem bronchus, bronchus intermedius concerning for aspira tion. Electronically signed by: Bharat Mir M.D. 04/15/2019 9:04 AM
[2019-04-15] MEDS ORDERED: MIDAZOLAM HCL 5 MG/ML 1 ML VIAL ONE (09:09)
[2019-04-15 09:11] LABS: INR 1.2 (0.9-1.1); Prothrombin Time 12.4 Seconds (9.0-12.0)
[2019-04-15] MEDS ORDERED: fentaNYL citrate 100 MCG/2 ML VIAL ONE (09:11)
[2019-04-15] MEDS ORDERED: ACETYLCYSTEINE 20% INHAL SOLN ***DISPENSED BY RESP. INH SCH (09:15)
[2019-04-15] MEDS ORDERED: MIDAZOLAM HCL 5 MG/ML 1 ML VIAL IV STA (09:16)
[2019-04-15] MEDS ORDERED: fentaNYL citrate 100 MCG/2 ML VIAL IV STA (09:16)
[2019-04-15] MEDS ORDERED: VANCOMYCIN CONSULT ACTIVE PRN (10:12)
[2019-04-15] MEDS ORDERED: VANCOMYCIN HCL 2,500 MG in SODIUM CHLORIDE 0.9% 500 ML IV ONE (10:15)
[2019-04-15 10:16] LABS: iSTAT Art Bld Gas pCO2 Correct 33 mmHg (35-46); iSTAT Art Bld Gas pH Corrected 7.525 (7.35-7.45)
[2019-04-15 10:17] LABS: Patient Temperature 36.8
[2019-04-15 10:18] LABS: Patient Temperature 36.5; iSTAT Art Bld Gas pCO2 Correct 34 mmHg (35-46); iSTAT Art Bld Gas pH Corrected 7.523 (7.35-7.45)
[2019-04-15] MEDS ORDERED: OXYCODONE HCL IR 5 MG TAB (IMMEDIATE RELEASE) PO PRN (10:20)
[2019-04-15] MEDS ORDERED: Heparin IV Low Dose *NO* Bolus IV SCH (10:30)
--- NOTE | 2019-04-15 10:35 | Ultrasound Report ---
US venous doppler LE CLINICAL HISTORY: 68 years-old Male presenting with pe emboli. TECHNIQUE: Real-time grayscale and color and spectral Doppler ultrasound imaging of the veins of the bilateral lower extremities was performed. Compression and augmentation were also utilized. COMPARISON: None. FINDINGS: RIGHT: Common femoral vein: Patent. Greater saphenous vein (superficial): Patent. Deep femoral vein: Patent. Femoral vein: Patent. Popliteal vein: Patent. Calf veins: Limited visualization. LEFT: Common femoral vein: Patent. Greater saphenous vein (superficial): Patent. Deep femoral vein: Patent. Femoral vein: Patent. Popliteal vein: Patent. Calf veins: Limited visualization. Other: Hypoechoic collection along the distal medial thigh measuring 5.6 x 1.5 x 1.1 cm. This is deep to surrounding musculature. IMPRESSION: 1. No evidence of deep venous thrombosis allowing for limited visualization of the calf veins. 2. Collection in the distal right thigh adjacent to the femur. Scattered represents a distended supr apatellar recess with a knee joint effusion or a focal hematoma or seroma among other etiologies. Electronically signed by: Bharat Mir M.D. 04/15/2019 10:34 AM
--- NOTE | 2019-04-15 10:41 | Surgery Progress Note ---
Date of Service April 15, 2019 Assessment & Plan (1) Acute respiratory failure with hypoxia: -due to infiltrative findings on chest CT scan, pt. underwent a RVATS with lung bx. on 04/12/19 -operative cultures thus far have grown Staph with sensitivity pending -pt. receiving rocephin and vancomycin -pt. underwent FOB due to mucous secretions this am: -discussed with Dr. Rosenthal and concern for fungal infection as well -pt. has been placed on copsufungan -chest tube removed this am -increase activity as pulmonary status allows -encourage coughing, deep breating -heparin drip in in place, so no further DVT measures needed Results & Data Vital Signs (Past 12 Hours) Vital Signs Temp Pulse Pulse Resp BP Pulse Ox 04/15/19 09:51 78 22 96 04/15/19 08:00 102 H 19 103/54 L 89 L 04/15/19 07:42 103 H 18 98 04/15/19 07:01 98 H 25 H 105/53 L 95 04/15/19 05:47 100 H 24 96 04/15/19 01:04 102 H 22 98 04/15/19 00:00 36.4 C L 101 H 9 L 106/53 L 92 04/14/19 23:00 111 H 23 112/54 L 90
[2019-04-15] MEDS: Heparin Adult LOW DOSE Wt-Based Dextrose 5% 25,000 units/500 mL IV SCH (10:49)
--- NOTE | 2019-04-15 11:08 | XRay Report ---
XR chest 1V portable CLINICAL HISTORY: tube removal COMPARISON STUDY: 04/15/2019 7:45 AM FINDINGS: Interval removal of the right-sided chest tube. The consolidative change with central cysti c lucency right pulmonary apex is unaltered. Interstitial changes throughout both hemithoraces are stable. IMPRESSION: 1. Interval removal of right-sided chest tube. 2. No significant residual pneumothorax. 3. Unchanging right apical findings with unchanged diffuse bilateral parenchymal interstitial change. The above report was generated using voice recognition software. It may contain grammatical, syntax or spelling errors. Electronically signed by: Bear Amaral M.D. 04/15/2019 11:07 AM
[2019-04-15] MEDS: ACETYLCYSTEINE 20% INHAL SOLN ***DISPENSED BY RESP. INH SCH ×2 (11:19→19:40)
[2019-04-15] MEDS: FLUTICASONE/VILANTEROL INHALER INH SCH (11:28)
[2019-04-15] MEDS: ESCITALOPRAM OXALATE 10 MG TAB PO SCH (11:29)
[2019-04-15] MEDS: MULTIVITAMIN TAB PO SCH (11:29)
[2019-04-15] MEDS: FAMOTIDINE 20 MG TAB OG SCH (11:29)
[2019-04-15] MEDS: FOLIC ACID 1 MG TAB PO SCH (11:29)
[2019-04-15] MEDS: THIAMINE HCL 100 MG TAB NG SCH (11:29)
--- NOTE | 2019-04-15 12:53 | Pharmacy Report ---
Pharmacy Abx Dose Short Note - Date of Service April 15, 2019 - Assessment & Plan Assessment * 68 year old M admitted on 03/27 being treated for cavitary PNA * Cultures * 03/27 Urine - E. faecalis * 04/10 bronch - yeast not C. albicans * 04/12 bronch - yeast not C. albicans, Staph species * 03/27 and 04/12 nasal MRSA swabs - negative * Antibiotics * One-time doses of ceftriaxone, aztreonam, doxycycline, daptomycin, and levofloxacin on 03/27 * Zosyn 03/28-04/09 * One-time dose of clindamycin on 04/12 * Ceftriaxone 04/12-current (day 4 today) * Caspofungin day 1 * Vancomycin day 1 * Renal * SCr elevated on admission then trended rapidly down to baseline ~0.5-0.7 mg/dL. However, now with possibly significant decrease to 0.33 mg/dL. Questionable hypermetabolic state 2nd severity of illness Vancomycin * Nasal MRSA swabs negative, however, could be falsely negative with a cavitary PNA. Therefore vancomycin initiated on 04/15 2nd Staph species noted in bronch from 04/12 * Patient may be in a hypermetabolic state due to severity of illness as evidenced by extraordinarily low SCr (in the absence of significant musculoskeletal disease prior history). This may significantly increase clearance of vancomycin * Will dose aggressively initially based on possibility of rapid vancomycin clearance. However, will obtain a very early level (and will hold on administering dose until level results, which is not typical) to ensure this dosing is not too aggressive Plan * Vancomycin 2500 mg IV x1 then 1500 mg IV q8h * Trough 04/16 @ 0230 (dose at 0300 to be held temporarily until level results, then permanently if level is >22 mcg/mL) Pharmacy will continue to follow and will adjust dose/frequency as necessary. Thank you.
[2019-04-15] MEDS ORDERED: ACETAMINOPHEN 500 MG TAB PO PRN (14:00)
--- NOTE | 2019-04-15 14:31 | Infectious Disease Progress Nt ---
Date of Service April 15, 2019 Assessment & Plan (1) Fever: 68-year-old male admitted with pulmonary emboli and possible pneumonia with sepsis, with complication of iliopsoas hematoma on anticoagulation, with cavitary pulmonary process status post bronchoscopy and lung biopsy with no finding of malignancy, cultures so far growing staph and Keyona species. Patient to continue on current IV antibiotics pending final culture results. Will follow. (2) Pneumonia: (3) Hematoma of left iliopsoas muscle: Subjective Patient seen in follow-up for lung biopsy for cavitary lesion. Pathology negative for malignancy. Patient extubated, chest tube removed. No fever. Review of Systems Review of Systems: All systems reviewed & are unremarkable except as noted in HPI & below Physical Exam Constitutional: WD/WN, vitals as above no acute distress Eyes: PERRL, conjunctivae normal, anicteric sclerae ENMT: external ear and nose normal, oropharynx normal Neck: trachea midline, no thyromegaly neck nontender Respiratory: normal respiratory effort; no labored breathing Auscultation: + rhonchi Cardiovascular: RRR, no murmur, no edema Heart Sounds: no gallop and no cardiac rub Gastrointestinal (Abdomen): normal bowel sounds, soft, nontender, no hepatosplenomegaly Percussion/Palpation: no abdominal mass Musculoskeletal: Head/Neck/Chest: normocephalic, head atraumatic and neck supple Skin: no rashes, warm and dry normal turgor Neurologic: moves all extremities; no focal motor deficits Psychiatric: A+Ox3, euthymic affect Lymphatic: no cervical or axillary lymphadenopathy no inguinal lymphadenopathy Results & Data Vital Signs (Past 12 Hours) Vital Signs Temp Pulse Pulse Resp BP Pulse Ox 04/15/19 12:01 36.3 C L 108 H 25 H 107/52 L 91 04/15/19 11:30 107 H 19 109/56 L 89 L 04/15/19 11:25 78 99 04/15/19 11:01 110 H 14 108/71 92 04/15/19 10:30 100 H 23 88 L 04/15/19 10:15 101 H 24 91 04/15/19 10:00 105 H 28 H 91 04/15/19 09:51 78 22 96 04/15/19 09:45 105 H 18 92 04/15/19 09:30 106 H 26 H 100 04/15/19 09:15 103 H 28 H 91 04/15/19 09:00 105 H 33 H 93 04/15/19 08:00 102 H 19 103/54 L 89 L 04/15/19 07:42 103 H 18 98 04/15/19 07:01 98 H 25 H 105/53 L 95 04/15/19 05:47 100 H 24 96 Laboratory Results Short CBC 04/15/19 Range/Units 04:58 WBC 24.41 H (4.8-10.8) K/uL Hgb 7.8 L (14.0-18.0) g/dL Hct 23.3 L (42-52) % Plt Count 218 (130-400) K/uL BMP 04/15/19 04:58 Sodium 134 L Potassium 3.5 Chloride 98 Carbon Dioxide 29 BUN 13 Creatinine 0.33 L Glucose 81 Calcium 7.9 L Diagnostic Findings Microbiology 04/12/19 Unknown Lung,Right Middle Lobe Gram Stain - Final 04/12/19 Unknown Lung,Right Middle Lobe Aerobic and Anaerobic Culture - Preliminary Staphylococcus species 04/12/19 Unknown Lung,Right Gram Stain - Final 04/12/19 Unknown Lung,Right Aerobic and Anaerobic Culture - Preliminary No growth to date. 04/12/19 13:08 Bronch Wash,Right Upper Lobe Fungal Smear - Final 04/12/19 13:08 Bronch Wash,Right Upper Lobe Fungal Culture - Preliminary Yeast not Keyona albicans 04/10/19 10:02 Bronch Wash,Right Upper Lobe Fungal Smear - Final 04/10/19 10:02 Bronch Wash,Right Upper Lobe Fungal Culture - Preliminary Yeast not Keyona albicans 04/12/19 Unknown Lung,Right Upper Lobe Gram Stain - Final 04/12/19 Unknown Lung,Right Upper Lobe Aerobic and Anaerobic Culture - Preliminary No growth to date. 04/10/19 10:02 Bronch Wash,Right Upper Lobe Acid Fast Bacilli Smear - Final 04/10/19 10:02 Bronch Wash,Right Upper Lobe Acid Fast Bacilli Culture - Preliminary No Acid-Fast Bacilli Isolated - Report 1, Additional Report to Follow. 04/09/19 10:31 Blood Aerobic Blood Culture - Final No growth in Aerobic bottle after 5 days. 04/09/19 10:31 Blood Anaerobic Blood Culture - Final No growth in Anaerobic bottle after 5 days. 04/09/19 10:07 Blood Aerobic Blood Culture - Final No growth in Aerobic bottle after 5 days. 04/09/19 10:07 Blood Anaerobic Blood Culture - Final No growth in Anaerobic bottle after 5 days. 04/12/19 Unknown Lung,Right Middle Lobe Fungal Smear - Final 04/12/19 Unknown Lung,Right Middle Lobe Fungal Culture - Preliminary No yeast or fungus isolated - Report 1, Additional Report to Follow. 04/12/19 Unknown Lung,Right Upper Lobe Fungal Smear - Final 04/12/19 Unknown Lung,Right Upper Lobe Fungal Culture - Preliminary No yeast or fungus isolated - Report 1, Additional Report to Follow. 04/12/19 Unknown Lung,Right Fungal Smear - Final 04/12/19 Unknown Lung,Right Fungal Culture - Preliminary No yeast or fungus isolated - Report 1, Additional Report to Follow. 04/12/19 13:08 Bronch Wash,Right Upper Lobe Gram Stain - Final 04/12/19 13:08 Bronch Wash,Right Upper Lobe Bronchoalveolar Lavage Culture - Final Moderate normal hugo. 04/12/19 13:08 Bronch Wash,Right Upper Lobe Acid Fast Bacilli Smear - Final 04/12/19 Unknown Lung,Right Middle Lobe Acid Fast Bacilli Smear - Final 04/12/19 Unknown Lung,Right Upper Lobe Acid Fast Bacilli Smear - Final 04/12/19 Unknown Lung,Right Acid Fast Bacilli Smear - Final 04/10/19 10:02 Bronch Wash,Right Upper Lobe Gram Stain - Final 04/10/19 10:02 Bronch Wash,Right Upper Lobe Bronchoalveolar Lavage Culture - Final Moderate normal hugo. 04/09/19 15:54 Blood Cryptococcal Antigen Test - Final 03/27/19 17:00 Urine,Random Urine Culture - Final Enterococcus faecalis 03/27/19 17:01 Blood Aerobic Blood Culture - Final No growth in Aerobic bottle after 5 days. 03/27/19 17:01 Blood Anaerobic Blood Culture - Final No growth in Anaerobic bottle after 5 days. 03/27/19 16:48 Blood Aerobic Blood Culture - Final No growth in Aerobic bottle after 5 days. 03/27/19 16:48 Blood Anaerobic Blood Culture - Final No growth in Anaerobic bottle after 5 days. XR chest 1V portable CLINICAL HISTORY: tube removal COMPARISON STUDY: 04/15/2019 7:45 AM FINDINGS: Interval removal of the right-sided chest tube. The consolidative change with central cystic lucency right pulmonary apex is unaltered. Interstitial changes throughout both hemithoraces are stable. IMPRESSION: 1. Interval removal of right-sided chest tube. 2. No significant residual pneumothorax. 3. Unchanging right apical findings with unchanged diffuse bilateral parenchymal interstitial change.
--- NOTE | 2019-04-15 16:52 | Hospitalist Progress Note ---
Date of Service April 15, 2019 Assessment & Plan (1) Severe sepsis: initial concern for sepsis with metabolic acidosis on presentation on 03/27/19 when brought in by EMS "Met criteria for severe sepsis per current CMS criteria (tachycardia, tachypnea, leukocytosis, elevated lactate). Procalcitonin elevated. Blood cultures obtained Patient received broad-spectrum intravenous antibiotic coverage. Received fluid resuscitation. Lactic acid levels were followed-normalized with IV fluid and ABx" (2) Pneumonia: -68-year-old with severe chronic obstructive pulmonary disease, cavitary process, right upper lobe with extensive and progressive consolidation bilaterally and was on a 9 day antibiotic course of for multilobar pneumonia -patient did have a fever on 04/09/19 but Zosyn discontinued as fever was attributed to a possible non infectious pulmonary etiology ( drug fever versus fever from Pulmonary embolism vs iliopsoas hematoma) -currently off Zosyn -bronchoscopy on 04/10/19: did not discern a purulent infection on bronchoscopy -Pulmonary service consulted CT surgery for lung biopsy -on 04/12/19 patient had Rightwedge biopsy x2 right upper lobe, biopsy diagphragmatic implants, drain right pleural effusion, bronchoscopy(Right) and then went to ICU still intubated and on pressors. Patient then started on ceftriaxone 2 gram IV daily for bacterial coverage -while in ICU on 04/13/19: Fiberoptic bronchoscopy was performed via endotracheal tube. Bronchioalveolar lavage right upper, middle, lower lobes was performed performed. Findings included: Tenacious secretions required Mucomyst instilled and the secretions -04/14/19 patient has been extubated and on oxymask, continues to have chest tube -04/15/19: Patient had bronchoscopy. Then started on caspofungin for fungal coverage and vancomycin on 04/15/19. Has been on ceftriaxone 2 gram IV daily since 04/12/19 and being continued. Patient's chest tube was removed on 04/15/19. Patient then started on IV heparin on 04/15/19 because of known pulmonary embolism (3) Acute respiratory failure with hypoxia: -during the hospital stay, patient had been on oxymask supplementary oxygen -patient had lung biopsy on 04/12/19 with chest tube placed and remained intubated in ICU -04/14/19 patient has been extubated and on oxymask -chest tibe remove on 04/15/19 (4) COPD (chronic obstructive pulmonary disease): Exacerbation COPD secondary to pneumonia. -albuterol nebulizer treatments as needed. -had been on steroids and solumedrol was stopped after last day on 04/11/19 and off prednisone (5) Hypotension: -Occurred on April 06, 2019 Likely secondary to hypovolemia, likely from diuretics and then diuretics were stopped -titrate off pressors after the lung biopsy (6) Pulmonary emboli: (present on admission) CTA of chest performed on 03/27 demonstrated multiple small segmental pulmonary emboli. Patient was started on intravenous heparin. Venous duplex of lower extremities on 03/[address] of abdomen pelvis on 03/30 demonstrated hematoma left iliopsoas muscle. IV heparin discontinued. Pulmonary emboli were relatively small (segmental and subsegmental). No DVT's identified in lower extremities at the time. On April 03, 2019 started Eliquis 10mg BID April 05, 2019 patient developed increased abdominal pain and CAT scan of the abdomen and pelvis confirmed increased iliopsoas hematoma size previous hospitalist Discussed with Dr. Collado, recommend to discontinue Eliquis Repeat Doppler of the legs: Negative for DVT 04/15/19: heparin IV being started by ICU team to treat the known thromboembolism (7) Abnormal CT scan, chest: -admission CT of chest 03/27/19 Multiple small segmental pulmonary emboli; 6.2 x 4.5 cm thick-walled cavitary focus within the right upper lobe; Additional extensive airspace opacities throughout the lungs which favor multifocal pneumonia -patient has had successive imaging during hospital workup (8) Pulmonary edema: -CT of chest on day of admission suggested possible pulmonary edema -Diuretics initially were started on this admission but then stopped due to hypovolemia and hypotension -at this time in the evaluation, the patient is not on diuretics and has normal ejection fraction when echocardiogram was performed on 03/28/19 (9) Multifocal atrial tachycardia: -initial atrial fibrillation with rapid ventricular response and then multifocal atrial tachycardia on this admission -currently normal sinus rhythm -resume metoprolol as low dose 12.5 mg tartrate BID (10) Hypertension: blood pressures are not hypertensive at this time (11) Urinary tract infection: Admission UA showed leukocyte esterase, WBCs, bacteria. Urine culture (+) enterococcus faecalis Sensitive to penicillin Received Zosyn for 9 days during this hospital course Urine culture was repeated on 04/09/19 and is negative (12) Hematoma of left iliopsoas muscle: -this occurred earlier during the hospital stay when patient had systemic anticoaglation -as of 04/15/19, ICU team restarted systemic anticoagulation with IV heparin for known pulmonary embolism and will monitor for bleeding risks (13) DVT prophylaxis: currently on IV heparin (14) Discharge planning issues: In the Intensive Care Unit Subjective Patient had bronchoscopy. Then started on caspofungin and vancomycin on 04/15/19. Has been on ceftriaxone 2 gram IV daily since 04/12/19 and being continued. Patient's chest tube was removed on 04/15/19. Patient then started on IV heparin on 04/15/19 because of known pulmonary embolism. Patient on oxymask. He does not feel he is in any respiratory distress. He denies chest pain. he feels like he is moving his legs better. mo abdomen pain. no headache. no dizziness. looney remains Physical Exam Constitutional: comfortable Eyes: PERRL, conjunctivae normal, anicteric sclerae EOM intact bilaterally ENMT: external ear and nose normal, oropharynx normal Neck: trachea midline, no thyromegaly normal visual inspection Respiratory: normal respiratory effort Cardiovascular: Rate/Rhythm: regular rate and regular rhythm Gastrointestinal (Abdomen): normal bowel sounds, soft, nontender, no hepatosplenomegaly Musculoskeletal: Head/Neck/Chest: normocephalic and head atraumatic Neurologic: PERRL, EOMI, accommodation nl, no face palsy, no dysarthria Psychiatric: A+Ox3, euthymic affect Genitourinary: + penis abnormality (has looney) Results & Data Vital Signs (Past 12 Hours) Vital Signs Temp Pulse Pulse Resp BP Pulse Ox 04/15/19 16:01 103 H 22 96 04/15/19 16:00 36.5 C 101 H 21 109/68 95 04/15/19 15:06 96 04/15/19 15:00 105 H 25 H 123/55 L 93 04/15/19 14:00 96 H 24 113/63 96 04/15/19 13:30 105 H 20 122/62 96 04/15/19 13:00 108 H 20 101/56 L 96 04/15/19 12:30 95 H 24 107/58 L 97 04/15/19 12:01 36.3 C L 108 H 25 H 107/52 L 91 04/15/19 11:30 107 H 19 109/56 L 89 L 04/15/19 11:25 78 99 04/15/19 11:01 110 H 14 108/71 92 04/15/19 10:30 100 H 23 88 L 04/15/19 10:15 101 H 24 91 04/15/19 10:00 105 H 28 H 91 04/15/19 09:51 78 22 96 04/15/19 09:45 105 H 18 92 04/15/19 09:30 106 H 26 H 100 04/15/19 09:15 103 H 28 H 91 04/15/19 09:00 105 H 33 H 93 04/15/19 08:00 102 H 19 103/54 L 89 L 04/15/19 07:42 103 H 18 98 04/15/19 07:01 98 H 25 H 105/53 L 95 04/15/19 05:47 100 H 24 96
[2019-04-15 17:45] LABS: Partial Thromboplastin Ratio 1.3; Partial Thromboplastin Time 34.5 Seconds (21.0-31.0)
[2019-04-15] MEDS ORDERED: Nursing to Pharmacy Communication ONE (18:07)
[2019-04-15] MEDS ORDERED: HEPARIN IV BOLUS 4,500 UNITS in SYRINGE 0 ML IV ONE (18:30)
[2019-04-15] MEDS ORDERED: VANCOMYCIN HCL 1,500 MG in SODIUM CHLORIDE 0.9% 500 ML IV ONE ×2 (19:00→20:00)
--- NOTE | 2019-04-15 20:36 | Progress Note ---
DATE: 04/15/2019 DATE OF SERVICE: 04/15/2019 TIME: 4:50 p.m. SUBJECTIVE: Chart reviewed. The patient indicates he is feeling overall better. He does have a loose cough. He states his mucus is white with just an occasional slight off color. He actually did undergo bronchoscopy earlier today. A modest amount of secretions were reported. The patient feels less short of breath. He does complain of pain at the surgical incision sites. He was running fevers on April 14, but the fevers have resolved. His appetite is good. OBJECTIVE: GENERAL: The patient appears comfortable at rest. He was able to talk with no difficulty. VITAL SIGNS: Current temperature 36.5. HEENT: Pupils were reactive. The patient has an OxyMask in place. No lymph nodes palpable. HEART: Heart rate 102 per minute. Occasional extrasystoles heard. They appear to be supraventricular when reviewing telemetry. Blood pressure 109/68. His pressures reportedly had been low last evening. LUNGS: Auscultation of the lung ferreira reveals diffuse rhonchi bilaterally, greater on the right than the left. Respiratory rate 22. Saturation 96% on 12 liter OxyMask. EXTREMITIES: Shows +1 to +2 edema of both lower extremities. LABORATORY DATA: White count today 24.41. On the , the white count was up to 32.57. Hemoglobin today 7.8 and on the was 9.1. Platelets 218,000. Blood gas today showed pH 7.52, pCO2 33, pO2 80. That was on 70% high flow cannula. Electrolytes show sodium 134, potassium 3.5, chloride 98, bicarbonate 29. BUN 13 with creatinine 0.33. Phosphorus level low at 1.7, magnesium is 2.0. Albumin yesterday was only 1.9. Beta A galactomannan antigen was negative as of 04/10/2019. Chest x-ray from today, diffuse consolidative changes with central cystic lucency in the right apex. Venous Doppler from today showed no evidence of DVT. Chest CTA from today showed a significant increase in multifocal consolidation with fluid in the right apical cavity. There was debris in the lower trachea and right main stem bronchus. There have been 2 specimens from bronchoscopy both showing yeast, non-Keyona. The first was from April 10 and the second was from April 12. There is also growth from right middle lobe from surgical specimen showing staph species. Pathology from the surgical biopsy from right upper lobe showed organizing pneumonia with emphysematous changes and no evidence of malignancy. Right middle lobe showed similar findings. Biopsy of a diaphragmatic implant showed dense fibrous tissue with focal aggregate of chronic inflammation with no evidence for malignancy. IMPRESSION: 1. Cavitary lung disease. 2. Extensive right lung pneumonia. 3. Chronic obstructive pulmonary disease. 4. Respiratory failure secondary to #1, 2 and 3. 5. Hypophosphatemia. COMMENTS AND RECOMMENDATIONS: Caspofungin was started. The patient is on ceftriaxone and vancomycin. It still remains unclear exactly the cause for his clinical findings. The patient will need followup phosphorus levels and supplementation as indicated.
[2019-04-15] MEDS: METOPROLOL TARTRATE 25 MG TAB PO SCH (21:33)
[2019-04-15] MEDS: CLARITHROMYCIN 500 MG TAB PO SCH (21:34)
[2019-04-15] MEDS: LORazepam 1 MG TAB SL PRN (21:38)
[2019-04-15] MEDS: OXYCODONE HCL IR 5 MG TAB (IMMEDIATE RELEASE) PO PRN (21:39)
[2019-04-16 00:58] LABS: Partial Thromboplastin Ratio 1.6; Partial Thromboplastin Time 42.4 Seconds (21.0-31.0)
[2019-04-16] MEDS ORDERED: HEPARIN IV BOLUS 4,000 UNITS in SYRINGE 0 ML IV ONE (01:30)
[2019-04-16] MEDS: LEVALBUTEROL 1.25MG/0.5ML NEB NEB PRN ×2 (01:54→08:42)
[2019-04-16] MEDS: ACETYLCYSTEINE 20% INHAL SOLN ***DISPENSED BY RESP. INH SCH (01:55)
[2019-04-16] MEDS ORDERED: VANCOMYCIN HCL 1,500 MG in SODIUM CHLORIDE 0.9% 500 ML IV ONE (03:00)
[2019-04-16 05:19] LABS: Basophils # (auto) 0.02 K/uL (0-0.2); Basophils % (auto) 0.1 %; Eosinophils # (auto) 0.68 K/uL (0-0.5); Eosinophils % (auto) 3.8 %; Hemoglobin 7.8 g/dL (14.0-18.0); Immature Granulocytes # (auto) 0.08 K/uL (0.00-0.02); Immature Granulocytes % (auto) 0.4 %; Lymphocytes # (auto) 1.25 K/uL (1.2-3.4); Mean Corpuscular Hgb Conc 33.9 g/dL (32-36); Mean Platelet Volume 10.7 fL (7.4-10.4); Monocytes # (auto) 0.56 K/uL (0.11-0.59); Monocytes % (auto) 3.1 %; Neutrophils # (auto) 15.33 K/uL (1.4-6.5); Neutrophils % (auto) 85.6 %; Platelet Count 221 K/uL (130-400); RDW Coefficient of Variation 14.7 % (11.5-14.5); RDW Standard Deviation 51.8 fL (36.4-46.3); Red Blood Count 2.37 M/uL (4.7-6.1); White Blood Count 17.92 K/uL (4.8-10.8)
[2019-04-16 05:32] LABS: BUN Creatinine Ratio 31.7 (10-20); Blood Urea Nitrogen 10 mg/dl (7-18); Calcium 7.9 mg/dl (8.5-10.1); Carbon Dioxide 28 mmol/L (21-32); Chloride 97 mmol/L (98-107); Creatinine Clr Calc Pharmacy 271.3 ml/min; Est GFR (African American) > 150.0; Est GFR (Non-African American) 133.8; Glucose 104 mg/dl (70-99); Potassium 3.4 mmol/L (3.5-5.1); Sodium 132 mmol/L (136-145)
[2019-04-16 05:36] LABS: Phosphorus 2.2 mg/dl (2.5-4.9)
[2019-04-16] MEDS ORDERED: POTASSIUM PHOS 3 MMOL/1 ML INFUSION IV STA ×2 (05:44→11:29)
[2019-04-16 06:16] LABS: Basophilic Stippling 1+
[2019-04-16] MEDS: Heparin Adult LOW DOSE Wt-Based Dextrose 5% 25,000 units/500 mL IV SCH ×2 (06:28→22:11)
[2019-04-16] MEDS ORDERED: POTASSIUM PHOSPHATE 15 MMOL in SODIUM CHLORIDE 0.9% 250 ML IV ONE ×2 (06:30→12:00)
--- NOTE | 2019-04-16 07:05 | XRay Report ---
XR chest 1V portable CLINICAL HISTORY: Abnormal chest x-ray. Follow-up study. COMPARISON STUDY: 04/15/2019 FINDINGS: The heart remains enlarged. There are bilateral interstitial/fibrotic changes similar to th e prior study. There is more focal right apical consolidation with suspected cavitation. No pneumotho rax is visualized.[ IMPRESSION: 1. Persistent bilateral interstitial opacities 2. Persistent right apical consolidation with possible cavitation 3. No evidence of pneumothorax 4. No significant change from the preceding study Electronically signed by: Jeff Krishnamurthy M.D. 04/16/2019 7:04 AM
[2019-04-16 07:52] LABS: Partial Thromboplastin Ratio 1.5; Partial Thromboplastin Time 40.1 Seconds (21.0-31.0)
--- NOTE | 2019-04-16 07:58 | Critical Care Progress Note ---
Date of Service April 16, 2019 Assessment & Plan (1) Admitted to intensive care unit: Reason Critically Ill: 68 y/o M s/p R upper lung lobe biopsy for cavitary PNA that required pressor and mech vent support, now off both. NEURO -CAM NEGATIVE -Anxiety- cont escitalopram 20 mg daily CARDIO -Off pressor support -HTN- hold toprol 50 mg BID -h/o Takotsubo's cardiomyopathy, but last ECHO 03/28 shows normal LV wall motion and function PULM -Extubated currently -s/p repeat bronch 04/15. BAL repeat and sent for culture. -s/p biopsy for R Upper Lobe Cavitary Pneumonia. Gram stain and bronchial washing show rare gram-positive cocci and yeast not dianne in RUL. -Continue Rocephin, started on vancomycin for cavitary lesion (despite NEG MRSA) and Caspofungin for yeast for a total of 10 days each. -Fungitell and fungal cultures pending. -On high dose steroids, started on cyclophosphamide -Mucormist and Chest PT to help with secretion/mucoid burden. -Initial CT Chest on admission showed multiple small segmental pulmonary emboli and started on IV heparin, but was dc'd after hematoma left iliopsoas muscle. Later in admission started on Eliquis, but was dc'd after repeat CT showed increased iliopsoas hematoma size. Doppler of LE have been negative for DVT's. -Repeat CT and LE Dopplers 04/15--no evidence of progression of PEs and no DVTs. -Started on low dose heparin. Bleeding Hx noted. -PT/OT GI -NPO. Will advance as tolerated -Pepcid 20 mg daily RENAL/ -Normosol dc'ed -looney removed 04/16 -No acute concerns ID -Cont IV rocephin, vancomycin and caspofungin as above -Cont monitor fever curve. Afebrile at present HEME -Anemic. -No acute concerns for bleeding. -H/H stable ENDO -ICU protocol for hyperglycemia LINES: PIV x2, Looney DVT Prophylaxis: SCD's, low dose heparin Full Code DISPO: ICU Supervising Physician Co-Signing Physician Notes Dr. Hannah was resident physician during care of patient. I separately vee luated patient for urena portions of the history and the exam. I was present during the critical portion of medical decision making, and I discussed the case with the resident. I generally agree with the findings and plan. Reviewed pathology, patient has cryptogenic organizing pneumonia. We have started high-dose steroids, he is not a good candidate for DMARDs secondary to recent surgery. We will continue the IV antibiotics and IV antifungals for a 10-day treatment length and extending the antibiotics and antifungals to finish concurrently. Need to closely watch his blood sugars continue the high-dose steroids until we start to see an improvement in his oxygenation. He is on 80% high flow oxygen satting 92% which gives him a oxygenation to saturation ratio of 115. This is acute hypoxic respiratory failure. I am very concerned about his long-term prognosis. If he remains reasonably stable he would be a candidate for downgrade out of the ICU for continued oxygen therapy with high- dose steroids. Anticoagulation is for small pulmonary emboli. Discontinue Looney. Patient will require longer-term vascular axis for 10 days of vancomycin, we will do a PICC consult. Had extensive discussion with the patient regarding long-term prognosis. In event of cardiac arrest he would not want heroic measures undertaken and subsequently request DNR. We discussed intubation for worsening hypoxia/severe respiratory failure. In that setting I think it would be likely that he would require long-term mechanical ventilation as well as significant oxygen requirements that would preclude him from ever being able to transfer her to a independent living situation. In light of this he requests DNI in event of worsening hypoxic respiratory failure. Patient is stable for downgrade out of the ICU even though he remains critically ill as therapies given can be given at a lower level of care. His hypoxic respiratory failure is a constant threat to his life. I have personally spent 50 minutes of critical care time in the direct management of this patient. This is a life/limb threatening event. This includes time spent evaluating patient, direct bedside care, chart review, placi ng orders, interpretation of diagnostic studies, discussion with consultants, patient, and/or family members regarding treatment decisions, as well as other required patient management activities. This time is exclusive of all separately billable procedures, and teaching time and separate from and in addition to any other critical care service time. Subjective Pt states he's doing much better. Denied GARCIA, SOB, chest pain, palps, N/V, abd pain, diarrhea or constipation. States he has a nagging cough however. Otherwise feels he's doing much better. Also had discussion with palliative care present about end of life goals. Review of Systems Review of Systems: All systems reviewed & are unremarkable except as noted in HPI & below Physical Exam Physical Exam: General: Alert, oriented. No acute distress HEENT: NC/AT, Nasal cannula in nares Chest: Nontender to palpation. CV: RRR, Normal s1, s2. Resp: Breath sounds rhonchorus, coarse. Abdomen: Soft, nontender, No guarding. Extremities: SCDs on lower extremities bilaterally Results & Data Vital Signs (Past 12 Hours) Vital Signs Temp Pulse Pulse Resp BP Pulse Ox 04/16/19 07:15 92 H 04/16/19 07:00 98 H 18 100/48 L 88 L 04/16/19 06:00 80 22 101/61 91 04/16/19 05:00 92 H 28 H 120/67 91 04/16/19 04:00 37.2 C 108 H 26 H 90 04/16/19 03:00 95 H 21 102/49 L 91 04/16/19 02:03 86 20 95 04/16/19 02:00 89 18 90/56 L 90 04/16/19 01:00 78 22 115/58 L 92 04/16/19 00:00 37.2 C 74 21 111/52 L 96 04/15/19 23:00 82 22 98/53 L 92 04/15/19 22:00 103 H 18 95 04/15/19 21:00 111 H 14 120/82 91 04/15/19 20:31 111 H 20 140/68 92 04/15/19 20:01 105 H 20 92 04/15/19 20:00 36.6 C 101 H 15 131/95 94 Laboratory Results Laboratory Results - last 24 hr 04/15/19 04/15/19 04/16/19 16:46 16:46 00:31 WBC RBC Hgb Hct MCV MCH MCHC RDW Std Deviation RDW Coeff of Meet Plt Count MPV Immature Gran % (Auto) Neut % (Auto) Lymph % (Auto) [place] % (Auto) Eos % (Auto) Baso % (Auto) Immature Gran # (Auto) Neut # (Auto) Lymph # (Auto) [place] # (Auto) Eos # (Auto) Baso # (Auto) Basophilic Stippling APTT 34.5 H 42.4 H PTT Ratio 1.3 1.6 Sodium Potassium Chloride Carbon Dioxide Anion Gap BUN Creatinine Est Cr Clr Drug Dosing Est GFR ( Amer) Est GFR (Non-Af Amer) BUN/Creatinine Ratio Glucose Calcium Phosphorus Magnesium Procalcitonin 0.57 H Random Vancomycin 04/16/19 04/16/19 04/16/19 00:34 04:53 04:53 WBC 17.92 H RBC 2.37 L Hgb 7.8 L Hct 23.0 L MCV 97.0 MCH 32.9 MCHC 33.9 RDW Std Deviation 51.8 H RDW Coeff of Meet 14.7 H Plt Count 221 MPV 10.7 H Immature Gran % (Auto) 0.4 Neut % (Auto) 85.6 Lymph % (Auto) 7.0 [place] % (Auto) 3.1 Eos % (Auto) 3.8 Baso % (Auto) 0.1 Immature Gran # (Auto) 0.08 H Neut # (Auto) 15.33 H Lymph # (Auto) 1.25 [place] # (Auto) 0.56 Eos # (Auto) 0.68 H Baso # (Auto) 0.02 Basophilic Stippling 1+ APTT PTT Ratio Sodium 132 L Potassium 3.4 L Chloride 97 L Carbon Dioxide 28 Anion Gap 7.0 BUN 10 Creatinine 0.32 L Est Cr Clr Drug Dosing 271.3 Est GFR ( Amer) > 150.0 Est GFR (Non-Af Amer) 133.8 BUN/Creatinine Ratio 31.7 H Glucose 104 H Calcium 7.9 L Phosphorus 2.2 L Magnesium 2.0 Procalcitonin Random Vancomycin 15.2 04/16/19 07:17 WBC RBC Hgb Hct MCV MCH MCHC RDW Std Deviation RDW Coeff of Meet Plt Count MPV Immature Gran % (Auto) Neut % (Auto) Lymph % (Auto) [place] % (Auto) Eos % (Auto) Baso % (Auto) Immature Gran # (Auto) Neut # (Auto) Lymph # (Auto) [place] # (Auto) Eos # (Auto) Baso # (Auto) Basophilic Stippling APTT 40.1 H PTT Ratio 1.5 Sodium Potassium Chloride Carbon Dioxide Anion Gap BUN Creatinine Est Cr Clr Drug Dosing Est GFR ( Amer) Est GFR (Non-Af Amer) BUN/Creatinine Ratio Glucose Calcium Phosphorus Magnesium Procalcitonin Random Vancomycin Medications Administered Home Medications acetaminophen-codeine 1 tab PO TID PRN 03/27/19 [History Confirmed 03/27/19] albuterol sulfate [Ventolin HFA] 2 inh INHALATION QID PRN 03/27/19 [History Conf irmed 03/27/19] aspirin 81 mg PO DAILY 03/27/19 [History Confirmed 03/27/19] atorvastatin 40 mg PO DAILY 03/27/19 [History Confirmed 03/27/19] azithromycin See Rx Instructions .ROUTE .COMPLEX PRN 03/27/19 [History Confirmed 03/27/19] escitalopram oxalate 20 mg PO DAILY 03/27/19 [History Confirmed 03/27/19] fluticasone furoate-vilanterol [Breo Ellipta] 1 inh INHALATION DAILY 03/27/19 [History Confirmed 03/27/19] lorazepam 1 mg PO TID PRN 03/27/19 [History Confirmed 03/27/19] meclizine 12.5 mg PO BID PRN 03/27/19 [History Confirmed 03/27/19] multivitamin 1 tab PO DAILY 03/27/19 [History Confirmed 03/27/19] omeprazole 20 mg PO BID 03/27/19 [History Confirmed 03/27/19] potassium chloride [Klor-Con M10] 20 meq PO BID 03/27/19 [History Confirmed 03/27/19] Active Medications Escitalopram Oxalate (Lexapro) 20 mg PO DAILY [facility] Stop: 04/27/19 08:59 Last Admin: 04/16/19 08:54 Dose: 20 mg Documented by: Fluticasone/Vilanterol (Breo Ellipta) 1 puffs INH DAILY [facility] Stop: 05/08/19 10:59 Last Admin: 04/16/19 08:52 Dose: Not Given Documented by: Folic Acid (Folvite) 1 mg PO QAM LE Stop: 04/28/19 08:59 Last Admin: 04/16/19 08:54 Dose: 1 mg Documented by: Promethazine HCl 12.5 mg/ (Sodium Chloride) 50.5 mls @ 202 mls/hr IV Q6H PRN PRN Reason: Nausea And Vomiting Stop: 05/04/19 23:18 Caspofungin 50 mg/ Sodium (Chloride) 260 mls @ 260 mls/hr IV QAM LE; Protocol Stop: 04/24/19 23:59 Last Infusion: 04/16/19 10:00 Dose: Infused Documented by: Heparin Sodium/Dextrose (Heparin Sodium/Dextrose) 25,000 units in 500 mls @ 30 mls/hr IV .[id number] [facility]; Protocol Stop: 05/15/19 10:29 Last Titration: 04/16/19 09:31 Dose: 1,500 units/hr, 30 mls/hr Documented by: Vancomycin HCl 1,500 mg/ (Sodium Chloride) 530 mls @ 200 mls/hr IV Q8H [facility] Stop: 04/24/19 23:59 Last Admin: 04/16/19 12:47 Dose: 200 mls/hr Documented by: Ceftriaxone Sodium 2,000 mg/ (Dextrose) 70 mls @ 100 mls/hr IV QAM [facility]; Protocol Stop: 04/24/19 23:59 Last Infusion: 04/16/19 11:00 Dose: Infused Documented by: Potassium Phosphate 15 mmol/ (Sodium Chloride) 255 mls @ 88 mls/hr IV ONE ONE Stop: 04/16/19 14:53 Last Admin: 04/16/19 12:46 Dose: 88 mls/hr Documented by: Levalbuterol HCl (Xopenex 1.25mg/0.5ml Neb) 1.25 mg NEB Q6R PRN PRN Reason: shortness of breath Stop: 04/26/19 18:51 Last Admin: 04/16/19 08:42 Dose: 1.25 mg Documented by: Lorazepam (Ativan) 1 mg SL Q4H PRN PRN Reason: Agitation Stop: 04/28/19 08:58 Last Admin: 04/15/19 21:38 Dose: 1 mg Documented by: Metoprolol Tartrate (Lopressor) 12.5 mg PO BID [facility] Stop: 05/15/19 20:59 Last Admin: 04/16/19 08:53 Dose: 12.5 mg Documented by: Miscellaneous Information (Consult) 1 ea N/A UD PRN PRN Reason: Consult Stop: 05/15/19 10:11 Multivitamins (Multivitamin Tab) 1 tab PO DAILY [facility] Stop: 04/26/19 18:51 Last Admin: 04/16/19 08:54 Dose: 1 tab Documented by: Ondansetron HCl (Zofran) 4 mg IV Q4H PRN PRN Reason: Nausea And Vomiting Stop: 05/12/19 13:54 Oxycodone HCl (Roxicodone Immediate Rel) 5 mg PO Q6H PRN PRN Reason: Moderate Pain (4,5,6) Stop: 04/29/19 10:19 Last Admin: 04/15/19 21:39 Dose: 5 mg Documented by: Oxycodone HCl (Roxicodone Immediate Rel) 10 mg PO Q6H PRN PRN Reason: Severe Pain (7,8,9,10) Stop: 04/29/19 10:19 Prednisone (Prednisone) 60 mg PO DAILY [facility] Stop: 05/16/19 08:59 Last Admin: 04/16/19 08:55 Dose: 60 mg Documented by: Thiamine HCl (Vitamin B-1) 100 mg NG QAM [facility] Stop: 04/30/19 09:14 Last Admin: 04/16/19 08:54 Dose: 100 mg Documented by: PG Care Time/CCT Critical Care Time: Yes Total Critical Care Time: 50
[2019-04-16] MEDS ORDERED: ACETYLCYSTEINE 20% INHAL SOLN ***DISPENSED BY RESP. INH SCH (08:00)
[2019-04-16] MEDS: FLUTICASONE/VILANTEROL INHALER INH SCH (08:52)
[2019-04-16] MEDS: METOPROLOL TARTRATE 25 MG TAB PO SCH ×2 (08:53→19:19)
[2019-04-16] MEDS: ESCITALOPRAM OXALATE 10 MG TAB PO SCH (08:54)
[2019-04-16] MEDS: THIAMINE HCL 100 MG TAB NG SCH (08:54)
[2019-04-16] MEDS: FOLIC ACID 1 MG TAB PO SCH (08:54)
[2019-04-16] MEDS: MULTIVITAMIN TAB PO SCH (08:54)
[2019-04-16] MEDS: predniSONE 20 MG TAB PO SCH (08:55)
[2019-04-16] MEDS: FAMOTIDINE 20 MG TAB OG SCH (08:55)
[2019-04-16] MEDS: CLARITHROMYCIN 500 MG TAB PO SCH (08:55)
[2019-04-16] MEDS: CASPOFUNGIN 50 MG in SODIUM CHLORIDE 0.9% 250 ML IV SCH (08:57)
[2019-04-16] MEDS ORDERED: Nursing to Pharmacy Communication ONE (09:09)
[2019-04-16] MEDS ORDERED: HEPARIN IV BOLUS 4,500 UNITS in SYRINGE 0 ML IV ONE (09:30)
[2019-04-16] MEDS: cefTRIAXone SODIUM 2,000 MG in DEXTROSE 5% 50 ML IV SCH (10:15)
--- NOTE | 2019-04-16 11:35 | Pharmacy Report ---
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 faecalis * 04/10 bronch - yeast not C. albicans * 04/12 bronch - yeast not C. albicans, coag negative Staph (oxacillin- resistant) * 03/27 and 04/12 nasal MRSA swabs - negative * Antibiotics * One-time doses of ceftriaxone, aztreonam, doxycycline, daptomycin, and levofloxacin on 03/27 * Zosyn 03/28-04/09 * One-time dose of clindamycin on 04/12 * Ceftriaxone day 5 (to finish at same time as caspofungin and vancomycin) * Caspofungin day 2 of * Vancomycin day 2 of * Clarithromycin day 2 * Renal * SCr elevated on admission then trended rapidly down to baseline ~0.5-0.7 mg/dL. However, now with possibly significant decrease to 0.33 mg/dL. Questionable hypermetabolic state 2nd severity of illness Vancomycin * Nasal MRSA swabs negative, however, could be falsely negative with a cavitary PNA. Therefore vancomycin initiated on 04/15 2nd Staph species noted in bronch from 04/12 and will be continued for a 10 day course 2nd oxacillin-resistant coag negative Staph * Patient may be in a hypermetabolic state due to severity of illness as evidenced by extraordinarily low SCr (in the absence of significant musculoskeletal disease prior history). This may significantly increase clearance of vancomycin * Goal vancomycin trough 15-20mcg/mL * Vancomycin level this AM was 15.2 mcg/mL. However, this was not a true steady state trough for two reasons - it was obtained before steady state (and thus steady state level would be expected to increase), but it was also drawn early at 6 hours rather than 8 hours after the previous dose (and thus 8 hr level would be expected to decrease) * Will therefore continue current vancomycin dose and repeat level in 24 hours Plan * Continue vancomycin 1500 mg IV q8h * Trough 04/17 @ 0330 Pharmacy will continue to follow and will adjust dose/frequency as necessary. Thank you.
--- NOTE | 2019-04-16 11:43 | Palliative Care Consultation ---
Date of Consultation April 16, 2019 Assessment & Plan (1) Goals of care, counseling/discussion: -68 year old male patient with PMH daily alcohol use, COPD, cardiomyopathy, presented to the hospital 20 days ago with c/o increased weakness and SOB over the last couple months. On arrival to the ED, patient was in respiratory distress and was hypoxic. He was placed on Bipap. He had a WBC of 23,000, lactic acid 4.5, elevated LFTs, troponin 0.105, procalcitonin 7.35, and was tachycardic. Admitted to ICU with sepsis 2/2 UTI or pneumonia. Patient was having issues with afib and atrial tachycardia-- he was on IV amiodarone and beta blockers. Echo showed preserved LV function and right sided heart failure. CT chest showed evidence of multifocal pneumonia, posible early cavitation and pulmonary emboli. Despite being treated for nine days with Zosyn, patient remained febrile, as high as 39.2 per report. His white count remained elevated while on IV Solu-medrol. Pulmonary was reconsulted on 04/09 and patient taken for bronchoscopy on 04/10. Washings came out negative for infectious process. Dr. Gomes from thoracic surgery was consulted for VATS procedure and biopsy, which was done on 04/12. Patient had a chest tube that was then removed on 04/15. Lung biopsy was again negative. Underwent another bronchoscopy on 04/15. All infectious workup has been negative, so patient is being categorized as having cryptogenic organizing pneumonia. He is on IV vanco, IV Rocephin and IV antifungals. He is receiving PICC line today and needs total of 10 days antiinfective therapy. Patient is still in ICU today on high-flow nasal cannula at 35LPM and 80% FiO2. Likely will need LTACH after hospitalization. Palliative care is consulted today to discuss code status and goals of care. -Met with patient along with Dr. Rosenthal and Dr. Hannah in room 107. Extensive medical update given by Dr. Rosenthal re: pathology results, cryptogenic pneumonia, and long-term implications of of this illness. -Patient states that his goal is to return home and be independent as possible, but he does understand that he may have some limitations. He has been talking with his son/POA, Troy Wills, about getting more help in the home. Patient is aware that he will need to go to rehab of some sort post-hospitalization. -Current level of high-flow oxygen cannot be done outside of hospital, will need to be weaned prior to discharge. -Discussed code status, patient would not want to be resuscitated or intubated i n the case of arrest. He will be changed to DNR. Continue with FULL TREATMENT otherwise. -Prior to patient's fall, he was completely independent per his report. -Palliative care will follow periodically throughout hospitalization to assist with medical decision making. (2) Pneumonia: (3) Acute respiratory failure with hypoxia: (4) Severe sepsis: Supervising Physician Co-Signing Physician Notes Chart reviewed, patient seen and examined. 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 Patient awake and alert, no acute distress-on high flow nasal cannula PE:Reports breathing is comfortable on high flow nasal cannula HEENT: EOMI, hearing within normal limits Respiratory: Unlabored at rest, increased respiratory rate speech, on high flow nasal cannula at 35 L/min CV: Tachycardic Abdomen: Soft, nontender Neuro: Alert and oriented Agree with above note, assessment and plan as per GREGORY Christensen. Patient states he is agreeable for transfer to LTAC. Will continue to follow and assist with medical decision making as needed History of Present Illness Reason for Consultation: Goals of care Requesting Physician: Dr. Rosenthal Attending Physician: Chucky Albright MD History of Present Illness This 68 year old male patient with PMH daily alcohol use, COPD, cardiomyopathy, presented to the hospital 20 days ago with c/o increased weakness and SOB over the last couple months. On arrival to the ED, patient was in respiratory distress and was hypoxic. He was placed on Bipap. He had a WBC of 23,000, lactic acid 4.5, elevated LFTs, troponin 0.105, procalcitonin 7.35, and was tachycardic. Admitted to ICU with sepsis 2/2 UTI or pneumonia. Patient was having issues with afib and atrial tachycardia-- he was on IV amiodarone and beta blockers. Echo showed preserved LV function and right sided heart failure. CT chest showed evidence of multifocal pneumonia, posible early cavitation and pulmonary emboli. Despite being treated for nine days with Zosyn, patient remained febrile, as high as 39.2 per report. His white count remained elevated while on IV Solu-medrol. Pulmonary was reconsulted on 04/09 and patient taken for bronchoscopy on 04/10. Washings came out negative for infectious process. Dr. Gomes from thoracic surgery was consulted for VATS procedure and biopsy, which was done on 04/12. Patient had a chest tube that was then removed on 04/15. Lung biopsy was again negative. Underwent another bronchoscopy on 04/15. All infectious workup has been negative, so patient is being categorized as having cryptogenic organizing pneumonia. He is on IV vanco, IV Rocephin and IV antifungals. He is receiving PICC line today and needs total of 10 days antiinfective therapy. Patient is still in ICU today on high-flow nasal cannula at 35LPM and 80% FiO2. Likely will need LTACH after hospitalization. Palliative care is consulted today to discuss code status and goals of care. Thank you kindly for this consult. I will follow as needed. Allergies Allergy/AdvReac Type Severity Reaction Status Date / Time amoxicillin Allergy Intermediate HIVES Verified 04/17/13 15:53 Home Medications Home Medications Medication Instructions Recorded Confirmed Type acetaminophen-codeine 1 tab PO TID PRN 03/27/19 03/27/19 History albuterol sulfate [Ventolin HFA] 2 inh INHALATION QID PRN 03/27/19 03/27/19 History aspirin 81 mg PO DAILY 03/27/19 03/27/19 History atorvastatin 40 mg PO DAILY 03/27/19 03/27/19 History azithromycin See Rx Instructions .ROUTE 03/27/19 03/27/19 History .COMPLEX PRN escitalopram oxalate 20 mg PO DAILY 03/27/19 03/27/19 History fluticasone furoate-vilanterol 1 inh INHALATION DAILY 03/27/19 03/27/19 History [Breo Ellipta] lorazepam 1 mg PO TID PRN 03/27/19 03/27/19 History meclizine 12.5 mg PO BID PRN 03/27/19 03/27/19 History multivitamin 1 tab PO DAILY 03/27/19 03/27/19 History omeprazole 20 mg PO BID 03/27/19 03/27/19 History potassium chloride [Klor-Con M10] 20 meq PO BID 03/27/19 03/27/19 History Patient History Medical History Severe sepsis Pulmonary edema Hematoma of left iliopsoas muscle Pulmonary emboli current. CTA chest 03/27 showed multiple small segmental pulmonary emboli. Pneumonia Right upper lobe with extensive and progressive consolidation bilaterally. Acute respiratory failure with hypoxia Multifocal atrial tachycardia Cardiology saw patient March 2019 and stated likely driven by underlying pulmonary issues. Alcohol abuse (Chronic) GERD (gastroesophageal reflux disease) (Chronic) Non-ischemic cardiomyopathy (Chronic) Past hx/o catecholamine induced CM with an echo this admission showing preserved LV function. HLD (hyperlipidemia) (Chronic) COPD (chronic obstructive pulmonary disease) (Chronic) exacerbation 2/2 pneumonia. 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 Beliefs That Will Affect Care: None Current Living Situation: Spouse Other Information That Helps Us Care for You: No Feels Safe at Home: Yes Safety Concerns: Feels Safe At This Time Smoking Status: Current every day smoker Tobacco Type: cigarettes Do You Dip or Chew Tobacco: No Second Hand Exposure: Yes Tobacco Cessation Education Requested by Patient: No Hx Alcohol Use: Yes Alcohol type: hard liquor Alcohol Intake Frequency: Daily Alcohol Intake Frequency Comment: 2 shots / night Hx Substance Use: No Review of Systems Respiratory: + cough and + dyspnea on exertion Cardiovascular: no chest pain Gastrointestinal: no abdominal pain and no nausea Neurologic: no confusion Psychiatric: no anxiety Physical Exam Constitutional: well developed and well nourished; no acute distress ENMT: external ear and nose normal, oropharynx normal Neck: normal visual inspection Respiratory: no respiratory distress On high flow nasal cannula Cardiovascular: Rate/Rhythm: regular rate and regular rhythm Neurologic: moves all extremities and awake Psychiatric: A+Ox3, euthymic affect Insight: good insight Results & Data Vital Signs (Past 12 Hours) Vital Signs Temp Pulse Pulse Resp BP Pulse Ox 04/16/19 11:00 90 21 141/60 H 95 04/16/19 10:00 90 36 H 112/51 L 94 04/16/19 09:00 110 H 25 H 116/84 86 L 04/16/19 08:59 103 H 22 96 04/16/19 08:43 110 H 18 95 04/16/19 08:01 106 H 22 109/69 89 L 04/16/19 08:00 36.8 C 108 H 13 109/69 92 04/16/19 07:15 92 H 04/16/19 07:00 98 H 18 100/48 L 88 L 04/16/19 06:00 80 22 101/61 91 04/16/19 05:00 92 H 28 H 120/67 91 04/16/19 04:00 37.2 C 108 H 26 H 90 04/16/19 03:00 95 H 21 102/49 L 91 04/16/19 02:03 86 20 95 04/16/19 02:00 89 18 90/56 L 90 04/16/19 01:00 78 22 115/58 L 92 04/16/19 00:00 37.2 C 74 21 111/52 L 96 PG Care Time/CCT Total # of Minutes Spent Total Time Spent with Patient: Total time spent is greater than 50% in coordination of care (as documented) at patient's floor/unit and/or counseling patient: Time Spent Midlevel 70 minutes with >50% of the time spent at bedside with patient and ICU team discussing condition and GOC.
[2019-04-16] MEDS: VANCOMYCIN HCL 1,500 MG in SODIUM CHLORIDE 0.9% 500 ML IV SCH ×2 (12:47→19:19)
--- NOTE | 2019-04-16 13:18 | Hospitalist Progress Note ---
Date of Service April 16, 2019 Assessment & Plan (1) Severe sepsis: initial concern for sepsis with metabolic acidosis on presentation on 03/27/19 when brought in by EMS "Met criteria for severe sepsis per current CMS criteria (tachycardia, tachypnea, leukocytosis, elevated lactate). Procalcitonin elevated. Blood cultures obtained Patient received broad-spectrum intravenous antibiotic coverage. Received fluid resuscitation. Lactic acid levels were followed-normalized with IV fluid and ABx" (2) Pneumonia: -68-year-old with severe chronic obstructive pulmonary disease, cavitary process, right upper lobe with extensive and progressive consolidation bilaterally and was on a 9 day antibiotic course of for multilobar pneumonia -patient did have a fever on 04/09/19 but Zosyn discontinued as fever was attributed to a possible non infectious pulmonary etiology ( drug fever versus fever from Pulmonary embolism vs iliopsoas hematoma) -currently off Zosyn -bronchoscopy on 04/10/19: did not discern a purulent infection on bronchoscopy -Pulmonary service consulted CT surgery for lung biopsy -on 04/12/19 patient had Rightwedge biopsy x2 right upper lobe, biopsy diagphragmatic implants, drain right pleural effusion, bronchoscopy(Right) and then went to ICU still intubated and on pressors. Patient then started on ceftriaxone 2 gram IV daily for bacterial coverage -while in ICU on 04/13/19: Fiberoptic bronchoscopy was performed via endotracheal tube. Bronchioalveolar lavage right upper, middle, lower lobes was performed performed. Findings included: Tenacious secretions required Mucomyst instilled and the secretions -04/14/19 patient has been extubated and on oxymask, continues to have chest tube -04/15/19: Patient had bronchoscopy. Then started on caspofungin for fungal coverage and vancomycin on 04/15/19. Has been on ceftriaxone 2 gram IV daily since 04/12/19 and being continued. Patient's chest tube was removed on 04/15/19. Patient then started on IV heparin on 04/15/19 because of known pulmonary embolism -04/16/19: Intensive Care Unit physician calling overall diagnosis of Cryptogenic organizing pneumonia given overall lack of infectious workup findings to date. After discussing with patient, ICU team, and palliative care the code statsu changed to DNR. ICU team placed PICC line for continue the IV antibiotics and IV antifungals for a 10-day treatment length. Patient wants to go home in general but he is aware that he is on high oxygen requirements. He agrees with transition from ICU to the medical floor. Patient to go toe PCU telemetry bed if available. Also patient has been on IV heparin fro anticoagulation of known pulmonary embolism on admission. (3) Acute respiratory failure with hypoxia: -during the hospital stay, patient had been on oxymask supplementary oxygen -patient had lung biopsy on 04/12/19 with chest tube placed and remained intubated in ICU -04/14/19 patient has been extubated and on oxymask -chest tube remove on 04/15/19 (4) COPD (chronic obstructive pulmonary disease): Exacerbation COPD secondary to pneumonia. -albuterol nebulizer treatments as needed. -had been on steroids and solumedrol was stopped after last day on 04/11/19 and off prednisone but then resumed by ICU team. will continue prednisone 60 mg daily for now (5) Hypotension: -Occurred on April 06, 2019 Likely secondary to hypovolemia, likely from diuretics and then diuretics were stopped -pressors after the lung biopsy have been titrated off -monitor blood pressure after ICU stay (6) Pulmonary emboli: (present on admission) CTA of chest performed on 03/27 demonstrated multiple small segmental pulmonary emboli. Patient was started on intravenous heparin. Venous duplex of lower extremities on 03/[address] of abdomen pelvis on 03/30 demonstrated hematoma left iliopsoas muscle. IV heparin discontinued. Pulmonary emboli were relatively small (segmental and subsegmental). No DVT's identified in lower extremities at the time. On April 03, 2019 started Eliquis 10mg BID April 05, 2019 patient developed increased abdominal pain and CAT scan of the abdomen and pelvis confirmed increased iliopsoas hematoma size previous hospitalist Discussed with Dr. Collado, recommend to discontinue Eliquis Repeat Doppler of the legs: Negative for DVT 04/15/19: heparin IV being started by ICU team to treat the known thromboembolism 04/16/19: continue IV heparin for now. would not start coumadin bridge yet until more certain of Hgb stability (7) Abnormal CT scan, chest: -admission CT of chest 03/27/19 Multiple small segmental pulmonary emboli; 6.2 x 4.5 cm thick-walled cavitary focus within the right upper lobe; Additi onal extensive airspace opacities throughout the lungs which favor multifocal pneumonia -patient has had successive imaging during hospital workup -04/16/19: Intensive Care Unit physician calling overall diagnosis of Cryptogenic organizing pneumonia given overall lack of infectious workup findings to date (8) Pulmonary edema: -CT of chest on day of admission suggested possible pulmonary edema -Diuretics initially were started on this admission but then stopped due to hypovolemia and hypotension -at this time in the evaluation, the patient is not on diuretics and has normal ejection fraction when echocardiogram was performed on 03/28/19 (9) Multifocal atrial tachycardia: -initial atrial fibrillation with rapid ventricular response and then multifocal atrial tachycardia on this admission -currently normal sinus rhythm -continue metoprolol as low dose 12.5 mg tartrate BID and titrate as needed (10) Hypertension: blood pressures are not hypertensive at this time (11) Urinary tract infection: Admission UA showed leukocyte esterase, WBCs, bacteria. Urine culture (+) enterococcus faecalis Sensitive to penicillin Received Zosyn for 9 days during this hospital course Urine culture was repeated on 04/09/19 and is negative (12) Hematoma of left iliopsoas muscle: -this occurred earlier during the hospital stay when patient had systemic anticoaglation -as of 04/15/19, ICU team restarted systemic anticoagulation with IV heparin for known pulmonary embolism and will monitor for bleeding risks (13) DVT prophylaxis: currently on IV heparin (14) Discharge planning issues: In the Intensive Care Unit and to transition to PCU telemetry as of 04/16/19 as per ICU team patient may need an LTAC facility after the hospital stay given high oxygen requirements will need ongoing discussions with patient's wishes Subjective Intensive Care Unit physician calling overall diagnosis of Cryptogenic organizing pneumonia given overall lack of infectious workup findings to date. After discussing with patient, ICU team, and palliative care the code statsu changed to DNR. ICU team placed PICC line for continue the IV antibiotics and IV antifungals for a 10-day treatment length. Patient wants to go home in general but he is aware that he is on high oxygen requirements. He agrees with transition from ICU to the medical floor. Patient to go toe PCU telemetry bed if available. Also patient has been on IV heparin fro anticoagulation of known pulmonary embolism on admission. patient denies acute pain. no headache. no dizziness. no nausea. no vomiting. no chest pain. no abdomen pain Physical Exam Constitutional: comfortable Eyes: PERRL, conjunctivae normal, anicteric sclerae EOM intact bilaterally ENMT: external ear and nose normal, oropharynx normal Neck: trachea midline, no thyromegaly normal visual inspection Respiratory: normal respiratory effort Cardiovascular: Rate/Rhythm: regular rate and regular rhythm Gastrointestinal (Abdomen): normal bowel sounds, soft, nontender, no hepatosplenomegaly Musculoskeletal: Head/Neck/Chest: normocephalic and head atraumatic Neurologic: PERRL, EOMI, accommodation nl, no face palsy, no dysarthria Psychiatric: A+Ox3, euthymic affect Genitourinary: + penis abnormality (has looney) Results & Data Vital Signs (Past 12 Hours) Vital Signs Temp Pulse Pulse Resp BP Pulse Ox 04/16/19 12:55 96 H 23 154/82 H 94 04/16/19 12:00 36.8 C 95 H 23 91 04/16/19 11:00 90 21 141/60 H 95 04/16/19 10:00 90 36 H 112/51 L 94 04/16/19 09:00 110 H 25 H 116/84 86 L 04/16/19 08:59 103 H 22 96 04/16/19 08:43 110 H 18 95 04/16/19 08:01 106 H 22 109/69 89 L 04/16/19 08:00 36.8 C 108 H 13 109/69 92 04/16/19 07:15 92 H 04/16/19 07:00 98 H 18 100/48 L 88 L 04/16/19 06:00 80 22 101/61 91 04/16/19 05:00 92 H 28 H 120/67 91 04/16/19 04:00 37.2 C 108 H 26 H 90 04/16/19 03:00 95 H 21 102/49 L 91 04/16/19 02:03 86 20 95 04/16/19 02:00 89 18 90/56 L 90
--- NOTE | 2019-04-16 15:15 | Progress Note ---
DATE: 04/16/2019 PULMONARY PROGRESS NOTE TIME: 2:20 p.m. SUBJECTIVE: The patient feels about the same in terms of his shortness of breath. He is not terribly winded. He is still, however, requiring high-flow oxygen at 80%. He is coughing clear mucus. He does not feel that the mucus is excessive. He has not coughed any blood. He is not having chest pains. The patient is frustrated at being in the hospital now for 3 weeks. I questioned the patient regarding any rheumatologic disorders. He denies having significant arthralgias or myalgias. He has no history of lupus or Sjogren's syndrome. OBJECTIVE: GENERAL: The patient appeared fairly comfortable at rest. VITAL SIGNS: Temperature is 36.8. Cardiac rate 95 per minute. Rhythm regular. Blood pressure 154/82. HEENT: ENT exam is unchanged from yesterday. Today, however, he has high flow on instead of OxyMask. Again, no lymph nodes palpable. LUNGS: Lung ferreira reveal rales and rhonchi throughout, particularly the right lung. It is most noticeable at the right base. Left lung has better aeration. Respiratory rate 23. Saturation at the time of my exam 98% on 80% high flow. This was checked by myself. EXTREMITIES: Show mild to moderate edema of the lower extremities and to a lesser degree of the upper extremities. IMAGING DATA: Chest x-ray done today showed a persistent right apical consolidation with cavitation as well as bilateral interstitial opacities. No change from the prior x-ray done 1 day earlier. LABORATORY DATA: White count today 17.92. Hemoglobin 7.8. Platelets 221,000. Electrolytes show sodium 132, potassium 3.4, chloride 97, bicarbonate 28. BUN 10 with a creatinine 0.32. Phosphorus today is still low at 2.2, but it is improved from yesterday when it was 1.7. There has been no change in the microbiology findings from yesterday. The positives thus far coag-negative staph from right middle lobe on April 2012 and yeast, not [place] showing from bronchial washings, right upper lobe from bronchoscopy on April 10 and April 12. I discussed the pathology with Dr. Yanira Godfrey who did the official report. I wanted to clarify with her whether she felt that this was consistent with cryptogenic organizing pneumonia and her answer was yes. She did not find changes suggestive for bacterial infection. Emphysematous changes were noted. There was no specimen specifically from the lung cavity, however. The patient is now a DNR per his request from earlier today. IMPRESSION: 1. Acute respiratory failure with severe hypoxia and shunt. 2. Cryptogenic organizing pneumonia. 3. Cavitary lung disease. 4. Chronic obstructive pulmonary disease. COMMENTS AND RECOMMENDATIONS: The patient seems to be having a fulminant course. I did discuss with the clinical pharmacist the amount of steroids he has had thus far since he was admitted. It would appear that he has been here about 21 days. He had 40 mg IV q. 8 for 1 day. He had 40 mg IV Solu-Medrol q. 12 from April 27 until April 08 which would reflect 12 days. He had 2 days of 40 mg IV daily. Today, he was started on prednisone 60 mg daily. The patient obviously has not had a significant response thus far to steroids. He was started on clarithromycin. This medication may be helpful in certain situations and I agree with that. It is unclear if at this time a significant bolus dose would be helpful in light of the fact he is now 3 weeks into his course. I have no objection to continuing the antifungal and antibacterial agents as they are currently ordered. It is not clear that these are treating infections which are a definitive cause of his problems, but it seems reasonable considering his poor status to continue this. I believe we should aim to keep his oxygen saturations above 90%. Thus, they should try and taper the high flow to whatever sufficient to keep him above 90%, but not necessarily 98%.
--- NOTE | 2019-04-16 15:28 | Infectious Disease Progress Nt ---
Date of Service April 16, 2019 Assessment & Plan (1) Severe sepsis: Patient with sepsis and pneumonia, status post lung biopsy, no malignancy found. Patient to complete 10-day course of current antibiotics. Will follow. (2) Pneumonia: Subjective . Patient seen in follow-up for sepsis and pneumonia. Feeling somewhat better. Still with cough, less short of breath. No fever. Critical care service feels patient likely with cryptogenic organizing pneumonitis. Chest x-ray appears unchanged. Review of Systems Review of Systems: All systems reviewed & are unremarkable except as noted in HPI & below Physical Exam Constitutional: WD/WN, vitals as above comfortable; no acute distress Eyes: PERRL, conjunctivae normal, anicteric sclerae ENMT: external ear and nose normal, oropharynx normal Neck: trachea midline, no thyromegaly neck nontender Respiratory: normal respiratory effort, lungs clear to auscultation normal percussion; no respiratory distress Auscultation: + rhonchi Cardiovascular: Rate/Rhythm: regular rate and regular rhythm Heart Sounds: normal S1 and normal S2; no gallop, no murmur and no cardiac rub Gastrointestinal (Abdomen): normal bowel sounds, soft, nontender, no hepatosp lenomegaly Musculoskeletal: no cyanosis or clubbing, extremities motor strength 5/5 No spinal tenderness, no joint swelling or erythema Skin: no rashes, warm and dry no lesions Neurologic: moves all extremities and awake; no focal motor deficits Motor/Sensory: no sensory deficit Psychiatric: A+Ox3, euthymic affect Lymphatic: no cervical or axillary lymphadenopathy no inguinal lymphadenopathy Results & Data Vital Signs (Past 12 Hours) Vital Signs Temp Pulse Pulse Resp BP Pulse Ox 04/16/19 15:00 106 H 22 89 L 04/16/19 14:00 109 H 21 142/66 H 04/16/19 13:02 116 H 21 150/71 H 04/16/19 12:55 96 H 23 154/82 H 94 04/16/19 12:00 36.8 C 95 H 23 91 04/16/19 11:00 90 21 141/60 H 95 04/16/19 10:00 90 36 H 112/51 L 94 04/16/19 09:00 110 H 25 H 116/84 86 L 04/16/19 08:59 103 H 22 96 04/16/19 08:43 110 H 18 95 04/16/19 08:01 106 H 22 109/69 89 L 04/16/19 08:00 36.8 C 108 H 13 109/69 92 04/16/19 07:15 92 H 04/16/19 07:00 98 H 18 100/48 L 88 L 04/16/19 06:00 80 22 101/61 91 04/16/19 05:00 92 H 28 H 120/67 91 04/16/19 04:00 37.2 C 108 H 26 H 90 Laboratory Results Short CBC 04/16/19 Range/Units 04:53 WBC 17.92 H (4.8-10.8) K/uL Hgb 7.8 L (14.0-18.0) g/dL Hct 23.0 L (42-52) % Plt Count 221 (130-400) K/uL BMP 04/16/19 04:53 Sodium 132 L Potassium 3.4 L Chloride 97 L Carbon Dioxide 28 BUN 10 Creatinine 0.32 L Glucose 104 H Calcium 7.9 L Diagnostic Findings Microbiology 04/12/19 Unknown Lung,Right Upper Lobe Gram Stain - Final 04/12/19 Unknown Lung,Right Upper Lobe Aerobic and Anaerobic Culture - P reliminary No growth to date. 04/15/19 Unknown Bronch Wash,Right Lower Lobe Gram Stain - Final 04/15/19 Unknown Bronch Wash,Right Lower Lobe Bronchoalveolar Lavage Culture - Preliminary Light normal hugo present, final report to follow. 04/12/19 Unknown Lung,Right Middle Lobe Gram Stain - Final 04/12/19 Unknown Lung,Right Middle Lobe Aerobic and Anaerobic Culture - Preliminary Coag neg staph not lugdunensis 04/12/19 Unknown Lung,Right Gram Stain - Final 04/12/19 Unknown Lung,Right Aerobic and Anaerobic Culture - Preliminary No growth to date. 04/15/19 08:29 Blood Aerobic Blood Culture - Preliminary No growth in Aerobic bottle after 24 hours. 04/15/19 08:29 Blood Anaerobic Blood Culture - Preliminary No growth in Anaerobic bottle after 24 hours. 04/15/19 08:39 Blood Aerobic Blood Culture - Preliminary No growth in Aerobic bottle after 24 hours. 04/15/19 08:39 Blood Anaerobic Blood Culture - Preliminary No growth in Anaerobic bottle after 24 hours. 04/15/19 Unknown Bronch Wash,Right Lower Lobe Acid Fast Bacilli Smear - Final 04/12/19 13:08 Bronch Wash,Right Upper Lobe Fungal Smear - Final 04/12/19 13:08 Bronch Wash,Right Upper Lobe Fungal Culture - Preliminary Yeast not [place] albicans 04/10/19 10:02 Bronch Wash,Right Upper Lobe Fungal Smear - Final 04/10/19 10:02 Bronch Wash,Right Upper Lobe Fungal Culture - Preliminary Yeast not Key[place] albicans 04/15/19 Unknown Bronch Wash,Right Lower Lobe Fungal Smear - Final 04/15/19 10:26 Blood Fungal Smear - Final 04/10/19 10:02 Bronch Wash,Right Upper Lobe Acid Fast Bacilli Smear - Final 04/10/19 10:02 Bronch Wash,Right Upper Lobe Acid Fast Bacilli Culture - P reliminary No Acid-Fast Bacilli Isolated - Report 1, Additional Report to Follow. 04/09/19 10:31 Blood Aerobic Blood Culture - Final No growth in Aerobic bottle after 5 days. 04/09/19 10:31 Blood Anaerobic Blood Culture - Final No growth in Anaerobic bottle after 5 days. 04/09/19 10:07 Blood Aerobic Blood Culture - Final No growth in Aerobic bottle after 5 days. 04/09/19 10:07 Blood Anaerobic Blood Culture - Final No growth in Anaerobic bottle after 5 days. 04/12/19 Unknown Lung,Right Middle Lobe Fungal Smear - Final 04/12/19 Unknown Lung,Right Middle Lobe Fungal Culture - Preliminary No yeast or fungus isolated - Report 1, Additional Report to Follow. 04/12/19 Unknown Lung,Right Upper Lobe Fungal Smear - Final 04/12/19 Unknown Lung,Right Upper Lobe Fungal Culture - Preliminary No yeast or fungus isolated - Report 1, Additional Report to Follow. 04/12/19 Unknown Lung,Right Fungal Smear - Final 04/12/19 Unknown Lung,Right Fungal Culture - Preliminary No yeast or fungus isolated - Report 1, Additional Report to Follow. 04/12/19 13:08 Bronch Wash,Right Upper Lobe Gram Stain - Final 04/12/19 13:08 Bronch Wash,Right Upper Lobe Bronchoalveolar Lavage Culture - Final Moderate normal hugo. 04/12/19 13:08 Bronch Wash,Right Upper Lobe Acid Fast Bacilli Smear - Final 04/12/19 Unknown Lung,Right Middle Lobe Acid Fast Bacilli Smear - Final 04/12/19 Unknown Lung,Right Upper Lobe Acid Fast Bacilli Smear - Final 04/12/19 Unknown Lung,Right Acid Fast Bacilli Smear - Final 04/10/19 10:02 Bronch Wash,Right Upper Lobe Gram Stain - Final 04/10/19 10:02 Bronch Wash,Right Upper Lobe Bronchoalveolar Lavage Culture - Final Moderate normal hugo. 04/09/19 15:54 Blood Cryptococcal Antigen Test - Final 03/27/19 17:00 Urine,Random Urine Culture - Final Enterococcus faecalis 03/27/19 17:01 Blood Aerobic Blood Culture - Final No growth in Aerobic bottle after 5 days. 03/27/19 17:01 Blood Anaerobic Blood Culture - Final No growth in Anaerobic bottle after 5 days. 03/27/19 16:48 Blood Aerobic Blood Culture - Final No growth in Aerobic bottle after 5 days. 03/27/19 16:48 Blood Anaerobic Blood Culture - Final No growth in Anaerobic bottle after 5 days. cc: ~ XR chest 1V portable CLINICAL HISTORY: Abnormal chest x-ray. Follow-up study. COMPARISON STUDY: 04/15/2019 FINDINGS: The heart remains enlarged. There are bilateral interstitial/fibrotic changes similar to the prior study. There is more focal right apical consolidation with suspected cavitation. No pneumothorax is visualized.[ IMPRESSION: 1. Persistent bilateral interstitial opacities 2. Persistent right apical consolidation with possible cavitation 3. No evidence of pneumothorax 4. No significant change from the preceding study Electronically signed by: Jeff Krishnamurthy M.D. 04/16/2019 7:04 AM Dictated: 04/16/19700 Transcribed: 04/16/19700
[2019-04-16 16:13] LABS: Partial Thromboplastin Ratio 1.7
[2019-04-16 16:20] LABS: Partial Thromboplastin Time 46.5 Seconds (21.0-31.0)
--- NOTE | 2019-04-16 16:59 | Progress Note ---
DATE: 04/16/2019 Mr. Wills was seen today on 04/16/2019. We performed a wedge resection on him last week. The final pathology shows this to be compatible with a chronic organizing pneumonia. He is still hypoxic with an FIO2 of 80% on high-flow nasal cannula with 80-90% saturations. Hemoglobin 7.8. His white count is down to 17,920. I thought his x-ray looked a bit better. He still has interstitial opacities. There is no pneumothorax and no pleural effusion. His incisions are clean. We are going to sign off of Mr. Wills and I would be glad to see him back at any time.
[2019-04-16] MEDS: OXYCODONE HCL IR 5 MG TAB (IMMEDIATE RELEASE) PO PRN (22:06)
[2019-04-16] MEDS: LORazepam 1 MG TAB SL PRN (22:07)
[2019-04-17] MEDS ORDERED: VANCOMYCIN TROUGH ONE (03:30)
[2019-04-17] MEDS: VANCOMYCIN HCL 1,500 MG in SODIUM CHLORIDE 0.9% 500 ML IV SCH (04:28)
[2019-04-17] MEDS: LEVALBUTEROL 1.25MG/0.5ML NEB NEB PRN (05:54)
--- NOTE | 2019-04-17 06:39 | XRay Report ---
XR chest 1V portable CLINICAL HISTORY: hypoxia COMPARISON STUDY: 04/16/2019 FINDINGS: The cardiac and mediastinal contours remain stable. Bilateral pulmonary airspace opacities are again evident. There is an area of suspected cavitation within the right upper lung zone. There i s been placement of a right-sided PICC catheter. The tip projects over the right atrium.[ IMPRESSION: 1. Interval placement of a right-sided PICC catheter. The tip projects over the right atrium 2. Persistent bilateral pulmonary airspace opacities with an area of suspected right upper lung zone cavitation. Electronically signed by: Jeff Krishnamurthy M.D. 04/17/2019 6:37 AM
[2019-04-17 07:11] LABS: Basophils # (auto) 0.03 K/uL (0-0.2); Basophils % (auto) 0.2 %; Eosinophils # (auto) 0.39 K/uL (0-0.5); Eosinophils % (auto) 2.2 %; Hematocrit (blood only) 26.9 % (42-52); Hemoglobin 8.8 g/dL (14.0-18.0); Immature Granulocytes % (auto) 0.6 %; Lymphocytes # (auto) 1.47 K/uL (1.2-3.4); Lymphocytes % (auto) 8.1 %; Mean Corpuscular Hgb Conc 32.7 g/dL (32-36); Mean Corpuscular Volume 98.2 fL (80-100); Mean Platelet Volume 10.9 fL (7.4-10.4); Monocytes % (auto) 3.3 %; Neutrophils # (auto) 15.47 K/uL (1.4-6.5); Neutrophils % (auto) 85.6 %; Platelet Count 255 K/uL (130-400); RDW Coefficient of Variation 14.4 % (11.5-14.5); RDW Standard Deviation 51.5 fL (36.4-46.3); Red Blood Count 2.74 M/uL (4.7-6.1); White Blood Count 18.06 K/uL (4.8-10.8)
[2019-04-17 07:23] LABS: Partial Thromboplastin Ratio 1.3; Partial Thromboplastin Time 35.5 Seconds (21.0-31.0)
[2019-04-17 07:42] LABS: BUN Creatinine Ratio 16.5 (10-20); Calcium 8.5 mg/dl (8.5-10.1); Creatinine Clr Calc Pharmacy 229.2 ml/min; Est GFR (Non-African American) 120.8; Potassium 2.9 mmol/L (3.5-5.1)
[2019-04-17 07:43] LABS: Phosphorus 2.4 mg/dl (2.5-4.9)
[2019-04-17] MEDS: OXYCODONE HCL IR 5 MG TAB (IMMEDIATE RELEASE) PO PRN (09:24)
[2019-04-17] MEDS: CASPOFUNGIN 50 MG in SODIUM CHLORIDE 0.9% 250 ML IV SCH (09:24)
[2019-04-17] MEDS: MULTIVITAMIN TAB PO SCH (09:25)
[2019-04-17] MEDS: predniSONE 20 MG TAB PO SCH (09:25)
[2019-04-17] MEDS: FOLIC ACID 1 MG TAB PO SCH (09:25)
[2019-04-17] MEDS: METOPROLOL TARTRATE 25 MG TAB PO SCH ×2 (09:25→19:39)
[2019-04-17] MEDS: ESCITALOPRAM OXALATE 10 MG TAB PO SCH (09:25)
[2019-04-17] MEDS: THIAMINE HCL 100 MG TAB NG SCH (09:26)
[2019-04-17] MEDS: POTASSIUM CHLORIDE 20 MEQ TABCR PO SCH ×3 (09:38→19:40)
--- NOTE | 2019-04-17 09:41 | Pulmonology Progress Note ---
Date of Service April 17, 2019 Assessment & Plan (1) Acute respiratory failure with hypoxia: The patient currently is on BiPAP. He is oxygenating slightly better. Would continue this at least intermittently, allowing the patient to have meals and utilize high flow oxygen. The patient remains on caspofungin, ceftriaxone, and vancomycin. The major diagnosis appears to be cryptogenic organizing pneumonia with an inability to exclude coexistent infectious process. (2) Cryptogenic organizing pneumonia: Patient has been on steroids for about two thirds of his stay. He is not had significant improvement peer currently on prednisone 60 mg daily. In light of the apparent fulminant course, suggest high-dose Solu-Medrol 125 mg IV every 6 hours for 3 days, then go back to the prednisone 60 mg daily. The clarithromycin was discontinued yesterday after just 1 day. 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 (3) Cavitary lung disease: (4) COPD (chronic obstructive pulmonary disease): Subjective The patient was seen in room 206. Early this morning he was found to have oxygen saturation of only 80% with high flow oxygen at 80%. He was then ordered to be on BiPAP with current settings /. It did improve his oxygenation. He is comfortable with the BiPAP on but he really was not having any symptoms earlier. He was not having shortness of breath. He states he did cough a lot last evening and brought up a moderate quantity of clear sputum. He is not coughed up any blood. He is having no chest pains. His saturations have remained marginal. He denies any nausea or vomiting. Review of Systems Review of Systems: Negative except as noted above. Physical Exam Physical Exam: The patient is a 68-year-old male who was cooperative, alert, and oriented. He did not appear short of breath. Temperature is 36.8. He has had no fevers. Patient currently on BiPAP. Thus I was not able to adequately evaluate the nasal passages or oral pharynx. Palpation of the neck reveals no lymph nodes. Cardiac rate currently 118 per the rhythm is somewhat irregular. Blood pressure 165/81. Respiratory rate currently 23 breaths/min. He did not appear labored. Breath sounds are diminished bilaterally. No active wheezes heard. Mild rales heard. Saturation at the time of this examination was 90% with BiPAP in place with 70% FiO2. Abdomen was soft. Bowel sounds present. Nontender. +1 edema both lower extremities. No cyanosis. Results & Data Vital Signs (Past 12 Hours) Vital Signs Temp Pulse Pulse Pulse Resp BP BP 04/17/19 07:45 36.8 C 106 H 92 H 28 H 165/81 H 04/17/19 06:42 04/17/19 06:20 04/17/19 06:15 111 H 29 H 04/17/19 05:54 103 H 28 H 04/17/19 03:42 36.5 C 88 24 140/68 04/17/19 02:06 98 H 20 04/16/19 22:25 99 H 20 Pulse Ox 04/17/19 07:45 92 04/17/19 06:42 93 04/17/19 06:20 83 L 04/17/19 06:15 97 04/17/19 05:54 86 L 04/17/19 03:42 90 04/17/19 02:06 91 04/16/19 22:25 91 Laboratory Results White blood cell count today 18.06. This reflects no significant change. Hemoglobin today 8.8 and yesterday was 7.8. Platelets 255,000. Electrolytes show sodium 136, potassium 2.9, chloride 100, bicarb 31. BUN 7 and creatinine 0.41. Blood sugar 114. Diagnostic Findings Chest x-ray done this morning shows evidence of a right-sided PIC catheter. There was no change in the persistent bilateral pulmonary airspace opacities with right upper lobe cavitation.
[2019-04-17] MEDS: cefTRIAXone SODIUM 2,000 MG in DEXTROSE 5% 50 ML IV SCH (10:15)
--- NOTE | 2019-04-17 10:16 | Pharmacy Report ---
Pharmacy Abx Dose Short Note - Date of Service April 17, 2019 - Assessment & Plan Assessment * 68 year old M admitted on 03/27 being treated for cavitary PNA and now possible PSYCHODRAMATIST * Cultures * 03/27 Urine - E. faecalis * 04/10 bronch - yeast not C. albicans * 04/12 bronch - yeast not C. albicans, coag negative Staph (oxacillin- resistant) * 03/27 and 04/12 nasal MRSA swabs - negative * Renal * SCr elevated on admission then trended rapidly down to baseline ~0.5-0.7 mg/dL. However, now with possibly significant decrease to ~0.3-0.4 mg/dL. Questionable hypermetabolic state 2nd severity of illness Antibiotics * Previously this admission * One-time doses of ceftriaxone, aztreonam, doxycycline, daptomycin, and levofloxacin on 03/27 * Zosyn 03/28-04/09 * One-time dose of clindamycin on 04/12 * Clarithromycin 04/15-04/16 for PSYCHODRAMATIST (discontinued by hospitalist team) * Current * Ceftriaxone day (to finish at same time as caspofungin and vancomycin) * Caspofungin day 3 of * Vancomycin day 3 of Vancomycin * Nasal MRSA swabs negative, however, could be falsely negative with a cavitary PNA. Therefore vancomycin initiated on 04/15 2nd Staph species noted in bronch from 04/12 and will be continued for a 10 day course 2nd oxacillin-resistant coag negative Staph * Patient may be in a hypermetabolic state due to severity of illness as evidenced by extraordinarily low SCr (in the absence of significant musculoskeletal disease prior history). This may significantly increase clearance of vancomycin * Goal vancomycin trough 15-20 mcg/mL * Vancomycin level this AM subtherapeutic at 14.1 mcg/mL. Will increase dose slightly and re-check trough prior to the 4th dose of the new regimen Plan * Continue vancomycin 1750 mg IV q8h * Trough 04/17 @ 0330 Pharmacy will continue to follow and will adjust dose/frequency as necessary. Thank you.
[2019-04-17] MEDS: FLUTICASONE/VILANTEROL INHALER INH SCH (10:26)
[2019-04-17] MEDS ORDERED: HEPARIN IV BOLUS 4,500 UNITS in SYRINGE 0 ML IV ONE (11:00)
[2019-04-17] MEDS: methylPREDNISolone 125 MG in SYRINGE 0 ML IV SCH ×3 (11:38→23:53)
[2019-04-17] MEDS: CLARITHROMYCIN 500 MG TAB PO SCH ×2 (11:38→19:39)
[2019-04-17] MEDS: VANCOMYCIN HCL 1,750 MG in SODIUM CHLORIDE 0.9% 500 ML IV SCH ×2 (12:25→20:58)
[2019-04-17] MEDS: Heparin Adult LOW DOSE Wt-Based Dextrose 5% 25,000 units/500 mL IV SCH ×2 (14:36→23:53)
--- NOTE | 2019-04-17 16:07 | Hospitalist Progress Note ---
Date of Service April 17, 2019 Assessment & Plan (1) Severe sepsis: resuscitated. (2) Acute respiratory failure with hypoxia: -during the hospital stay, patient had been on oxymask supplementary oxygen -patient had lung biopsy on 04/12/19 with chest tube placed and remained intubated in ICU -04/14/19 patient has been extubated and on oxymask -chest tube remove on 04/15/19 (3) Cryptogenic organizing pneumonia: Cavitary lung process with extensive progressive consolidation bilaterally. Bronchoscopy performed on 04/10/2019. There was no obvious evidence of a purulent infection or endobronchial lesion neoplasm. Thoracic surgery was consulted for an open lung biopsy VATS procedure which was performed on 04/12/2019. Gram stain and bronchial washing revealed gram-positive cocci. The right lung was cultured and showed no organisms. There was no evidence of yeast or hyphae on the fungal smears on the lung. A repeat bronchoscopy was performed on 04/15. Continues on antibiotics and caspofungin. Cont high dose steroids. Pulm and ID following. (4) COPD (chronic obstructive pulmonary disease): Exacerbation COPD secondary to pneumonia, appears resolved. No wheezing on exam. Nebs PRN. On 3L oxygen at baseline continuously. (5) Pulmonary emboli: (present on admission) CTA of chest performed on 03/27 demonstrated multiple small segmental pulmonary emboli. Patient was started on intravenous heparin. Venous duplex of lower extremities on 03/[address] of abdomen pelvis on 03/30 demonstrated hematoma left iliopsoas muscle. IV heparin discontinued. Pulmonary emboli were relatively small (segmental and subsegmental). No DVT's identified in lower extremities at the time. On April 03, 2019 started Eliquis 10mg BID April 05, 2019 patient developed increased abdominal pain and CAT scan of the abdomen and pelvis confirmed increased iliopsoas hematoma size previous hospitalist Discussed with Dr. Collado, recommend to discontinue Eliquis Repeat Doppler of the legs: Negative for DVT 04/15/19: heparin IV being started by ICU team to treat the known thromboembolism Starting coumadin today as this is reversible in case of hemoptysis or future bleeding. (6) Multifocal atrial tachycardia: -initial atrial fibrillation with rapid ventricular response and then multifocal atrial tachycardia on this admission -currently normal sinus rhythm -continue metoprolol as low dose 12.5 mg tartrate BID and titrate as needed (7) Hypertension: Not on antihypertensives as outpatient. BP likely elevated in part related to high dose steroids being given. Cont to monitor and notify MD if exceeds parameters. (8) Urinary tract infection: treated (9) Hematoma of left iliopsoas muscle: -this occurred earlier during the hospital stay when patient had systemic anticoaglation -as of 04/15/19, ICU team restarted systemic anticoagulation with IV heparin for known pulmonary embolism and will monitor for bleeding risks -pt states this is resolved, and he was having pain with it previously which is not there now. (10) DVT prophylaxis: Heparin-warfarin started. DNR/DNI Dispo-not clsoe to moving to rehab. In my opinion he should have some moving trials on the hi flow O2 prior to going to a facility where he will be expected to do this regularly. Would have as a goal to get OOB to chair in the am. Will consult PT and OT to assist. Sandy Farias [facility] Subjective feeling well today denies SOB on BIPAP all morning and asking for food/water Review of Systems Review of Systems: All systems reviewed & are unremarkable except as noted in HPI & below Physical Exam Physical Exam: CONSTITUTIONAL: WNWD, vitals as above, generally well- appearing EYES: normal conjunctivae, no scleral icterus ENT: BIPAP mask in place RESPIRATORY: coarse rhonchi intermittently throughout lung ferreira, but he has good air movement, No rales or wheezes, normal respiratory effort CARDIOVASCULAR: regular rate and rhythm, S1 and 2 heard without murmurs, gallops or rubs, no JVD, no peripheral edema CHEST: PICC line in place in RUE. GASTROINTESTINAL: normal bowel sounds, soft, nontender, nondistended. MUSCULOSKELETAL: strength 5/5 throughout, head is normocephalic and atraumatic SKIN: warm and dry NEUROLOGIC: CN 2-12 grossly intact, no gross focal deficits. PSYCHIATRIC: alert cooperative and oriented to person, place and time. Results & Data Vital Signs (Past 12 Hours) Vital Signs Temp Pulse Pulse Pulse Resp BP BP 04/17/19 15:25 37.0 C 96 H 22 150/73 H 04/17/19 12:00 106 H 34 H 04/17/19 11:01 37.1 C 101 H 19 131/67 04/17/19 08:00 103 H 04/17/19 07:45 36.8 C 106 H 92 H 28 H 165/81 H 04/17/19 06:42 04/17/19 06:20 04/17/19 06:15 111 H 29 H 04/17/19 05:54 103 H 28 H Pulse Ox 04/17/19 15:25 96 04/17/19 12:00 91 04/17/19 11:01 94 04/17/19 08:00 04/17/19 07:45 92 04/17/19 06:42 93 04/17/19 06:20 83 L 04/17/19 06:15 97 04/17/19 05:54 86 L Laboratory Results Short CBC 04/17/19 Range/Units 06:53 WBC 18.06 H (4.8-10.8) K/uL Hgb 8.8 L (14.0-18.0) g/dL Hct 26.9 L (42-52) % Plt Count 255 (130-400) K/uL BMP 04/17/19 06:53 Sodium 136 Potassium 2.9 L Chloride 100 Carbon Dioxide 31 BUN 7 Creatinine 0.41 L Glucose 114 H Calcium 8.5 Medications Administered Current Inpatient Medications Clarithromycin (Biaxin) 500 mg PO Q12 [facility] Stop: 04/24/19 10:29 Last Admin: 04/17/19 11:38 Dose: 500 mg Documented by: Escitalopram Oxalate (Lexapro) 20 mg PO DAILY [facility] Stop: 04/27/19 08:59 Last Admin: 04/17/19 09:25 Dose: 20 mg Documented by: Fluticasone/Vilanterol (Breo Ellipta) 1 puffs INH DAILY LE Stop: 05/08/19 10:59 Last Admin: 04/17/19 10:26 Dose: Not Given Documented by: Folic Acid (Folvite) 1 mg PO QAM [facility] Stop: 04/28/19 08:59 Last Admin: 04/17/19 09:25 Dose: 1 mg Documented by: Promethazine HCl 12.5 mg/ (Sodium Chloride) 50.5 mls @ 202 mls/hr IV Q6H PRN PRN Reason: Nausea And Vomiting Stop: 05/04/19 23:18 Caspofungin 50 mg/ Sodium (Chloride) 260 mls @ 260 mls/hr IV QAM [facility]; Protocol Stop: 04/24/19 23:59 Last Infusion: 04/17/19 10:54 Dose: Infused Documented by: Heparin Sodium/Dextrose (Heparin Sodium/Dextrose) 25,000 units in 500 mls @ 34 mls/hr IV .[id number] LE; Protocol Stop: 05/15/19 10:29 Last Titration: 04/17/19 14:52 Dose: 1,700 units/hr, 34 mls/hr Documented by: Ceftriaxone Sodium 2,000 mg/ (Dextrose) 70 mls @ 100 mls/hr IV QAM LE; Protocol Stop: 04/24/19 23:59 Last Infusion: 04/17/19 11:07 Dose: Infused Documented by: Vancomycin HCl 1,750 mg/ (Sodium Chloride) 535 mls @ 200 mls/hr IV Q8H LE; Protocol Stop: 04/24/19 23:59 Last Admin: 04/17/19 12:25 Dose: 200 mls/hr Documented by: Methylprednisolone 125 mg/ (Syringe) 2 mls @ 1.5 mls/min IV Q6 LE Stop: 05/17/19 11:59 Last Admin: 04/17/19 11:38 Dose: 1.5 mls/min Documented by: Levalbuterol HCl (Xopenex 1.25mg/0.5ml Neb) 1.25 mg NEB Q6R PRN PRN Reason: shortness of breath Stop: 04/26/19 18:51 Last Admin: 04/17/19 05:54 Dose: 1.25 mg Documented by: Lorazepam (Ativan) 1 mg SL Q4H PRN PRN Reason: Agitation Stop: 04/28/19 08:58 Last Admin: 04/16/19 22:07 Dose: 1 mg Documented by: Metoprolol Tartrate (Lopressor) 12.5 mg PO BID [facility] Stop: 05/15/19 20:59 Last Admin: 04/17/19 09:25 Dose: 12.5 mg Documented by: Miscellaneous Information (Consult) 1 ea N/A UD PRN PRN Reason: Consult Stop: 05/15/19 10:11 Multivitamins (Multivitamin Tab) 1 tab PO DAILY [facility] Stop: 04/26/19 18:51 Last Admin: 04/17/19 09:25 Dose: 1 tab Documented by: Ondansetron HCl (Zofran) 4 mg IV Q4H PRN PRN Reason: Nausea And Vomiting Stop: 05/12/19 13:54 Oxycodone HCl (Roxicodone Immediate Rel) 5 mg PO Q6H PRN PRN Reason: Moderate Pain (4,5,6) Stop: 04/29/19 10:19 Last Admin: 04/17/19 09:24 Dose: 5 mg Documented by: Oxycodone HCl (Roxicodone Immediate Rel) 10 mg PO Q6H PRN PRN Reason: Severe Pain (7,8,9,10) Stop: 04/29/19 10:19 Potassium Chloride (Klor-Con M20) 40 meq PO Q6H [facility] Stop: 04/17/19 21:16 Last Admin: 04/17/19 09:38 Dose: 40 meq Documented by: Thiamine HCl (Vitamin B-1) 100 mg NG QAM [facility] Stop: 04/30/19 09:14 Last Admin: 04/17/19 09:26 Dose: 100 mg Documented by:
[2019-04-17 17:31] LABS: Partial Thromboplastin Ratio 1.6; Partial Thromboplastin Time 44.6 Seconds (21.0-31.0)
[2019-04-17] MEDS ORDERED: HEPARIN IV BOLUS 4,000 UNITS in SYRINGE 0 ML IV ONE (18:00)
[2019-04-17 18:39] LABS: Aspergillus Ag Index 0.09 (<0.50); Aspergillus Antigen, Serum Not Detected (Not Detected); Aspergillus Flavus Negative (Negative); Aspergillus Niger Negative (Negative)
--- NOTE | 2019-04-17 20:18 | Infectious Disease Progress Nt ---
Date of Service April 17, 2019 Assessment & Plan (1) Severe sepsis: Patient with sepsis and pneumonia, status post lung biopsy, no malignancy found. Patient to complete 10-day course of current antibiotics. Will follow. (2) Pneumonia: Subjective doing well Afebrile Hungry and thirsty On BIPAP all morning Feels great Review of Systems Review of Systems: All systems reviewed & are unremarkable except as noted in HPI & below Physical Exam Constitutional: WD/WN, vitals as above comfortable; no acute distress Eyes: PERRL, conjunctivae normal, anicteric sclerae ENMT: external ear and nose normal, oropharynx normal Neck: trachea midline, no thyromegaly neck nontender Respiratory: normal respiratory effort, lungs clear to auscultation normal respiratory effort and normal percussion; no respiratory distress, no labored breathing and does not use accessory muscles Auscultation: + rhonchi Cardiovascular: RRR, no murmur, no edema Rate/Rhythm: regular rate, regular rhythm and + irregularly irregular Heart Sounds: normal S1 and normal S2; no gallop, no murmur and no cardiac rub Vessels: normal peripheral pulses; no JVD Gastrointestinal (Abdomen): normal bowel sounds, soft, nontender, no hepatosplenomegaly Percussion/Palpation: no abdominal mass Musculoskeletal: no cyanosis or clubbing, extremities motor strength 5/5 Head/Neck/Chest: normocephalic, head atraumatic and neck supple Spine: thoracic spine normal to inspection and lumbar spine normal to inspection; no cervical spinal tenderness Skin: no rashes, warm and dry normal turgor; no lesions Neurologic: patellar DTR's 2+ bilat, sensation intact moves all extremities and awake; no focal motor deficits Motor/Sensory: no sensory deficit Psychiatric: A+Ox3, euthymic affect Orientation: cooperative Lymphatic: no cervical or axillary lymphadenopathy no inguinal l ymphadenopathy Results & Data Vital Signs (Past 12 Hours) Vital Signs Temp Pulse Pulse Pulse Resp BP BP 04/17/19 20:03 107 H 22 04/17/19 19:40 36.8 C 110 H 24 140/81 04/17/19 19:14 110 H 18 04/17/19 15:25 37.0 C 96 H 22 150/73 H 04/17/19 12:00 106 H 34 H 04/17/19 11:01 37.1 C 101 H 19 BP Pulse Ox 04/17/19 20:03 94 04/17/19 19:40 92 04/17/19 19:14 92 04/17/19 15:25 96 04/17/19 12:00 91 04/17/19 11:01 131/67 94 Laboratory Results Short CBC 04/17/19 Range/Units 06:53 WBC 18.06 H (4.8-10.8) K/uL Hgb 8.8 L (14.0-18.0) g/dL Hct 26.9 L (42-52) % Plt Count 255 (130-400) K/uL BMP 04/17/19 06:53 Sodium 136 Potassium 2.9 L Chloride 100 Carbon Dioxide 31 BUN 7 Creatinine 0.41 L Glucose 114 H Calcium 8.5 Diagnostic Findings Microbiology 04/12/19 Unknown Lung,Right Middle Lobe Gram Stain - Final 04/12/19 Unknown Lung,Right Middle Lobe Aerobic and Anaerobic Culture - Final Coag neg staph not lugdunensis 04/12/19 13:08 Bronch Wash,Right Upper Lobe Fungal Smear - Final 04/12/19 13:08 Bronch Wash,Right Upper Lobe Fungal Culture - Preliminary Yeast not C albicans/Cr neofor 04/12/19 Unknown Lung,Right Upper Lobe Gram Stain - Final 04/12/19 Unknown Lung,Right Upper Lobe Aerobic and Anaerobic Culture - Final No growth 04/12/19 Unknown Lung,Right Gram Stain - Final 04/12/19 Unknown Lung,Right Aerobic and Anaerobic Culture - Final No growth 04/15/19 08:29 Blood Aerobic Blood Culture - Preliminary No growth in Aerobic bottle after 48 hours. 04/15/19 08:29 Blood Anaerobic Blood Culture - Preliminary No growth in Anaerobic bottle after 48 hours. 04/15/19 08:39 Blood Aerobic Blood Culture - Preliminary No growth in Aerobic bottle after 48 hours. 04/15/19 08:39 Blood Anaerobic Blood Culture - Preliminary No growth in Anaerobic bottle after 48 hours. 04/15/19 Unknown Bronch Wash,Right Lower Lobe Gram Stain - Final 04/15/19 Unknown Bronch Wash,Right Lower Lobe Bronchoalveolar Lavage Culture - Final Light normal hugo. 04/15/19 Unknown Bronch Wash,Right Lower Lobe Acid Fast Bacilli Smear - Final 04/10/19 10:02 Bronch Wash,Right Upper Lobe Fungal Smear - Final 04/10/19 10:02 Bronch Wash,Right Upper Lobe Fungal Culture - Preliminary Yeast not [place] albicans 04/15/19 Unknown Bronch Wash,Right Lower Lobe Fungal Smear - Final 04/15/19 10:26 Blood Fungal Smear - Final 04/10/19 10:02 Bronch Wash,Right Upper Lobe Acid Fast Bacilli Smear - Final 04/10/19 10:02 Bronch Wash,Right Upper Lobe Acid Fast Bacilli Culture - Preliminary No Acid-Fast Bacilli Isolated - Report 1, Additional Report to Follow. 04/09/19 10:31 Blood Aerobic Blood Culture - Final No growth in Aerobic bottle after 5 days. 04/09/19 10:31 Blood Anaerobic Blood Culture - Final No growth in Anaerobic bottle after 5 days. 04/09/19 10:07 Blood Aerobic Blood Culture - Final No growth in Aerobic bottle after 5 days. 04/09/19 10:07 Blood Anaerobic Blood Culture - Final No growth in Anaerobic bottle after 5 days. 04/12/19 Unknown Lung,Right Middle Lobe Fungal Smear - Final 04/12/19 Unknown Lung,Right Middle Lobe Fungal Culture - Preliminary No yeast or fungus isolated - Report 1, Additional Report to Follow. 04/12/19 Unknown Lung,Right Upper Lobe Fungal Smear - Final 04/12/19 Unknown Lung,Right Upper Lobe Fungal Culture - Preliminary No yeast or fungus isolated - Report 1, Additional Report to Follow. 04/12/19 Unknown Lung,Right Fungal Smear - Final 04/12/19 Unknown Lung,Right Fungal Culture - Preliminary No yeast or fungus isolated - Report 1, Additional Report to Follow. 04/12/19 13:08 Bronch Wash,Right Upper Lobe Gram Stain - Final 04/12/19 13:08 Bronch Wash,Right Upper Lobe Bronchoalveolar Lavage Culture - Final Moderate normal hugo. 04/12/19 13:08 Bronch Wash,Right Upper Lobe Acid Fast Bacilli Smear - Final 04/12/19 Unknown Lung,Right Middle Lobe Acid Fast Bacilli Smear - Final 04/12/19 Unknown Lung,Right Upper Lobe Acid Fast Bacilli Smear - Final 04/12/19 Unknown Lung,Right Acid Fast Bacilli Smear - Final 04/10/19 10:02 Bronch Wash,Right Upper Lobe Gram Stain - Final 04/10/19 10:02 Bronch Wash,Right Upper Lobe Bronchoalveolar Lavage Culture - Final Moderate normal hugo. 04/09/19 15:54 Blood Cryptococcal Antigen Test - Final 03/27/19 17:00 Urine,Random Urine Culture - Final Enterococcus faecalis 03/27/19 17:01 Blood Aerobic Blood Culture - Final No growth in Aerobic bottle after 5 days. 03/27/19 17:01 Blood Anaerobic Blood Culture - Final No growth in Anaerobic bottle after 5 days. 03/27/19 16:48 Blood Aerobic Blood Culture - Final No growth in Aerobic bottle after 5 days. 03/27/19 16:48 Blood Anaerobic Blood Culture - Final No growth in Anaerobic bottle after 5 days.
[2019-04-18 00:44] LABS: Albumin Level 1.7 gm/dl (3.4-5.0); Bilirubin Direct 0.3 mg/dl (0-0.2); Bilirubin,Total 0.5 mg/dl (0.2-1); Partial Thromboplastin Ratio 1.9; Total Protein 5.8 gm/dl (6.4-8.2)
[2019-04-18] MEDS: VANCOMYCIN HCL 1,750 MG in SODIUM CHLORIDE 0.9% 500 ML IV SCH ×3 (05:18→20:13)
[2019-04-18] MEDS: methylPREDNISolone 125 MG in SYRINGE 0 ML IV SCH ×3 (05:19→18:39)
[2019-04-18 06:22] LABS: Basophils # (auto) 0.02 K/uL (0-0.2); Basophils % (auto) 0.1 %; Eosinophils # (auto) 0.01 K/uL (0-0.5); Eosinophils % (auto) 0.1 %; Hematocrit (blood only) 23.8 % (42-52); Hemoglobin 7.9 g/dL (14.0-18.0); Immature Granulocytes # (auto) 0.08 K/uL (0.00-0.02); Immature Granulocytes % (auto) 0.5 %; Lymphocytes # (auto) 0.91 K/uL (1.2-3.4); Lymphocytes % (auto) 5.9 %; Mean Corpuscular Hgb Conc 33.2 g/dL (32-36); Mean Corpuscular Volume 97.5 fL (80-100); Mean Platelet Volume 10.8 fL (7.4-10.4); Monocytes # (auto) 0.55 K/uL (0.11-0.59); Monocytes % (auto) 3.5 %; Neutrophils # (auto) 13.93 K/uL (1.4-6.5); Neutrophils % (auto) 89.9 %; Platelet Count 224 K/uL (130-400); RDW Coefficient of Variation 14.2 % (11.5-14.5); RDW Standard Deviation 51.1 fL (36.4-46.3); Red Blood Count 2.44 M/uL (4.7-6.1)
[2019-04-18 06:49] LABS: RBC Morphology Unremarkable
[2019-04-18 07:02] LABS: BUN Creatinine Ratio 20.2 (10-20); Calcium 8.3 mg/dl (8.5-10.1); Creatinine Clr Calc Pharmacy 250.2 ml/min; Est GFR (African American) 144.5; Est GFR (Non-African American) 124.6
[2019-04-18] MEDS: ESCITALOPRAM OXALATE 10 MG TAB PO SCH (08:25)
[2019-04-18] MEDS: MULTIVITAMIN TAB PO SCH (08:25)
[2019-04-18] MEDS: METOPROLOL TARTRATE 25 MG TAB PO SCH ×2 (08:25→19:42)
[2019-04-18] MEDS: CLARITHROMYCIN 500 MG TAB PO SCH ×2 (08:25→19:42)
[2019-04-18] MEDS: FOLIC ACID 1 MG TAB PO SCH (08:25)
[2019-04-18] MEDS: THIAMINE HCL 100 MG TAB NG SCH (08:26)
[2019-04-18] MEDS: cefTRIAXone SODIUM 2,000 MG in DEXTROSE 5% 50 ML IV SCH (08:27)
[2019-04-18] MEDS: FLUTICASONE/VILANTEROL INHALER INH SCH (08:27)
--- NOTE | 2019-04-18 08:27 | XRay Report ---
XR chest 1V portable CLINICAL HISTORY: hypoxia is COMPARISON STUDY: 04/17/2019 FINDINGS: Stable unchanged exam. Central catheter remains in superior cava. The diffuse parenchymal densities including the consolidative process with central lucency overlying the right pulmonary apex are unchanged. There are no new or interval findings. IMPRESSION: Stable exam of the chest. No change compared to the prior study. The above report was generated using voice recognition software. It may contain grammatical, syntax or spelling errors. Electronically signed by: Bear Amaral M.D. 04/18/2019 8:26 AM
[2019-04-18] MEDS: CASPOFUNGIN 50 MG in SODIUM CHLORIDE 0.9% 250 ML IV SCH (08:29)
--- NOTE | 2019-04-18 09:11 | Progress Note ---
DATE: 04/18/2019 Mr. Wills was seen today. His x-ray looks about the same as far as the right upper lobe cavitary process; however, I think his infiltrate looked a little worse, especially on the left side. He is struggling. Dr. Cornejo saw him yesterday from a pulmonary standpoint and has recommended increasing the dose of Solu-Medrol and resuming azithromycin. Certainly, there is not anything more I can do from a surgical standpoint. ROBERTO
[2019-04-18] MEDS ORDERED: GLUCOSE 40% GEL 15 GM TUBE PO PRN (09:52)
[2019-04-18] MEDS ORDERED: CARBOHYDRATES FOR HYPOGLYCEMIA PO PRN (09:52)
[2019-04-18] MEDS ORDERED: GLUCOSE 10 TABS/TUBE PO PRN (09:52)
[2019-04-18] MEDS ORDERED: DEXTROSE 50% 50 ML SYRINGE IV PRN (09:52)
[2019-04-18] MEDS ORDERED: GLUCAGON FOR INJ 1 MG VIAL SQ PRN (09:52)
[2019-04-18] MEDS ORDERED: VANCOMYCIN TROUGH ONE (11:30)
--- NOTE | 2019-04-18 12:12 | Palliative Care Progress Note ---
Date of Service April 18, 2019 Assessment & Plan (1) Goals of care, counseling/discussion: -Patient remains on high-flow nasal cannula at 100% FiO2. His saturations were in the low 80s when I entered room because patient didn't realize only one of the nasal prongs was in his nose. His saturations recovered to about 87-89% once the cannula was back in place. Patient was feeling a little SOB when his saturation was down, but began feeling better. -plan is for patient to go to [facility] for some pulmonary rehab and weaning from the oxygen. -Continuing with full treatment at this time. Patient's goal is to get back home. -Palliative care will officially sign off at this time. Please contact us with any further palliative care needs. (2) Pneumonia: (3) Acute respiratory failure with hypoxia: (4) Severe sepsis: Subjective Subjectively patient states he is feeling better. He remains on 100% FiO2 via high-flow nasal cannula. Review of Systems Review of Systems: + cough and + dyspnea on exertion no chest pain no abdominal pain and no nausea no confusion no anxiety Physical Exam Constitutional: well developed and well nourished; no acute distress ENMT: external ear and nose normal, oropharynx normal Neck: normal visual inspection Respiratory: no respiratory distress Auscultation: no rhonchi and no wheezes Cardiovascular: Rate/Rhythm: regular rate and regular rhythm Neurologic: moves all extremities and awake Psychiatric: A+Ox3, euthymic affect Insight: good insight Results & Data Vital Signs (Past 12 Hours) Vital Signs Temp Pulse Pulse Pulse Resp BP BP 04/18/19 11:10 36.5 C 93 H 17 143/79 H 04/18/19 07:53 36.5 C 98 H 23 140/91 04/18/19 07:33 36.4 C L 67 18 04/18/19 07:26 101 H 20 04/18/19 02:43 36.0 C L 101 H 23 04/18/19 02:00 100 H 20 BP Pulse Ox 04/18/19 11:10 89 L 04/18/19 07:53 88 L 04/18/19 07:33 96/56 L 96 04/18/19 07:26 88 L 04/18/19 02:43 141/74 H 94 04/18/19 02:00 92 PG Care Time/CCT Total # of Minutes Spent Total Time Spent with Patient: Total time spent is greater than 50% in coordination of care (as documented) at patient's floor/unit and/or counseling patient: Time Spent Midlevel 35 minutes with >50% of the time spent at bedside with patient discussing condition and POC.
[2019-04-18] MEDS: INSULIN ASPART 100 UNITS/ML 3 ML PEN SC SCH ×3 (12:25→20:38)
--- NOTE | 2019-04-18 13:10 | Pulmonology Progress Note ---
Date of Service April 18, 2019 Assessment & Plan (1) Acute respiratory failure with hypoxia: Patient is doing poorly. He continues to have a severe shunt. He is currently on 100% FiO2 with high flow and despite that has saturations typically less than 90%. This is despite high-dose steroids as well as multiple antibiotics. The patient looks much better than expected considering the above. He is having a fulminant course. The patient is a DNR. Arrangements are being made for his transfer to an LTAC. We would need to be certain that they could accommodate high flow oxygen as well as BiPAP. He still remains very marginal. Whenever transfer occurs he should be transported while wearing BiPAP where he gets a higher saturation. (2) Cryptogenic organizing pneumonia: (3) Cavitary lung disease: (4) COPD (chronic obstructive pulmonary disease): Subjective The patient has relatively few complaints. He denies significant shortness of breath although I believe he is short of breath. He has a mild cough with clear sputum. There has been no hemoptysis. He said no chest pains. The patient states he has a good appetite. The major issue has been his severe hypoxia. He reportedly does better in terms of oxygen saturations wearing BiPAP then with the high flow oxygen. Review of Systems Review of Systems: As above Physical Exam Physical Exam: The patient is a 68-year-old male who appeared mildly short of breath. He was cooperative alert and oriented. Temperature 36.5. ENT exam unchanged. Cardiac rate 98/min. Rhythm regular. Blood pressure 143/79. Lung ferreira revealed decreased breath sounds in the right upper lung field. Mi ld rales heard bilaterally. Respiratory rate 24 breaths/min at the time of my exam. Saturation initially was 89%. He decreased to 79% with just sitting forward for me to listen to his lungs. This was with the patient wearing high flow nasal at 100%. Abdomen was soft and nontender. Extremities continue to show +1 to +2 edema. Results & Data Vital Signs (Past 12 Hours) Vital Signs Temp Pulse Pulse Pulse Resp BP BP 04/18/19 11:10 36.5 C 93 H 17 143/79 H 04/18/19 07:53 36.5 C 98 H 23 140/91 04/18/19 07:33 36.4 C L 67 18 04/18/19 07:26 101 H 20 07/18/19 02:43 36.0 C L 101 H 23 04/18/19 02:00 100 H 20 BP Pulse Ox 04/18/19 11:10 89 L 04/18/19 07:53 88 L 04/18/19 07:33 96/56 L 96 04/18/19 07:26 88 L 04/18/19 02:43 141/74 H 94 04/18/19 02:00 92 Laboratory Results White blood cell count today showed 15.5. Yesterday it had been 18.06. Hemoglobin today 7.9. This is down from 8.8 yesterday. Platelets are 224,000. Electrolytes show sodium 136 potassium 4 chloride 101 bicarb 31. BUN is 8 with a creatinine 0.38. Diagnostic Findings Chest x-ray today showed no significant change. There is a large lucency in the right upper lung field. There is fairly diffuse interstitial changes bilaterally.
--- NOTE | 2019-04-18 13:27 | Pharmacy Report ---
Pharmacy Abx Dose Short Note - Date of Service April 18, 2019 - Assessment & Plan Assessment * 68 year old M admitted on 03/27 being treated for cavitary PNA and now possible FR[employer] P[employer] F[employer] AND FILL * Cultures * 03/27 Urine - E. faecalis * 04/10 bronch - yeast not C. albicans * 04/12 bronch - yeast not C. albicans, coag negative Staph (oxacillin- resistant) * 03/27 and 04/12 nasal MRSA swabs - negative * Renal * SCr elevated on admission then trended rapidly down to baseline ~0.5-0.7 mg/dL. However, now with possibly significant decrease to ~0.3-0.4 mg/dL. 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 Therefore vancomycin initiated on 04/15 2nd Staph species noted in bronch from 04/12 and will be continued for a 10 day course 2nd oxacillin-resistant coag negative Staph * Patient may be in a hypermetabolic state due to severity of illness as evidenced by extraordinarily low SCr (in the absence of significant musculoskeletal disease prior history). This may significantly increase abhishek kristine of vancomycin * Goal vancomycin trough 15-20 mcg/mL * Vancomycin level this afternoon supratherapeutic at 24.0 mcg/mL. However, this was obtained 6 hours after the previous dose (as compared to target 8 hours) because the prior dose was administered late and the trough was obtained slightly early. This two hour difference is significant when the interval is as tight as 8 hours. * Will therefore continue current dose, adjust times of vancomycin slightly 2nd previous administration times, and will repeat a trough this evening Plan * Continue vancomycin 1750 mg IV q8h * Repeat trough 04/18 @ 2029 Pharmacy will continue to follow and will adjust dose/frequency as necessary. Thank you.
[2019-04-18] MEDS: Heparin Adult LOW DOSE Wt-Based Dextrose 5% 25,000 units/500 mL IV SCH (14:56)
[2019-04-18] MEDS ORDERED: WARFARIN SOD 5 MG TAB PO SCH (16:00)
--- NOTE | 2019-04-18 17:37 | Hospitalist Progress Note ---
Date of Service April 18, 2019 Assessment & Plan (1) Severe sepsis: resuscitated. (2) Pneumonia: Cavitary lung process with extensive progressive consolidation bilaterally. Bronchoscopy performed on 04/10/2019. There was no obvious evidence of a purulent infection or endobronchial lesion neoplasm. Thoracic surgery was consulted for an open lung biopsy VATS procedure which was performed on 04/12/2019. Gram stain and bronchial washing revealed gram-positive cocci. The right lung was cultured and showed no organisms. There was no evidence of yeast or hyphae on the fungal smears on the lung. A repeat bronchoscopy was performed on 04/15. Cont current anti-infectives. (3) Acute respiratory failure with hypoxia: 2/2 pneumonia, possibly NEGOTIATOR. Increased steroids considered to improve min response seen so far. (4) COPD (chronic obstructive pulmonary disease): Exacerbation COPD secondary to pneumonia. Cont albuterol nebulizer treatments as needed. Intermittent steroids given throughout the hoospitalization. (5) Pulmonary emboli: POA, repeat CT chest revealed ?resolution of PE. Was challenged with diff erent courses of anticoagulation and failed 2/2 hematoma and acute blood loss anemia. (6) Multifocal atrial tachycardia: -initial atrial fibrillation with rapid ventricular response and then multifocal atrial tachycardia on this admission -currently normal sinus rhythm -continue metoprolol as low dose 12.5 mg tartrate BID and titrate as needed (7) Hypertension: around goal, CCM (8) Urinary tract infection: Admission UA showed leukocyte esterase, WBCs, bacteria. Urine culture (+) enterococcus faecalis Sensitive to penicillin Received Zosyn for 9 days during this hospital course Urine culture was repeated on 04/09/19 and is negative (9) Hematoma of left iliopsoas muscle: -this occurred earlier during the hospital stay when patient had systemic anticoagulation -heparin drip with transition to coumadin, H/H dropped but CT abd revealed a decreased hematoma size, actually. (10) DVT prophylaxis: Heparin DNR Dispo-cont hospitalization until breathing stabilizes. Sandy Farias DO [facility] Hospitalist (11) Discharge planning issues: In the Intensive Care Unit and to transition to PCU telemetry as of 04/16/19 as per ICU team patient may need an LTAC facility after the hospital stay given high oxygen requirements will need ongoing discussions with patient's wishes Subjective Pt doing well, in good spirits. Not complaining of SOB. Denies cough, fever, chills. DEnies any pain. Review of Systems Review of Systems: All systems reviewed & are unremarkable except as noted in HPI & below Physical Exam Physical Exam: CONSTITUTIONAL: WNWD, vitals as above, generally well- appearing EYES: normal conjunctivae, no scleral icterus RESPIRATORY: clear to auscultation bilaterally, good air movement, No rales or wheezes, normal respiratory effort CARDIOVASCULAR: regular rate and rhythm, S1 and 2 heard without murmurs, gallops or rubs, no JVD, no peripheral edema CHEST: PICC line in place in RUE. GASTROINTESTINAL: normal bowel sounds, soft, nontender, nondistended. MUSCULOSKELETAL: strength 5/5 throughout, head is normocephalic and atraumatic SKIN: warm and dry NEUROLOGIC: CN 2-12 grossly intact, no gross focal deficits. PSYCHIATRIC: alert cooperative and oriented to person, place and time. 32 Results & Data Vital Signs (Past 12 Hours) Vital Signs Temp Pulse Pulse Resp BP BP BP 04/18/19 15:22 04/18/19 15:19 110 H 20 04/18/19 15:09 36.7 C 118 H 20 161/75 H 04/18/19 11:10 36.5 C 93 H 17 143/79 H 04/18/19 08:00 103 H 04/18/19 07:53 36.5 C 98 H 23 140/91 04/18/19 07:33 36.4 C L 67 18 96/56 L 04/18/19 07:26 101 H 20 Pulse Ox 04/18/19 15:22 81 L 04/18/19 15:19 92 04/18/19 15:09 78 L 04/18/19 11:10 89 L 04/18/19 08:00 04/18/19 07:53 88 L 04/18/19 07:33 96 04/18/19 07:26 88 L Laboratory Results Short CBC 04/18/19 Range/Units 06:08 WBC 15.50 H (4.8-10.8) K/uL Hgb 7.9 L (14.0-18.0) g/dL Hct 23.8 L (42-52) % Plt Count 224 (130-400) K/uL BMP 04/18/19 06:08 Sodium 136 Potassium 4.0 D Chloride 101 Carbon Dioxide 31 BUN 8 Creatinine 0.38 L Glucose 132 H Calcium 8.3 L Liver Function 04/18/19 Range/Units 00:11 Total Bilirubin 0.5 (0.2-1) mg/dl Direct Bilirubin 0.3 H (0-0.2) mg/dl AST 25 (15-37) U/L ALT 24 (12-78) U/L Alkaline Phosphatase 152 H (45-117) U/L Albumin 1.7 L (3.4-5.0) gm/dl Medications Administered Current Inpatient Medications Clarithromycin (Biaxin) 500 mg PO Q12 LE Stop: 04/24/19 10:29 Last Admin: 04/18/19 08:25 Dose: 500 mg Documented by: Dextrose (Dextrose 50%) 25 - 50 ml IV UD PRN; Protocol PRN Reason: Hypoglycemia Protocol Stop: 05/18/19 09:51 Escitalopram Oxalate (Lexapro) 20 mg PO DAILY LE Stop: 04/27/19 08:59 Last Admin: 04/18/19 08:25 Dose: 20 mg Documented by: Fluticasone/Vilanterol (Breo Ellipta) 1 puffs INH DAILY LE Stop: 05/08/19 10:59 Last Admin: 04/18/19 08:27 Dose: Not Given Documented by: Folic Acid (Folvite) 1 mg PO QAM LE Stop: 04/28/19 08:59 Last Admin: 04/18/19 08:25 Dose: 1 mg Documented by: Glucagon (Glucagen) 1 mg SQ UD PRN; Protocol PRN Reason: Hypoglycemia Protocol Stop: 05/18/19 09:51 Glucose (Dex4 Glucose) 4 - 8 tabs PO UD PRN; Protocol PRN Reason: Hypoglycemia Protocol Stop: 05/18/19 09:51 Glucose (Glucose 40%) 15 - 30 gm PO UD PRN; Protocol PRN Reason: Hypoglycemia Protocol Stop: 05/18/19 09:51 Heparin Sodium (Beef Lung) (Heparin Sod 10 Unit/Ml Flush) 5 ml FLUSH PRN PRN PRN Reason: Flush Stop: 05/17/19 17:28 Last Admin: 04/17/19 18:08 Dose: 5 ml Documented by: Promethazine HCl 12.5 mg/ (Sodium Chloride) 50.5 mls @ 202 mls/hr IV Q6H PRN PRN Reason: Nausea And Vomiting Stop: 05/04/19 23:18 Caspofungin 50 mg/ Sodium (Chloride) 260 mls @ 260 mls/hr IV QAM [facility]; Protocol Stop: 04/24/19 23:59 Last Infusion: 04/18/19 09:43 Dose: Infused Documented by: Heparin Sodium/Dextrose (Heparin Sodium/Dextrose) 25,000 units in 500 mls @ 36 mls/hr IV .[id number] [facility]; Protocol Stop: 05/15/19 10:29 Last Admin: 04/18/19 14:56 Dose: 1,800 units/hr, 36 mls/hr Documented by: Ceftriaxone Sodium 2,000 mg/ (Dextrose) 70 mls @ 100 mls/hr IV QAM [facility]; Protocol Stop: 04/24/19 23:59 Last Infusion: 04/18/19 09:19 Dose: Infused Documented by: Vancomycin HCl 1,750 mg/ (Sodium Chloride) 535 mls @ 200 mls/hr IV Q8H [facility]; Protocol Stop: 04/24/19 23:59 Last Infusion: 04/18/19 16:32 Dose: Infused Documented by: Methylprednisolone 125 mg/ (Syringe) 2 mls @ 1.5 mls/min IV Q6 [facility] Stop: 05/17/19 11:59 Last Admin: 04/18/19 12:59 Dose: 1.5 mls/min Documented by: Insulin Aspart (Novolog Flexpen) 0 units SC ACHS [facility] Stop: 05/18/19 11:29 Last Admin: 04/18/19 12:25 Dose: Not Given Documented by: Levalbuterol HCl (Xopenex 1.25mg/0.5ml Neb) 1.25 mg NEB Q6R PRN PRN Reason: shortness of breath Stop: 04/26/19 18:51 Last Admin: 04/17/19 05:54 Dose: 1.25 mg Documented by: Lorazepam (Ativan) 1 mg SL Q4H PRN PRN Reason: Agitation Stop: 04/28/19 08:58 Last Admin: 04/16/19 22:07 Dose: 1 mg Documented by: Metoprolol Tartrate (Lopressor) 12.5 mg PO BID [facility] Stop: 05/15/19 20:59 Last Admin: 04/18/19 08:25 Dose: 12.5 mg Documented by: Miscellaneous (Carbohydrates For Hypoglycemia) 15 - 30 gm PO UD PRN PRN Reason: Hypoglycemia Treatment Stop: 05/18/19 09:51 Miscellaneous Information (Consult) 1 ea N/A UD PRN PRN Reason: Consult Stop: 05/15/19 10:11 Multivitamins (Multivitamin Tab) 1 tab PO DAILY [facility] Stop: 04/26/19 18:51 Last Admin: 04/18/19 08:25 Dose: 1 tab Documented by: Ondansetron HCl (Zofran) 4 mg IV Q4H PRN PRN Reason: Nausea And Vomiting Stop: 05/12/19 13:54 Oxycodone HCl (Roxicodone Immediate Rel) 5 mg PO Q6H PRN PRN Reason: Moderate Pain (4,5,6) Stop: 04/29/19 10:19 Last Admin: 04/17/19 09:24 Dose: 5 mg Documented by: Oxycodone HCl (Roxicodone Immediate Rel) 10 mg PO Q6H PRN PRN Reason: Severe Pain (7,8,9,10) Stop: 04/29/19 10:19 Thiamine HCl (Vitamin B-1) 100 mg NG QAM [facility] Stop: 04/30/19 09:14 Last Admin: 04/18/19 08:26 Dose: 100 mg Documented by: Warfarin Sodium (Coumadin) 5 mg PO DAILY@1600 [facility] Stop: 05/18/19 15:59
--- NOTE | 2019-04-18 18:12 | Infectious Disease Progress Nt ---
Date of Service April 18, 2019 Assessment & Plan (1) Severe sepsis: Patient with sepsis and pneumonia, status post lung biopsy, no malignancy found. Patient to complete 10-day course of current antibiotics. Will follow. (2) Pneumonia: Subjective Patient seen in follow-up for cavitary pneumonia. Feeling slightly better, still somewhat short of breath. No increase in cough, no hemoptysis. Remains afebrile. Review of Systems Review of Systems: All systems reviewed & are unremarkable except as noted in HPI & below Physical Exam Constitutional: WD/WN, vitals as above comfortable; no acute distress Eyes: PERRL, conjunctivae normal, anicteric sclerae ENMT: external ear and nose normal, oropharynx normal Neck: trachea midline, no thyromegaly neck nontender Respiratory: normal respiratory effort, lungs clear to auscultation normal respiratory effort and normal percussion; no respiratory distress, no labored breathing and does not use accessory muscles Auscultation: + rhonchi Cardiovascular: RRR, no murmur, no edema Rate/Rhythm: regular rate, regular rhythm and + irregularly irregular Heart Sounds: normal S1 and normal S2; no gallop, no murmur and no cardiac rub Vessels: normal peripheral pulses; no JVD Gastrointestinal (Abdomen): normal bowel sounds, soft, nontender, no hepatosplenomegaly Percussion/Palpation: no abdominal mass Musculoskeletal: no cyanosis or clubbing, extremities motor strength 5/5 Head/Neck/Chest: normocephalic, head atraumatic and neck supple Spine: thoracic spine normal to inspection and lumbar spine normal to inspection; no cervical spinal tenderness Skin: no rashes, warm and dry normal turgor; no lesions Neurologic: patellar DTR's 2+ bilat, sensation intact moves all extremities and awake; no focal motor deficits Motor/Sensory: no sensory deficit Psychiatric: A+Ox3, euthymic affect Orientation: cooperative Lymphatic: no cervical or axillary lymphadenopathy no inguinal lymphadenopathy Results & Data Vital Signs (Past 12 Hours) Vital Signs Temp Pulse Pulse Resp BP BP BP 04/18/19 15:22 04/18/19 15:19 110 H 20 04/18/19 15:09 36.7 C 118 H 20 161/75 H 04/18/19 11:10 36.5 C 93 H 17 143/79 H 04/18/19 08:00 103 H 04/18/19 07:53 36.5 C 98 H 23 140/91 04/18/19 07:33 36.4 C L 67 18 96/56 L 04/18/19 07:26 101 H 20 Pulse Ox 04/18/19 15:22 81 L 04/18/19 15:19 92 04/18/19 15:09 78 L 04/18/19 11:10 89 L 04/18/19 08:00 04/18/19 07:53 88 L 04/18/19 07:33 96 04/18/19 07:26 88 L Laboratory Results Short CBC 04/18/19 Range/Units 06:08 WBC 15.50 H (4.8-10.8) K/uL Hgb 7.9 L (14.0-18.0) g/dL Hct 23.8 L (42-52) % Plt Count 224 (130-400) K/uL BMP 04/18/19 06:08 Sodium 136 Potassium 4.0 D Chloride 101 Carbon Dioxide 31 BUN 8 Creatinine 0.38 L Glucose 132 H Calcium 8.3 L Liver Function 04/18/19 Range/Units 00:11 Total Bilirubin 0.5 (0.2-1) mg/dl Direct Bilirubin 0.3 H (0-0.2) mg/dl AST 25 (15-37) U/L ALT 24 (12-78) U/L Alkaline Phosphatase 152 H (45-117) U/L Albumin 1.7 L (3.4-5.0) gm/dl Diagnostic Findings Microbiology 04/12/19 Unknown Lung,Right Middle Lobe Gram Stain - Final 04/12/19 Unknown Lung,Right Middle Lobe Aerobic and Anaerobic Culture - Final Coag neg staph not lugdunensis 04/12/19 13:08 Bronch Wash,Right Upper Lobe Fungal Smear - Final 04/12/19 13:08 Bronch Wash,Right Upper Lobe Fungal Culture - Preliminary Yeast not C albicans/Cr neofor 04/12/19 Unknown Lung,Right Upper Lobe Gram Stain - Final 04/12/19 Unknown Lung,Right Upper Lobe Aerobic and Anaerobic Culture - Final No growth 04/12/19 Unknown Lung,Right Gram Stain - Final 04/12/19 Unknown Lung,Right Aerobic and Anaerobic Culture - Final No growth 04/15/19 08:29 Blood Aerobic Blood Culture - Preliminary No growth in Aerobic bottle after 48 hours. 04/15/19 08:29 Blood Anaerobic Blood Culture - Preliminary No growth in Anaerobic bottle after 48 hours. 04/15/19 08:39 Blood Aerobic Blood Culture - Preliminary No growth in Aerobic bottle after 48 hours. 04/15/19 08:39 Blood Anaerobic Blood Culture - Preliminary No growth in Anaerobic bottle after 48 hours. 04/15/19 Unknown Bronch Wash,Right Lower Lobe Gram Stain - Final 04/15/19 Unknown Bronch Wash,Right Lower Lobe Bronchoalveolar Lavage Culture - Final Light normal hugo. 04/15/19 Unknown Bronch Wash,Right Lower Lobe Acid Fast Bacilli Smear - Final 04/10/19 10:02 Bronch Wash,Right Upper Lobe Fungal Smear - Final 04/10/19 10:02 Bronch Wash,Right Upper Lobe Fungal Culture - Preliminary Yeast not [place] albicans 04/15/19 Unknown Bronch Wash,Right Lower Lobe Fungal Smear - Final 04/15/19 10:26 Blood Fungal Smear - Final 04/10/19 10:02 Bronch Wash,Right Upper Lobe Acid Fast Bacilli Smear - Final 04/10/19 10:02 Bronch Wash,Right Upper Lobe Acid Fast Bacilli Culture - Preliminary No Acid-Fast Bacilli Isolated - Report 1, Additional Report to Follow. 04/09/19 10:31 Blood Aerobic Blood Culture - Final No growth in Aerobic bottle after 5 days. 04/09/19 10:31 Blood Anaerobic Blood Culture - Final No growth in Anaerobic bottle after 5 days. 04/09/19 10:07 Blood Aerobic Blood Culture - Final No growth in Aerobic bottle after 5 days. 04/09/19 10:07 Blood Anaerobic Blood Culture - Final No growth in Anaerobic bottle after 5 days. 04/12/19 Unknown Lung,Right Middle Lobe Fungal Smear - Final 04/12/19 Unknown Lung,Right Middle Lobe Fungal Culture - Preliminary No yeast or fungus isolated - Report 1, Additional Report to Follow. 04/12/19 Unknown Lung,Right Upper Lobe Fungal Smear - Final 04/12/19 Unknown Lung,Right Upper Lobe Fungal Culture - Preliminary No yeast or fungus isolated - Report 1, Additional Report to Follow. 04/12/19 Unknown Lung,Right Fungal Smear - Final 04/12/19 Unknown Lung,Right Fungal Culture - Preliminary No yeast or fungus isolated - Report 1, Additional Report to Follow. 04/12/19 13:08 Bronch Wash,Right Upper Lobe Gram Stain - Final 04/12/19 13:08 Bronch Wash,Right Upper Lobe Bronchoalveolar Lavage Culture - Final Moderate normal hugo. 04/12/19 13:08 Bronch Wash,Right Upper Lobe Acid Fast Bacilli Smear - Final 04/12/19 Unknown Lung,Right Middle Lobe Acid Fast Bacilli Smear - Final 04/12/19 Unknown Lung,Right Upper Lobe Acid Fast Bacilli Smear - Final 04/12/19 Unknown Lung,Right Acid Fast Bacilli Smear - Final 04/10/19 10:02 Bronch Wash,Right Upper Lobe Gram Stain - Final 04/10/19 10:02 Bronch Wash,Right Upper Lobe Bronchoalveolar Lavage Culture - Final Moderate normal hugo. 04/09/19 15:54 Blood Cryptococcal Antigen Test - Final 03/27/19 17:00 Urine,Random Urine Culture - Final Enterococcus faecalis 03/27/19 17:01 Blood Aerobic Blood Culture - Final No growth in Aerobic bottle after 5 days. 03/27/19 17:01 Blood Anaerobic Blood Culture - Final No growth in Anaerobic bottle after 5 days. 03/27/19 16:48 Blood Aerobic Blood Culture - Final No growth in Aerobic bottle after 5 days. 03/27/19 16:48 Blood Anaerobic Blood Culture - Final No growth in Anaerobic bottle after 5 days.
[2019-04-18] MEDS: LORazepam 1 MG TAB SL PRN (19:49)
[2019-04-18 20:01] LABS: Hematocrit (blood only) 24.1 % (42-52); Hemoglobin 7.9 g/dL (14.0-18.0)
[2019-04-19] MEDS: methylPREDNISolone 125 MG in SYRINGE 0 ML IV SCH ×5 (00:15→23:36)
[2019-04-19] MEDS ORDERED: VANCOMYCIN TROUGH ONE (04:30)
[2019-04-19 04:48] LABS: Hematocrit (blood only) 22.6 % (42-52); Hemoglobin 7.3 g/dL (14.0-18.0); Mean Corpuscular Hgb Conc 32.3 g/dL (32-36); Mean Corpuscular Volume 98.7 fL (80-100); Mean Platelet Volume 11.1 fL (7.4-10.4); Platelet Count 262 K/uL (130-400); RDW Coefficient of Variation 14.4 % (11.5-14.5); RDW Standard Deviation 52.2 fL (36.4-46.3); Red Blood Count 2.29 M/uL (4.7-6.1); White Blood Count 19.21 K/uL (4.8-10.8)
[2019-04-19 05:09] LABS: BUN Creatinine Ratio 29.9 (10-20); Calcium 8.2 mg/dl (8.5-10.1); Est GFR (African American) 130.1; Est GFR (Non-African American) 112.3; Potassium 3.7 mmol/L (3.5-5.1)
[2019-04-19 05:17] LABS: INR 1.2 (0.9-1.1); Partial Thromboplastin Ratio 1.7; Prothrombin Time 12.5 Seconds (9.0-12.0)
[2019-04-19 05:20] LABS: Partial Thromboplastin Time 46.3 Seconds (21.0-31.0)
[2019-04-19] MEDS: Heparin Adult LOW DOSE Wt-Based Dextrose 5% 25,000 units/500 mL IV SCH (05:43)
[2019-04-19] MEDS: INSULIN ASPART 100 UNITS/ML 3 ML PEN SC SCH ×4 (07:30→21:28)
--- NOTE | 2019-04-19 09:09 | CT Scan Report ---
CT SCAN OF THE ABDOMEN AND PELVIS WITHOUT IV CONTRAST CLINICAL HISTORY: Iliopsoas hemorrhage. COMPARISON STUDY: Abdominal CT dated 04/04/2019. TECHNIQUE: CT scan of the abdomen and pelvis is performed from the lung bases to the proximal femora. Images are reviewed in the axial, sagittal, and coronal planes. IV contrast was not administered for this examination. A dose lowering technique was utilized adhering to the principles of ALARA. CT DOSE: 836.36 mGy.cm FINDINGS: Lung bases: The heart is normal in size and without pericardial effusion. There are coronary artery c alcifications. There are small pleural effusions with bibasilar atelectasis. Changes of chronic inter stitial lung disease are again noted at the lung bases. There is progressive intralobular septal thic kening and groundglass opacities throughout both lung bases which suggests superimposed interstitial edema. There is a tiny hiatal hernia. Liver: The unenhanced liver is normal in size, contour, and attenuation. There is no intrahepatic dani iary ductal dilatation. Gallbladder: Small gallstones are noted. There is no CT evidence of acute cholecystitis. Spleen: Normal in size and attenuation. Pancreas: The unenhanced pancreas is moderately atrophic and grossly unremarkable. Adrenal glands: Unremarkable. Kidneys: The unenhanced kidneys demonstrate cortical atrophy and are without hydronephrosis. There is a 10 mm nonobstructing calculus in the lower pole of left kidney. No right renal calculi are identif ied. There is no evidence of contour deforming renal mass lesion. Abdominal vasculature: There is moderate to advanced atherosclerotic calcification and mild ectasia o f the abdominal aorta. Bowel: There is mild colonic diverticulosis without CT evidence of acute diverticulitis. No bowel obs truction is seen. The appendix is well-visualized and normal. Peritoneum/retroperitoneum: There is no intraperitoneal free air. There is trace free fluid in the pe lvis. Again seen is expansion of the left iliopsoas muscle and the left iliacus muscle consistent wit h intramuscular hemorrhage. This has modestly decreased in size from 04/04/2019. Lymphadenopathy: None. Pelvic viscera: The prostate gland is diminutive and heterogeneous. The bladder wall appears thickene d and trabeculated suggesting chronic outlet obstruction. Soft tissues: There is mild body wall edema. Skeletal structures: The skeletal structures are osteopenic. Moderate lumbosacral spondylosis is obse rved. No lytic or blastic lesions are seen. IMPRESSION: 1. Again seen is intramuscular hemorrhage within the left iliopsoas and iliacus musculature. This has modestly decreased in size from 04/04/2019. 2. Left-sided nephrolithiasis. 3. There are small pleural effusions with associated atelectasis. This has not significantly changed from previous. 4. There is increasing intralobular septal thickening and groundglass consolidation at both lung base s. The appearance suggests worsening congestive failure and interstitial edema. Correlate clinically for evidence of superimposed pneumonia. 5. Chronic interstitial lung disease is again noted. 6. There is trace free fluid in the pelvis and body wall edema. 7. Cholelithiasis. 8. Additional findings as above. Electronically signed by: Magdaleno Souza M.D. 04/19/2019 9:08 AM
[2019-04-19] MEDS: MULTIVITAMIN TAB PO SCH (10:16)
[2019-04-19] MEDS: METOPROLOL TARTRATE 25 MG TAB PO SCH ×2 (10:16→21:13)
[2019-04-19] MEDS: ESCITALOPRAM OXALATE 10 MG TAB PO SCH (10:18)
[2019-04-19] MEDS: FOLIC ACID 1 MG TAB PO SCH (10:18)
[2019-04-19] MEDS: THIAMINE HCL 100 MG TAB NG SCH (10:18)
[2019-04-19] MEDS: CLARITHROMYCIN 500 MG TAB PO SCH ×2 (10:18→21:13)
[2019-04-19] MEDS: FLUTICASONE/VILANTEROL INHALER INH SCH (10:20)
[2019-04-19] MEDS: LORazepam 1 MG TAB SL PRN ×2 (10:24→21:12)
[2019-04-19] MEDS: cefTRIAXone SODIUM 2,000 MG in DEXTROSE 5% 50 ML IV SCH (10:33)
[2019-04-19] MEDS: CASPOFUNGIN 50 MG in SODIUM CHLORIDE 0.9% 250 ML IV SCH (10:36)
[2019-04-19] MEDS ORDERED: SODIUM CHLORIDE 0.9% 250 ML IV PRN (10:47)
--- NOTE | 2019-04-19 10:50 | Hospitalist Progress Note ---
Date of Service April 19, 2019 Assessment & Plan (1) Severe sepsis: resuscitated. (2) Pneumonia: Cavitary lung process with extensive progressive consolidation bilaterally. Bronchoscopy performed on 04/10/2019. There was no obvious evidence of a purulent infection or endobronchial lesion neoplasm. Thoracic surgery was consulted for an open lung biopsy VATS procedure which was performed on 04/12/2019. Gram stain and bronchial washing revealed gram-positive cocci. The right lung was cultured and showed no organisms. There was no evidence of yeast or hyphae on the fungal smears on the lung. A repeat bronchoscopy was performed on 04/15. Cont current abx and caspofungin. Thought consistent with cryptogenic organizing pneumonia. Cont Solumedrol 125mg IV q6hr. (3) Acute respiratory failure with hypoxia: 2/2 [employer]. Cont steroids and anti-infectives as above. Intermittent use of hi-flow oxygen augmented with periods of using the BIPAP. (4) COPD (chronic obstructive pulmonary disease): Exacerbation COPD secondary to pneumonia, appears resolved. No wheezing on exam. Nebs PRN. On 3L oxygen at baseline continuously. (5) Multifocal atrial tachycardia: -initial atrial fibrillation with rapid ventricular response and then multifocal atrial tachycardia on this admission -currently normal sinus rhythm -continue metoprolol as low dose 12.5 mg tartrate BID and titrate as needed (6) Hypertension: Not on antihypertensives as outpatient. BP likely elevated in part related to high dose steroids being given. Cont to monitor and notify MD if exceeds parameters. (7) Urinary tract infection: treated (8) Hematoma of left iliopsoas muscle: decreased in size as of CT a/p yesterday. (9) DVT prophylaxis: Heparin-warfarin started. DNR/DNI Dispo-cont hopsitalization. Sandy Farias DO [facility] Hospitalist Subjective Doing well, denies any pain. Speaking good sentences on the BIPAP. He was upset after a nurse told him he couldn't tape his nasal canula to his face while he slept. This was after he went down for CT scan and there was not enough pressure in the portable system so he had a significant desaturation event. He was now on BIPAP to recruit, and o2 sat was around 90% Review of Systems Review of Systems: All systems reviewed & are unremarkable except as noted in HPI & below Physical Exam Physical Exam: CONSTITUTIONAL: WNWD, vitals as above, generally well- appearing EYES: normal conjunctivae, no scleral icterus ENT: Bipap in place. RESPIRATORY: clear to auscultation bilaterally, good air movement, No rales or wheezes, normal respiratory effort CARDIOVASCULAR: regular rate and rhythm, S1 and 2 heard without murmurs, gallops or rubs, no JVD, no peripheral edema CHEST: PICC line in place in RUE. GASTROINTESTINAL: normal bowel sounds, soft, nontender, nondistended. MUSCULOSKELETAL: strength 5/5 throughout, head is normocephalic and atraumatic SKIN: warm and dry NEUROLOGIC: CN 2-12 grossly intact, no gross focal deficits. PSYCHIATRIC: alert cooperative and oriented to person, place and time. Results & Data Vital Signs (Past 12 Hours) Vital Signs Temp Pulse Pulse Resp BP Pulse Ox 04/19/19 09:20 115 H 22 90 04/19/19 08:09 101 H 21 80 L 04/19/19 07:56 99 H 22 88 L 04/19/19 07:03 36.6 C 108 H 20 147/72 H 90 04/19/19 03:37 36.6 C 88 18 134/77 93 04/19/19 00:00 96 H 04/18/19 22:57 35.9 C L 93 H 21 153/85 H 91 Laboratory Results Short CBC 04/18/19 04/19/19 Range/Units 19:38 04:28 WBC 19.21 H (4.8-10.8) K/uL Hgb 7.9 L 7.3 L (14.0-18.0) g/dL Hct 24.1 L 22.6 L (42-52) % Plt Count 262 (130-400) K/uL [facility] 04/19/19 04:28 Sodium 138 Potassium 3.7 Chloride 103 Carbon Dioxide 30 BUN 15 D Creatinine 0.49 L Glucose 126 H Calcium 8.[address] SCAN OF THE ABDOMEN AND PELVIS WITHOUT IV CONTRAST CLINICAL HISTORY: Iliopsoas hemorrhage. COMPARISON STUDY: Abdominal CT dated 04/04/2019. TECHNIQUE: CT scan of the abdomen and pelvis is performed from the lung bases to the proximal femora. Images are reviewed in the axial, sagittal, and coronal planes. IV contrast was not administered for this examination. A dose lowering technique was utilized adhering to the principles of ALARA. CT DOSE: 836.36 mGy.cm FINDINGS: Lung bases: The heart is normal in size and without pericardial effusion. There are coronary artery calcifications. There are small pleural effusions with bibasilar atelectasis. Changes of chronic interstitial lung disease are again noted at the lung bases. There is progressive intralobular septal thickening and groundglass opacities throughout both lung bases which suggests superimposed interstitial edema. There is a tiny hiatal hernia. Liver: The unenhanced liver is normal in size, contour, and attenuation. There is no intrahepatic biliary ductal dilatation. Gallbladder: Small gallstones are noted. There is no CT evidence of acute cholecystitis. Spleen: Normal in size and attenuation. Pancreas: The unenhanced pancreas is moderately atrophic and grossly unre markable. Adrenal glands: Unremarkable. Kidneys: The unenhanced kidneys demonstrate cortical atrophy and are without hydronephrosis. There is a 10 mm nonobstructing calculus in the lower pole of left kidney. No right renal calculi are identified. There is no evidence of contour deforming renal mass lesion. Abdominal vasculature: There is moderate to advanced atherosclerotic calcification and mild ectasia of the abdominal aorta. Bowel: There is mild colonic diverticulosis without CT evidence of acute diverticulitis. No bowel obstruction is seen. The appendix is well-visualized and normal. Peritoneum/retroperitoneum: There is no intraperitoneal free air. There is trace free fluid in the pelvis. Again seen is expansion of the left iliopsoas muscle and the left iliacus muscle consistent with intramuscular hemorrhage. This has modestly decreased in size from 04/04/2019. Lymphadenopathy: None. Pelvic viscera: The prostate gland is diminutive and heterogeneous. The bladder wall appears thickened and trabeculated suggesting chronic outlet obstruction. Soft tissues: There is mild body wall edema. Skeletal structures: The skeletal structures are osteopenic. Moderate lumbosacral spondylosis is observed. No lytic or blastic lesions are seen. IMPRESSION: 1. Again seen is intramuscular hemorrhage within the left iliopsoas and iliacus musculature. This has modestly decreased in size from 04/04/2019. 2. Left-sided nephrolithiasis. 3. There are small pleural effusions with associated atelectasis. This has not significantly changed from previous. 4. There is increasing intralobular septal thickening and groundglass consolidation at both lung bases. The appearance suggests worsening congestive failure and interstitial edema. Correlate clinically for evidence of superimposed pneumonia. 5. Chronic interstitial lung disease is again noted. 6. There is trace free fluid in the pelvis and body wall edema. 7. Cholelithiasis. 8. Additional findings as above. Medications Administered Current Inpatient Medications Acetaminophen (Tylenol) 650 mg PO PRE-TREAT LE Clarithromycin (Biaxin) 500 mg PO Q12 LE Stop: 04/24/19 10:29 Last Admin: 04/19/19 10:18 Dose: 500 mg Documented by: Dextrose (Dextrose 50%) 25 - 50 ml IV UD PRN; Protocol PRN Reason: Hypoglycemia Protocol Stop: 05/18/19 09:51 Diphenhydramine HCl (Benadryl Capsule) 25 mg PO PRE-TREAT LE Escitalopram Oxalate (Lexapro) 20 mg PO DAILY LE Stop: 04/27/19 08:59 Last Admin: 04/19/19 10:18 Dose: 20 mg Documented by: Fluticasone/Vilanterol (Breo Ellipta) 1 puffs INH DAILY LE Stop: 05/08/19 10:59 Last Admin: 04/19/19 10:20 Dose: Not Given Documented by: Folic Acid (Folvite) 1 mg PO QAM LE Stop: 04/28/19 08:59 Last Admin: 04/19/19 10:18 Dose: 1 mg Documented by: Glucagon (Glucagen) 1 mg SQ UD PRN; Protocol PRN Reason: Hypoglycemia Protocol Stop: 05/18/19 09:51 Glucose (Dex4 Glucose) 4 - 8 tabs PO UD PRN; Protocol PRN Reason: Hypoglycemia Protocol Stop: 05/18/19 09:51 Glucose (Glucose 40%) 15 - 30 gm PO UD PRN; Protocol PRN Reason: Hypoglycemia Protocol Stop: 05/18/19 09:51 Heparin Sodium (Beef Lung) (Heparin Sod 10 Unit/Ml Flush) 5 ml FLUSH PRN PRN PRN Reason: Flush Stop: 05/17/19 17:28 Last Admin: 04/17/19 18:08 Dose: 5 ml Documented by: Promethazine HCl 12.5 mg/ (Sodium Chloride) 50.5 mls @ 202 mls/hr IV Q6H PRN PRN Reason: Nausea And Vomiting Stop: 05/04/19 23:18 Caspofungin 50 mg/ Sodium (Chloride) 260 mls @ 260 mls/hr IV QAM [facility]; Protocol Stop: 04/24/19 23:59 Last Admin: 04/19/19 10:36 Dose: 260 mls/hr Documented by: Heparin Sodium/Dextrose (Heparin Sodium/Dextrose) 25,000 units in 500 mls @ 0 mls/hr IV .Q0M LE; Protocol Stop: 05/15/19 10:29 Last Titration: 04/19/19 07:43 Dose: 0 units/hr, 0 mls/hr Documented by: Ceftriaxone Sodium 2,000 mg/ (Dextrose) 70 mls @ 100 mls/hr IV QAM [facility]; Protocol Stop: 04/24/19 23:59 Last Admin: 04/19/19 10:33 Dose: 100 mls/hr Documented by: Methylprednisolone 125 mg/ (Syringe) 2 mls @ 1.5 mls/min IV Q6 LE Stop: 05/17/19 11:59 Last Admin: 04/19/19 06:23 Dose: 1.5 mls/min Documented by: Sodium Chloride (Nss) 250 mls @ 15 mls/hr IV .[id number] PRN PRN Reason: For Transfusion Stop: 05/19/19 10:46 Insulin Aspart (Novolog Flexpen) 0 units SC ACHS [facility] Stop: 05/18/19 11:29 Last Admin: 04/19/19 07:30 Dose: Not Given Documented by: Levalbuterol HCl (Xopenex 1.25mg/0.5ml Neb) 1.25 mg NEB Q6R PRN PRN Reason: shortness of breath Stop: 04/26/19 18:51 Last Admin: 04/17/19 05:54 Dose: 1.25 mg Documented by: Lorazepam (Ativan) 1 mg SL Q4H PRN PRN Reason: Agitation Stop: 04/28/19 08:58 Last Admin: 04/19/19 10:24 Dose: 1 mg Documented by: Metoprolol Tartrate (Lopressor) 12.5 mg PO BID [facility] Stop: 05/15/19 20:59 Last Admin: 04/19/19 10:16 Dose: 12.5 mg Documented by: Miscellaneous (Carbohydrates For Hypoglycemia) 15 - 30 gm PO UD PRN PRN Reason: Hypoglycemia Treatment Stop: 05/18/19 09:51 Miscellaneous Information (Consult) 1 ea N/A UD PRN PRN Reason: Consult Stop: 05/15/19 10:11 Multivitamins (Multivitamin Tab) 1 tab PO DAILY [facility] Stop: 04/26/19 18:51 Last Admin: 04/19/19 10:16 Dose: 1 tab Documented by: Ondansetron HCl (Zofran) 4 mg IV Q4H PRN PRN Reason: Nausea And Vomiting Stop: 05/12/19 13:54 Oxycodone HCl (Roxicodone Immediate Rel) 5 mg PO Q6H PRN PRN Reason: Moderate Pain (4,5,6) Stop: 04/29/19 10:19 Last Admin: 04/17/19 09:24 Dose: 5 mg Documented by: Oxycodone HCl (Roxicodone Immediate Rel) 10 mg PO Q6H PRN PRN Reason: Severe Pain (7,8,9,10) Stop: 04/29/19 10:19 Thiamine HCl (Vitamin B-1) 100 mg NG QAM [facility] Stop: 04/30/19 09:14 Last Admin: 04/19/19 10:18 Dose: 100 mg Documented by: Warfarin Sodium (Coumadin) 5 mg PO DAILY@1600 [facility] Stop: 05/18/19 15:59 Last Admin: 04/18/19 18:36 Dose: 5 mg Documented by:
[2019-04-19] MEDS ORDERED: ACETAMINOPHEN 325 MG TAB PO ONE (11:00)
--- NOTE | 2019-04-19 13:08 | Pulmonology Progress Note ---
Date of Service April 19, 2019 Assessment & Plan (1) Acute respiratory failure with hypoxia: Status remains very poor. Patient continues to look better than what he should be considering his degree of hypoxia. He has not responded significantly to the higher dose steroids thus far. He has not responded to antibiotics. Would continue with his current treatments. For now continue the BiPAP for good portion of the time. We will try to still give him times on high flow so he could eat healthfully. The patient has been very compliant and cooperative. Prognosis is poor at this point. (2) Cryptogenic organizing pneumonia: (3) Cavitary lung disease: (4) COPD (chronic obstructive pulmonary disease): Subjective The patient voices no significant complaints. He insists that his voice is stronger than it had in 3 months. He seems almost oblivious to the fact that his saturations have been poor on this being maintained on extremely high oxygen concentrations. Approximately 1 hour ago the patient was on Vapotherm and his saturations had decreased down into the 70s. His heart rate increased up to 120. He was put back on BiPAP and improved his status very quickly. The patient denies any cough. He has not brought up any phlegm. He denies any pain. The patient denies having any problem with his appetite but it seems that he is not eating much at all. His food tray always seems full Review of Systems Review of Systems: As above Physical Exam Physical Exam: The patient appears the same. He is a 68-year-old male who looks much better than expected considering his problems. He did not appear in any distress. He is currently receiving a blood transfusion. BiPAP is in place. Heart rate currently 89/min. Rhythm regular. Blood pressure 142/82. Para lung ferreira were showing better breath sounds than I would anticipate. Mild rhonchi heard bilaterally. Respiratory rate 26. Saturation 94% on the BiPAP 12/5. Abdomen soft and nontender. Extremities show +1 edema bilaterally in the lower extremities. Results & Data Vital Signs (Past 12 Hours) Vital Signs Temp Pulse Pulse Resp BP BP Pulse Ox 04/19/19 12:58 36.6 C 89 26 H 142/82 H 89 L 04/19/19 12:39 36.5 C 88 32 H 138/86 92 04/19/19 09:20 115 H 22 90 04/19/19 08:09 101 H 21 80 L 04/19/19 07:56 99 H 22 88 L 04/19/19 07:03 36.6 C 108 H 20 147/72 H 90 04/19/19 03:37 36.6 C 88 18 134/77 93 Laboratory Results White blood cell count today increased to 19.21. Yesterday white count was 15.5. Hemoglobin today down to 7.3 and previously was 7.9. 2 days ago it was 8.8. Platelets 262,000. Sodium 138 potassium 3.7 chloride 103 bicarb 30. BUN 15 with creatinine 0.49. Blood sugar is high as 141. Diagnostic Findings CAT scan of the abdomen done today showed a decrease in size of the intramuscular hemorrhage within the left iliopsoas and iliac musculature. Small pleural effusions noted. Chronic interstitial changes noted.
--- NOTE | 2019-04-19 14:04 | Pharmacy Report ---
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 faecalis * 04/10 bronch - yeast not C. albicans * 04/12 bronch - yeast not C. albicans, coag negative Staph (oxacillin- resistant) * 03/27 and 04/12 nasal MRSA swabs - negative * Renal * SCr elevated on admission then trended rapidly down to baseline ~0.5-0.7 mg/dL. However, had significant decrease to ~0.3-0.4 mg/dL. Questionable hypermetabolic state 2nd severity of illness. As of today (04/19), SCr now back to baseline. Therefore would anticipate vancomycin clearance to decrease Antibiotics * Previously this admission * One-time doses of ceftriaxone, aztreonam, doxycycline, daptomycin, and levofloxacin on 03/27 * Zosyn 03/28-04/09 * One-time dose of clindamycin on 04/12 * Current * Ceftriaxone day (to finish at same time as caspofungin and vancomycin) * Caspofungin day * Vancomycin day 5 * Clarithromycin started 04/15 for BAND BOOKER Vancomycin * Nasal MRSA swabs negative, however, could be falsely negative with a cavitary PNA. Therefore vancomycin initiated on 04/15 2nd Staph species noted in bronch from 04/12 and will be continued for a 10 day course 2nd oxacillin-resistant coag negative Staph * Patient may have been in a hypermetabolic state due to severity of illness as evidenced by extraordinarily low SCr (in the absence of significant musculoskeletal disease prior history). This significantly increased clearance of vancomycin. However, SCr back to baseline and therefore change in vancomycin regimen required * Goal vancomycin trough 15-20 mcg/mL * 04/18 levels were both falsely elevated due to problems with vancomycin trough timing as compared to vancomycin administration * Afternoon level supratherapeutic at 24.0 mcg/mL. This was obtained 6 hours after the previous dose (as compared to target 8 hours) because the prior dose was administered late and the trough was obtained slightly early. This two hour difference is significant when the interval is as tight as 8 hours. * Repeat vancomycin level 04/18 @ 2035 also significantly elevated to 35.7 mcg/mL. However, this too was unfortunately not a true trough as vancomycin had been running for ~25 minutes prior to obtaining this level. This dose of vancomycin was administered and further vancomycin was placed on hold pending a 3rd attempt at obtaining a true trough. * Level of 28.7 mcg/mL this AM at 0428 was a true trough. No vancomycin has been administered today. Of note, this is *double* the previously obtained true trough of 14.1 mcg/mL on 04/17. This increase occurred despite only a slight increase in vancomycin dose from 1500 to 1750 mg IV q8h, thus supporting the likelihood that the patient's renal function is changing significantly despite only minor changes seen in SCr. Furthermore, this level did not decrease significantly yet - it remains elevated to 23.5 mcg/mL at 1057. * Estimated t1/2 22.5 hours, using decrease in levels today and patient-specific calculations. Level will therefore fall to ~20 mcg/mL at ~1600 and remain therapeutic for many hours afterwards. * Will dose via level and obtain repeat level this PM, when level estimated to be in the middle of the therapeutic range Plan * Repeat trough tonight @ 2000 Pharmacy will continue to follow and will adjust dose/frequency as necessary. Thank you.
--- NOTE | 2019-04-19 16:20 | Infectious Disease Progress Nt ---
Date of Service April 19, 2019 Assessment & Plan (1) Severe sepsis: Patient with sepsis and pneumonia, status post lung biopsy, no malignancy found. Patient to complete 10-day course of current antibiotics. Will follow. (2) Pneumonia: Subjective Patient seen in follow-up for cavitary pneumonia. Offers no new specific complaints today. No increase in shortness of breath or cough. No hemoptysis. Remains afebrile. Review of Systems Review of Systems: All systems reviewed & are unremarkable except as noted in HPI & below Physical Exam Constitutional: WD/WN, vitals as above comfortable; no acute distress Eyes: PERRL, conjunctivae normal, anicteric sclerae ENMT: external ear and nose normal, oropharynx normal Neck: trachea midline, no thyromegaly neck nontender Respiratory: normal respiratory effort, lungs clear to auscultation normal respiratory effort and normal percussion; no respiratory distress, no labored breathing and does not use accessory muscles Auscultation: + rhonchi Cardiovascular: RRR, no murmur, no edema Rate/Rhythm: regular rate, regular rhythm and + irregularly irregular Heart Sounds: normal S1 and normal S2; no gallop, no murmur and no cardiac rub Vessels: normal peripheral pulses; no JVD Gastrointestinal (Abdomen): normal bowel sounds, soft, nontender, no hepatosplenomegaly Percussion/Palpation: no abdominal mass Musculoskeletal: no cyanosis or clubbing, extremities motor strength 5/5 Head/Neck/Chest: normocephalic, head atraumatic and neck supple Spine: thoracic spine normal to inspection and lumbar spine normal to inspection; no cervical spinal tenderness Skin: no rashes, warm and dry normal turgor; no lesions Neurologic: patellar DTR's 2+ bilat, sensation intact moves all extremities and awake; no focal motor deficits Motor/Sensory: no sensory deficit Psychiatric: A+Ox3, euthymic affect Orientation: cooperative Lymphatic: no cervical or axillary lymphadenopathy no inguinal lymphadenopathy Results & Data Vital Signs (Past 12 Hours) Vital Signs Temp Pulse Pulse Resp BP BP Pulse Ox 04/19/19 16:10 36.2 C L 100 H 21 144/102 H 80 L 04/19/19 15:24 90 25 H 136/92 90 04/19/19 14:59 36.4 C L 99 H 25 H 150/94 H 90 04/19/19 14:30 36.6 C 97 H 24 152/98 H 90 04/19/19 13:43 36.6 C 100 H 24 157/102 H 86 L 04/19/19 13:13 36.6 C 86 20 133/85 95 04/19/19 12:58 36.6 C 89 26 H 142/82 H 89 L 04/19/19 12:39 36.5 C 88 32 H 138/86 92 04/19/19 09:20 115 H 22 90 04/19/19 08:09 101 H 21 80 L 04/19/19 07:56 99 H 22 88 L 04/19/19 07:03 36.6 C 108 H 20 147/72 H 90 Laboratory Results Short CBC 04/18/19 04/19/19 Range/Units 19:38 04:28 WBC 19.21 H (4.8-10.8) K/uL Hgb 7.9 L 7.3 L (14.0-18.0) g/dL Hct 24.1 L 22.6 L (42-52) % Plt Count 262 (130-400) K/uL BMP 04/19/19 04:28 Sodium 138 Potassium 3.7 Chloride 103 Carbon Dioxide 30 BUN 15 D Creatinine 0.49 L Glucose 126 H Calcium 8.2 L Diagnostic Findings Microbiology 04/15/19 10:26 Blood Fungal Smear - Final 04/15/19 10:26 Blood Fungal Culture - Preliminary No yeast or fungus isolated - Report 1, Additional Report to Follow. 04/12/19 13:08 Bronch Wash,Right Upper Lobe Fungal Smear - Final 04/12/19 13:08 Bronch Wash,Right Upper Lobe Fungal Culture - Preliminary Yeast not C albicans/Cr neofor 04/12/19 Unknown Lung,Right Middle Lobe Fungal Smear - Final 04/12/19 Unknown Lung,Right Middle Lobe Fungal Culture - Preliminary No yeast or fungus isolated - Report 2, Additional report to follow. 04/12/19 Unknown Lung,Right Upper Lobe Fungal Smear - Final 04/12/19 Unknown Lung,Right Upper Lobe Fungal Culture - Preliminary No yeast or fungus isolated - Report 2, Additional report to follow. 04/12/19 Unknown Lung,Right Fungal Smear - Final 04/12/19 Unknown Lung,Right Fungal Culture - Preliminary No yeast or fungus isolated - Report 2, Additional report to follow. 04/10/19 10:02 Bronch Wash,Right Upper Lobe Fungal Smear - Final 04/10/19 10:02 Bronch Wash,Right Upper Lobe Fungal Culture - Preliminary Yeast not C albicans/Cr neofor 04/12/19 Unknown Lung,Right Middle Lobe Gram Stain - Final 04/12/19 Unknown Lung,Right Middle Lobe Aerobic and Anaerobic Culture - Final Coag neg staph not lugdunensis 04/12/19 Unknown Lung,Right Upper Lobe Gram Stain - Final 04/12/19 Unknown Lung,Right Upper Lobe Aerobic and Anaerobic Culture - Final No growth 04/12/19 Unknown Lung,Right Gram Stain - Final 04/12/19 Unknown Lung,Right Aerobic and Anaerobic Culture - Final No growth 04/15/19 08:29 Blood Aerobic Blood Culture - Preliminary No growth in Aerobic bottle after 48 hours. 04/15/19 08:29 Blood Anaerobic Blood Culture - Preliminary No growth in Anaerobic bottle after 48 hours. 04/15/19 08:39 Blood Aerobic Blood Culture - Preliminary No growth in Aerobic bottle after 48 hours. 04/15/19 08:39 Blood Anaerobic Blood Culture - Preliminary No growth in Anaerobic bottle after 48 hours. 04/15/19 Unknown Bronch Wash,Right Lower Lobe Gram Stain - Final 04/15/19 Unknown Bronch Wash,Right Lower Lobe Bronchoalveolar Lavage Culture - Final Light normal hugo. 04/15/19 Unknown Bronch Wash,Right Lower Lobe Acid Fast Bacilli Smear - Final 04/15/19 Unknown Bronch Wash,Right Lower Lobe Fungal Smear - Final 04/10/19 10:02 Bronch Wash,Right Upper Lobe Acid Fast Bacilli Smear - Final 04/10/19 10:02 Bronch Wash,Right Upper Lobe Acid Fast Bacilli Culture - Preliminary No Acid-Fast Bacilli Isolated - Report 1, Additional Report to Follow. 04/09/19 10:31 Blood Aerobic Blood Culture - Final No growth in Aerobic bottle after 5 days. 04/09/19 10:31 Blood Anaerobic Blood Culture - Final No growth in Anaerobic bottle after 5 days. 04/09/19 10:07 Blood Aerobic Blood Culture - Final No growth in Aerobic bottle after 5 days. 04/09/19 10:07 Blood Anaerobic Blood Culture - Final No growth in Anaerobic bottle after 5 days. 04/12/19 13:08 Bronch Wash,Right Upper Lobe Gram Stain - Final 04/12/19 13:08 Bronch Wash,Right Upper Lobe Bronchoalveolar Lavage Culture - Final Moderate normal hugo. 04/12/19 13:08 Bronch Wash,Right Upper Lobe Acid Fast Bacilli Smear - Final 04/12/19 Unknown Lung,Right Middle Lobe Acid Fast Bacilli Smear - Final 04/12/19 Unknown Lung,Right Upper Lobe Acid Fast Bacilli Smear - Final 04/12/19 Unknown Lung,Right Acid Fast Bacilli Smear - Final 04/10/19 10:02 Bronch Wash,Right Upper Lobe Gram Stain - Final 04/10/19 10:02 Bronch Wash,Right Upper Lobe Bronchoalveolar Lavage Culture - Final Moderate normal hugo. 04/09/19 15:54 Blood Cryptococcal Antigen Test - Final 03/27/19 17:00 Urine,Random Urine Culture - Final Enterococcus faecalis 03/27/19 17:01 Blood Aerobic Blood Culture - Final No growth in Aerobic bottle after 5 days. 03/27/19 17:01 Blood Anaerobic Blood Culture - Final No growth in Anaerobic bottle after 5 days. 03/27/19 16:48 Blood Aerobic Blood Culture - Final No growth in Aerobic bottle after 5 days. 03/27/19 16:48 Blood Anaerobic Blood Culture - Final No growth in Anaerobic bottle after 5 days.
[2019-04-19] MEDS: LEVALBUTEROL 1.25MG/0.5ML NEB NEB PRN (18:48)
[2019-04-19] MEDS ORDERED: VANCOMYCIN HCL 1,500 MG in SODIUM CHLORIDE 0.9% 500 ML IV ONE (22:00)
[2019-04-20] MEDS: LEVALBUTEROL 1.25MG/0.5ML NEB NEB PRN (04:49)
[2019-04-20] MEDS: methylPREDNISolone 125 MG in SYRINGE 0 ML IV SCH ×2 (06:06→12:17)
[2019-04-20 07:54] LABS: Partial Thromboplastin Ratio 1.2; Prothrombin Time 56.6 Seconds (9.0-12.0)
[2019-04-20 08:04] LABS: INR 6.3 (0.9-1.1)
[2019-04-20] MEDS: INSULIN ASPART 100 UNITS/ML 3 ML PEN SC SCH ×2 (08:17→11:39)
[2019-04-20] MEDS: CLARITHROMYCIN 500 MG TAB PO SCH (08:19)
[2019-04-20] MEDS: ESCITALOPRAM OXALATE 10 MG TAB PO SCH (08:19)
[2019-04-20] MEDS: FOLIC ACID 1 MG TAB PO SCH (08:19)
[2019-04-20] MEDS: METOPROLOL TARTRATE 25 MG TAB PO SCH (08:20)
[2019-04-20] MEDS: MULTIVITAMIN TAB PO SCH (08:20)
[2019-04-20] MEDS: THIAMINE HCL 100 MG TAB NG SCH (08:20)
[2019-04-20] MEDS: cefTRIAXone SODIUM 2,000 MG in DEXTROSE 5% 50 ML IV SCH (08:25)
[2019-04-20] MEDS: CASPOFUNGIN 50 MG in SODIUM CHLORIDE 0.9% 250 ML IV SCH (08:25)
[2019-04-20] MEDS: FLUTICASONE/VILANTEROL INHALER INH SCH (08:26)
[2019-04-20 08:54] LABS: INR 6.5 (0.9-1.1)
[2019-04-20 08:56] LABS: Nucleated RBC # (auto) 0.08 K/uL (0-0); Nucleated RBC % (auto) 0.3 %
[2019-04-20] MEDS ORDERED: PHYTONADIONE 5 MG in SODIUM CHLORIDE 0.9% 50 ML IV STA (09:07)
[2019-04-20 09:11] LABS: Hematocrit (blood only) 29.6 % (42-52); Hemoglobin 9.7 g/dL (14.0-18.0); Mean Corpuscular Hgb Conc 32.8 g/dL (32-36); Mean Corpuscular Volume 94.6 fL (80-100); Mean Platelet Volume 10.3 fL (7.4-10.4); RDW Coefficient of Variation 17.4 % (11.5-14.5); RDW Standard Deviation 59.2 fL (36.4-46.3); Red Blood Count 3.13 M/uL (4.7-6.1); White Blood Count 21.92 K/uL (4.8-10.8)
[2019-04-20 09:26] LABS: Platelet Count 76 K/uL (130-400); Platelet Estimate Decreased (Normal)
[2019-04-20 09:48] LABS: BUN Creatinine Ratio 24.5 (10-20); Calcium 8.7 mg/dl (8.5-10.1); Creatinine Clr Calc Pharmacy 67.2 ml/min; Est GFR (African American) 57.9
--- NOTE | 2019-04-20 10:30 | Progress Note ---
DATE: 04/20/2019 Mr. Wills was seen today. He has trouble even talking now. He is so short of breath. His A-a gradient has continued to worsen. He has chronic organizing pneumonia. I wish I had more to offer him. I did remove all of his dressings and incisions are clean. From a surgical standpoint, there is very little more to say. I will sign off. Please call if needed.
[2019-04-20] MEDS: LORazepam 1 MG TAB SL PRN (12:16)
[2019-04-20] MEDS ORDERED: NALOXONE HCL 0.4 MG/1 ML VIAL/CARP ONE (12:57)
--- NOTE | 2019-04-20 22:16 | Discharge Summary ---
Date of Service April 20, 2019 Admission HPI Per Admitting Provider 68-year-old male who presents the ED with shortness of breath and generalized weakness.Patient reports over the past 3 to 4 days, he has been very weak and unable to climb his stairs at home. He reports progressive worsening shortness of breath. He has had a cough productive for white sputum. He has had a few falls over the past few days. He denies chest pain. No lightheadedness, dizziness, diaphoresis, syncopal event. He notes increasing lower extremity edema over the past 1 month. He denies fevers and chills. He has had diarrhea and denies abdominal pain, nausea, vomiting, bright red bleeding per rectum, dark tarry stools.No urinary symptoms. In the ED, patient was found to be in respiratory distress and hypoxic. He was placed on BiPAP. He was tachycardic with heart rate in the 140s, BP somewhat low however stable. Labs show several abnormalities including WBC 23K, Na+ 131, K+ 3.2, creatinine 1.4, lactic acid 4.5, elevated LFTs, troponin 0.105, proBNP 4219, procalcitonin 7.35. Patient was given IVF, potassium replacement, IV Zosyn, topical nitroglycerin, IV Reglan, IV magnesium, IV Levaquin, nebulizer treatment, furosemide 40 mg IV, IV daptomycin, IV aztreonam, 2 doses of IV adenosine. Admission Exam Per Admitting Provider WD/WN, vitals as above Eyes: PERRL, conjunctivae normal, anicteric sclerae ENMT: external ear and nose normal, oropharynx normal Respiratory: normal respiratory effort; no respiratory distress Auscultation: + diminished lung sounds and + crackles (bilateral) tolerating BiPap well Cardiovascular: Rate/Rhythm: + tachycardic and + irregularly irregular Vessels: normal peripheral pulses Extremities: + edema (+3 pitting edema extending up to the thighs) Gastrointestinal (Abdomen): normal bowel sounds, soft, nontender, no hepatosplenomegaly Musculoskeletal: no cyanosis or clubbing, extremities motor strength 5/5 Skin: no rashes, warm and dry Neurologic: PERRL, EOMI, accommodation nl, no face palsy, no dysarthria Psychiatric: A+Ox3, euthymic affect Principal Diagnosis Acute respiratory failure Cryptogenic organizing pneumonia Discharge Data Allergies Allergy/AdvReac Type Severity Reaction Status Date / Time amoxicillin Allergy Intermediate HIVES Verified 04/17/13 15:53 Consultations 03/27/19 17:07 ED Decision to Admit Stat 03/27/19 18:52 Consult Case Management - Discharge Planning Routine Consult B2B Sales Representative Routine 03/28/19 10:00 Consult Cardiology Routine 04/09/19 09:28 Consult Infectious Diseases Routine 04/10/19 12:02 Consult Thoracic Surgery Routine 04/16/19 10:12 Consult Palliative Care Routine Procedures Performed Operation Date: 04/10/19 09:00 Actual Procedures p Bronchoscopy Radiology(Bilateral) - Alexandru Bennett MD Operation Date: 04/12/19 09:35 Actual Procedures p Rightwedge biopsy x2 right upper lobe, biopsy diagphragmatic implants, drain right pleural effusion,(Right) - Wero Gomes MD, FACS s bronchoscopy(Right) - Wero Gomes MD, FACS Ordered Studies 03/27/19 17:23 CT angio chest PE protocol Stat CT head/brain wo con Stat 03/28/19 09:12 US venous doppler LE BI Routine 03/30/19 09:00 CT abd pelvis IV con only Routine 04/04/19 23:17 CT abd pelvis wo con Urgent 04/05/19 16:40 US venous doppler LE BI Routine 04/09/19 14:31 CT chest wo con Routine 04/15/19 08:11 CT angio chest PE protocol Stat 04/15/19 08:12 US venous doppler LE BI Urgent 04/19/19 07:32 CT abd pelvis wo con Urgent Hospital Course (1) Severe sepsis: (2) Pneumonia: (3) Acute respiratory failure with hypoxia: (4) COPD (chronic obstructive pulmonary disease): (5) Multifocal atrial tachycardia: (6) Hypertension: (7) Urinary tract infection: (8) Hematoma of left iliopsoas muscle: The patient presented on March 27, 2019 and acute respiratory failure and he was admitted to the ICU. He was found to have extensive pitting edema up to the thighs and was started on IV Lasix for fluid overload. Cardiology was consulted. He was empirically placed on IV ceftriaxone and IV doxycycline with SIRS criteria present and presumed sepsis secondary to pneumonia and/or UTI. Lactic acid was elevated and resuscitation was started with IV fluids. In the ER he was seen to be in atrial fibrillation with RVR and received 2 doses of IV adenosine. IV amiodarone and IV heparin was ordered by the ICU physician following this. He was also noted to have likely shock liver secondary to volume overload and possible sepsis in the setting of a history of heavy alcohol use. A transaminitis was present on lab work. Lab work also noted an elevated CK at 3600 and and CLINT was present. Troponin was mildly elevated thought secondary to demand ischemia in setting of sepsis and tachycardia. He had a history of COPD and nebulizers were continued. Cardiology was consulted and multifocal atrial tachycardia was diagnosed. He was continued on heparin for the pulmonary embolus but this was later held in the setting of a hematoma in the psoas muscle. Apixaban was the started. But stopped 2 days later after an increase of back pain prompted imaging revealing a progressive retroperitoneal bleed. Repeat Dopplers of the legs were negative for DVT, therefore, an IVC filter was not indicated after anticoagulation was held. Per cardiology, exam reflected significant right heart failure secondary to pulmonary issues and chronic alcohol use, and diuresis was continued. He continued to require high flow O2 for several days, including desaturation and oxygen during conversations. A bronchoscopy was performed on 04/10/2019 in the setting of right upper lobe cavitary pneumonia. There was no evidence of a purulent infection on bronchoscopy and no definitive infection was discerned from specimens were retrieved. Thoracic surgery was consulted for a VATS. Infectious disease was consulted for persistent fever despite many days of Zosyn. The VATS was performed on 04/12/2019. He remained intubated overnight in the ICU. Gram stain and bronchial washings revealed gram-positive cocci and Rocephin was started. On 04/13/2019 a fiberoptic bronchoscopy was performed at bedside in the ICU for concern of mucoid impaction of bronchi with significant secretion burden. Findings included tenacious secretions requiring Mucomyst instilled and the secretions were so tenacious they were not able to be fully evacuated through the working channel. They had to be removed and multiple attempts. Lung cultures grew Staphylococcus and vancomycin was added to Steve ephin. Caspofungin was added out of concern for fungal infection. Chest tube was removed on 04/15/2019. After approximately 3 weeks into the hospitalization palliative care was consulted, and he was a confirmed DO NOT RESUSCITATE CODE STATUS. Patient continued on Rocephin, vancomycin, caspofungin without much improvement still requiring high flow oxygen. Cryptogenic organizing pneumonia was considered in the differential with a negative infectious work-up to date. No malignancy was found in the lung biopsy. Pulmonology ramped up his steroids on 04/17, which he had been receiving throughout majority of his stay. Solu- Medrol 125 mg IV every 6 hours was started this day continued. However this was not enough and he subsequently during a difficult transition from the high flow O2 back to BiPAP, which he had been needing more of during the last 48 hours of his hospitalization. Main issues: Acute respiratory failure, with hypoxia, secondary to decompensated heart failure Atrial fibrillation, new onset with RVR. Congestive heart failure with exacerbation Urinary tract infection Rhabdomyolysis Cavitary lung infiltrates, concern for malignancy COPD, active smoker, exacerbated by multiple insults to the lung Small PE affecting the inferior branch of the right pulmonary artery Total Time Total Time Spent Total Time Spent (In Minutes): 60 Total Time Includes: Examination of the Patient, Discharge Planning, Medication Reconciliation, Communication With Other Providers and Other Discharge Plan Discharge Items Patient Disposition: Admission Data Admit Date/Time: 03/27/19 17:13 Service: Telemetry Other DC Date/Time DO NOT enter until pt leaves facility: 04/20/19 13:10
--- NOTE | 2019-04-20 22:20 | Communication Note ---
Date of Service: April 20, 2019 NOTE: Called by nursing that he . He had been working hard to breathe this morning, noted by Dr. Gomes on his exam earlier. He was on a h igher pressure BIPAP after failing transition back to hi-usha O2. He was given pain and anxiety medication that he requested and stopped breathing within one hour. Nursing attempted Narcan unsuccessfully. On arrival to bedside the patient is not moving, and there are no visible respirations. Pupils are fixed and dilated and heart and lung sounds are absent. He is not awakening to sternal rub or physical pressure on his fingernail bed. He was pronouced at 1:10pm. His was notified and myself and Leah from rehab nursing tech sat down with she and her friend when they arrived to the hospital. DO Jarrett
== END 2019-04-20 13:10 | disposition expired | DRG 853 ==
LOC: ED 16:20 → SUATTDRO 17:13 → 1E 17:13 → 2S 03-29 14:56 → 1E 04-12 13:54 → 2E 04-16 22:37
DX: Z99.81 Dependence on supplemental oxygen; I50.21 Acute systolic (congestive) heart failure; J81.1 Chronic pulmonary edema; E87.1 Hypo-osmolality and hyponatremia; I11.0 Hypertensive heart disease with heart failure; I50.811 Acute right heart failure; Z51.5 Encounter for palliative care; N39.0 Urinary tract infection, site not specified; E78.5 Hyperlipidemia, unspecified; I47.1 Supraventricular tachycardia; Z79.82 Long term (current) use of aspirin; J98.4 Other disorders of lung; R65.20 Severe sepsis without septic shock; I95.2 Hypotension due to drugs; I24.8 Other forms of acute ischemic heart disease; A41.9 Sepsis, unspecified organism; K72.00 Acute and subacute hepatic failure without coma; I26.99 Other pulmonary embolism without acute cor pulmonale; J44.9 Chronic obstructive pulmonary disease, unspecified; J96.01 Acute respiratory failure with hypoxia; T49.0X5A Adverse effect of local antifungal, anti-infective and anti-inflammatory drugs, initial encounter; Z79.899 Other long term (current) drug therapy; T50.2X5A Adverse effect of carbonic-anhydrase inhibitors, benzothiadiazides and other diuretics, initial encounter; K21.9 Gastro-esophageal reflux disease without esophagitis; D72.829 Elevated white blood cell count, unspecified; Z66 Do not resuscitate; F17.210 Nicotine dependence, cigarettes, uncomplicated; M79.81 Nontraumatic hematoma of soft tissue; N17.9 Acute kidney failure, unspecified; M62.82 Rhabdomyolysis; M79.89 Other specified soft tissue disorders; I48.91 Unspecified atrial fibrillation; E87.6 Hypokalemia; F10.10 Alcohol abuse, uncomplicated; J18.9 Pneumonia, unspecified organism; R19.7 Diarrhea, unspecified